=== PATIENT | female | born 1990 | race Caucasian/White ===

== ENCOUNTER 2018-03-09 18:45 | Emergency (ER) | payer MEDICARE ==
[~2018-03-09] VITALS: Ht 180.3 cm; Wt 125.6 kg
[2018-03-09] MEDS ORDERED: DEXTROSE 50% 25 GM / 50ML DISP.SYRIN. IV PRN (19:00)
[2018-03-09] MEDS ORDERED: IV NORMAL SALINE 1,000ML 1,000 ML IV ONE (19:30)
[2018-03-09] MEDS ORDERED: INSULIN REGULAR 100 UNIT/ML 3ML VIAL. IV ONE (19:30)
[2018-03-09 19:55] LABS: BASO % 1 % (0-3); EOS # 0.2 x10^3/uL (0.0-0.7); EOS % 3 % (0-3); HEMATOCRIT 42.4 % (36.0-47.0); HEMOGLOBIN 14.2 g/dL (12.0-15.5); LYMPH # 2.1 x10^3/uL (1.0-4.8); LYMPH % 40 % (24-48); MEAN CORPUSCULAR HEMOGLOBIN 26 pg (25-35); MEAN CORPUSCULAR HGB CONC 34 g/dL (31-37); MEAN CORPUSCULAR VOLUME 78 fL (79-100); MONO # 0.4 x10^3/uL (0.0-1.1); MONO % 8 % (0-9); NEUT # 2.6 x10^3uL (1.8-7.7); NEUT % 49 % (31-73); PLATELET COUNT 288 x10^3/uL (140-400); RED CELL DISTRIBUTION WIDTH 16.5 % (11.5-14.5); WHITE BLOOD COUNT 5.3 x10^3/uL (4.0-11.0)
[2018-03-09 20:02] LABS: ALBUMIN 3.6 g/dL (3.4-5.0); ALBUMIN/GLOBULIN RATIO 0.8 (1.0-1.7); CALCIUM 9.5 mg/dL (8.5-10.1); CREATININE 1.1 mg/dL (0.6-1.0); GFR 59.6; MAGNESIUM 2.1 mg/dL (1.8-2.4); POTASSIUM 4.1 mmol/L (3.5-5.1); TOTAL BILIRUBIN 0.4 mg/dL (0.2-1.0); TOTAL PROTEIN 7.9 g/dL (6.4-8.2)
[2018-03-09 20:10] LABS: BILIRUBIN,URINE NEG (NEG); CLARITY,URINE CLEAR; COLOR,URINE YELLOW; GLUCOSE,URINE 500 mg/dL (NEG); NITRITE,URINE NEG (NEG); UROBILINOGEN,URINE 0.2 mg/dL (0.2 mg/dL); WBC,URINE 0 /HPF (0-4)
[2018-03-09 20:11] LABS: BACTERIA,URINE 0 /HPF (0-FEW); SQUAMOUS EPITHELIAL CELL,UR FEW /LPF
--- NOTE | 2018-03-09 22:18 | PHYS DOC ---
Past History Past Medical History: Diabetes Past Surgical History: No Surgical History Smoking: Cigarettes Alcohol Use: Rarely Drug Use: None Adult General Chief Complaint Chief Complaint: BLOOD SUGAR PROBLEM HPI HPI 27-year-old female presents with report of elevated blood sugar this evening. Patient reports she has not been checking her blood sugars and adjusting her insulin injections due to not being able to afford her test strips. Denies fever or chills. Denies dysuria. Denies cough. Denies . Patient reports she doesn't follow a regimented diet plan. Review of Systems Review of Systems Constitutional: Denies fever or chills; reports generalized malaise Eyes: Denies change in visual acuity, redness, or eye pain [] HENT: Denies nasal congestion or sore throat [] Respiratory: Denies cough or shortness of breath [] Cardiovascular: Denies chest pain or syncope GI: Denies abdominal pain, nausea, vomiting, bloody stools or diarrhea [] : Denies dysuria or hematuria [] Musculoskeletal: Denies back pain or joint pain [] Integument: Denies rash or skin lesions [] Neurologic: Reports some weakness. Denies headache Complete systems were reviewed and found to be within normal limits, except as documented in this note. Current Medications Current Medications Current Medications Medications (Trade) Dose Ordered Sig/Tapan Start Time Stop Time Status Last Admin Dose Admin Dextrose 12.5 gm PRN Q15MIN PRN 03/09/18 19:00 Insulin Human Regular (HumuLIN R VIAL) 14 unit 1X ONCE 03/09/18 19:30 03/09/18 19:31 DC 03/09/18 19:42 14 UNIT Sodium Chloride 1,000 ml @ 1,000 mls/hr 1X ONCE 03/09/18 19:30 03/09/18 20:29 DC 03/09/18 19:42 1,000 MLS/HR Allergies Allergies Allergies Coded Allergies Type Severity Reaction Last Updated Verified No Known Drug Allergies 03/09/18 No Physical Exam Physical Exam Constitutional: Well developed, well nourished, no acute distress, non-toxic appearance. [] HENT: Normocephalic, atraumatic, bilateral external ears normal, oropharynx moist, no oral exudates, nose normal. [] Eyes: PERRL, EOMI, conjunctiva normal, no discharge. [] Neck: Normal range of motion, no tenderness, supple, no stridor. [] Cardiovascular:Heart rate regular rhythm, no murmur [] Lungs & Thorax: Bilateral breath sounds clear to auscultation [] Abdomen: Bowel sounds normal, soft, no tenderness, no masses, no pulsatile masses. [] Skin: Warm, dry, no erythema, no rash. [] Back: No tenderness, no CVA tenderness. [] Extremities: No tenderness, no cyanosis, no clubbing, ROM intact, no edema. [] Neurologic: Alert and oriented X 3, normal motor function, normal sensory function, no focal deficits noted. [] Psychologic: Affect normal, judgement normal, mood normal. [] Current Patient Data Lab Results Laboratory Tests Test 03/09/18 18:41 03/09/18 19:04 03/09/18 19:15 03/09/18 20:58 POC Urine HCG, Qualitative hcg negative (Negative) Glucose (Fingerstick) 506 mg/dL (70-99) *H 341 mg/dL (70-99) H White Blood Count 5.3 x10^3/uL (4.0-11.0) Red Blood Count 5.40 x10^6/uL (3.50-5.40) Hemoglobin 14.2 g/dL (12.0-15.5) Hematocrit 42.4 % (36.0-47.0) Mean Corpuscular Volume 78 fL (79-100) L Mean Corpuscular Hemoglobin 26 pg (25-35) Mean Corpuscular Hemoglobin Concent 34 g/dL (31-37) Red Cell Distribution Width 16.5 % (11.5-14.5) H Platelet Count 288 x10^3/uL (140-400) Neutrophils (%) (Auto) 49 % (31-73) Lymphocytes (%) (Auto) 40 % (24-48) Monocytes (%) (Auto) 8 % (0-9) Eosinophils (%) (Auto) 3 % (0-3) Basophils (%) (Auto) 1 % (0-3) Neutrophils # (Auto) 2.6 x10^3uL (1.8-7.7) Lymphocytes # (Auto) 2.1 x10^3/uL (1.0-4.8) Monocytes # (Auto) 0.4 x10^3/uL (0.0-1.1) Eosinophils # (Auto) 0.2 x10^3/uL (0.0-0.7) Basophils # (Auto) 0.0 x10^3/uL (0.0-0.2) Urine Collection Type Unknown Urine Color Yellow Urine Clarity Clear Urine pH 5.0 Urine Specific [place] 1.010 Urine Protein Neg (NEG-TRACE) Urine Glucose (UA) 500 mg/dL (NEG) Urine Ketones (Stick) Neg mg/dL (NEG) Urine Blood Mod (NEG) Urine Nitrite Neg (NEG) Urine Bilirubin Neg (NEG) Urine Urobilinogen Dipstick 0.2 mg/dL (0.2 mg/dL) Urine Leukocyte Esterase Neg (NEG) Urine RBC 6-10 /HPF (0-2) Urine WBC 0 /HPF (0-4) Urine Squamous Epithelial Cells Few /LPF Urine Bacteria 0 /HPF (0-FEW) Sodium Level 131 mmol/L (136-145) L Potassium Level 4.1 mmol/L (3.5-5.1) Chloride Level 95 mmol/L (98-107) L Carbon Dioxide Level 22 mmol/L (21-32) Anion Gap 14 (6-14) Blood Urea Nitrogen 13 mg/dL (7-20) Creatinine 1.1 mg/dL (0.6-1.0) H Estimated GFR (Cockcroft-Gault) 59.6 BUN/Creatinine Ratio 12 (6-20) Glucose Level 507 mg/dL (70-99) *H Calcium Level 9.5 mg/dL (8.5-10.1) Magnesium Level 2.1 mg/dL (1.8-2.4) Total Bilirubin 0.4 mg/dL (0.2-1.0) Aspartate Amino Transferase (AST) 14 U/L (15-37) L Alanine Aminotransferase (ALT) 29 U/L (14-59) Alkaline Phosphatase 149 U/L (46-116) H Total Protein 7.9 g/dL (6.4-8.2) Albumin 3.6 g/dL (3.4-5.0) Albumin/Globulin Ratio 0.8 (1.0-1.7) L Acetone Level Neg (NEG) Test 03/09/18 21:56 Glucose (Fingerstick) 325 mg/dL (70-99) H EKG EKG [] Radiology/Procedures Radiology/Procedures [] Course & Med Decision Making Course & Med Decision Making Pertinent Labs and Imaging studies reviewed. (See chart for details) Patient presents with report of hyperglycemia this evening. Patient has not been adjusting her insulin due to lack of testing strips. Labs obtained and posted to chart. Hyperglycemia addressed with subcutaneous insulin. IV fluid hydration also provided. Patient does not appear to be in DKA or HHS. Patient advised to obtain testing strips and to maintain a 1800 ADA diet. Patient stable for discharge with outpatient follow-up with PCP. Discussed findings and plan with patient, who acknowledges understanding and agreement. Dragon Disclaimer Dragon Disclaimer This electronic medical record was generated, in whole or in part, using a voice recognition dictation system. Departure Departure: Impression: Primary Impression: Hyperglycemia Disposition: 01 HOME, SELF-CARE Condition: STABLE Referrals: PCPMIGUE (PCP) Patient Instructions: 1800 Calorie Diet for Diabetes Meal Planning, Hyperglycemia, [id number] JIMY DAVISON DO Mar 09, 2018 22:18
[2018-03-09 22:20] VITALS: BP 148/63
== END 2018-03-09 22:25 | disposition home or self-care (01) ==
LOC: ER 18:45
DX: E11.65 Type 2 diabetes mellitus with hyperglycemia (principal); F17.210 Nicotine dependence, cigarettes, uncomplicated
CPT/HCPCS: 36415; 80053; 81001; 81025; 82010; 82947; 83735; 83930; 85025; 96361; 96374; 99284; J1815; J7030

== ENCOUNTER 2018-06-05 19:10 | Emergency (ER) | payer MEDICARE ==
[~2018-06-05] VITALS: Ht 180.3 cm; Wt 125.6 kg
--- NOTE | 2018-06-05 19:31 | PHYS DOC ---
Past History Past Medical History: Diabetes Past Surgical History: No Surgical History Smoking: Cigarettes Alcohol Use: Rarely Drug Use: None Adult General Chief Complaint Chief Complaint: HYPERGLYCEMIA HPI HPI Patient is a 27 yo f reporting hyperglycemia. type one glucose unreadable. lantus 80 units bid last took it at noon. sob green mucus cough, blurry vision lightheaded. body aches just not feeling well today. left headache behind eye noted as well, dull pressure a/w sinus drainage and congestion. pmh htn factor v leiden, scect x two. bipolar. ptsd. Review of Systems Review of Systems Constitutional: Denies fever or chills [] Eyes: Denies change in visual acuity, redness, or eye pain [] HENT: Denies nasal congestion or sore throat [] Respiratory: Denies cough or shortness of breath [] Cardiovascular: No additional information not addressed in HPI [] GI: Denies abdominal pain, nausea, vomiting, bloody stools or diarrhea [] : Denies dysuria or hematuria [] Musculoskeletal: Denies back pain or joint pain [] All other systems were reviewed and found to be within normal limits, except as documented in this note. Allergies Allergies Allergies Coded Allergies Type Severity Reaction Last Updated Verified No Known Drug Allergies 03/09/18 No Physical Exam Physical Exam Constitutional: Well developed, well nourished, no acute distress, non-toxic appearance. [] HENT: Normocephalic, atraumatic, bilateral external ears normal, oropharynx dry , no oral exudates, nose normal. [] there is sinus ttp noted left frontal sinus area. Eyes: PERRLA, EOMI, conjunctiva normal, no discharge. [] Neck: Normal range of motion, no tenderness, supple, no stridor. [] Pulmonary: Normal respiratory effort no increased work of breathing no obvious chest wall trauma. lungs clear to ausculation Abdomen: Bowel sounds normal, soft, no tenderness, no masses, no pulsatile masses. [] Skin: Warm, dry, no erythema, no rash. [] Extremities: No tenderness, no cyanosis, no clubbing, ROM intact, no edema. [] Neurologic: Alert and oriented X 3, normal motor function, normal sensory function, no focal deficits noted. [] Psychologic: Affect normal, judgement normal, mood normal. [] EKG EKG [] Radiology/Procedures Radiology/Procedures [] Course & Med Decision Making Course & Med Decision Making Pertinent Labs and Imaging studies reviewed. (See chart for details) []bg 192. iv fluids cxr no pna u/a clear labs done hydration completed pt well appearing suspect sinusitis probably viral but given hx of diabetes and the underlying tachycardia of 128. bp 133/95. will give abx for possible bacterial sinusitis.cn's intact, neuro intact. reeval 1020 pm, pt resting hr down to 105 after fluids. labs look good. pt will be treated for sinusitis with abx given underlying diabetes. no dka. Dragon Disclaimer Dragon Disclaimer This electronic medical record was generated, in whole or in part, using a voice recognition dictation system. Departure Departure: Impression: Primary Impression: Sinusitis Disposition: HOME, SELF-CARE Condition: STABLE Referrals: PCP,NO (PCP) Scripts Doxycycline Hyclate (DOXYCYCLINE HYCLATE) 100 Mg Capsule 1 CAP PO BID, #20 CAP Prov: CHASITY GUZMAN MD 06/05/18 CHASITY GUZMAN MD Jun 05, 2018 19:31
[2018-06-05] MEDS ORDERED: IV NORMAL SALINE 1,000ML 1,000 ML IV ONE (20:00)
[2018-06-05] MEDS ORDERED: IBUPROFEN 600 MG TABLET. PO ONE (20:00)
[2018-06-05] MEDS ORDERED: DOXY100C2 PO (20:12)
--- NOTE | 2018-06-05 20:27 | RAD ---
AP chest 06/05/2018. Reason for exam: Fever and shortness of breath. History of open heart surgery. No infiltrate or effusion is seen. Heart size and pulmonary vascularity appear normal. There are changes of median sternotomy. IMPRESSION: No apparent acute abnormality. Electronically signed by: Yannick Teixeira Jr., MD (06/05/2018 8:23 PM) [facility]
[2018-06-05 20:30] LABS: BASO # 0.1 x10^3/uL (0.0-0.2); BASO % 1 % (0-3); EOS # 0.1 x10^3/uL (0.0-0.7); EOS % 2 % (0-3); HEMATOCRIT 44.8 % (36.0-47.0); HEMOGLOBIN 14.9 g/dL (12.0-15.5); LYMPH # 2.2 x10^3/uL (1.0-4.8); LYMPH % 28 % (24-48); MEAN CORPUSCULAR HEMOGLOBIN 28 pg (25-35); MEAN CORPUSCULAR HGB CONC 33 g/dL (31-37); MEAN CORPUSCULAR VOLUME 84 fL (79-100); MONO # 0.6 x10^3/uL (0.0-1.1); MONO % 8 % (0-9); NEUT # 4.8 x10^3uL (1.8-7.7); NEUT % 61 % (31-73); PLATELET COUNT 347 x10^3/uL (140-400); RED BLOOD COUNT 5.33 x10^6/uL (3.50-5.40); RED CELL DISTRIBUTION WIDTH 15.2 % (11.5-14.5); WHITE BLOOD COUNT 7.9 x10^3/uL (4.0-11.0)
[2018-06-05 20:44] LABS: ALBUMIN 3.8 g/dL (3.4-5.0); ALBUMIN/GLOBULIN RATIO 0.9 (1.0-1.7); CALCIUM 9.4 mg/dL (8.5-10.1); CREATININE 0.8 mg/dL (0.6-1.0); TOTAL BILIRUBIN 0.3 mg/dL (0.2-1.0)
[2018-06-05 20:50] LABS: INFLUENZA A PATIENT NEGATIVE (NEGATIVE); INFLUENZA B PATIENT NEGATIVE (NEGATIVE)
[2018-06-05 21:16] LABS: BILIRUBIN,URINE NEG (NEG); CLARITY,URINE CLOUDY; COLOR,URINE YELLOW; GLUCOSE,URINE 100 mg/dL (NEG)
[2018-06-05 21:18] LABS: BACTERIA,URINE FEW /HPF (0-FEW); NITRITE,URINE NEG (NEG); RBC,URINE >40 /HPF (0-2); SQUAMOUS EPITHELIAL CELL,UR FEW /LPF; UROBILINOGEN,URINE 1 mg/dL (0.2 mg/dL)
[2018-06-05 22:29] VITALS: BP 123/63
== END 2018-06-05 22:30 | disposition home or self-care (01) ==
LOC: ER 19:10
DX: J32.8 Other chronic sinusitis (principal); B96.89 Other specified bacterial agents as the cause of diseases classified elsewhere; E11.65 Type 2 diabetes mellitus with hyperglycemia; F17.210 Nicotine dependence, cigarettes, uncomplicated
CPT/HCPCS: 36415; 71045; 80053; 81001; 82947; 84702; 85025; 87086; 87804; 96360; 99285-25; J7030

== ENCOUNTER 2018-06-23 03:11 | Emergency (ER) | payer MEDICARE ==
[~2018-06-23] VITALS: Ht 180.3 cm; Wt 113.4 kg
[~2018-06-23 03:11] MED LIST: DOXY100C2 PO
[2018-06-23 04:07] LABS: BASO % 1 % (0-3); EOS % 1 % (0-3); HEMATOCRIT 42.6 % (36.0-47.0); HEMOGLOBIN 14.2 g/dL (12.0-15.5); LYMPH # 1.7 x10^3/uL (1.0-4.8); LYMPH % 28 % (24-48); MEAN CORPUSCULAR HEMOGLOBIN 28 pg (25-35); MEAN CORPUSCULAR HGB CONC 33 g/dL (31-37); MEAN CORPUSCULAR VOLUME 84 fL (79-100); MONO # 0.4 x10^3/uL (0.0-1.1); MONO % 7 % (0-9); NEUT % 64 % (31-73); PLATELET COUNT 247 x10^3/uL (140-400); RED BLOOD COUNT 5.07 x10^6/uL (3.50-5.40); RED CELL DISTRIBUTION WIDTH 15.1 % (11.5-14.5); WHITE BLOOD COUNT 6.2 x10^3/uL (4.0-11.0)
[2018-06-23 04:12] LABS: BACTERIA,URINE 0 /HPF (0-FEW); BILIRUBIN,URINE NEG (NEG); CLARITY,URINE CLEAR; COLOR,URINE YELLOW; GLUCOSE,URINE 500 mg/dL (NEG); NITRITE,URINE NEG (NEG); SQUAMOUS EPITHELIAL CELL,UR OCC /LPF; UROBILINOGEN,URINE 0.2 mg/dL (0.2 mg/dL); WBC,URINE 0 /HPF (0-4)
--- NOTE | 2018-06-23 04:12 | PHYS DOC ---
LAMONT BLANTON MD 06/23/18 0412: Adult General Chief Complaint Chief Complaint suicide HPI HPI 27 female stated she wants to kill herself infront of her boyfriend multiple times , denies any medical symptoms no chest pain no abdominal pain no diarrhea and urgency frequency no hematuria Review of Systems Review of Systems Constitutional: Denies fever or chills [] Eyes: Denies change in visual acuity, redness, or eye pain [] HENT: Denies nasal congestion or sore throat [] Respiratory: Denies cough or shortness of breath [] Cardiovascular: No additional information not addressed in HPI [] GI: Denies abdominal pain, nausea, vomiting, bloody stools or diarrhea [] : Denies dysuria or hematuria [] Musculoskeletal: Denies back pain or joint pain [] Integument: Denies rash or skin lesions [] Neurologic: Denies headache, focal weakness or sensory changes [] Endocrine: Denies polyuria or polydipsia [] All other systems were reviewed and found to be within normal limits, except as documented in this note. Current Medications Current Medications Current Medications Medications (Trade) Dose Ordered Sig/Tapan Start Time Stop Time Status Last Admin Dose Admin Insulin Glargine (Lantus) 20 units QHS 06/23/18 04:30 Insulin Human Regular (HumuLIN R VIAL) 5 unit 1X ONCE 06/23/18 04:30 06/23/18 04:31 Sodium Chloride 1,000 ml @ 150 mls/hr 1X ONCE 06/23/18 04:30 06/23/18 11:09 Allergies Allergies Allergies Coded Allergies Type Severity Reaction Last Updated Verified No Known Drug Allergies 03/09/18 No Physical Exam Physical Exam Constitutional: Well developed, well nourished, no acute distress, non-toxic appearance. [] HENT: Normocephalic, atraumatic, bilateral external ears normal, oropharynx moist, no oral exudates, nose normal. [] Eyes: PERRLA, EOMI, conjunctiva normal, no discharge. [] Neck: Normal range of motion, no tenderness, supple, no stridor. [] Cardiovascular:Heart rate regular rhythm, no murmur [] Lungs & Thorax: Bilateral breath sounds clear to auscultation [] Abdomen: Bowel sounds normal, soft, no tenderness, no masses, no pulsatile masses. [] Skin: Warm, dry, no erythema, no rash. [] Back: No tenderness, no CVA tenderness. [] Extremities: No tenderness, no cyanosis, no clubbing, ROM intact, no edema. [] Neurologic: Alert and oriented X 3, normal motor function, normal sensory function, no focal deficits noted. [] Current Patient Data Vital Signs Vital Signs Date Time Temp Pulse Resp B/P (MAP) Pulse Ox O2 Delivery O2 Flow Rate FiO2 06/23/18 03:12 98.5 117 20 96 Room Air Lab Results Laboratory Tests Test 06/23/18 03:47 06/23/18 03:53 White Blood Count 6.2 x10^3/uL (4.0-11.0) Red Blood Count 5.07 x10^6/uL (3.50-5.40) Hemoglobin 14.2 g/dL (12.0-15.5) Hematocrit 42.6 % (36.0-47.0) Mean Corpuscular Volume 84 fL (79-100) Mean Corpuscular Hemoglobin 28 pg (25-35) Mean Corpuscular Hemoglobin Concent 33 g/dL (31-37) Red Cell Distribution Width 15.1 % (11.5-14.5) H Platelet Count 247 x10^3/uL (140-400) Neutrophils (%) (Auto) 64 % (31-73) Lymphocytes (%) (Auto) 28 % (24-48) Monocytes (%) (Auto) 7 % (0-9) Eosinophils (%) (Auto) 1 % (0-3) Basophils (%) (Auto) 1 % (0-3) Neutrophils # (Auto) 4.0 x10^3uL (1.8-7.7) Lymphocytes # (Auto) 1.7 x10^3/uL (1.0-4.8) Monocytes # (Auto) 0.4 x10^3/uL (0.0-1.1) Eosinophils # (Auto) 0.0 x10^3/uL (0.0-0.7) Basophils # (Auto) 0.0 x10^3/uL (0.0-0.2) Glucose (Fingerstick) 376 mg/dL (70-99) H EKG EKG [] Radiology/Procedures Radiology/Procedures [] Course & Med Decision Making Course & Med Decision Making Pertinent Labs and Imaging studies reviewed. (See chart for details) [] Final Impression Final Impression [] Problems: (1) Suicide ideation Dragon Disclaimer Dragon Disclaimer This electronic medical record was generated, in whole or in part, using a voice recognition dictation system. LV SLOAN DO 06/23/18 1237: Adult General Course & Med Decision Making Course & Med Decision Making The patient had a psych consult with the [facility]. It was their opinion that the patient could be safely discharged with close follow-up later this AM. Patient did sign a safety plan. She was in agreement with discharge. LAMONT BLANTON MD Jun 23, 2018 04:12 LV SLOAN DO Jun 23, 2018 12:37
[2018-06-23 04:13] LABS: U PREG PATIENT NEGATIVE (NEG)
[2018-06-23 04:18] LABS: ALBUMIN 3.7 g/dL (3.4-5.0); ALBUMIN/GLOBULIN RATIO 0.8 (1.0-1.7); CALCIUM 9.4 mg/dL (8.5-10.1); CREATININE 0.7 mg/dL (0.6-1.0); GFR 100.4; POTASSIUM 3.8 mmol/L (3.5-5.1); TOTAL BILIRUBIN 0.4 mg/dL (0.2-1.0); TOTAL PROTEIN 8.1 g/dL (6.4-8.2)
[2018-06-23] MEDS ORDERED: INSULIN REGULAR 100 UNIT/ML 3ML VIAL. IV ONE (04:30)
[2018-06-23] MEDS ORDERED: INSULIN GLARGINE 300 UNITS/3 ML INSULN.PEN. SQ SCH (04:30)
[2018-06-23] MEDS ORDERED: IV NORMAL SALINE 1,000ML 1,000 ML IV ONE ×2 (04:30)
[2018-06-23] MEDS ORDERED: diphenhydrAMINE 50 MG/ML VIAL ONE (04:41)
[2018-06-23] MEDS ORDERED: PROCHLORPERAZINE 10 MG/2 ML VIAL. ONE (04:41)
[2018-06-23] MEDS ORDERED: diphenhydrAMINE 50 MG/ML VIAL IVP ONE (05:00)
[2018-06-23] MEDS ORDERED: PROCHLORPERAZINE 10 MG/2 ML VIAL. IV ONE (05:00)
[2018-06-23] MEDS ORDERED: KETOROLAC 15 MG/ML VIAL. IM ONE (05:00)
[2018-06-23 05:05] LABS: BARBITURATES NEG (NEG); BENZODIAZEPINES NEG (NEG); CANNABINOIDS NEG (NEG); COCAINE NEG (NEG); METHADONE NEG (NEG); OPIATES NEG (NEG); PHENCYCLIDINE NEG (NEG)
[2018-06-23 05:08] LABS: AMPHETAMINE/METHAMPHETAMINE NEG (NEG)
[2018-06-23 08:24] VITALS: BP 140/93
== END 2018-06-23 08:05 | disposition home or self-care (01) ==
LOC: ER 03:11
DX: R45.851 Suicidal ideations (principal)
CPT/HCPCS: 36415; 80053; 80307; 81001; 81025; 82947; 83690; 85025; 96372; 96374; 96375; 99284; J0780; J1200; J1815; J1885; J7030

== ENCOUNTER 2018-11-01 20:52 | Emergency (ER) | payer MEDICARE, OTHER ==
[~2018-11-01] VITALS: Ht 180.3 cm; Wt 108.4 kg
[2018-11-01] MEDS ORDERED: IV NORMAL SALINE 1,000ML 1,000 ML IV ONE ×2 (21:30→23:00)
[2018-11-01 21:51] LABS: BASO % 0 % (0-3); EOS # 0.1 x10^3/uL (0.0-0.7); EOS % 3 % (0-3); HEMATOCRIT 41.3 % (36.0-47.0); LYMPH % 41 % (24-48); MEAN CORPUSCULAR HEMOGLOBIN 30 pg (25-35); MEAN CORPUSCULAR HGB CONC 34 g/dL (31-37); MEAN CORPUSCULAR VOLUME 89 fL (79-100); MONO # 0.4 x10^3/uL (0.0-1.1); MONO % 8 % (0-9); NEUT # 2.4 x10^3uL (1.8-7.7); NEUT % 48 % (31-73); PLATELET COUNT 209 x10^3/uL (140-400); RED BLOOD COUNT 4.65 x10^6/uL (3.50-5.40); RED CELL DISTRIBUTION WIDTH 13.5 % (11.5-14.5); WHITE BLOOD COUNT 4.9 x10^3/uL (4.0-11.0)
[2018-11-01 21:57] LABS: ALBUMIN 3.5 g/dL (3.4-5.0); CALCIUM 9.1 mg/dL (8.5-10.1); CREATININE 0.6 mg/dL (0.6-1.0); GFR 119.9; POTASSIUM 3.7 mmol/L (3.5-5.1); TOTAL BILIRUBIN 0.3 mg/dL (0.2-1.0)
[2018-11-01 21:58] LABS: BACTERIA,URINE 0 /HPF (0-FEW); BILIRUBIN,URINE NEG (NEG); CLARITY,URINE HAZY; COLOR,URINE YELLOW; GLUCOSE,URINE >=1000 mg/dL (NEG); NITRITE,URINE NEG (NEG); RBC,URINE 0 /HPF (0-2); SQUAMOUS EPITHELIAL CELL,UR OCC /LPF; UROBILINOGEN,URINE 0.2 mg/dL (0.2 mg/dL)
[2018-11-01] MEDS ORDERED: INSULIN REGULAR 100 UNIT/ML 3ML VIAL. IV ONE (22:00)
--- NOTE | 2018-11-02 01:13 | PHYS DOC ---
Past History Past Medical History: Anxiety, Bipolar, Diabetes Past Surgical History: , Other Smoking: Cigarettes Additional Smoking Information: quit 2 months ago Alcohol Use: Occasionally Drug Use: None Adult General Chief Complaint Chief Complaint: HYPERGLYCEMIA HPI HPI Patient is a 27-year-old female who presents with report of elevated blood glucose levels at home for the last month or so. She states that she has just not been feeling well for the last few days, attributing it to be elevated blood sugar. She does admit to some intermittent nausea but is had no vomiting. She denies any abdominal pain. Patient states that she just gets to feeling a little bit lightheaded and feeling a little bit off when her blood sugars are high. She states that tonight she took her blood sugar at home and it read high. Review of Systems Review of Systems Constitutional: Denies fever or chills [] Respiratory: Denies cough or shortness of breath [] Cardiovascular: No additional information not addressed in HPI [] GI: Denies abdominal pain. Admits to nausea without vomiting. [] Integument: Denies rash or skin lesions [] All other systems were reviewed and found to be within normal limits, except as documented in this note. Current Medications Current Medications Current Medications Medications (Trade) Dose Ordered Sig/Tapan Start Time Stop Time Status Last Admin Dose Admin Insulin Human Regular (HumuLIN R VIAL) 8 unit 1X ONCE 11/01/18 22:00 11/01/18 22:01 DC 11/01/18 22:48 8 UNIT Sodium Chloride 1,000 ml @ 1,000 mls/hr 1X ONCE 11/01/18 23:00 11/01/18 23:59 DC 11/01/18 22:57 1,000 MLS/HR Allergies Allergies Allergies Coded Allergies Type Severity Reaction Last Updated Verified No Known Drug Allergies 03/09/18 No Physical Exam Physical Exam Constitutional: Well developed, well nourished, no acute distress, non-toxic appearance. [] HENT: Normocephalic, atraumatic, bilateral external ears normal, oropharynx moist, no oral exudates, nose normal. [] Eyes: PERRLA, EOMI, conjunctiva normal, no discharge. [] Neck: Normal range of motion, no tenderness, supple, no stridor. [] Cardiovascular: Regular rate and rhythm[] Lungs & Thorax: Bilateral breath sounds clear to auscultation [] Abdomen: Bowel sounds normal, soft, no tenderness. [] Skin: Warm, dry, no erythema, no rash. [] Extremities: No tenderness, no cyanosis, no clubbing, ROM intact, no edema. [] Neurologic: Alert and oriented X 3, no focal deficits noted. [] Current Patient Data Vital Signs Vital Signs Date Time Temp Pulse Resp B/P (MAP) Pulse Ox O2 Delivery O2 Flow Rate FiO2 11/01/18 20:52 98.4 106 18 99 Room Air Lab Results Laboratory Tests Test 11/01/18 21:01 11/01/18 21:33 11/01/18 21:35 11/01/18 22:27 Glucose (Fingerstick) 375 mg/dL (70-99) H 281 mg/dL (70-99) H POC Urine HCG, Qualitative hcg negative (Negative) White Blood Count 4.9 x10^3/uL (4.0-11.0) Red Blood Count 4.65 x10^6/uL (3.50-5.40) Hemoglobin 14.0 g/dL (12.0-15.5) Hematocrit 41.3 % (36.0-47.0) Mean Corpuscular Volume 89 fL (79-100) Mean Corpuscular Hemoglobin 30 pg (25-35) Mean Corpuscular Hemoglobin Concent 34 g/dL (31-37) Red Cell Distribution Width 13.5 % (11.5-14.5) Platelet Count 209 x10^3/uL (140-400) Neutrophils (%) (Auto) 48 % (31-73) Lymphocytes (%) (Auto) 41 % (24-48) Monocytes (%) (Auto) 8 % (0-9) Eosinophils (%) (Auto) 3 % (0-3) Basophils (%) (Auto) 0 % (0-3) Neutrophils # (Auto) 2.4 x10^3uL (1.8-7.7) Lymphocytes # (Auto) 2.0 x10^3/uL (1.0-4.8) Monocytes # (Auto) 0.4 x10^3/uL (0.0-1.1) Eosinophils # (Auto) 0.1 x10^3/uL (0.0-0.7) Basophils # (Auto) 0.0 x10^3/uL (0.0-0.2) Urine Collection Type Unknown Urine Color Yellow Urine Clarity Hazy Urine pH 5.0 Urine Specific [place] 1.010 Urine Protein Neg (NEG-TRACE) Urine Glucose (UA) >=1000 mg/dL (NEG) Urine Ketones (Stick) 15 mg/dL (NEG) Urine Blood Neg (NEG) Urine Nitrite Neg (NEG) Urine Bilirubin Neg (NEG) Urine Urobilinogen Dipstick 0.2 mg/dL (0.2 mg/dL) Urine Leukocyte Esterase Neg (NEG) Urine RBC 0 /HPF (0-2) Urine WBC 1-4 /HPF (0-4) Urine Squamous Epithelial Cells Occ /LPF Urine Bacteria 0 /HPF (0-FEW) Sodium Level 135 mmol/L (136-145) L Potassium Level 3.7 mmol/L (3.5-5.1) Chloride Level 100 mmol/L (98-107) Carbon Dioxide Level 24 mmol/L (21-32) Anion Gap 11 (6-14) Blood Urea Nitrogen 13 mg/dL (7-20) Creatinine 0.6 mg/dL (0.6-1.0) Estimated GFR (Cockcroft-Gault) 119.9 BUN/Creatinine Ratio 22 (6-20) H Glucose Level 375 mg/dL (70-99) H Calcium Level 9.1 mg/dL (8.5-10.1) Magnesium Level 2.0 mg/dL (1.8-2.4) Total Bilirubin 0.3 mg/dL (0.2-1.0) Aspartate Amino Transferase (AST) 14 U/L (15-37) L Alanine Aminotransferase (ALT) 17 U/L (14-59) Alkaline Phosphatase 121 U/L (46-116) H Total Protein 7.0 g/dL (6.4-8.2) Albumin 3.5 g/dL (3.4-5.0) Albumin/Globulin Ratio 1.0 (1.0-1.7) Acetone Level Neg (NEG) Test 11/02/18 00:55 Glucose (Fingerstick) 124 mg/dL (70-99) H EKG EKG [] Radiology/Procedures Radiology/Procedures [] Course & Med Decision Making Course & Med Decision Making Pertinent Labs and Imaging studies reviewed. (See chart for details) [] Dragon Disclaimer Dragon Disclaimer This electronic medical record was generated, in whole or in part, using a voice recognition dictation system. Departure Departure: Impression: Primary Impression: Type 1 diabetes mellitus with hyperglycemia Disposition: HOME, SELF-CARE Condition: STABLE Referrals: PCPMIGUE (PCP) Patient Instructions: Type 1 Diabetes Mellitus, Adult JOHN FISCHER Jr. DO Nov 02, 2018 01:13
[2018-11-02 01:28] VITALS: BP 137/81
--- NOTE | 2018-11-02 12:09 | EKG ---
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
== END 2018-11-02 01:28 | disposition home or self-care (01) ==
LOC: ER 20:52
DX: E10.65 Type 1 diabetes mellitus with hyperglycemia (principal); R42 Dizziness and giddiness; F41.9 Anxiety disorder, unspecified; F31.9 Bipolar disorder, unspecified; Z87.891 Personal history of nicotine dependence
CPT/HCPCS: 36415; 80053; 81001; 81025; 82010; 82947; 83735; 85025; 93005; 96361; 96374; 99284; J1815; J7030

== ENCOUNTER 2018-12-11 18:31 | Emergency (ER) | payer OTHER ==
[~2018-12-11] VITALS: Ht 180.3 cm; Wt 111.3 kg
[2018-12-11] MEDS ORDERED: ONDANSETRON PF 4 MG/2 ML VIAL. IV ONE (19:00)
[2018-12-11] MEDS ORDERED: INSULIN REGULAR 100 UNIT/ML 3ML VIAL. IV ONE (19:00)
[2018-12-11] MEDS ORDERED: IV NORMAL SALINE 1,000ML 1,000 ML IV SCH (19:00)
[2018-12-11 19:06] LABS: BASO # 0.1 x10^3/uL (0.0-0.2); BASO % 2 % (0-3); EOS # 0.1 x10^3/uL (0.0-0.7); EOS % 3 % (0-3); HEMATOCRIT 41.1 % (36.0-47.0); HEMOGLOBIN 14.6 g/dL (12.0-15.5); LYMPH # 1.4 x10^3/uL (1.0-4.8); LYMPH % 32 % (24-48); MEAN CORPUSCULAR HEMOGLOBIN 32 pg (25-35); MEAN CORPUSCULAR HGB CONC 35 g/dL (31-37); MEAN CORPUSCULAR VOLUME 90 fL (79-100); MONO # 0.3 x10^3/uL (0.0-1.1); MONO % 6 % (0-9); NEUT # 2.6 x10^3uL (1.8-7.7); NEUT % 58 % (31-73); PLATELET COUNT 233 x10^3/uL (140-400); RED BLOOD COUNT 4.58 x10^6/uL (3.50-5.40); RED CELL DISTRIBUTION WIDTH 13.5 % (11.5-14.5); WHITE BLOOD COUNT 4.4 x10^3/uL (4.0-11.0)
[2018-12-11 19:17] LABS: GFR 119.9
[2018-12-11 19:30] LABS: POTASSIUM 3.9 mmol/L (3.5-5.1)
[2018-12-11 19:41] LABS: CALCIUM 8.9 mg/dL (8.5-10.1)
[2018-12-11 19:42] LABS: CREATININE 0.6 mg/dL (0.6-1.0)
[2018-12-11] MEDS ORDERED: IV NORMAL SALINE 1,000ML 1,000 ML IV ONE (20:30)
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
[2018-12-11] MEDS ORDERED: CYCL-331 PO (20:58)
[2018-12-11 21:10] VITALS: BP 169/93
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
--- NOTE | 2018-12-12 06:37 | EKG ---
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
== END 2018-12-11 21:10 | disposition home or self-care (01) ==
LOC: ER 18:31
DX: S16.1XXA Strain of muscle, fascia and tendon at neck level, initial encounter (principal); R07.89 Other chest pain; R51 Headache; E11.65 Type 2 diabetes mellitus with hyperglycemia; F41.9 Anxiety disorder, unspecified; F31.9 Bipolar disorder, unspecified; Z88.8 Allergy status to other drugs, medicaments and biological substances; V43.52XA Car driver injured in collision with other type car in traffic accident, initial encounter; Y93.I9 Activity, other involving external motion; Y92.488 Other paved roadways as the place of occurrence of the external cause; Y99.8 Other external cause status
CPT/HCPCS: 36415; 70450; 71045; 72125; 80048; 81025; 82947; 85025; 93005; 96361; 96374; 96375; 96376; 99285; J1815; J2405; J3010; J7030

== ENCOUNTER 2019-03-05 00:12 | Emergency (ER) | payer MEDICARE, OTHER ==
[~2019-03-05] VITALS: Ht 180.3 cm; Wt 101.7 kg
[~2019-03-05 00:12] MED LIST changes: +CYCL-331 PO
--- NOTE | 2019-03-05 00:18 | ED.ADGEN ---
Past History Past Medical History: Anxiety, Bipolar, Depression, Diabetes, DVT, Fibromyalgia, Hypertension, Migraines, Other Past Medical History Factor V- coagulopathy, ASD repair Past Surgical History: , Other Smoking: Cigarettes Alcohol Use: Occasionally Drug Use: None Adult General Chief Complaint Chief Complaint ".. I ve had a headache since about 5.... it is migraine like.. but the pain comes up neck area over the top my head.. my scalp even hurts... I did not come in earlier because I have a 1 and 5 yr old and had to wait till my got off work...." HPI HPI Patient is a 28 year old female who presents with above hx and complaints of migraine headache. Pt. denies any changes in her meds. Patient states her glucose checked earlier today was 180. Patient does have a history of hypertension and coagulopathy due to factor V Leiden. Patient denies any trauma. Patient denies any travel or specific ill contacts other than 1 child has pinkeye. Patient denies any drug use. Patient quit smoking 8 months ago. Patient states home meds and over the counter meds have not helped. Review of Systems Review of Systems Constitutional: Denies fever or chills [] Eyes: Denies change in visual acuity, redness, or eye pain []Complaints of photophobia. HENT: Denies nasal congestion or sore throat [] Respiratory: Denies cough or shortness of breath [] Cardiovascular: No additional information not addressed in HPI [] GI: Denies abdominal pain, , vomiting, bloody stools or diarrhea [] Complaints of nausea. : Denies dysuria or hematuria [] Musculoskeletal: Denies back pain or joint pain [] Integument: Denies rash or skin lesions [] Neurologic: Complaints of headache,. Denies focal weakness or sensory changes [] Endocrine: Denies polyuria or polydipsia [] All other systems were reviewed and found to be within normal limits, except as documented in this note. Family History Family History DM, HTN Current Medications Current Medications Current Medications Medications (Trade) Dose Ordered Sig/[place] Start Time Stop Time Status Last Admin Dose Admin Diphenhydramine HCl (Benadryl) 50 mg 1X ONCE 03/05/19 01:00 03/05/19 01:01 DC 03/05/19 00:52 50 MG Ketorolac Tromethamine (Toradol 30mg Vial) 30 mg 1X ONCE 03/05/19 02:00 03/05/19 02:01 DC 03/05/19 02:07 30 MG Lactated Ringer's 1,000 ml @ 1,000 mls/hr Q1H 03/05/19 00:30 03/05/19 01:29 DC 03/05/19 00:29 1,000 MLS/HR Oxycodone/ Acetaminophen (Percocet 5/325) 2 tab 1X ONCE 03/05/19 03:30 03/05/19 03:31 DC Prochlorperazine Edisylate (Compazine) 10 mg 1X ONCE 03/05/19 01:00 03/05/19 01:01 DC 03/05/19 00:52 10 MG Sumatriptan Succinate (Imitrex) 6 mg 1X ONCE 03/05/19 02:00 03/05/19 02:01 DC 03/05/19 02:06 6 MG Allergies Allergies Allergies Coded Allergies Type Severity Reaction Last Updated Verified latex Allergy Intermediate 03/05/19 Yes lisinopril Allergy Intermediate 03/05/19 Yes quetiapine Allergy Intermediate 03/05/19 Yes warfarin Allergy Intermediate 03/05/19 Yes Physical Exam Physical Exam Constitutional: moderate acute distress, non-toxic appearance. [] HENT: Normocephalic, atraumatic, bilateral external ears normal, oropharynx moist, no oral exudates, nose normal. [] Eyes: PERRLA, EOMI, conjunctiva normal, no discharge. [] Neck: Normal range of motion, no tenderness, supple, no stridor. [] Cardiovascular: Tachycardia Heart rate regular rhythm, no murmur [] Lungs & Thorax: Bilateral breath sounds equal at apex with scattered wheezes auscultation [] Surgical scar. Abdomen: Bowel sounds normal, soft, no tenderness, no masses, no pulsatile masses. [] Obese. Old surgery scar. Skin: Warm, dry, no erythema, no rash. [] Back: No tenderness, no CVA tenderness. [] Extremities: No tenderness, no cyanosis, no clubbing, ROM intact, no edema. [] Neurologic: Alert and oriented X 3, normal motor function, normal sensory function, no focal deficits noted. []DTR + 2 patella and brachial. Lips equal. No drift. Right-hand dominant. Distal vibratory intact. Pt. ambulatory without problems. Psychologic: Affect anxious. judgement normal, mood normal. [] Current Patient Data Vital Signs Vital Signs Date Time Temp Pulse Resp B/P (MAP) Pulse Ox O2 Delivery O2 Flow Rate FiO2 03/05/19 03:30 84 18 120/78 (92) 99 Room Air 03/05/19 00:20 98.5 Lab Results Laboratory Tests Test 03/05/19 00:20 03/05/19 00:25 03/05/19 00:36 Urine Collection Type Unknown Urine Color Luciana Urine Clarity Cloudy Urine pH 6.0 Urine Specific [place] >=1.030 Urine Protein 30 mg/dl (NEG-TRACE) Urine Glucose (UA) >=1000 mg/dL (NEG) Urine Ketones (Stick) 40 mg/dL (NEG) Urine Blood Neg (NEG) Urine Nitrite Neg (NEG) Urine Bilirubin Neg (NEG) Urine Urobilinogen Dipstick 1 mg/dL (0.2 mg/dL) Urine Leukocyte Esterase Neg (NEG) Urine RBC 0 /HPF (0-2) Urine WBC 0 /HPF (0-4) Urine Squamous Epithelial Cells Occ /LPF Urine Bacteria Few /HPF (0-FEW) Urine Hyaline Casts Occ /HPF Urine Mucus Slight /LPF Urine Opiates Screen Neg (NEG) Urine Methadone Screen Neg (NEG) Urine Barbiturates Neg (NEG) Urine Phencyclidine Screen Neg (NEG) Urine Amphetamine/Methamphetamine Neg (NEG) Urine Benzodiazepines Screen Neg (NEG) Urine Cocaine Screen Neg (NEG) Urine Cannabinoids Screen Neg (NEG) Urine Ethyl Alcohol Neg (NEG) White Blood Count 6.5 x10^3/uL (4.0-11.0) Red Blood Count 5.21 x10^6/uL (3.50-5.40) Hemoglobin 15.9 g/dL (12.0-15.5) H Hematocrit 46.9 % (36.0-47.0) Mean Corpuscular Volume 90 fL (79-100) Mean Corpuscular Hemoglobin 31 pg (25-35) Mean Corpuscular Hemoglobin Concent 34 g/dL (31-37) Red Cell Distribution Width 13.4 % (11.5-14.5) Platelet Count 310 x10^3/uL (140-400) Neutrophils (%) (Auto) 38 % (31-73) Lymphocytes (%) (Auto) 50 % (24-48) H Monocytes (%) (Auto) 10 % (0-9) H Eosinophils (%) (Auto) 2 % (0-3) Basophils (%) (Auto) 0 % (0-3) Neutrophils # (Auto) 2.5 x10^3uL (1.8-7.7) Lymphocytes # (Auto) 3.2 x10^3/uL (1.0-4.8) Monocytes # (Auto) 0.6 x10^3/uL (0.0-1.1) Eosinophils # (Auto) 0.1 x10^3/uL (0.0-0.7) Basophils # (Auto) 0.0 x10^3/uL (0.0-0.2) Erythrocyte Sedimentation Rate 50 (0-25) H Prothrombin Time < 9.3 SEC (9.4-11.4) L Prothrombin Time INR 0.8 (0.9-1.1) L PTT 24 SEC (23-33) D-Dimer (Crissy) < 0.19 mg/L (0.00-0.50) Sodium Level 132 mmol/L (136-145) L Potassium Level 4.2 mmol/L (3.5-5.1) Chloride Level 98 mmol/L (98-107) Carbon Dioxide Level 20 mmol/L (21-32) L Anion Gap 14 (6-14) Blood Urea Nitrogen 11 mg/dL (7-20) Creatinine 0.8 mg/dL (0.6-1.0) Estimated GFR (Cockcroft-Gault) 85.4 Glucose Level 211 mg/dL (70-99) H Calcium Level 9.4 mg/dL (8.5-10.1) Magnesium Level 2.0 mg/dL (1.8-2.4) Total Bilirubin 0.5 mg/dL (0.2-1.0) Direct Bilirubin 0.1 mg/dL (0.0-0.2) Aspartate Amino Transferase (AST) 21 U/L (15-37) Alanine Aminotransferase (ALT) 31 U/L (14-59) Alkaline Phosphatase 140 U/L (46-116) H Total Protein 7.7 g/dL (6.4-8.2) Albumin 3.6 g/dL (3.4-5.0) POC Urine HCG, Qualitative hcg negative (Negative) EKG EKG I interpretation EKG shows sinus tachycardia heart beats per minute. No findings of acute STEMI with contralateral changes[] Radiology/Procedures Radiology/Procedures [][address] [id number] IMAGING REPORT Signed PATIENT: RYLIE BELL ACCOUNT: [id number] : 1990 LOCATION: ER AGE: 28 SEX: F EXAM STATUS: REG ER ORD. PHYSICIAN: DEBBIE LLANES MD REASON: headache, PROCEDURE: CT HEAD WO CONTRAST PQRS Compliance Statement: One or more of the following individualized dose reduction techniques were utilized for this examination: 1. Automated exposure control 2. Adjustment of the mA and/or kV according to patient size 3. Use of iterative reconstruction technique CT HEAD WITHOUT CONTRAST History: Headache. Comparison: CT head and cervical spine without contrast, December 11, 2018. Procedure: Axial images are obtained of the head from the skull base through the vertex without IV contrast. Findings: The ventricles and sulci are normal for the patient's age. No mass-effect, midline shift, hemorrhage, extra-axial fluid collection, or obvious acute infarction is identified. Basilar cisterns are patent. Bone windows demonstrate no acute calvarial abnormality. The visualized paranasal sinuses are clear. Mastoid air cells are well aerated. IMPRESSION: No acute intracranial abnormality. Electronically signed by: Desean Segura MD (03/05/2019 1:09 AM) [facility] DICTATED AND SIGNED BY: DESEAN SEGURA MD DATE: 03/05/19 0109 CC: DEBBIE LLANES MD; MATY SALMON MD ~ Course & Med Decision Making Course & Med Decision Making Pertinent Labs and Imaging studies reviewed. (See chart for details) Pt. currently refusing spinal tap. Risks and benefits discussed. Pt. currently declines Eliquis. States will follow up with Dr. Salmon. Pt. to take tylenol and ibuprofen for discomfort. Zofran for nausea and vomiting. Pt. return if elects admission or spinal tap. Encourage pt. to keep followup. [] Final Impression Final Impression 1. Headache[] 2. DM =211 3. Hx Factor V coagulopathy 4. Dehydration 5. Elevated ESR= 50 6. Elevated Lymph 50 & Piatt 10 7. Hx ASD repair age 18[facility] 8. Hx. DVT Lt arm 10 yrs. ago 9. Allergic to Coumadin 1o.Hyponatremia Dragon Disclaimer Dragon Disclaimer This electronic medical record was generated, in whole or in part, using a voice recognition dictation system. Discharge Summary Visit Information Final Diagnosis Problems Medical Problems: (1) Headache Status: Acute Brief Hospital Course Allergies Allergies Coded Allergies Type Severity Reaction Last Updated Verified latex Allergy Intermediate 03/05/19 Yes lisinopril Allergy Intermediate 03/05/19 Yes quetiapine Allergy Intermediate 03/05/19 Yes warfarin Allergy Intermediate 03/05/19 Yes Vital Signs Vital Signs Date Time Temp Pulse Resp B/P (MAP) Pulse Ox O2 Delivery O2 Flow Rate FiO2 03/05/19 03:30 84 18 120/78 (92) 99 Room Air 03/05/19 00:20 98.5 Lab Results Laboratory Tests Test 03/05/19 00:20 03/05/19 00:25 03/05/19 00:36 Urine Collection Type Unknown Urine Color Luciana Urine Clarity Cloudy Urine pH 6.0 Urine Specific [place] >=1.030 Urine Protein 30 mg/dl (NEG-TRACE) Urine Glucose (UA) >=1000 mg/dL (NEG) Urine Ketones (Stick) 40 mg/dL (NEG) Urine Blood Neg (NEG) Urine Nitrite Neg (NEG) Urine Bilirubin Neg (NEG) Urine Urobilinogen Dipstick 1 mg/dL (0.2 mg/dL) Urine Leukocyte Esterase Neg (NEG) Urine RBC 0 /HPF (0-2) Urine WBC 0 /HPF (0-4) Urine Squamous Epithelial Cells Occ /LPF Urine Bacteria Few /HPF (0-FEW) Urine Hyaline Casts Occ /HPF Urine Mucus Slight /LPF Urine Opiates Screen Neg (NEG) Urine Methadone Screen Neg (NEG) Urine Barbiturates Neg (NEG) Urine Phencyclidine Screen Neg (NEG) Urine Amphetamine/Methamphetamine Neg (NEG) Urine Benzodiazepines Screen Neg (NEG) Urine Cocaine Screen Neg (NEG) Urine Cannabinoids Screen Neg (NEG) Urine Ethyl Alcohol Neg (NEG) White Blood Count 6.5 x10^3/uL (4.0-11.0) Red Blood Count 5.21 x10^6/uL (3.50-5.40) Hemoglobin 15.9 g/dL (12.0-15.5) Hematocrit 46.9 % (36.0-47.0) Mean Corpuscular Volume 90 fL (79-100) Mean Corpuscular Hemoglobin 31 pg (25-35) Mean Corpuscular Hemoglobin Concent 34 g/dL (31-37) Red Cell Distribution Width 13.4 % (11.5-14.5) Platelet Count 310 x10^3/uL (140-400) Neutrophils (%) (Auto) 38 % (31-73) Lymphocytes (%) (Auto) 50 % (24-48) Monocytes (%) (Auto) 10 % (0-9) Eosinophils (%) (Auto) 2 % (0-3) Basophils (%) (Auto) 0 % (0-3) Neutrophils # (Auto) 2.5 x10^3uL (1.8-7.7) Lymphocytes # (Auto) 3.2 x10^3/uL (1.0-4.8) Monocytes # (Auto) 0.6 x10^3/uL (0.0-1.1) Eosinophils # (Auto) 0.1 x10^3/uL (0.0-0.7) Basophils # (Auto) 0.0 x10^3/uL (0.0-0.2) Erythrocyte Sedimentation Rate 50 (0-25) Prothrombin Time < 9.3 SEC (9.4-11.4) Prothromb Time International Ratio 0.8 (0.9-1.1) Activated Partial Thromboplast Time 24 SEC (23-33) D-Dimer (Crissy) < 0.19 mg/L (0.00-0.50) Sodium Level 132 mmol/L (136-145) Potassium Level 4.2 mmol/L (3.5-5.1) Chloride Level 98 mmol/L (98-107) Carbon Dioxide Level 20 mmol/L (21-32) Anion Gap 14 (6-14) Blood Urea Nitrogen 11 mg/dL (7-20) Creatinine 0.8 mg/dL (0.6-1.0) Estimated GFR (Cockcroft-Gault) 85.4 Glucose Level 211 mg/dL (70-99) Calcium Level 9.4 mg/dL (8.5-10.1) Magnesium Level 2.0 mg/dL (1.8-2.4) Total Bilirubin 0.5 mg/dL (0.2-1.0) Direct Bilirubin 0.1 mg/dL (0.0-0.2) Aspartate Amino Transf (AST/SGOT) 21 U/L (15-37) Alanine Aminotransferase (ALT/SGPT) 31 U/L (14-59) Alkaline Phosphatase 140 U/L (46-116) Total Protein 7.7 g/dL (6.4-8.2) Albumin 3.6 g/dL (3.4-5.0) Bedside Urine HCG, Qualitative hcg negative (Negative) Brief Hospital Course Ms. Bell is a 28 old female who presented with complaints of migraine headache. Pt. decline admission or spinal tap. Concerns DM, Coagulopathy Factor V, Elevated Lymph/Piatt. Pt. encouraged to return if any concerns and must follow up . Discharge Information Condition at Discharge: Improved, Stable Disposition/Orders: D/C to Home Dischare Medications Current Medications Lactated Ringer's 1,000 ml @ 1,000 mls/hr Q1H IV Last administered on 03/05/19at 00:29; Admin Dose 1,000 MLS/HR; Start 03/05/19 at 00:30; Stop 03/05/19 at 01:29; Status DC Diphenhydramine HCl (Benadryl) 50 mg 1X ONCE IVP Last administered on 03/05/19at 00:52; Admin Dose 50 MG; Start 03/05/19 at 01:00; Stop 03/05/19 at 01:01; Status DC Prochlorperazine Edisylate (Compazine) 10 mg 1X ONCE IV Last administered on 03/05/19at 00:52; Admin Dose 10 MG; Start 03/05/19 at 01:00; Stop 03/05/19 at 01:01; Status DC Sumatriptan Succinate (Imitrex) 6 mg 1X ONCE SQ Last administered on 03/05/19at 02:06; Admin Dose 6 MG; Start 03/05/19 at 02:00; Stop 03/05/19 at 02:01; Status DC Ketorolac Tromethamine (Toradol 30mg Vial) 30 mg 1X ONCE IV Last administered on 03/05/19at 02:07; Admin Dose 30 MG; Start 03/05/19 at 02:00; Stop 03/05/19 at 02:01; Status DC Oxycodone/ Acetaminophen (Percocet 5/325) 2 tab 1X ONCE PO ; Start 03/05/19 at 03:30; Stop 03/05/19 at 03:31; Status DC Active Scripts Active Imitrex (Sumatriptan Succinate) 100 Mg Tablet 100 Mg PO 1X PRN PRN Zofran (Ondansetron Hcl) 8 Mg Tablet 8 Mg PO QIDPRN PRN Cyclobenzaprine Hcl 10 Mg Tablet 1 Tab PO QHS PRN Reported [diflucan] [prilosec] [vistaril] [trazodone] [prozac] [latuda] [levamir] [novolog] [metformin] Dragon Disclaimer This chart was dictated in whole or in part using Voice Recognition software in a busy, high-work load, and often noisy Emergency Department environment. It may contain unintended and wholly unrecognized errors or omissions. DEBBIE LLANES MD Mar 05, 2019 00:18
[2019-03-05] MEDS ORDERED: IV RINGERS SOLUTION,LACTATED 1,000 ML IV SCH (00:30)
[2019-03-05 00:45] LABS: BASO % 0 % (0-3); EOS # 0.1 x10^3/uL (0.0-0.7); EOS % 2 % (0-3); HEMATOCRIT 46.9 % (36.0-47.0); HEMOGLOBIN 15.9 g/dL (12.0-15.5); LYMPH # 3.2 x10^3/uL (1.0-4.8); LYMPH % 50 % (24-48); MEAN CORPUSCULAR HEMOGLOBIN 31 pg (25-35); MEAN CORPUSCULAR HGB CONC 34 g/dL (31-37); MEAN CORPUSCULAR VOLUME 90 fL (79-100); MONO # 0.6 x10^3/uL (0.0-1.1); MONO % 10 % (0-9); NEUT # 2.5 x10^3uL (1.8-7.7); NEUT % 38 % (31-73); PLATELET COUNT 310 x10^3/uL (140-400); RED BLOOD COUNT 5.21 x10^6/uL (3.50-5.40); RED CELL DISTRIBUTION WIDTH 13.4 % (11.5-14.5); WHITE BLOOD COUNT 6.5 x10^3/uL (4.0-11.0)
[2019-03-05 00:57] LABS: BACTERIA,URINE FEW /HPF (0-FEW); BILIRUBIN,URINE NEG (NEG); CLARITY,URINE CLOUDY; COLOR,URINE AMBER; GLUCOSE,URINE >=1000 mg/dL (NEG); NITRITE,URINE NEG (NEG); RBC,URINE 0 /HPF (0-2); SQUAMOUS EPITHELIAL CELL,UR OCC /LPF; UROBILINOGEN,URINE 1 mg/dL (0.2 mg/dL); WBC,URINE 0 /HPF (0-4)
[2019-03-05 00:58] LABS: HYALINE CASTS, URINE OCC /HPF
[2019-03-05] MEDS ORDERED: diphenhydrAMINE 50 MG/ML VIAL IVP ONE (01:00)
[2019-03-05] MEDS ORDERED: PROCHLORPERAZINE 10 MG/2 ML VIAL. IV ONE (01:00)
[2019-03-05] MEDS ORDERED: prilosec (01:01)
[2019-03-05] MEDS ORDERED: prozac (01:01)
[2019-03-05] MEDS ORDERED: novolog (01:01)
[2019-03-05] MEDS ORDERED: metformin (01:01)
[2019-03-05] MEDS ORDERED: vistaril (01:01)
[2019-03-05] MEDS ORDERED: latuda (01:01)
[2019-03-05] MEDS ORDERED: trazodone (01:01)
[2019-03-05] MEDS ORDERED: diflucan (01:01)
[2019-03-05] MEDS ORDERED: levamir (01:01)
[2019-03-05 01:06] LABS: AMPHETAMINE/METHAMPHETAMINE NEG (NEG); BARBITURATES NEG (NEG); BENZODIAZEPINES NEG (NEG)
[2019-03-05 01:07] LABS: CANNABINOIDS NEG (NEG); COCAINE NEG (NEG); METHADONE NEG (NEG); OPIATES NEG (NEG); PHENCYCLIDINE NEG (NEG)
[2019-03-05 01:10] LABS: ALBUMIN 3.6 g/dL (3.4-5.0); CALCIUM 9.4 mg/dL (8.5-10.1); TOTAL BILIRUBIN 0.5 mg/dL (0.2-1.0)
--- NOTE | 2019-03-05 01:12 | RAD ---
RS Compliance Statement: One or more of the following individualized dose reduction techniques were utilized for this examination: 1. Automated exposure control 2. Adjustment of the mA and/or kV according to patient size 3. Use of iterative reconstruction technique CT HEAD WITHOUT CONTRAST History: Headache. Comparison: CT head and cervical spine without contrast, December 11, 2018. Procedure: Axial images are obtained of the head from the skull base through the vertex without IV contrast. Findings: The ventricles and sulci are normal for the patient's age. No mass-effect, midline shift, hemorrhage, extra-axial fluid collection, or obvious acute infarction is identified. Basilar cisterns are patent. Bone windows demonstrate no acute calvarial abnormality. The visualized paranasal sinuses are clear. Mastoid air cells are well aerated. IMPRESSION: No acute intracranial abnormality. Electronically signed by: Jozef Segura MD (03/05/2019 1:09 AM) [facility]
[2019-03-05 01:21] LABS: CREATININE 0.8 mg/dL (0.6-1.0); DIRECT BILIRUBIN 0.1 mg/dL (0.0-0.2); GFR 85.4; POTASSIUM 4.2 mmol/L (3.5-5.1); TOTAL PROTEIN 7.7 g/dL (6.4-8.2)
[2019-03-05 01:50] LABS: SEDIMENTATION RATE 50 (0-25)
[2019-03-05] MEDS ORDERED: KETOROLAC 30 MG/ML VIAL. IV ONE (02:00)
[2019-03-05] MEDS ORDERED: SUMAtriptan SUCC 6 MG/0.5 ML VIAL SQ ONE (02:00)
[2019-03-05 03:30] VITALS: BP 120/78
[2019-03-05] MEDS ORDERED: ONDA8TAB9 PO (03:30)
[2019-03-05] MEDS ORDERED: SUMA100T3 PO (03:30)
[2019-03-05] MEDS ORDERED: oxyCODONE/APAP 5/325 1 TAB TABLET PO ONE (03:30)
[2019-03-05 10:26] LABS: TRIGLYCERIDES 1629 mg/dL (0-150)
--- NOTE | 2019-03-05 14:22 | EKG ---
[address] [address] Test Date: 2019-03-05 Test Time: 00:43:18 Pat Name: RYLIE BELL Department: Room: Gender: F Rn Labor And Delivery: BENSON : 1990 Requested By: DEBBIE LLANES Order Number: [id number] Reading MD: Measurements Intervals Snyder Rate: 100 P: -1 CA: 192 QRS: 25 QRSD: 80 T: 44 QT: 344 QTc: 447 Interpretive Statements SINUS RHYTHM NO SPECIFIC ECG ABNORMALITIES RI6.01 No previous ECG available for comparison
== END 2019-03-05 03:36 | disposition home or self-care (01) ==
LOC: ER 00:12
DX: T45.515A Adverse effect of anticoagulants, initial encounter (principal); G43.909 Migraine, unspecified, not intractable, without status migrainosus; E11.9 Type 2 diabetes mellitus without complications; E86.0 Dehydration; E87.1 Hypo-osmolality and hyponatremia; D68.51 Activated protein C resistance; R70.0 Elevated erythrocyte sedimentation rate; D72.820 Lymphocytosis (symptomatic); D72.821 Monocytosis (symptomatic); Z86.718 Personal history of other venous thrombosis and embolism; M79.7 Fibromyalgia; I10 Essential (primary) hypertension; F17.210 Nicotine dependence, cigarettes, uncomplicated; Z90.410 Acquired total absence of pancreas; Z88.8 Allergy status to other drugs, medicaments and biological substances; Y92.89 Other specified places as the place of occurrence of the external cause
CPT/HCPCS: 36415; 70450; 80048; 80061; 80076; 80307; 81001; 81025; 83735; 85025; 85379; 85610; 85651; 85730; 93005; 96361; 96372; 96374; 96375; 99285; J0780; J1200; J1885; J3030; J7120

== ENCOUNTER 2019-03-22 17:13 | Emergency (ER) | payer MEDICARE, OTHER ==
[~2019-03-22] VITALS: Ht 180.3 cm; Wt 101.7 kg
[~2019-03-22 17:13] MED LIST changes: +ONDA8TAB9 PO; +SUMA100T3 PO; +diflucan; +latuda; +levamir; +metformin; +novolog; +prilosec; +prozac; +trazodone; +vistaril
[2019-03-22] MEDS ORDERED: IV NORMAL SALINE 1,000ML 1,000 ML IV SCH (17:46)
[2019-03-22 18:11] LABS: CLARITY,URINE CLEAR; COLOR,URINE STRAW
[2019-03-22 18:12] LABS: BACTERIA,URINE FEW /HPF (0-FEW); BILIRUBIN,URINE NEG (NEG); GLUCOSE,URINE >=1000 mg/dL (NEG); NITRITE,URINE NEG (NEG); RBC,URINE OCC /HPF (0-2); SQUAMOUS EPITHELIAL CELL,UR OCC /LPF; UROBILINOGEN,URINE 0.2 mg/dL (0.2 mg/dL); WBC,URINE OCC /HPF (0-4)
[2019-03-22 18:13] LABS: BASO % 0 % (0-3); EOS # 0.1 x10^3/uL (0.0-0.7); EOS % 1 % (0-3); HEMATOCRIT 41.9 % (36.0-47.0); HEMOGLOBIN 13.7 g/dL (12.0-15.5); LYMPH # 1.7 x10^3/uL (1.0-4.8); LYMPH % 37 % (24-48); MEAN CORPUSCULAR HEMOGLOBIN 30 pg (25-35); MEAN CORPUSCULAR HGB CONC 33 g/dL (31-37); MEAN CORPUSCULAR VOLUME 92 fL (79-100); MONO # 0.3 x10^3/uL (0.0-1.1); MONO % 7 % (0-9); NEUT # 2.4 x10^3uL (1.8-7.7); NEUT % 54 % (31-73); PLATELET COUNT 229 x10^3/uL (140-400); RED BLOOD COUNT 4.57 x10^6/uL (3.50-5.40); RED CELL DISTRIBUTION WIDTH 14.1 % (11.5-14.5); WHITE BLOOD COUNT 4.5 x10^3/uL (4.0-11.0)
[2019-03-22 18:18] LABS: ALBUMIN 3.3 g/dL (3.4-5.0); ALBUMIN/GLOBULIN RATIO 0.9 (1.0-1.7); CALCIUM 8.9 mg/dL (8.5-10.1); CREATININE 1.1 mg/dL (0.6-1.0); GFR 59.1; TOTAL BILIRUBIN 0.1 mg/dL (0.2-1.0)
--- NOTE | 2019-03-22 18:25 | PHYS DOC ---
Past History Past Medical History: Anxiety, Bipolar, Depression, Diabetes, DVT, Fibromyalgia, Hypertension, Migraines, Other Past Surgical History: , Other Smoking: Cigarettes Alcohol Use: Sober Drug Use: None Adult General Chief Complaint Chief Complaint: ABDOMINAL PAIN HPI HPI Patient is a 28-year-old female presents with right lower quadrant pain. This started today and has been migrating inferiorly from the mid abdomen to the right lower quadrant. No dysuria. Uncertain as to vaginal bleeding or discharge because she is on her menstrual cycle. Nothing seems to make the pain better or worse. Some nausea, no vomiting or diarrhea. No worsening with bumps on the car ride to the hospital. Pain is moderate to severe. No improvement with acetaminophen[] Review of Systems Review of Systems Constitutional: Denies fever or chills [] Eyes: Denies change in visual acuity, redness, or eye pain [] HENT: Denies nasal congestion or sore throat [] Respiratory: Denies cough or shortness of breath [] Cardiovascular: No chest pain or palpitations[] GI: See history of present illness[] : Denies dysuria or hematuria [] Musculoskeletal: Denies back pain or joint pain [] Integument: Denies rash or skin lesions [] Neurologic: Denies headache, focal weakness or sensory changes [] Endocrine: Denies polyuria or polydipsia [] All other systems were reviewed and found to be within normal limits, except as documented in this note. Current Medications Current Medications Current Medications Medications (Trade) Dose Ordered Sig/T[place] Start Time Stop Time Status Last Admin Dose Admin Sodium Chloride 1,000 ml @ 1,000 mls/hr Q1H 03/22/19 17:46 03/22/19 18:45 Allergies Allergies Allergies Coded Allergies Type Severity Reaction Last Updated Verified latex Allergy Intermediate 03/05/19 Yes lisinopril Allergy Intermediate 03/05/19 Yes quetiapine Allergy Intermediate 03/05/19 Yes warfarin Allergy Intermediate 03/05/19 Yes Physical Exam Physical Exam Constitutional: Well developed, well nourished, no acute distress, non-toxic appearance. [] HENT: Normocephalic, atraumatic, bilateral external ears normal, oropharynx moist, no oral exudates, nose normal. [] Eyes: PERRLA, EOMI, conjunctiva normal, no discharge. [] Neck: Normal range of motion, no tenderness, supple, no stridor. [] Cardiovascular:Heart rate tachycardic with a regular rhythm, no murmur [] Lungs & Thorax: Bilateral breath sounds clear to auscultation [] Abdomen: Bowel sounds normal, soft, lower quadrant tenderness without rebound, no guarding, no rigidity. She is able to sit up and lay back without any difficulty., no masses, no pulsatile masses. [] Skin: Warm, dry, no erythema, no rash. [] Back: No tenderness, no CVA tenderness. [] Extremities: No tenderness, no cyanosis, no clubbing, ROM intact, no edema. [] Neurologic: Alert and oriented X 3, normal motor function, normal sensory function, no focal deficits noted. [] Psychologic: Affect normal, judgement normal, mood normal. [] Current Patient Data Vital Signs Vital Signs Date Time Temp Pulse Resp B/P (MAP) Pulse Ox O2 Delivery O2 Flow Rate FiO2 03/22/19 17:27 97.7 107 18 98 Room Air Lab Results Laboratory Tests Test 03/22/19 17:40 03/22/19 18:05 White Blood Count 4.5 x10^3/uL (4.0-11.0) Red Blood Count 4.57 x10^6/uL (3.50-5.40) Hemoglobin 13.7 g/dL (12.0-15.5) Hematocrit 41.9 % (36.0-47.0) Mean Corpuscular Volume 92 fL (79-100) Mean Corpuscular Hemoglobin 30 pg (25-35) Mean Corpuscular Hemoglobin Concent 33 g/dL (31-37) Red Cell Distribution Width 14.1 % (11.5-14.5) Platelet Count 229 x10^3/uL (140-400) Neutrophils (%) (Auto) 54 % (31-73) Lymphocytes (%) (Auto) 37 % (24-48) Monocytes (%) (Auto) 7 % (0-9) Eosinophils (%) (Auto) 1 % (0-3) Basophils (%) (Auto) 0 % (0-3) Neutrophils # (Auto) 2.4 x10^3uL (1.8-7.7) Lymphocytes # (Auto) 1.7 x10^3/uL (1.0-4.8) Monocytes # (Auto) 0.3 x10^3/uL (0.0-1.1) Eosinophils # (Auto) 0.1 x10^3/uL (0.0-0.7) Basophils # (Auto) 0.0 x10^3/uL (0.0-0.2) Prothrombin Time < 9.3 SEC (9.4-11.4) L Prothrombin Time INR 0.8 (0.9-1.1) L Activated Partial Thromboplast Time 23 SEC (23-33) Urine Collection Type Unknown Urine Color Straw Urine Clarity Clear Urine pH 5.0 Urine Specific [place] 1.010 Urine Protein Neg (NEG-TRACE) Urine Glucose (UA) >=1000 mg/dL (NEG) Urine Ketones (Stick) 15 mg/dL (NEG) Urine Blood Mod (NEG) Urine Nitrite Neg (NEG) Urine Bilirubin Neg (NEG) Urine Urobilinogen Dipstick 0.2 mg/dL (0.2 mg/dL) Urine Leukocyte Esterase Neg (NEG) Urine RBC Occ /HPF (0-2) Urine WBC Occ /HPF (0-4) Urine Squamous Epithelial Cells Occ /LPF Urine Bacteria Few /HPF (0-FEW) Sodium Level 132 mmol/L (136-145) L Potassium Level 4.0 mmol/L (3.5-5.1) Chloride Level 95 mmol/L (98-107) L Carbon Dioxide Level 16 mmol/L (21-32) L Anion Gap 21 (6-14) H Blood Urea Nitrogen 11 mg/dL (7-20) Creatinine 1.1 mg/dL (0.6-1.0) H Estimated GFR (Cockcroft-Gault) 59.1 BUN/Creatinine Ratio 10 (6-20) Glucose Level 430 mg/dL (70-99) H Calcium Level 8.9 mg/dL (8.5-10.1) Total Bilirubin 0.1 mg/dL (0.2-1.0) L Aspartate Amino Transferase (AST) 20 U/L (15-37) Alanine Aminotransferase (ALT) 22 U/L (14-59) Alkaline Phosphatase 132 U/L (46-116) H Total Protein 7.0 g/dL (6.4-8.2) Albumin 3.3 g/dL (3.4-5.0) L Albumin/Globulin Ratio 0.9 (1.0-1.7) L POC Urine HCG, Qualitative hcg negative (Negative) EKG EKG [] Radiology/Procedures Radiology/Procedures PROCEDURE: CT ABDOMEN PELVIS WO CONTRAST PQRS Compliance Statement: One or more of the following individualized dose reduction techniques were utilized for this examination: 1. Automated exposure control 2. Adjustment of the mA and/or kV according to patient size 3. Use of iterative reconstruction technique CT abdomen/pelvis without contrast 03/22/2019 6:24 PM INDICATION: Right lower quadrant abdominal pain COMPARISON: None available TECHNIQUE: Multiple axial CT images of the abdomen and pelvis were obtained without intravenous contrast. Coronal and sagittal reformats are provided. FINDINGS: Median sternotomy changes are present. Lung bases are clear. Heart size is within normal limits. Evaluation of the solid abdominal viscera is limited by lack of intravenous contrast. Liver, spleen, bilateral adrenal glands, pancreas and gallbladder are normal in appearance. The abdominal aorta is normal in course and caliber. There are no pathologically enlarged lymph nodes in the abdomen and pelvis. There is no abdominal free fluid. There is no free intraperitoneal air. Patulous bilateral inguinal canals are identified. Small and large bowel are normal in caliber. There is no evidence for bowel obstruction. There are no pericolonic inflammatory changes. A normal, nondilated appendix is visualized without adjacent inflammatory changes. There is a 2 mm calcification along the course of the distal right ureter. No hydroureteronephrosis is identified. No additional renal calculi are identified. Urinary bladder is within normal limits given degree of distention. Additional phleboliths are identified within the pelvis. Nabothian cyst measures 10 mm. Uterus is normal by CT. Left adnexal cyst measures 5.4 x 5.1 cm. No suspicious osseous normality is identified. IMPRESSION: 1. Left adnexal cyst measures 5.4 x 5.1 cm and may represent dominant follicle versus hemorrhagic cyst and/or endometrioma. Recommend 2-3 month follow-up pelvic ultrasound to ensure resolution. 2. 2 mm calcification is identified along the course of the distal right ureter. Differential consideration would include a phlebolith. There is no associated hydroureteronephrosis. No additional urinary tract calculi are identified.[] Course & Med Decision Making Course & Med Decision Making Pertinent Labs and Imaging studies reviewed. (See chart for details) ED course: Patient arrived, was placed in bed, and tolerated exam well. IV fluids were administered. He was noted that she was in DKA and so after the first liter of fluids a repeat blood sugar was obtained that was significantly better. And as the blood gas came back showing a normal pH, a repeat chemistry panel was obtained and additional fluids were administered. No insulin was a dministered. Repeat chemistry panel shows that the DKA had significantly improved. Patient's heart rate improved with the second liter of fluids. Discussed findings and plan with the patient who voiced understanding. All questions were answered. Medical decision making: Patient may have a small ureteral stone without evidence of an obstruction. No evidence of infected stone. No evidence of oral intake intolerance. Patient also had DKA which seems to have improved with just IV fluids. There is no evidence of obstruction, perforation, appendicitis, nor other significant intra-abdominal pathology.[] Dragon Disclaimer Dragon Disclaimer This electronic medical record was generated, in whole or in part, using a voice recognition dictation system. Departure Departure: Impression: Primary Impression: Ureteral colic Additional Impressions: Diabetic ketoacidosis Abdominal pain Disposition: HOME, SELF-CARE Condition: STABLE Referrals: MATY SALMON MD (PCP) Patient Instructions: Abdominal Pain, Diabetic Ketoacidosis, Ureteral Colic Additional Instructions: Drink plenty of fluids. Follow-up with your regular doctor within 2 days. Take your medication as prescribed. Return to the ER if unable to tolerate liquids, worsening discomfort, unable to keep your fingerstick blood sugar under 250, or any other concerns. Scripts Ondansetron Hcl (ZOFRAN) 4 Mg Tablet 1 TAB PO Q6HRS for nausea or vomiting, #20 TAB Prov: LORENA HASSAN DO 03/22/19 Meloxicam (MELOXICAM) 7.5 Mg Tablet 7.5 MG PO DAILY for PAIN, #20 TAB Prov: LORENA HASSAN DO 03/22/19 Hyoscyamine Sulfate (LEVSIN) 0.125 Mg Tablet 0.125 MG PO QID for abdominal pain/cramping, #30 TAB Prov: LORENA HASSAN DO 03/22/19 Problem Qualifiers Additional Impressions: Diabetic ketoacidosis Diabetes mellitus type: type 1 Diabetes mellitus complication detail: without coma Qualified Codes: E10.10 - Type 1 diabetes mellitus with ketoacidosis without coma Abdominal pain Abdominal location: right lower quadrant Qualified Codes: R10.31 - Right lower quadrant pain LORENA HASSAN DO Mar 22, 2019 18:25
[2019-03-22] MEDS ORDERED: IV NORMAL SALINE 1,000ML 1,000 ML IV ONE (18:30)
[2019-03-22] MEDS ORDERED: KETOROLAC 15 MG/ML VIAL. IV ONE (18:45)
--- NOTE | 2019-03-22 19:03 | RAD ---
PQRS Compliance Statement: One or more of the following individualized dose reduction techniques were utilized for this examination: 1. Automated exposure control 2. Adjustment of the mA and/or kV according to patient size 3. Use of iterative reconstruction technique CT abdomen/pelvis without contrast 03/22/2019 6:24 PM INDICATION: Right lower quadrant abdominal pain COMPARISON: None available TECHNIQUE: Multiple axial CT images of the abdomen and pelvis were obtained without intravenous contrast. Coronal and sagittal reformats are provided. FINDINGS: Median sternotomy changes are present. Lung bases are clear. Heart size is within normal limits. Evaluation of the solid abdominal viscera is limited by lack of intravenous contrast. Liver, spleen, bilateral adrenal glands, pancreas and gallbladder are normal in appearance. The abdominal aorta is normal in course and caliber. There are no pathologically enlarged lymph nodes in the abdomen and pelvis. There is no abdominal free fluid. There is no free intraperitoneal air. Patulous bilateral inguinal canals are identified. Small and large bowel are normal in caliber. There is no evidence for bowel obstruction. There are no pericolonic inflammatory changes. A normal, nondilated appendix is visualized without adjacent inflammatory changes. There is a 2 mm calcification along the course of the distal right ureter. No hydroureteronephrosis is identified. No additional renal calculi are identified. Urinary bladder is within normal limits given degree of distention. Additional phleboliths are identified within the pelvis. Nabothian cyst measures 10 mm. Uterus is normal by CT. Left adnexal cyst measures 5.4 x 5.1 cm. No suspicious osseous normality is identified. IMPRESSION: 1. Left adnexal cyst measures 5.4 x 5.1 cm and may represent dominant follicle versus hemorrhagic cyst and/or endometrioma. Recommend 2-3 month follow-up pelvic ultrasound to ensure resolution. 2. 2 mm calcification is identified along the course of the distal right ureter. Differential consideration would include a phlebolith. There is no associated hydroureteronephrosis. No additional urinary tract calculi are identified. Electronically signed by: Citlalli Lee MD (03/22/2019 7:00 PM) [facility]
[2019-03-22] MEDS ORDERED: ONDANSETRON PF 4 MG/2 ML VIAL. IV ONE (19:15)
[2019-03-22 20:05] LABS: CREATININE 0.6 mg/dL (0.6-1.0); POTASSIUM 3.5 mmol/L (3.5-5.1)
[2019-03-22 20:11] VITALS: BP 125/79
[2019-03-22] MEDS ORDERED: ONDA4TAB7 PO (20:16)
[2019-03-22] MEDS ORDERED: MELO7.5T29 PO (20:16)
[2019-03-22] MEDS ORDERED: HYOS0.1264 PO (20:16)
[2019-03-22 20:18] LABS: BGAS PH 7.4 (7.35-7.45)
== END 2019-03-22 20:50 | disposition home or self-care (01) ==
LOC: ER 17:13
DX: N23 Unspecified renal colic (principal); E10.10 Type 1 diabetes mellitus with ketoacidosis without coma; Z86.718 Personal history of other venous thrombosis and embolism; M79.7 Fibromyalgia; I10 Essential (primary) hypertension; G43.909 Migraine, unspecified, not intractable, without status migrainosus; F17.210 Nicotine dependence, cigarettes, uncomplicated; Z91.040 Latex allergy status; Z88.8 Allergy status to other drugs, medicaments and biological substances
CPT/HCPCS: 36415; 36600; 74176; 80048; 80053; 81001; 81025; 82803; 82947; 85025; 85610; 85730; 96374; 96375; 99285; J1885; J2405; J7030

== ENCOUNTER 2019-03-25 16:22 | Inpatient (IN) | payer OTHER ==
[~2019-03-25] VITALS: Ht 180.3 cm; Wt 101.2 kg
[~2019-03-25 16:22] MED LIST changes: +HYOS0.1264 PO; +MELO7.5T29 PO; +ONDA4TAB7 PO; +ONDANSETRON PF 4 MG/2 ML VIAL. IV ONE
[2019-03-25] MEDS ORDERED: IV NORMAL SALINE 1,000ML 1,000 ML IV SCH ×2 (16:55→18:15)
--- NOTE | 2019-03-25 17:01 | PHYS DOC ---
Past History Past Medical History: Anxiety, Bipolar, Depression, Diabetes, DVT, Fibromyalgia, Hypertension, Migraines, Other Past Surgical History: No Surgical History, Smoking: Cigarettes Alcohol Use: Rarely Drug Use: None Adult General Chief Complaint Chief Complaint: HYPERGLYCEMIA HPI HPI Patient is a 28-year-old female who presents with report of elevated blood sugar at home as well as feeling very nauseated and stating that she feels like she was hit by a freight train. She is a type I diabetic and she states that her last episode of DKA was nearly a year ago. She states that she feels like she may be in DKA again. Patient states that she was recently seen and was diagnosed with kidney stones. She states that earlier today her blood sugar it been in the 300s and she had taken some insulin and blood sugar is now down to 130. She denies any chest pain but states that she does feel short of breath.[] Review of Systems Review of Systems Constitutional: Denies fever or chills [] Respiratory: Denies cough or shortness of breath [] Cardiovascular: No additional information not addressed in HPI [] GI: Complains of nausea without vomiting or diarrhea [] Integument: Denies rash or skin lesions [] Neurologic: Denies headache, focal weakness or sensory changes [] All other systems were reviewed and found to be within normal limits, except as documented in this note. Allergies Allergies Allergies Coded Allergies Type Severity Reaction Last Updated Verified latex Allergy Intermediate 03/05/19 Yes lisinopril Allergy Intermediate 03/05/19 Yes quetiapine Allergy Intermediate 03/05/19 Yes warfarin Allergy Intermediate 03/05/19 Yes Physical Exam Physical Exam Constitutional: Well developed, well nourished, no acute distress, non-toxic appearance. [] HENT: Normocephalic, atraumatic, bilateral external ears normal, oropharynx dry, no oral exudates, nose normal. [] Eyes: PERRLA, EOMI, conjunctiva normal, no discharge. [] Neck: Normal range of motion, no tenderness, supple, no stridor. [] Cardiovascular:Heart rate regular rhythm, no murmur [] Lungs & Thorax: Bilateral breath sounds clear to auscultation [] Abdomen: Bowel sounds normal, soft. [] Skin: Warm, dry, no erythema, no rash. [] Extremities: No tenderness, no cyanosis, no clubbing, ROM intact, no edema. [] Neurologic: Alert and oriented X 3, no focal deficits noted. [] Current Patient Data Vital Signs Vital Signs Date Time Temp Pulse Resp B/P (MAP) Pulse Ox O2 Delivery O2 Flow Rate FiO2 03/25/19 16:30 97.8 138 18 115/56 (75) 97 03/25/19 16:30 Room Air Lab Results Laboratory Tests Test 03/25/19 16:41 Glucose (Fingerstick) 121 mg/dL (70-99) H EKG EKG [] Radiology/Procedures Radiology/Procedures [] Course & Med Decision Making Course & Med Decision Making Pertinent Labs and Imaging studies reviewed. (See chart for details) [] Dragon Disclaimer Dragon Disclaimer This electronic medical record was generated, in whole or in part, using a voice recognition dictation system. Departure Departure: Impression: Primary Impression: Intractable nausea and vomiting Additional Impressions: Hyperglycemia Hypocapnia Disposition: ADMITTED INPATIENT Admitting Physician: Bruna Cooley Condition: IMPROVED Referrals: MATY SALMON MD (PCP) Problem Qualifiers Primary Impression: Intractable nausea and vomiting Vomiting type: unspecified Qualified Codes: R11.2 - Nausea with vomiting, unspecified JOHN FISCHER Jr. DO Mar 25, 2019 17:01
[2019-03-25 17:23] LABS: BGAS PH 7.35 (7.35-7.45)
[2019-03-25 17:49] LABS: BASO % 0 % (0-3); EOS % 0 % (0-3); HEMATOCRIT 46.7 % (36.0-47.0); HEMOGLOBIN 15.4 g/dL (12.0-15.5); LYMPH # 2.1 x10^3/uL (1.0-4.8); LYMPH % 25 % (24-48); MEAN CORPUSCULAR HEMOGLOBIN 30 pg (25-35); MEAN CORPUSCULAR HGB CONC 33 g/dL (31-37); MEAN CORPUSCULAR VOLUME 92 fL (79-100); MONO # 0.6 x10^3/uL (0.0-1.1); MONO % 7 % (0-9); NEUT # 5.8 x10^3uL (1.8-7.7); NEUT % 67 % (31-73); PLATELET COUNT 341 x10^3/uL (140-400); RED CELL DISTRIBUTION WIDTH 14.3 % (11.5-14.5); WHITE BLOOD COUNT 8.6 x10^3/uL (4.0-11.0)
[2019-03-25 17:55] LABS: ALBUMIN/GLOBULIN RATIO 1.1 (1.0-1.7); CALCIUM 9.3 mg/dL (8.5-10.1); CREATININE 1.2 mg/dL (0.6-1.0); GFR 53.5; POTASSIUM 4.7 mmol/L (3.5-5.1); TOTAL BILIRUBIN 0.5 mg/dL (0.2-1.0); TOTAL PROTEIN 7.7 g/dL (6.4-8.2)
[2019-03-25] MEDS ORDERED: DEXTROSE 50% 25 GM / 50ML DISP.SYRIN. IV PRN (18:15)
[2019-03-25 18:26] LABS: BILIRUBIN,URINE NEG (NEG); CLARITY,URINE HAZY; COLOR,URINE YELLOW; GLUCOSE,URINE 500 mg/dL (NEG); NITRITE,URINE NEG (NEG); UROBILINOGEN,URINE 0.2 mg/dL (0.2 mg/dL)
[2019-03-25 18:27] LABS: BACTERIA,URINE FEW /HPF (0-FEW); RBC,URINE OCC /HPF (0-2); SQUAMOUS EPITHELIAL CELL,UR FEW /LPF; WBC,URINE OCC /HPF (0-4); YEAST,URINE PRESENT /HPF
[2019-03-25] MEDS ORDERED: diphenhydrAMINE 50 MG/ML VIAL IVP ONE (18:45)
[2019-03-25] MEDS ORDERED: METOCLOPRAMIDE HCL 10 MG/2 ML VIAL. IV ONE (18:45)
[2019-03-25 19:50] VITALS: BP 138/65
[2019-03-25] MEDS: IV DEXTROSE 5 %-0.45 % NACL 1,000 ML IV SCH (20:00)
[2019-03-25] MEDS ORDERED: IV NORMAL SALINE 1,000ML 1,000 ML IV ONE (20:00)
[2019-03-25] MEDS ORDERED: HYOS0.1264 PO (20:29)
[2019-03-25] MEDS ORDERED: hydrOXYzine PAMOATE 25 MG CAPSULE PO PRN (20:30)
[2019-03-25] MEDS ORDERED: SUMAtriptan SUCC 6 MG/0.5 ML VIAL SQ PRN (20:30)
[2019-03-25] MEDS ORDERED: SUMAtriptan SUCC 6 MG/0.5 ML VIAL SQ ONE (20:30)
[2019-03-25] MEDS ORDERED: HYDR25CA PO (20:36)
[2019-03-25] MEDS ORDERED: INSU100V13 SQ (20:36)
[2019-03-25] MEDS ORDERED: LURA40TA PO (20:36)
[2019-03-25] MEDS ORDERED: OMEP10SU2 PO (20:36)
[2019-03-25] MEDS ORDERED: TRAZ-86 PO (20:36)
[2019-03-25] MEDS ORDERED: NOVO (20:36)
[2019-03-25] MEDS ORDERED: METF10007 PO (20:36)
[2019-03-25] MEDS ORDERED: novolog (20:36)
[2019-03-25] MEDS ORDERED: HYOSCYAMINE 0.125 MG TAB.RAPDIS PO PRN (21:00)
[2019-03-25] MEDS ORDERED: traZODone 100 MG TABLET. PO SCH (21:00)
[2019-03-25] MEDS: INSULIN GLARGINE 300 UNITS/3 ML INSULN.PEN. SQ SCH (21:00)
[2019-03-25] MEDS: MORPHINE SULFATE 2 MG/ML DISP.SYRIN. IV PRN (21:12)
[2019-03-25] MEDS: IV NORMAL SALINE 1,000ML 1,000 ML IV SCH (22:14)
[2019-03-25] MEDS ORDERED: traZODone 100 MG TABLET. PO PRN (22:45)
[2019-03-26 00:01] VITALS: BP 112/65
[2019-03-26] MEDS: MORPHINE SULFATE 2 MG/ML DISP.SYRIN. IV PRN ×5 (04:43→16:45)
[2019-03-26] MEDS: IV NORMAL SALINE 1,000ML 1,000 ML IV SCH ×3 (04:43→22:27)
[2019-03-26] MEDS: IV DEXTROSE 5 %-0.45 % NACL 1,000 ML IV SCH ×2 (06:00→16:00)
[2019-03-26 06:16] VITALS: BP 123/65
[2019-03-26 06:50] LABS: CALCIUM 8.6 mg/dL (8.5-10.1); CREATININE 0.8 mg/dL (0.6-1.0); GFR 85.4
[2019-03-26 06:56] LABS: POTASSIUM 3.6 mmol/L (3.5-5.1)
[2019-03-26 06:59] LABS: BASO % 0 % (0-3); EOS # 0.1 x10^3/uL (0.0-0.7); EOS % 3 % (0-3); HEMATOCRIT 39.1 % (36.0-47.0); HEMOGLOBIN 12.8 g/dL (12.0-15.5); LYMPH % 49 % (24-48); MEAN CORPUSCULAR HEMOGLOBIN 30 pg (25-35); MEAN CORPUSCULAR HGB CONC 33 g/dL (31-37); MEAN CORPUSCULAR VOLUME 91 fL (79-100); MONO # 0.4 x10^3/uL (0.0-1.1); MONO % 9 % (0-9); NEUT # 1.6 x10^3uL (1.8-7.7); NEUT % 39 % (31-73); PLATELET COUNT 229 x10^3/uL (140-400); RED BLOOD COUNT 4.28 x10^6/uL (3.50-5.40); RED CELL DISTRIBUTION WIDTH 14.1 % (11.5-14.5); WHITE BLOOD COUNT 4.1 x10^3/uL (4.0-11.0)
[2019-03-26] MEDS: PANTOPRAZOLE 40 MG TABLET. PO SCH (07:47)
[2019-03-26] MEDS: ONDANSETRON PF 4 MG/2 ML VIAL. IV PRN ×2 (07:47→16:10)
[2019-03-26] MEDS: metFORMIN 500 MG TABLET PO SCH ×2 (07:59→17:07)
[2019-03-26] MEDS: INSULIN LISPRO 300 UNITS/3 ML INSULN.PEN. SQ SCH ×3 (07:59→17:00)
[2019-03-26] MEDS: MELOXICAM 7.5 MG TABLET PO SCH (08:54)
[2019-03-26] MEDS: CYCLOBENZAPRINE 10 MG TABLET. PO PRN (10:45)
[2019-03-26 10:50] VITALS: BP 108/69
--- NOTE | 2019-03-26 15:16 | HP ---
ADMIT DATE: 03/25/2019 HISTORY OF PRESENT ILLNESS: The patient is a 28-year-old female patient who came to the Emergency Room complaining of high blood sugar. She came from home stating that blood sugar was high. She is feeling very nauseated, stating that she feels like she was hit by a street train. She has type 1 diabetes and she states that her last episode of DKA was nearly a year ago, stated she feels like she may be in DKA. She states that she was recently seen and was diagnosed with kidney stone and she states that earlier today her, blood sugar was in the 300 and despite taking some of insulin, blood sugar now is 130. She denies any chest pain. She does feel short of breath. She was extensively investigated and was admitted with intractable nausea, vomiting, hyperglycemia and hypocapnia. She was started on IV fluids and insulin. PAST MEDICAL HISTORY: Significant for type 1 diabetes mellitus, hypertension, hyperlipidemia, has factor V Leiden, has deep vein thrombosis in her upper extremities. She is bipolar. Has also borderline personality disorder. PAST SURGICAL HISTORY: Significant for . She has atrial septal defect repair and right ring finger repair. ALLERGIES: She is allergic to LATEX, LISINOPRIL, QUETIAPINE, and FUMARATE. MEDICATIONS: She is currently on following medications: She is on Levsin 0.125 mg 3 to 4 times a day, cyclobenzaprine 10 mg at bedtime, meloxicam 7.5 mg daily, trazodone 100 mg at bedtime, Latuda 120 mg p.o. daily, hydroxyzine 25 mg twice a day, omeprazole, Prilosec 10 mg daily, metformin 1000 mg twice a day. She is on Levemir insulin 60 units at bedtime. She is also on NovoLog insulin before meals. FAMILY HISTORY: She has 2 brothers, 1 older and 1 younger. She has very strong family of bipolar disorder. Her father is still alive at the age of 49, is known to be alcoholic. Mother is alive at age of 49. She has systemic lupus erythematosus. SOCIAL HISTORY: She is , has 2 sons. She is an ex-smoker, quit 3 years ago. She drinks alcohol occasionally. Does not use any drugs. She is currently on disability. PHYSICAL EXAMINATION: GENERAL: On arrival to the Emergency Room, she looked well and was clearly in no apparent respiratory distress. She was somewhat pale. No jaundice or cyanosis. No lymphadenopathy, no thyromegaly. No jugular venous distention. No lower limb edema. VITAL SIGNS: Her heart rate was high at 138, blood pressure was 115/56, temperature was 97.8, respiratory rate was 20 and oxygen saturation was 87% on room air. HEAD, EYES, EAR, NOSE AND THROAT: Normocephalic, atraumatic. NECK: Supple. HEART: Showed normal first and second heart sounds. No gallop, rub or murmur. CHEST: Clear to auscultation. No crepitation rhonchi. ABDOMEN: Distended, soft, nontender. No guarding or rigidity. No organomegaly. All hernial orifices intact. Bowel sounds normal. NEUROLOGIC: She is awake, alert, responding appropriately. All cranial nerves intact. EXTREMITIES: She moves extremities without difficulty. The patient was continued on her medication, was started on sliding scale insulin before meals as well as IV fluid and so far, she has not passed the stone yet. Her CT scan of the abdomen and pelvis was done on 03/22/2019, did show left adnexal cyst measures 5.4 x 5.1 cm, may represent dominant follicle versus hemorrhagic cyst and/or endometrioma. I recommend 2 to 3 months followup pelvic ultrasound to ensure resolution. She has also 2 mm calcification identified along the course of the distal right ureter. Differential consideration would include phlebolith. There is no associated hydroureteronephrosis. No additional urinary tract calculi identified. We will continue with IV fluids, IV pain medication. Monitor blood sugar and labs tomorrow. We will repeat the CT scan. If the patient continues unable to pass the stone, she can be transferred to [facility] to consult the Urology team. SURJIT MOMIN MD DR: ISAIAH/tino JOB#: [id number] / [id number]
[2019-03-26 15:55] VITALS: BP 136/69
[2019-03-26] MEDS ORDERED: INSULIN LISPRO 300 UNITS/3 ML INSULN.PEN. SQ ONE (17:00)
--- NOTE | 2019-03-26 17:29 | RAD ---
PQRS Compliance Statement: One or more of the following individualized dose reduction techniques were utilized for this examination: 1. Automated exposure control 2. Adjustment of the mA and/or kV according to patient size 3. Use of iterative reconstruction technique CT ABDOMEN PELVIS WO CONTRAST Clinical Indication: Follow-up on ureteral stone. Comparison: CT abdomen and pelvis without contrast, March 22. Technique: Helical CT imaging of the abdomen and pelvis is performed without IV or oral contrast. Findings: There are median sternotomy wires. Cardiac size normal. Lung bases are clear. Liver, gallbladder, spleen, pancreas, adrenal glands, and abdominal aorta are normal. There is no renal calculus. There is no hydronephrosis or perinephric stranding. The 2 mm calcification in the pelvis is unchanged and is likely a phlebolith. A soft tissue rim sign is not seen. Stomach unremarkable. No dilated small bowel. The appendix is normal. Scattered stool in the colon. There is no colon wall thickening. No abdominal adenopathy or free fluid. Urinary bladder is normal. Uterus and right ovary unremarkable. Left adnexal cyst is unchanged measuring up to 5.2 cm. No pelvic free fluid. No acute bone abnormality. IMPRESSION: 1. 2 mm calcification in the pelvis is unchanged and does not demonstrate soft tissue rim sign. No secondary signs of obstruction such as hydroureteronephrosis. Calcification favored to be a phlebolith. 2. Left adnexal cyst is unchanged. There is no pelvic free fluid. Follow-up recommendation as per prior CT. Electronically signed by: Jozef Segura MD (03/26/2019 5:25 PM) [facility]
[2019-03-26] MEDS ORDERED: LURASIDONE 40 MG TABLET. PO SCH (18:00)
[2019-03-26 19:20] VITALS: BP 113/66
[2019-03-26] MEDS: INSULIN GLARGINE 300 UNITS/3 ML INSULN.PEN. SQ SCH (20:54)
[2019-03-26 23:08] VITALS: BP 116/63
[2019-03-27] MEDS: CYCLOBENZAPRINE 10 MG TABLET. PO PRN (01:04)
--- NOTE | 2019-03-27 01:53 | PN ---
DATE: 03/26/2019 SUBJECTIVE: ____. She was continued on IV fluid, continued to check her blood sugar and seemed to be much better controlled. She continued to have severe pain that she rates about 6/10 in severity and so far, she has not passed any stones. PHYSICAL EXAMINATION: VITAL SIGNS: When I saw this afternoon, she was stable with stable vital signs. Heart rate was 91, blood pressure was 108/69, temperature was 97.8, respiratory rate was 16, and oxygen saturation was 99%. The rest of the clinical exam is stable. PLAN: To continue with current plan of management. I will arrange for her to have a CT scan of the abdomen and pelvis without contrast tomorrow ____ with hydroureteronephrosis. We will transfer her to [facility]. SURJIT MOMIN MD DR: ISAIAH/tino JOB#: [id number] / [id number]
[2019-03-27] MEDS: IV DEXTROSE 5 %-0.45 % NACL 1,000 ML IV SCH ×2 (02:00→08:19)
[2019-03-27 05:12] VITALS: BP 140/75
[2019-03-27 06:29] LABS: CALCIUM 8.4 mg/dL (8.5-10.1); CREATININE 0.5 mg/dL (0.6-1.0); GFR 146.9; POTASSIUM 3.2 mmol/L (3.5-5.1)
[2019-03-27] MEDS ORDERED: MORPHINE SULFATE 2 MG/ML DISP.SYRIN. IV PRN (06:45)
[2019-03-27 07:35] VITALS: BP 130/74
[2019-03-27] MEDS: MORPHINE SULFATE 2 MG/ML DISP.SYRIN. IV PRN ×3 (07:36→13:19)
[2019-03-27] MEDS: PANTOPRAZOLE 40 MG TABLET. PO SCH (07:41)
[2019-03-27] MEDS: INSULIN LISPRO 300 UNITS/3 ML INSULN.PEN. SQ SCH ×2 (08:00→11:57)
[2019-03-27] MEDS: IV NORMAL SALINE 1,000ML 1,000 ML IV SCH (08:33)
[2019-03-27] MEDS: metFORMIN 500 MG TABLET PO SCH (08:35)
[2019-03-27] MEDS: MELOXICAM 7.5 MG TABLET PO SCH (08:35)
[2019-03-27 10:01] VITALS: BP 136/77
[2019-03-27] MEDS ORDERED: POTASSIUM CHLORIDE 20 MEQ TABLET.ER. PO ONE (12:00)
--- NOTE | 2019-03-27 23:14 | DS ---
DATE OF DISCHARGE: 03/27/2019 HISTORY OF PRESENT ILLNESS: The patient is a 28-year-old female patient who came again to the Emergency Room complaining of recurrent bouts of nausea and generalized weakness. She is known to have type 1 diabetes. Her last episode of DKA was nearly a year ago. She feels that she may be in DKA. She states that she was recently seen and was diagnosed with kidney stone and she stated that earlier today her blood sugar was 300, despite taking some of her insulin blood sugar was 130. She denied any chest pain. She does feel short of breath. She was extensively investigated and was admitted with intractable nausea, vomiting, hyperglycemia and hypocapnia. She was started on IV fluid and insulin, did very well. Her blood sugar has been well controlled. We did repeat her CT scan of the abdomen and pelvis, which basically showed that she has 2 mm calcification in the pelvis and is unchanged and does not demonstrate soft tissue rim sign . No secondary signs of obstruction such as hydroureteronephrosis, calcification favored to be a phlebolith. She has left adnexal cyst, unchanged. There is no pelvic free fluid and followup recommended as per prior CT scan. As the patient remained hemodynamically stable, has had no further episodes of nausea, vomiting, her blood sugar seems to be reasonably controlled, a decision was made to discharge her home to continue on her current medication. PHYSICAL EXAMINATION: GENERAL: When I saw her today, she looked well and was clearly in no apparent respiratory distress. No pallor, jaundice or cyanosis. No lymphadenopathy. No thyromegaly. No jugular venous distention. No lower limb edema. VITAL SIGNS: Her heart rate was 78, blood pressure was 136/77. Her temperature was 98.2, respiratory rate was 16. Her oxygen saturation was 98%. HEAD, EYES, EARS, NOSE AND THROAT: Showed head is normocephalic, atraumatic. NECK: Supple.. HEART: Showed normal first and second heart sounds. No gallop, rub or murmur. CHEST: Clear to auscultation. No crepitation or rhonchi. ABDOMEN: Distended, soft, nontender. No guarding or rigidity. No organomegaly. All hernial orifices intact. Bowel sounds normal. NEUROLOGIC: She was awake, alert, responding appropriately. All cranial nerves intact. EXTREMITIES: She moves extremities without difficulty. She ambulates without assistance or assistive devices. LABORATORY DATA: Most recent lab work showed a serum sodium 144, potassium 3.2, chloride 108, bicarbonate 26, anion gap of 10, BUN 8, creatinine 0.5, estimated GFR was 146 mL per minute. Her glucose was 100 mg. Her white cell count was 4100, hemoglobin 12.8, hematocrit 39, MCV 91 and platelet count 229,000. Urinalysis was unremarkable. Toxic screen was negative. Her nasal screen for MRSA PCR was negative. DISCHARGE MEDICATIONS: She will be discharged home to continue on her cyclobenzaprine 10 mg at bedtime, hydroxyzine 25 mg twice a day, hyoscyamine (Levsin) 0.125 mg 3-4 times daily. She is on detemir insulin ____ units at bedtime, lurasidone (Latuda) 120 mg at bedtime, meloxicam 7.5 mg daily, metformin 1000 mg twice a day, omeprazole 20 mg daily, trazodone 100 mg p.o. at bedtime. FINAL DISCHARGE DIAGNOSES: Intractable nausea and vomiting, resolved; mild diabetic ketoacidosis, resolved. Her anion gap is down to 10. The patient has left renal colic, however, the calcifications in the pelvis is not inside the ureters, actually in the pelvis. Other medical problems include type 1 diabetes mellitus, hypertension, hyperlipidemia, factor V Leiden and has had deep vein thrombosis in her upper extremities. She has bipolar disorder as well as borderline personality disorder. SURJIT MOMIN MD DR: ISAIAH/tino JOB#: [id number] / [id number]
== END 2019-03-27 13:55 | disposition home or self-care (01) | DRG 637 ==
LOC: ER 16:22 → ICU 19:21
PROVIDERS: ADMIT Internal Medicine; ATTEND Internal Medicine
DX: E10.10 Type 1 diabetes mellitus with ketoacidosis without coma (principal); N17.0 Acute kidney failure with tubular necrosis; F31.9 Bipolar disorder, unspecified; M79.7 Fibromyalgia; I10 Essential (primary) hypertension; F60.3 Borderline personality disorder; N20.0 Calculus of kidney; Z79.4 Long term (current) use of insulin; Z88.8 Allergy status to other drugs, medicaments and biological substances; Z86.718 Personal history of other venous thrombosis and embolism; Z91.040 Latex allergy status; Z98.891 History of uterine scar from previous surgery; Z87.891 Personal history of nicotine dependence; E78.5 Hyperlipidemia, unspecified; Z87.74 Personal history of (corrected) congenital malformations of heart and circulatory system
CPT/HCPCS: 36415; 74176; 80048; 80053; 81001; 81025; 82010; 82803; 82947; 83690; 85025; 85610; 85730; 87641; 96374; 96375; J1200; J1815; J2270; J2405; J2765; J3010; J3030; 99285-25; J7030

== ENCOUNTER 2019-04-12 12:55 | Inpatient (IN) | payer OTHER ==
[~2019-04-12] VITALS: Ht 180.3 cm; Wt 99.0 kg
[~2019-04-12 12:55] MED LIST changes: +HYDR25CA PO; +INSU100V13 SQ; +LURA40TA PO; +METF10007 PO; +NOVO; +OMEP10SU2 PO; -ONDANSETRON PF 4 MG/2 ML VIAL. IV ONE; +TRAZ-86 PO
[2019-04-12] MEDS ORDERED: ONDANSETRON PF 4 MG/2 ML VIAL. IV ONE ×2 (14:00→17:45)
[2019-04-12] MEDS ORDERED: IV NORMAL SALINE 1,000ML 1,000 ML IV ONE ×2 (14:00→16:00)
[2019-04-12] MEDS ORDERED: IOHEXOL 300 MG/ML 75 ML VIAL. IV ONE (14:00)
[2019-04-12] MEDS ORDERED: MORPHINE SULFATE 2 MG/ML DISP.SYRIN. IV ONE (14:00)
[2019-04-12] MEDS ORDERED: CONTRAST GIVEN MC PRN (14:00)
[2019-04-12 14:22] LABS: AMPHETAMINE/METHAMPHETAMINE NEG (NEG); BARBITURATES NEG (NEG); BENZODIAZEPINES NEG (NEG); CANNABINOIDS NEG (NEG); COCAINE NEG (NEG); METHADONE NEG (NEG); OPIATES NEG (NEG); PHENCYCLIDINE NEG (NEG)
[2019-04-12 14:31] LABS: BILIRUBIN,URINE NEG (NEG); CLARITY,URINE HAZY; COLOR,URINE YELLOW; GLUCOSE,URINE 500 mg/dL (NEG)
[2019-04-12 14:32] LABS: BACTERIA,URINE FEW /HPF (0-FEW); GRANULAR CASTS,URINE OCC /HPF; NITRITE,URINE NEG (NEG); SQUAMOUS EPITHELIAL CELL,UR OCC /LPF; U PREG PATIENT NEGATIVE (NEG); UROBILINOGEN,URINE 0.2 mg/dL (0.2 mg/dL); WBC,URINE RARE /HPF (0-4)
[2019-04-12 14:44] LABS: BASO % 0 % (0-3); EOS % 0 % (0-3); HEMATOCRIT 49.5 % (36.0-47.0); HEMOGLOBIN 15.6 g/dL (12.0-15.5); LYMPH # 0.8 x10^3/uL (1.0-4.8); LYMPH % 8 % (24-48); MEAN CORPUSCULAR HEMOGLOBIN 31 pg (25-35); MEAN CORPUSCULAR HGB CONC 32 g/dL (31-37); MEAN CORPUSCULAR VOLUME 99 fL (79-100); MONO # 0.4 x10^3/uL (0.0-1.1); MONO % 4 % (0-9); NEUT # 8.7 x10^3uL (1.8-7.7); NEUT % 88 % (31-73); PLATELET COUNT 325 x10^3/uL (140-400); RED BLOOD COUNT 5.03 x10^6/uL (3.50-5.40); RED CELL DISTRIBUTION WIDTH 15.3 % (11.5-14.5); WHITE BLOOD COUNT 9.9 x10^3/uL (4.0-11.0)
--- NOTE | 2019-04-12 14:51 | PHYS DOC ---
Past History Past Medical History: Anxiety, Bipolar, Depression, Diabetes, DVT, Fibromyalgia, Hypertension, Migraines, Other Past Surgical History: Smoking: Cigarettes Alcohol Use: Occasionally Drug Use: None Adult General Chief Complaint Chief Complaint: ABDOMINAL PAIN HPI HPI 28-year-old female presents with vomiting and abdominal pain. Patient states she woke up at 6 AM has had multiple episodes of vomiting. She also has diffuse abdominal cramping. The intensity is mild to moderate. She was feeling fine yesterday. She denies fever or chills. The patient has intermittent abdominal pain without an official diagnosis. Today she just can't stop throwing up. Her blood sugars have been elevated, but only in the 200s. She is diabetic. She denies diarrhea, chest pain, shortness of breath. Review of Systems Review of Systems Constitutional: Denies fever or chills [] Eyes: Denies change in visual acuity, redness, or eye pain [] HENT: Denies nasal congestion or sore throat [] Respiratory: Denies cough or shortness of breath [] Cardiovascular: No additional information not addressed in HPI [] GI: abdominal pain, nausea, vomiting Denies bloody stools or diarrhea [] : Denies dysuria or hematuria [] Musculoskeletal: Denies back pain or joint pain [] Integument: Denies rash or skin lesions [] Neurologic: Denies headache, focal weakness or sensory changes [] Endocrine: Denies polyuria or polydipsia [] All other systems were reviewed and found to be within normal limits, except as documented in this note. Current Medications Current Medications Current Medications Medications (Trade) Dose Ordered Sig/[facility] Start Time Stop Time Status Last Admin Dose Admin Info (Do NOT chart on this entry -- for MONITORING) 1 each PRN DAILY PRN 04/12/19 14:00 04/14/19 13:59 Iohexol (Omnipaque 300 Mg/ml) 75 ml 1X ONCE 04/12/19 14:00 04/12/19 14:01 DC 04/12/19 14:19 75 ML Morphine Sulfate (Morphine 2mg Syringe) 2 mg 1X ONCE 04/12/19 14:00 04/12/19 14:01 DC 04/12/19 14:08 2 MG Ondansetron HCl (Zofran) 4 mg 1X ONCE 04/12/19 14:00 04/12/19 14:01 DC 04/12/19 14:08 4 MG Sodium Chloride 1,000 ml @ 1,000 mls/hr 1X ONCE 04/12/19 14:00 04/12/19 14:59 04/12/19 14:08 1,000 MLS/HR Allergies Allergies Allergies Coded Allergies Type Severity Reaction Last Updated Verified latex Allergy Intermediate 04/12/19 Yes lisinopril Allergy Intermediate 04/12/19 Yes quetiapine Allergy Intermediate 04/12/19 Yes warfarin Allergy Intermediate 04/12/19 Yes Physical Exam Physical Exam Constitutional: Well developed, well nourished, mild acute distress, non-toxic appearance. [] HENT: Normocephalic, atraumatic, bilateral external ears normal, oropharynx moist, no oral exudates, nose normal. [] Eyes: PERRLA, EOMI, conjunctiva normal, no discharge. [] Neck: Normal range of motion, no tenderness, supple, no stridor. [] Cardiovascular:Heart rate regular rhythm, no murmur [] Lungs & Thorax: Bilateral breath sounds clear to auscultation [] Abdomen: Bowel sounds normal, soft, diffuse tenderness, no masses, no pulsatile masses. [] Skin: Warm, dry, no erythema, no rash. [] Back: No tenderness, no CVA tenderness. [] Extremities: No tenderness, no cyanosis, no clubbing, ROM intact, no edema. [] Neurologic: Alert and oriented X 3, normal motor function, normal sensory function, no focal deficits noted. [] Psychologic: Affect normal, judgement normal, mood normal. [] Current Patient Data Vital Signs Vital Signs Date Time Temp Pulse Resp B/P (MAP) Pulse Ox O2 Delivery O2 Flow Rate FiO2 04/12/19 14:34 27 98 Room Air 04/12/19 14:33 121 147/89 (108) 04/12/19 12:55 97.6 Lab Results Laboratory Tests Test 04/12/19 13:12 04/12/19 14:10 Urine Collection Type Unknown Urine Color Yellow Urine Clarity Hazy Urine pH 5.0 Urine Specific [place] 1.025 Urine Protein 100 mg/dl (NEG-TRACE) Urine Glucose (UA) 500 mg/dL (NEG) Urine Ketones (Stick) >=160 mg/dL (NEG) Urine Blood Small (NEG) Urine Nitrite Neg (NEG) Urine Bilirubin Neg (NEG) Urine Urobilinogen Dipstick 0.2 mg/dL (0.2 mg/dL) Urine Leukocyte Esterase Neg (NEG) Urine RBC 1-2 /HPF (0-2) Urine WBC Rare /HPF (0-4) Urine Squamous Epithelial Cells Occ /LPF Urine Bacteria Few /HPF (0-FEW) Urine Granular Casts Occ /HPF Urine Test Negative (NEG) Urine Opiates Screen Neg (NEG) Urine Methadone Screen Neg (NEG) Urine Barbiturates Neg (NEG) Urine Phencyclidine Screen Neg (NEG) Urine Amphetamine/Methamphetamine Neg (NEG) Urine Benzodiazepines Screen Neg (NEG) Urine Cocaine Screen Neg (NEG) Urine Cannabinoids Screen Neg (NEG) Urine Ethyl Alcohol Neg (NEG) White Blood Count 9.9 x10^3/uL (4.0-11.0) Red Blood Count 5.03 x10^6/uL (3.50-5.40) Hemoglobin 15.6 g/dL (12.0-15.5) H Hematocrit 49.5 % (36.0-47.0) H Mean Corpuscular Volume 99 fL (79-100) Mean Corpuscular Hemoglobin 31 pg (25-35) Mean Corpuscular Hemoglobin Concent 32 g/dL (31-37) Red Cell Distribution Width 15.3 % (11.5-14.5) H Platelet Count 325 x10^3/uL (140-400) Neutrophils (%) (Auto) 88 % (31-73) H Lymphocytes (%) (Auto) 8 % (24-48) L Monocytes (%) (Auto) 4 % (0-9) Eosinophils (%) (Auto) 0 % (0-3) Basophils (%) (Auto) 0 % (0-3) Neutrophils # (Auto) 8.7 x10^3uL (1.8-7.7) H Lymphocytes # (Auto) 0.8 x10^3/uL (1.0-4.8) L Monocytes # (Auto) 0.4 x10^3/uL (0.0-1.1) Eosinophils # (Auto) 0.0 x10^3/uL (0.0-0.7) Basophils # (Auto) 0.0 x10^3/uL (0.0-0.2) EKG EKG [] Radiology/Procedures Radiology/Procedures [] Impressions: PQRS Compliance Statement: One or more of the following individualized dose reduction techniques were utilized for this examination: 1. Automated exposure control 2. Adjustment of the mA and/or kV according to patient size 3. Use of iterative reconstruction technique CT abdomen/pelvis with contrast 04/12/2019 1:48 PM INDICATION: Right lower quadrant abdominal pain with vomiting. COMPARISON: CT abdomen/pelvis 07/05/2019 TECHNIQUE: Multiple axial CT images of the abdomen and pelvis were obtained after the intravenous administration of 75 mL nonionic contrast. Coronal and sagittal reformats are provided. FINDINGS: Evaluation is limited by motion artifact. Lung bases are clear. Heart size is within normal limits. Liver, spleen, bilateral adrenal glands, pancreas and gallbladder are normal in appearance. The abdominal aorta is normal in course and caliber. There are no pathologically enlarged lymph nodes in the abdomen and pelvis. There is no abdominal free fluid. There is no free intraperitoneal air. Small and large bowel are normal in caliber. There is no evidence for bowel obstruction. There are no pericolonic inflammatory changes. A normal, nondilated appendix is visualized without adjacent inflammatory changes. The kidneys enhance symmetrically. There is no suspicious renal mass. There is no hydronephrosis. There are no suspected calculi within the kidneys, ureters or urinary bladder. Urinary bladder is within normal limits given degree of distention. Stable 2 mm calcification in the right hemipelvis, most favoring a phlebolith. Uterus is normal in appearance. Follicular/ cystic changes are identified in the adnexa bilaterally. No free fluid is identified within the pelvis. No suspicious osseous abnormality is identified. Median sternotomy changes are present. IMPRESSION: No acute abnormality is identified in abdomen and pelvis, as described in detail above. Electronically signed by: Liang Fernandez MD (04/12/2019 2:47 PM) [id number] DICTATED AND SIGNED BY: LIANG FERNANDEZ MD DATE: 04/12/19 8025 CC: LV SLOAN DO; MATY SALMON MD ~ Course & Med Decision Making Course & Med Decision Making Pertinent Labs and Imaging studies reviewed. (See chart for details) The patient's labs are significant for a blood sugar of 570. 2 L of normal saline. I have given the patient Zofran and morphine for her pain. CT of the abdomen and pelvis is negative for acute findings. We will place her on insulin drip. Discussed the patient with Dr. Cooley and he has accepted the patient for admission. [] Dragon Disclaimer Dragon Disclaimer This electronic medical record was generated, in whole or in part, using a voice recognition dictation system. Departure Departure: Impression: Primary Impression: Hyperglycemia due to type 2 diabetes mellitus Additional Impressions: Vomiting Abdominal pain Disposition: ADMITTED INPATIENT Admitting Physician: Bruna Cooley Condition: STABLE Referrals: MATY SALMON MD (PCP) Problem Qualifiers LV SLOAN DO Apr 12, 2019 14:51
[2019-04-12 14:55] LABS: ALBUMIN 4.1 g/dL (3.4-5.0); ALBUMIN/GLOBULIN RATIO 0.9 (1.0-1.7); CALCIUM 8.8 mg/dL (8.5-10.1); CREATININE 1.3 mg/dL (0.6-1.0); GFR 48.8; POTASSIUM 5.8 mmol/L (3.5-5.1); TOTAL BILIRUBIN 0.5 mg/dL (0.2-1.0); TOTAL PROTEIN 8.8 g/dL (6.4-8.2)
[2019-04-12] MEDS ORDERED: MORPHINE SULFATE 4 MG/ML DISP.SYRIN. IV ONE ×2 (15:00→17:45)
[2019-04-12] MEDS ORDERED: INSULIN REGULAR 100 UNIT/ML 3ML VIAL. IV ONE (16:30)
[2019-04-12] MEDS ORDERED: DEXTROSE 50% 25 GM / 50ML DISP.SYRIN. IV PRN (16:45)
[2019-04-12] MEDS ORDERED: INSULIN REGULAR VIAL 150 UNIT in 0.9 % SODIUM CHLORIDE 150ML 150 ML IV PRN ×3 (17:00→21:45)
[2019-04-12 19:38] VITALS: BP 145/85
[2019-04-12] MEDS: MORPHINE SULFATE 4 MG/ML DISP.SYRIN. IV PRN (19:46)
[2019-04-12 19:53] LABS: CALCIUM 8.5 mg/dL (8.5-10.1); CREATININE 0.9 mg/dL (0.6-1.0); GFR 74.6; POTASSIUM 3.9 mmol/L (3.5-5.1)
[2019-04-12] MEDS: POTASSIUM CL 20MEQ D5-0.45NACL 1,000 ML IV SCH (20:31)
[2019-04-12 21:16] VITALS: BP 128/82
[2019-04-12] MEDS ORDERED: POTASSIUM CHLORIDE 10MEQ 100 ML IV PRN ×2 (21:45)
[2019-04-12] MEDS: POTASSIUM CHLORIDE 10MEQ 100 ML IV PRN (22:16)
[2019-04-12] MEDS ORDERED: FLUO20CA8 PO (22:21)
[2019-04-12] MEDS ORDERED: OMEP20CA10 PO (22:21)
[2019-04-12 23:07] VITALS: BP 137/70
[2019-04-13] VITALS (10 sets, daily range): BP systolic 111–151; BP diastolic 63–88
[2019-04-13] MEDS: ONDANSETRON PF 4 MG/2 ML VIAL. IV PRN ×2 (00:30→13:37)
[2019-04-13] MEDS: MORPHINE SULFATE 4 MG/ML DISP.SYRIN. IV PRN ×3 (00:30→12:14)
[2019-04-13 00:33] LABS: CALCIUM 8.6 mg/dL (8.5-10.1); CREATININE 0.9 mg/dL (0.6-1.0); GFR 74.6; POTASSIUM 3.8 mmol/L (3.5-5.1)
[2019-04-13] MEDS: POTASSIUM CHLORIDE 10MEQ 100 ML IV PRN ×3 (00:46→05:37)
[2019-04-13] MEDS: POTASSIUM CL 20MEQ D5-0.45NACL 1,000 ML IV SCH ×2 (00:47→06:36)
[2019-04-13 04:24] LABS: CALCIUM 8.5 mg/dL (8.5-10.1); CREATININE 0.9 mg/dL (0.6-1.0); GFR 74.6; POTASSIUM 3.6 mmol/L (3.5-5.1)
[2019-04-13] MEDS ORDERED: DEXTROSE 50% 25 GM / 50ML DISP.SYRIN. IV PRN (07:45)
[2019-04-13] MEDS ORDERED: KETOROLAC 30 MG/ML VIAL. IV PRN (08:00)
[2019-04-13] MEDS: INSULIN LISPRO 300 UNITS/3 ML VIAL. SQ SCH ×2 (08:00→12:00)
[2019-04-13 08:08] LABS: CALCIUM 8.8 mg/dL (8.5-10.1); CREATININE 0.9 mg/dL (0.6-1.0); GFR 74.6; POTASSIUM 3.8 mmol/L (3.5-5.1)
[2019-04-13] MEDS: POTASSIUM CL 20MEQ IN 0.9%NACL 1,000 ML IV SCH ×2 (08:55→15:25)
--- NOTE | 2019-04-13 17:02 | HP ---
ADMIT DATE: 04/12/2019 ATTENDING PHYSICIAN: Dr. Cooley. CHIEF COMPLAINT: Abdominal pain. HISTORY OF PRESENT ILLNESS: The patient is a 28-year-old female with type 1 diabetes. She was at the doctor's office in [facility]. Most of the day, she did not take her insulin. She had localized right lower quadrant abdominal pain, which is more functional. She had not taken her insulin. She was in early DKA with a blood sugar that was elevated and anion gap of 29 and a serum bicarbonate of 7. Dr. Cooley was called. She was admitted for further treatment and insulin therapy and hydration with serial chemistries. PAST MEDICAL HISTORY: Is interesting. She has supposedly factor V Leiden deficiency, but she had adverse reaction to Coumadin, which causes a rash. ALLERGIES: She has also allergies to SEROQUEL, LISINOPRIL, and LATEX. CURRENT MEDICINES: Include her long-acting and Regular insulin, she takes 80 units of Levemir daily. SOCIAL HISTORY: She is a nonsmoker, nondrinker. FAMILY HISTORY: Noncontributory. REVIEW OF SYSTEMS: Significant for increasing stress. She has 2 sons, 1 son is [id number] born with a defect that has led to developmental delay. This is causing quite a bit of stress in her life. She had several episodes of vomiting in the morning, diffuse abdominal cramping. Sugars have been elevated. She has not taken her insulin. All other systems reviewed and determined to be negative. PHYSICAL EXAMINATION: GENERAL: When I saw her, this is a pleasant, well-developed female. INITIAL VITAL SIGNS: In the ED showed a blood pressure 147/89, pulse is 121 and regular. She was afebrile. HEENT: Head is without trauma. Pupils are reactive. Sclerae nonicteric. Oropharynx is clear. NECK: Supple, no bruits identified. LUNGS: Otherwise clear. CARDIOVASCULAR: Showed regular heart tones. No obvious gallops. Peripheral pulses are palpable and full. ABDOMEN: Soft, nontender, no organomegaly. Bowel sounds are hypoactive. EXTREMITIES: Show no cyanosis or edema. NEUROLOGIC: Focally intact. Speech is fluent. PERTINENT LABORATORY DATA AND X-RAY STUDIES: Chemistry panel as noted. Her CT of the abdomen done in the ED showed no acute abdominal process in the abdomen or pelvis, no obstruction. No inflammation identified. ASSESSMENT: 1. A 28-year-old female with abdominal pain, functional in nature. 2. Type 1 diabetes, poor control. 3. Noncompliance. 4. Early diabetic ketoacidosis. 5. History of factor V Leiden deficiency, currently off Coumadin. She is not on any blood thinners at this time. PLAN: 1. Admit to the inpatient unit. 2. Clear liquid diet. 3. Accu-Cheks. 4. Insulin drip. 5. Serial chemistries. 6. Pain control. GOVIND SAUER MD DR: ADRIENNE/tino JOB#: [id number] / [id number] SURJIT George MD
--- NOTE | 2019-04-14 00:06 | DS ---
DATE OF DISCHARGE: 04/13/2019 ATTENDING PHYSICIAN: Bruna Cooley M.D. FINAL DISCHARGE DIAGNOSES: 1. Type 1 diabetes with diabetic ketoacidosis. 2. Noncompliance of meds. 3. Abdominal pain, functional. 4. Generalized anxiety disorder. 5. Bipolar depression. 6. History of fibromyalgia. 7. Essential hypertension. 8. History of migraines. 9. History of deep vein thrombosis due to factor V Leiden deficiency. HISTORY AND PHYSICAL: This 28-year-old female with multiple medical issues and type 1 diabetes was admitted through the ED yesterday with abdominal pain and early DKA. Her symptoms are functional. She is under quite a bit of stress from family situation. She has a [id number] infant with developmental delay. She had been at the [facility] taking care of her son. PHYSICAL EXAMINATION: Please see the dictated note. PERTINENT LABORATORY AND X-RAY STUDIES: Admission anion gap was elevated at 29, potassium was replaced. Repeat chemistries next day showed improvement of her CO2 at 18. Her anion gap had decreased to 13. Potassium was replaced up to 3.8 mEq, sodium 134. Nonfasting blood sugar at 123 and 119 respectively. Lipase level was 66. COURSE IN THE HOSPITAL: The patient was admitted, started on liquid diet, insulin drip, fluids, pain and nausea control along with potassium supplementation. Symptoms improved. She responded well to IV morphine. She requested a small prescription for oral pain medication. She is still under a lot of stress. I wanted to keep her another day. She insisted on going home because of her sick child. Therefore, reluctantly on the evening of the second hospital day, the patient was discharged home with strong encouragement to take her insulin, specifically her Levemir daily and her short acting before each meal. In addition, I wrote her a script for Percocet 10 mg 1 every 6 hours #24 as needed for pain. She will follow up with her PCP and water hauler. The patient was then discharged from our hospital in stable condition with explicit instructions and followup care. GOVIND SAUER MD DR: ADRIENNE/tino JOB#: [id number] / [id number] BRUNA George MD
[2019-04-14 08:50] LABS: HEMOGLOBIN A1C 11.2 % (4.8-5.6)
== END 2019-04-13 16:34 | disposition home or self-care (01) | DRG 638 ==
LOC: ER 12:55 → ICU 19:03
PROVIDERS: ADMIT Internal Medicine; ATTEND Internal Medicine
DX: E10.10 Type 1 diabetes mellitus with ketoacidosis without coma (principal); F31.30 Bipolar disorder, current episode depressed, mild or moderate severity, unspecified; F41.1 Generalized anxiety disorder; I10 Essential (primary) hypertension; F41.9 Anxiety disorder, unspecified; G43.909 Migraine, unspecified, not intractable, without status migrainosus; M79.7 Fibromyalgia; Z86.718 Personal history of other venous thrombosis and embolism; Z87.891 Personal history of nicotine dependence; Z91.14 Patient's other noncompliance with medication regimen; Z88.8 Allergy status to other drugs, medicaments and biological substances; Z91.040 Latex allergy status
CPT/HCPCS: 36415; 74177; 80048; 80053; 80307; 81001; 81025; 82947; 83036; 83690; 84443; 85025; 87641; 96361; 96365; 96374; 96375; 96376; J1815; J1885; J2270; J2405; J3480; Q9967; 99285-25; J7030

== ENCOUNTER 2019-04-28 22:39 | Emergency (ER) | payer OTHER ==
[~2019-04-28] VITALS: Ht 180.3 cm; Wt 104.3 kg
[~2019-04-28 22:39] MED LIST changes: +FLUO20CA8 PO; +OMEP20CA10 PO
--- NOTE | 2019-04-28 22:47 | ED.ADGEN ---
Past History Past Medical History: Abscess, Anxiety, Bipolar, Depression, Diabetes, DVT, Fibromyalgia, Hypertension, Migraines, Other Past Surgical History: Smoking: Cigarettes Alcohol Use: Occasionally Drug Use: None Adult General Chief Complaint Chief Complaint ".. I think a spider bit me on the butt... all sudden today.. I got this area of cellulitis.. and I think an abscess on my Rt. butt cheek.. but it has gotten so sore.. I can 't wait to see Dr. Pradhan...." HPI HPI Patient is a 28 year old female who presents with above hx and complaints insect bite versus cellulitis and abscess right gluteal cheek. Patient does not recall any insect bite. Patient denies any history of immunosuppression but does have history of diabetes. Patient's tetanus shot was +1/2 years ago. Patient has a pointing abscess that is partially spontaneously drained on right gluteal area. Area is approximately 4 x 4 cm erythema with a pointing center abscess. No striations. No history of colitis. Does have a history of coagulopathy. Recent travel or specific ill contacts Review of Systems Review of Systems Constitutional: Denies fever or chills [] Eyes: Denies change in visual acuity, redness, or eye pain [] HENT: Denies nasal congestion or sore throat [] Respiratory: Denies cough or shortness of breath [] Cardiovascular: No additional information not addressed in HPI [] GI: Denies abdominal pain, nausea, vomiting, bloody stools or diarrhea [] : Denies dysuria or hematuria [] Musculoskeletal: Denies back pain or joint pain [] Integument: Denies rash or skin lesions []complains of spider bite versus abs cess right gluteal cheek Neurologic: Denies headache, focal weakness or sensory changes [] Endocrine: Denies polyuria or polydipsia [] All other systems were reviewed and found to be within normal limits, except as documented in this note. Family History Family History Noncontributory Current Medications Current Medications Current Medications Medications (Trade) Dose Ordered Sig/[place] Start Time Stop Time Status Last Admin Dose Admin Ceftriaxone Sodium (Rocephin Im) 1 gm 1X ONCE 04/29/19 00:00 04/29/19 00:01 DC 04/28/19 23:44 1 GM Ceftriaxone Sodium (Rocephin) 1 gm STK-MED ONCE 04/28/19 23:38 04/28/19 23:38 DC Hydrocodone Bitartrate/ Ibuprofen (Vicoprofen 7.5-200) 2 tab 1X ONCE 04/29/19 00:00 04/29/19 00:01 DC 04/28/19 23:44 2 TAB Trimethoprim/ Sulfamethoxazole (Bactrim Ds) 1 tab 1X ONCE 04/29/19 00:00 04/29/19 00:01 DC 04/28/19 23:44 1 TAB Allergies Allergies Allergies Coded Allergies Type Severity Reaction Last Updated Verified latex Allergy Intermediate 04/12/19 Yes lisinopril Allergy Intermediate 04/12/19 Yes quetiapine Allergy Intermediate 04/12/19 Yes warfarin Allergy Intermediate 04/12/19 Yes Physical Exam Physical Exam Constitutional: Moderate acute distress, non-toxic appearance. [] HENT: Normocephalic, atraumatic, bilateral external ears normal, oropharynx moist, no oral exudates, nose normal. [] Eyes: PERRLA, EOMI, conjunctiva normal, no discharge. [] Neck: Normal range of motion, no tenderness, supple, no stridor. [] Cardiovascular:Heart rate regular rhythm, no murmur [] Lungs & Thorax: Bilateral breath sounds clear to auscultation [Hickey diaz on chest Abdomen: Bowel sounds normal, soft, no tenderness, no masses, no pulsatile masses. [] Old surgery scar Skin: Warm, dry, no erythema, no rash. [] Except findings of a pointing abscess right gluteal cheek Back: No tenderness, no CVA tenderness. [] Extremities: No tenderness, no cyanosis, no clubbing, ROM intact, no edema. [] Neurologic: Alert and oriented X 3, normal motor function, normal sensory function, no focal deficits noted. [] Psychologic: Affect anxious, judgement normal, mood normal. [] Current Patient Data Vital Signs Vital Signs Date Time Temp Pulse Resp B/P (MAP) Pulse Ox O2 Delivery O2 Flow Rate FiO2 04/28/19 22:55 98.3 126 20 96 Room Air Lab Results Laboratory Tests Test 04/28/19 23:48 Glucose (Fingerstick) 114 mg/dL (70-99) H EKG EKG [] Radiology/Procedures Radiology/Procedures [] Course & Med Decision Making Course & Med Decision Making Pertinent Labs and Imaging studies reviewed. (See chart for details) Procedure note- incision and drainage- area of abscess cleaned with Betadine repeatedly. One stick with 11 blade with drainage of small amount of pus. Dressing applied. Patient to take Bactrim DS twice day. Patient do sitz bath at least 4 times a day. Patient follow-up with Dr. Pradhan. Patient take Tylenol or ibuprofen for pain. Patient return if any concerns. [] Final Impression Final Impression 1. Cellulitis/abscess right gluteal cheek[] Dragon Disclaimer Dragon Disclaimer This electronic medical record was generated, in whole or in part, using a voice recognition dictation system. Dragon Disclaimer This chart was dictated in whole or in part using Voice Recognition software in a busy, high-work load, and often noisy Emergency Department environment. It may contain unintended and wholly unrecognized errors or omissions. DEBBIE LLANES MD Apr 28, 2019 22:47
[2019-04-28 22:55] VITALS: BP 138/84
[2019-04-28] MEDS ORDERED: SULF1TAB24 PO (23:33)
[2019-04-28] MEDS ORDERED: cefTRIAXone SODIUM 1 GM VIAL ONE (23:38)
[2019-04-29] MEDS ORDERED: SMZ/TMP 800/160MG TABLET. PO ONE
[2019-04-29] MEDS ORDERED: HYDROcodon/IBUPROFEN 7.5/200MG 1 TAB TABLET PO ONE
[2019-04-29] MEDS ORDERED: cefTRIAXone IM 1 GM VIAL IM ONE
== END 2019-04-29 00:02 | disposition home or self-care (01) ==
LOC: ER 22:39
DX: L02.31 Cutaneous abscess of buttock (principal); E11.9 Type 2 diabetes mellitus without complications; Z86.718 Personal history of other venous thrombosis and embolism; M79.7 Fibromyalgia; I10 Essential (primary) hypertension; G43.909 Migraine, unspecified, not intractable, without status migrainosus; F17.210 Nicotine dependence, cigarettes, uncomplicated; Z88.8 Allergy status to other drugs, medicaments and biological substances; Z91.040 Latex allergy status
CPT/HCPCS: 99283; J0696; 82947

== ENCOUNTER 2019-05-01 08:14 | Inpatient (IN) | payer OTHER ==
[~2019-05-01] VITALS: Ht 180.3 cm; Wt 105.5 kg
[~2019-05-01 08:14] MED LIST changes: +SULF1TAB24 PO
--- NOTE | 2019-05-01 08:38 | PHYS DOC ---
Past History Past Medical History: Abscess, Anxiety, Bipolar, Depression, Diabetes, DVT, Fibromyalgia, Hypertension, Migraines, Other Past Surgical History: Smoking: Cigarettes Alcohol Use: Occasionally Drug Use: Marijuana Adult General Chief Complaint Chief Complaint: SKIN PROBLEM HPI HPI 28-year-old female returns to the emergency room with continued cellulitis and abscess. She was seen by my colleague 3 days ago for buttock cellulitis and abscess. An incision and draining was completed at that time. The patient was placed on Bactrim. She tells me she has been taking the medication as prescribed. The area has grown in size, increased in pain, and and is not getting better. She cannot follow up with her PCP for another 3 days. Patient has not had a fever at home. A culture was not performed at her previous visit. Review of Systems Review of Systems Constitutional: Denies fever or chills [] Eyes: Denies change in visual acuity, redness, or eye pain [] HENT: Denies nasal congestion or sore throat [] Respiratory: Denies cough or shortness of breath [] Cardiovascular: No additional information not addressed in HPI [] GI: Denies abdominal pain, nausea, vomiting, bloody stools or diarrhea [] : Denies dysuria or hematuria [] Musculoskeletal: Denies back pain or joint pain [] Integument: cellulitis, abscess [] Neurologic: Denies headache, focal weakness or sensory changes [] Endocrine: Denies polyuria or polydipsia [] All other systems were reviewed and found to be within normal limits, except as documented in this note. Allergies Allergies Allergies Coded Allergies Type Severity Reaction Last Updated Verified latex Allergy Intermediate 04/12/19 Yes lisinopril Allergy Intermediate 04/12/19 Yes quetiapine Allergy Intermediate 04/12/19 Yes warfarin Allergy Intermediate 04/12/19 Yes Physical Exam Physical Exam Constitutional: Well developed, well nourished, no acute distress, non-toxic appearance. [] HENT: Normocephalic, atraumatic, bilateral external ears normal, oropharynx moist, no oral exudates, nose normal. [] Eyes: PERRLA, EOMI, conjunctiva normal, no discharge. [] Neck: Normal range of motion, no tenderness, supple, no stridor. [] Cardiovascular:Heart rate regular rhythm, no murmur [] Lungs & Thorax: Bilateral breath sounds clear to auscultation [] Abdomen: Bowel sounds normal, soft, no tenderness, no masses, no pulsatile masses. [] Skin: Left buttocks 3 cm x 3 cm abscess with 5 cm surrounding cellulitis, erythematous and hot to the touch. Also appears to be skin irritation due to adhesive around the wound.[] Back: No tenderness, no CVA tenderness. [] Extremities: No tenderness, no cyanosis, no clubbing, ROM intact, no edema. [] Neurologic: Alert and oriented X 3, normal motor function, normal sensory funct ion, no focal deficits noted. [] Psychologic: Affect normal, judgement normal, mood normal. [] EKG EKG [] Radiology/Procedures Radiology/Procedures [] Course & Med Decision Making Course & Med Decision Making Pertinent Labs and Imaging studies reviewed. (See chart for details) The patient appears to be failing outpatient treatment. I repeated incision and drainage of the wound. A culture was sent. I placed patient on Rocephin and vancomycin. I spoke with Dr. Cooley and he has accepted the patient for admission. The patient is in agreement with this plan. He was given 2 mg morphine and 4 mg of Zofran for her pain. [] Dragon Disclaimer Dragon Disclaimer This electronic medical record was generated, in whole or in part, using a voice recognition dictation system. Incision and Drainage Indication: 3 cm diameter abscess of the right buttocks. Procedure: Verbal consent was obtained from the patient for incision and drainage of her buttocks abscess. The site was prepped with alcohol 3 times. 1% lidocaine without epinephrine was used. 2 mL were used for anesthesia. A 1 cm incision was made with a #11 blade. Purulent drainage was expressed. A wound culture was obtained. Loculations were broken up with a sterile Q-tip. More drainage was expressed. The patient was placed on IV antibiotics. The wound was left open and covered. The patient tolerated the procedure well. Complications: None Departure Departure: Impression: Primary Impression: Cellulitis and abscess of buttock Disposition: ADMITTED INPATIENT Admitting Physician: Bruna Cooley Condition: STABLE Referrals: MATY SALMON MD (PCP) LV SLOAN DO May 01, 2019 08:38
[2019-05-01] MEDS ORDERED: IV NORMAL SALINE 1,000ML 1,000 ML IV ONE ×2 (08:45→17:15)
[2019-05-01] MEDS ORDERED: MORPHINE SULFATE 2 MG/ML DISP.SYRIN. ONE (09:13)
[2019-05-01] MEDS ORDERED: ONDANSETRON PF 4 MG/2 ML VIAL. ONE (09:13)
[2019-05-01] MEDS ORDERED: VANCOMYCIN 2 GM in IV NORMAL SALINE 500ML 500 ML IV ONE (09:15)
[2019-05-01] MEDS ORDERED: VANCOMYCIN 1.5 GM in IV NORMAL SALINE 500ML 500 ML IV ONE (09:15)
[2019-05-01 09:28] LABS: BASO % 0 % (0-3); EOS # 0.1 x10^3/uL (0.0-0.7); EOS % 1 % (0-3); HEMATOCRIT 38.7 % (36.0-47.0); LYMPH # 1.3 x10^3/uL (1.0-4.8); LYMPH % 16 % (24-48); MEAN CORPUSCULAR HEMOGLOBIN 31 pg (25-35); MEAN CORPUSCULAR HGB CONC 33 g/dL (31-37); MEAN CORPUSCULAR VOLUME 92 fL (79-100); MONO # 0.5 x10^3/uL (0.0-1.1); MONO % 7 % (0-9); NEUT # 5.9 x10^3uL (1.8-7.7); NEUT % 76 % (31-73); PLATELET COUNT 299 x10^3/uL (140-400); RED BLOOD COUNT 4.23 x10^6/uL (3.50-5.40); RED CELL DISTRIBUTION WIDTH 14.3 % (11.5-14.5); WHITE BLOOD COUNT 7.8 x10^3/uL (4.0-11.0)
[2019-05-01] MEDS ORDERED: ONDANSETRON PF 4 MG/2 ML VIAL. IV ONE (09:30)
[2019-05-01] MEDS ORDERED: MORPHINE SULFATE 2 MG/ML DISP.SYRIN. IV ONE (09:30)
[2019-05-01 09:50] LABS: ALBUMIN/GLOBULIN RATIO 0.7 (1.0-1.7); CALCIUM 8.9 mg/dL (8.5-10.1); POTASSIUM 3.9 mmol/L (3.5-5.1); TOTAL BILIRUBIN 0.3 mg/dL (0.2-1.0); TOTAL PROTEIN 7.3 g/dL (6.4-8.2)
[2019-05-01] MEDS ORDERED: ONDANSETRON PF 4 MG/2 ML VIAL. IV PRN (10:00)
[2019-05-01] MEDS ORDERED: IV NORMAL SALINE 50ML 50 ML ONE (10:12)
[2019-05-01] MEDS ORDERED: cefTRIAXone SODIUM 1 GM VIAL ONE (10:12)
[2019-05-01] MEDS: MORPHINE SULFATE 2 MG/ML DISP.SYRIN. IV PRN ×2 (11:44→14:34)
--- NOTE | 2019-05-01 13:00 | NUR ---
The patient, RYLIE BELL, 28 y/o, F admitted by SURJIT MOMIN MD, was given written information regarding hospital policies, unit procedures and contact persons. Valuables were checked and left in room at this time. Patient alert and oriented x4, able to make needs known. States that she went to the ER this week due to abscess noted to left buttcheek that started 5 days ago. Patient stated she received bactrim but could tell the area was getting worse and could feel a lump. Wound care consulted and picture obtained for chart. Patients wound is open to air at this time, per ER area was I&D with minimal drainage. Per patient area is no longer draining, area is red and tender to touch. States that she can feel a lump to the area. DR Momin notified of admission and repeated lactic acid. Will continue to monitor.
[2019-05-01 13:20] VITALS: BP 119/80
[2019-05-01] MEDS ORDERED: INSU100I17 SQ (14:24)
[2019-05-01] MEDS ORDERED: DEXTROSE 50% 25 GM / 50ML DISP.SYRIN. IV PRN (14:30)
[2019-05-01 14:57] VITALS: BP 120/80
[2019-05-01] MEDS ORDERED: METF10007 PO (17:05)
[2019-05-01] MEDS ORDERED: METO25TA4 PO (17:05)
[2019-05-01] MEDS ORDERED: hydrOXYzine PAMOATE 25 MG CAPSULE PO PRN (17:15)
[2019-05-01] MEDS ORDERED: HYOSCYAMINE 0.125 MG TAB.RAPDIS PO PRN (17:15)
[2019-05-01] MEDS ORDERED: traZODone 100 MG TABLET. PO PRN (17:15)
--- NOTE | 2019-05-01 17:29 | HP ---
ADMIT DATE: 05/01/2019 HISTORY OF PRESENT ILLNESS: The patient is a 28-year-old female patient who came to the Emergency Room again with continued cellulitis and abscess. She apparently was seen at the Emergency Room 3 days ago for left buttock cellulitis and abscess and incision and drainage was completed at that time. She was placed on Bactrim; although she has been taking her medication as prescribed, the area has grown in size, increasing pain and is not getting any better. She cannot follow up with her primary care physician for another 3 days. She has not had any fever at home. Her culture unfortunately was not performed at previous visit. The abscess was incised and cultures were sent and she was started on IV vancomycin and ceftriaxone and was admitted for inpatient antibiotic therapy. PAST MEDICAL HISTORY: Significant for she apparently has type 2 diabetes mellitus, Factor V Leiden. She has DVT x 2, bipolar disorder, and nephrolithiasis. PAST SURGICAL HISTORY: Significant for 2 C-sections, open heart surgery for atrial septal defect repair about when she was 18 years old. She has a left ring finger open reduction and internal fixation. ALLERGIES: SHE IS ALLERGIC TO LISINOPRIL. SHE DEVELOPED ANGIONEUROTIC EDEMA, COUMADIN CAUSES HIVES AND SEROQUEL CAUSED HALLUCINATION. FAMILY HISTORY: She has 2 brothers and 2 sisters, 1 brother and 1 sister older. One brother and one sister younger. Her father is still alive at age of 50 and he is alcoholic and mother is still alive and has Crohn's disease and is 46 years old. SOCIAL HISTORY: She is . She has 2 sons. She does not smoke, drinks alcohol occasionally. She uses marijuana about 2 weeks ago. 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 MEDICATIONS: She is currently on following medications: She was on sulfamethoxazole/trimethoprim twice a day, hyoscyamine sulfate 0.125 mg 3-4 times a day, metoprolol tartrate 25 mg once a day, fluoxetine 80 mg once a day, trazodone 100 mg at bedtime, lurasidone for Latuda 120 mg at bedtime, hydroxyzine pamoate 25 mg 3 times a day as needed, metformin 1000 mg twice a day, NovoLog insulin 5 units before meals and Levemir insulin 80 units at bedtime. REVIEW OF SYSTEMS: As per history of present illness. PHYSICAL EXAMINATION: GENERAL: On arrival to the Emergency Room, she looked well and was clearly in no apparent respiratory distress. No pallor, jaundice, cyanosis or thyromegaly. No jugular venous distention. No limb edema. VITAL SIGNS: Her heart rate was 98, blood pressure was 120/80, temperature was 98.2, respiratory rate 20, and oxygen saturation was 97%. HEAD, EYES, EARS, NOSE AND THROAT: Showed normocephalic, atraumatic. NECK: Supple. HEART: Showed normal first and second heart sounds. No gallop or murmur. CHEST: Clear to auscultation. No crepitation or rhonchi. ABDOMEN: Distended, soft, nontender. NEUROLOGIC: She is awake, alert, responding appropriately. All her cranial nerves intact. EXTREMITIES: She moves extremities without difficulty. She apparently has an abscess in her left buttock with surrounding cellulitis. The abscess was incised and drained and Swabs were sent for culture and sensitivity. LABORATORY DATA: In the Emergency Room showed a white cell count of 7800, hemoglobin 13, hematocrit 38, MCV 92, and platelet count 299,000, with normal manual differential. Her chemistry showed a serum sodium 134, potassium 3.9, chloride 101, bicarbonate 18, anion gap of 15, BUN 8, creatinine 1, estimated GFR was 66 mL per minute. Her glucose was 399. Her lactic acid was 3.8 and has risen to 4.2. Her calcium was 8.9. Total bilirubin, AST, ALT were normal. Alkaline phosphatase slightly elevated. Total protein was 7.3, albumin 3. ASSESSMENT AND PLAN: In summary, this is a 28-year-old female patient with type 2 diabetes, who came yet again with abscess that was with surrounding cellulitis and abscess was incised and she was admitted to continue on IV antibiotic in the form of vancomycin as well as ceftriaxone. We will continue all her medication except sulfamethoxazole/trimethoprim and she will receive a bolus of normal saline. Continue with IV fluid at 150 mL per hour. SURJIT MOMIN MD DR: ISAIAH/tino JOB#: [id number] / [id number]
[2019-05-01] MEDS: HYDROmorphone PF 1 MG/ML DISP.SYRIN IV PRN (17:52)
[2019-05-01] MEDS: metFORMIN 500 MG TABLET PO SCH (17:53)
[2019-05-01] MEDS: INSULIN LISPRO 300 UNITS/3 ML VIAL. SQ SCH (17:55)
[2019-05-01] MEDS: IV NORMAL SALINE 1,000ML 1,000 ML IV SCH ×2 (17:56→23:55)
[2019-05-01] MEDS: LURASIDONE 40 MG TABLET. PO SCH (17:57)
[2019-05-01] MEDS ORDERED: FLU VAX QS 2019-20 (36MOS+)/PF 0.5 ML SYRINGE. VAX IM ONE (18:45)
[2019-05-01 19:00] VITALS: BP 106/71
[2019-05-01] MEDS: FLUoxetine HCL 20 MG CAPSULE PO SCH (20:51)
[2019-05-01] MEDS: INSULIN GLARGINE SYRINGE. SQ SCH (20:53)
[2019-05-01] MEDS: VANCOMYCIN 1.5 GM in IV NORMAL SALINE 500ML 500 ML IV SCH (20:54)
[2019-05-01] MEDS ORDERED: SMX/TMP 800/160MG 2TABLET STARTPACK. PO SCH (21:00)
[2019-05-01 23:00] VITALS: BP 127/80
[2019-05-02] MEDS: HYDROmorphone PF 1 MG/ML DISP.SYRIN IV PRN ×5 (02:17→19:46)
[2019-05-02 05:00] VITALS: BP 144/88
[2019-05-02] MEDS: IV NORMAL SALINE 1,000ML 1,000 ML IV SCH ×3 (06:25→20:46)
[2019-05-02 06:39] LABS: ALBUMIN 2.5 g/dL (3.4-5.0); ALBUMIN/GLOBULIN RATIO 0.7 (1.0-1.7); BASO % 0 % (0-3); CALCIUM 8.1 mg/dL (8.5-10.1); CREATININE 0.4 mg/dL (0.6-1.0); EOS # 0.1 x10^3/uL (0.0-0.7); EOS % 3 % (0-3); GFR 190.1; HEMATOCRIT 35.8 % (36.0-47.0); HEMOGLOBIN 11.9 g/dL (12.0-15.5); LYMPH # 1.5 x10^3/uL (1.0-4.8); LYMPH % 38 % (24-48); MEAN CORPUSCULAR HEMOGLOBIN 30 pg (25-35); MEAN CORPUSCULAR HGB CONC 33 g/dL (31-37); MEAN CORPUSCULAR VOLUME 92 fL (79-100); MONO # 0.4 x10^3/uL (0.0-1.1); MONO % 9 % (0-9); NEUT % 50 % (31-73); PLATELET COUNT 239 x10^3/uL (140-400); POTASSIUM 3.1 mmol/L (3.5-5.1); RED BLOOD COUNT 3.91 x10^6/uL (3.50-5.40); RED CELL DISTRIBUTION WIDTH 14.5 % (11.5-14.5); TOTAL BILIRUBIN 0.2 mg/dL (0.2-1.0); TOTAL PROTEIN 6.1 g/dL (6.4-8.2)
[2019-05-02] MEDS: INSULIN LISPRO 300 UNITS/3 ML VIAL. SQ SCH ×6 (08:00→17:34)
[2019-05-02] MEDS: metFORMIN 500 MG TABLET PO SCH ×2 (08:00→17:25)
[2019-05-02] MEDS: METOPROLOL TART IMMED RELEASE 25 MG TABLET PO SCH (08:39)
[2019-05-02] MEDS: VANCOMYCIN PER PHARMACY MC PRN ×2 (08:54→22:42)
[2019-05-02 11:23] VITALS: BP 125/79
[2019-05-02] MEDS: VANCOMYCIN 1.5 GM in IV NORMAL SALINE 500ML 500 ML IV SCH ×2 (11:32→22:13)
--- NOTE | 2019-05-02 11:38 | NUR ---
Wound Care Wound care consult for left buttock abscess. Pt has red, indurated abscess to right buttock that is open but not draining. Pt states it has gotten larger since admission. Cleansed area and applied foam dressing. Dr. Yasir estradaayed an ultrasound to area to determine if surgical intervention is necessary. No other wounds noted at this time. WC will continue to follow for changes.
[2019-05-02] MEDS ORDERED: POTASSIUM CHLORIDE 20 MEQ TABLET.ER. PO ONE (12:45)
[2019-05-02 16:16] VITALS: BP 156/91
--- NOTE | 2019-05-02 16:52 | RAD ---
Nonvascular left extremity ultrasound History: Left buttock abscess Comparison: None. Findings: Multiple sonographic images of the left buttock region are submitted. At site of concern of the left buttock region, there is a heterogeneous collection about 1.6 x 1.9 0.7 cm with diffuse internal echoes. There is some adjacent vascularity on color Doppler imaging. There is some adjacent edema of the soft tissues. There is apparently tract extending near the skin surface. Impression: 1. There is a heterogeneous collection at site of concern in the left buttock region which may be due to phlegmon or very complex fluid, does not have sonographic features suggestive of simple fluid. Electronically signed by: Gerald Mercedes MD (05/02/2019 4:49 PM) [facility]
[2019-05-02] MEDS: POTASSIUM CHLORIDE 20 MEQ TABLET.ER. PO SCH ×2 (17:26→20:46)
[2019-05-02] MEDS: LURASIDONE 40 MG TABLET. PO SCH (17:36)
--- NOTE | 2019-05-02 18:35 | NUR ---
Patient ambulated in the hallway several times today. Showered around noun. Endured abscess at left buttocks is moist but not draining. Red rash observed at upper level of abscess. Area cleaned and foam dressing applied. Ultrasound completed today. Will continue with antibiotic therapy and monitor for changes.
[2019-05-02] MEDS: ONDANSETRON PF 4 MG/2 ML VIAL. IV PRN (19:01)
[2019-05-02 19:20] VITALS: BP 135/80
[2019-05-02] MEDS: FLUoxetine HCL 20 MG CAPSULE PO SCH (20:45)
[2019-05-02] MEDS: INSULIN GLARGINE SYRINGE. SQ SCH (20:55)
--- NOTE | 2019-05-02 20:56 | NUR ---
Pt's FSBS = 119 this evening. Pt requests partial dose of Lantus be given considering lower blood sugar. Lantus 40 units SQ given. See eMAR. PB and crackers provided for snack.
[2019-05-02 21:46] LABS: VANC TR 4.2 mcg/mL (10.0-20.0)
--- NOTE | 2019-05-02 22:45 | NUR ---
Pharmacy Vancomycin Dosing Note S:Consulted to monitor and dose vancomycin started 05/01/19. O:RYLIE BELL is a 28 year old F with Abscess, . Height: 5 feet, 11 inches Weight: 99.796565 kg [place] Body Weight: 70.80 Adjusted Body Weight: 82.40 Dosing Weight: Actual Other Antibiotics: LABS: Last BUN: 6 Last Creatinine: 0.4 Creatinine Clearance: 272.36 Last WBC: 4 Drug Levels: Last Trough level: 4.2 on 05/02/19 at 2130 Last dose given 05/02/19 at 2200 Vancomycin Dosing: Loading Dose: 2000 mg x1 Dosing Weight: Actual Target Trough: 10-20 A: Based on: Trough and renl function P: 1. Begin Vancomycin 1500 mg IV q8h 2. Follow up Trough level on 05/03/19 at 2130 3. Pharmacy will continue to monitor, follow and adjust therapy as needed. EBER STAUFFER, 05/02/19 [id number]
--- NOTE | 2019-05-02 22:59 | PN ---
DATE: 05/02/2019 SUBJECTIVE: The patient is sitting comfortably in her chair, eating her lunch, in no apparent distress. She was seen by the wound care team. They felt that the right buttock is markedly red and indurated, abscess that is open, but not draining and according to her has got larger since admission. Area was cleaned and ultrasound of that area is ordered to see if surgical intervention is necessary. PHYSICAL EXAMINATION: GENERAL: When I examined her this morning, she looked well and was clearly in no apparent respiratory distress. No pallor, jaundice, cyanosis or thyromegaly. No jugular venous distention. No lower limb edema. VITAL SIGNS: Her heart rate was 75, blood pressure was 125/79, temperature was 97.8, respiratory rate was 20, and oxygen saturation was 98%. HEAD, EYES, EARS, NOSE AND THROAT: Showed normocephalic, atraumatic. NECK: Supple. HEART: Showed normal first and second heart sounds. No gallop or murmur. CHEST: Clear to auscultation. No crepitation or rhonchi. ABDOMEN: Distended, soft, nontender. NEUROLOGIC: She is awake, alert, responding appropriately. All cranial nerves intact. She moves extremities without difficulty, has now an abscess with surrounding cellulitis and marked induration of the left gluteal area. Her intake was 5000, no output was recorded. LABORATORY DATA: Her lab work this morning showed a white cell count of 4000, hemoglobin 12, hematocrit 36, MCV 92, and platelet count 239,000. Serum sodium was 145, potassium 3.1, chloride 110, bicarbonate 26, anion gap of 9, BUN 6, creatinine 0.4, estimated GFR was 190 mL per minute. Her glucose 52, calcium was 8.1. Total bilirubin, AST, ALT, alkaline phosphatase were normal. Total protein was 6.1, albumin 2.5. ASSESSMENT: 1. Abscess in the left gluteal area that was incised twice. Unfortunately, the patient continued to have marked indurated area with surrounding cellulitis for which she is now on IV vancomycin and ceftriaxone. 2. Other medical problems include type 2 diabetes mellitus. 3. Factor V Leiden. 4. History of deep venous thrombosis x 2, although the patient is apparently allergic to COUMADIN. 5. Bipolar disorder. 6. Nephrolithiasis. PLAN: To continue with IV antibiotic and IV ceftriaxone, continue with pain management. Continue with wound care. Continue to monitor the blood sugar and adjust insulin as needed. We will await the result of the ultrasound. If it showed that there is an abscess, we will transfer her to [facility] for further surgical incision and drainage. SURJIT MOMIN MD DR: ISAIAH/tino JOB#: [id number] / [id number]
[2019-05-03] MEDS: HYDROmorphone PF 1 MG/ML DISP.SYRIN IV PRN ×4 (01:01→12:54)
[2019-05-03] MEDS: IV NORMAL SALINE 1,000ML 1,000 ML IV SCH ×2 (02:35→08:01)
[2019-05-03 04:34] VITALS: BP 123/66
[2019-05-03 05:25] VITALS: BP 123/66
[2019-05-03] MEDS: VANCOMYCIN 1.5 GM in IV NORMAL SALINE 500ML 500 ML IV SCH ×2 (05:35→13:28)
[2019-05-03 06:06] LABS: CALCIUM 8.4 mg/dL (8.5-10.1); CREATININE 0.5 mg/dL (0.6-1.0); GFR 146.9; POTASSIUM 4.1 mmol/L (3.5-5.1)
[2019-05-03] MEDS: INSULIN LISPRO 300 UNITS/3 ML VIAL. SQ SCH ×4 (07:57→12:00)
[2019-05-03] MEDS: metFORMIN 500 MG TABLET PO SCH (07:59)
[2019-05-03] MEDS: METOPROLOL TART IMMED RELEASE 25 MG TABLET PO SCH (08:00)
[2019-05-03] MEDS: POTASSIUM CHLORIDE 20 MEQ TABLET.ER. PO SCH ×2 (08:00→13:25)
[2019-05-03 11:13] VITALS: BP 135/87
[2019-05-03] MEDS: ONDANSETRON PF 4 MG/2 ML VIAL. IV PRN (12:54)
--- NOTE | 2019-05-03 13:18 | NUR ---
NURSING NOTE PT WAS RESTING IN BED UPON ASSESSMENT AND MEDICATION ADMINISTRATION. PT STATES SHE IS IN PAIN AND REQUEST PAIN MEDICATION THROUGHOUT THE DAY. PT HAS WOUND ON LEFT BUTTOCK, CHANGED BY WOUND CARE. WAITING FOR DR MOMIN TO ASSESS PT DURING ROUNDS AND POSSIBLY TRANSFER TO [facility] FOR INFECTIOUS DISEASE I&D OF ABSCESS. WILL CONTINUE TO MONITOR. CHERELLE WALL.
[2019-05-03 15:05] VITALS: BP 133/78
--- NOTE | 2019-05-03 15:47 | NUR ---
NURSING NOTE DISCHARGE PT TRANSFERRED TO [facility] FOR INFECTIOUS DISEASE/ SURGICAL CONSULT FOR I&D OF ABSCESS OF LEFT BUTTOCK VIA EMS ACCOMPANIED BY EMS PERSONNEL. REPORT CALLED TO [facility]. COPY OF CHART SENT WITH EMS. NO COMPLICATIONS. CHERELLE WALL.
[2019-05-03] MEDS ORDERED: LACTOBACILLUS RHAMNOSUS GG 1 CAPSULE. PO SCH (21:00)
--- NOTE | 2019-05-03 21:24 | DS ---
DATE OF DISCHARGE: 05/03/2019 HOSPITAL COURSE: The patient is a 28-year-old female patient who was seen at the Emergency Room twice and both times for left buttock cellulitis and abscess that was incised and drained twice. However, she continued to have complaining of pain and we did actually ultrasound of that area and showed that there is a heterogenous collection at sites of concern in the left buttocks region, which may be due to phlegmon, a very complex fluid, does not have sonographic features suggestive of simple fluid and therefore, a decision was made to transfer her to [facility] to consult the surgical team to be surgically incised and drained. PHYSICAL EXAMINATION: GENERAL: On examining her today, she looked well and was clearly in no apparent respiratory distress, slightly pale, but no jaundice, cyanosis or thyromegaly. No jugular venous distention. No limb edema. VITAL SIGNS: Her heart rate was 72, blood pressure was 135/87, temperature was 97.8, respiratory rate 20, and oxygen saturation was 99%. HEAD, EYES, EARS, NOSE AND THROAT: Showed normocephalic, atraumatic. NECK: Supple. HEART: Showed normal first and second heart sounds. No gallop or murmur. CHEST: Clear to auscultation. No crepitation or rhonchi. ABDOMEN: Distended, soft, nontender. No guarding or rigidity. No organomegaly. All hernial orifice intact. Bowel sounds normal. NEUROLOGIC: She is awake, alert, responding appropriately. All cranial nerves intact. She moves extremities without difficulty. She has an abscess in the left gluteal area with surrounding cellulitis that is tender. Her intake was 6500, no output was recorded. Her labwork as of yesterday showed a white cell count 4000, hemoglobin 12, hematocrit 36, MCV 92 and platelet count 139,000. Her serum sodium was 141, potassium 4.1, chloride 105, bicarbonate 29, anion gap of 7, BUN 6, creatinine 0.5, estimated GFR was 146 mL per minute. Her glucose 105, calcium was 8.4. She was transferred to [facility] to continue vancomycin 1.5 mg IV q. 8 hourly, Lactobacillus Rhamnosus 1 capsule twice a day, ondansetron 4 mg IV q. 6 hourly, potassium chloride 20 mEq 3 times a day, metoprolol tartrate 25 mg once a day. She is on Humalog insulin 5 units before meals, Lantus insulin 80 units at bedtime, Loxitane 80 mg at bedtime, Latuda 120 mg in the afternoon, metformin 1000 mg twice a day, hyoscyamine 0.125 mg every 4 hours, trazodone 100 mg at bedtime, hydroxyzine 25 mg 3 times a day and hydromorphone 1 mg IV every 3 hours. FINAL DISCHARGE DIAGNOSES: 1. Abscess in the left gluteal area with accumulation of pus, for which she was transferred to [facility] for surgical incision and drainage. 2. Other medical problems include type 2 diabetes mellitus. 3. Factor V Leiden. 4. History of deep vein thrombosis x 2. The patient is apparently allergic to COUMADIN. 5. Bipolar disorder. 6. Nephrolithiasis. Plan is we will continue with IV antibiotic in the form of ceftriaxone and vancomycin and we will consult the surgical team for incision and drainage. SURJIT MOMIN MD DR: ISAIAH/tino JOB#: [id number] / [id number]
[2019-05-04] MEDS ORDERED: FLU VAX QS 2019-20 (36MOS+)/PF 0.5 ML SYRINGE. VAX IM ONE (08:00)
== END 2019-05-03 15:35 | disposition short-term general hospital (02) | DRG 602 ==
LOC: ER 08:14 → 1 SOUTH 13:11
PROVIDERS: ADMIT Internal Medicine; ATTEND Internal Medicine
PROC: 0Y900ZZ Drainage of Right Buttock, Open Approach (ICD-10-PCS; principal; 2019-05-01)
DX: L02.31 Cutaneous abscess of buttock (principal); E43 Unspecified severe protein-calorie malnutrition; D68.51 Activated protein C resistance; L03.317 Cellulitis of buttock; I10 Essential (primary) hypertension; E11.9 Type 2 diabetes mellitus without complications; F31.9 Bipolar disorder, unspecified; F12.90 Cannabis use, unspecified, uncomplicated; F41.9 Anxiety disorder, unspecified; G43.909 Migraine, unspecified, not intractable, without status migrainosus; N20.0 Calculus of kidney; M79.7 Fibromyalgia; Z86.718 Personal history of other venous thrombosis and embolism; Z87.442 Personal history of urinary calculi; Z87.891 Personal history of nicotine dependence; Z88.8 Allergy status to other drugs, medicaments and biological substances; Z91.040 Latex allergy status; Z68.32 Body mass index [BMI] 32.0-32.9, adult
CPT/HCPCS: 10060; 36415; 76881; 80048; 80053; 80202; 82947; 83605; 85025; 87040; 87070; 87186; 96365; 96368; 96375; J0696; J1170; J1815; J2270; J2405; J3370; J7040; 99285-25; J7030

== ENCOUNTER 2019-06-11 03:10 | Observation (INO) | payer OTHER ==
[~2019-06-11] VITALS: Ht 180.3 cm; Wt 106.3 kg
[2019-06-11] VITALS (8 sets, daily range): BP systolic 114–164; BP diastolic 68–101
[~2019-06-11 03:10] MED LIST changes: +INSU100I17 SQ; +METO25TA4 PO
--- NOTE | 2019-06-11 03:49 | ED.ADGEN ---
Past History Past Medical History: Abscess, Anxiety, Bipolar, Depression, Diabetes, DVT, Fibromyalgia, Hypertension, Migraines, Other Additional Past Medical Histor: FACTOR 5 Past Surgical History: , Other Additional Past Surgical Histo: atrial septal defect Smoking: Cigarettes Alcohol Use: Occasionally Drug Use: Marijuana Adult General Chief Complaint Chief Complaint ".. My boyfriend and I were fucking around.. wrestling.. and I got a knee to my chest.. now it hurts to breath. and I am short of breath.. also my sugars have been high... " HPI HPI Patient is a 28 year old female who presents with chest pain and hyperglycemia. Pt. pain is central sternal area and lower edge of ASD repair scar. Pain is reproducible with palpation deep breaths and movement. Patient denies this was any abuse situation . Injury occurred during "horse play.". Injury occur just prior to arrival. Patient does advise she has had elevated blood sugars for the past week or 2 . She denies any change in diet or medications. Pt. follows with Dr. Pradhan and Dr. Bhatti. Review of Systems Review of Systems Constitutional: Denies fever or chills [] Eyes: Denies change in visual acuity, redness, or eye pain [] HENT: Denies nasal congestion or sore throat [] Respiratory: Complaints of chest wall pain and shortness of breath [] Cardiovascular: No additional information not addressed in HPI [] GI: Denies abdominal pain, nausea, vomiting, bloody stools or diarrhea [] : Denies dysuria or hematuria [] Musculoskeletal: Denies back pain or joint pain [] Integument: Denies rash or skin lesions [] Neurologic: Denies headache, focal weakness or sensory changes [] Endocrine: Complaints of elevated glucose levels and polyuria] All other systems were reviewed and found to be within normal limits, except as documented in this note. Family History Family History Diabetes hypertension Current Medications Current Medications Current Medications Medications (Trade) Dose Ordered Sig/Tapan Start Time Stop Time Status Last Admin Dose Admin Insulin Human Regular 150 unit/ Sodium Chloride 151.5 ml @ 0 mls/hr 1X ONCE 06/11/19 04:30 06/11/19 04:31 DC 06/11/19 04:23 10.7 MLS/HR Sodium Chloride 150 ml @ As Directed STK-MED ONCE 06/11/19 04:07 06/11/19 04:08 DC Allergies Allergies Allergies Coded Allergies Type Severity Reaction Last Updated Verified latex Allergy Intermediate 04/12/19 Yes lisinopril Allergy Intermediate 04/12/19 Yes quetiapine Allergy Intermediate 04/12/19 Yes warfarin Allergy Intermediate 04/12/19 Yes Physical Exam Physical Exam Constitutional: In acute distress, non-toxic appearance. [] HENT: Normocephalic, atraumatic, bilateral external ears normal, oropharynx dry, no oral exudates, nose normal. [] Eyes: PERRLA, EOMI, conjunctiva normal, no discharge. [] Neck: Normal range of motion, no tenderness, supple, no stridor. [] Cardiovascular: Tachycardia Heart rate regular rhythm, no murmur [] Lungs & Thorax: Bilateral breath sounds with apex on auscultation []sternal pain with palpation. Midline sternal scar. (ASD repair) Abdomen: Bowel sounds normal, soft, no tenderness, no masses, no pulsatile masses. [] Old surgery scars. Skin: Warm, dry, no erythema, no rash. Tattoos Back: No tenderness, no CVA tenderness. [] Extremities: No tenderness, no cyanosis, no clubbing, ROM intact, no edema. [] No cording noted. Neurologic: Alert and oriented X 3, normal motor function, normal sensory function, no focal deficits noted. [] Psychologic: Affect anxious and tearful, judgement normal, mood depressed Current Patient Data Vital Signs Vital Signs Date Time Temp Pulse Resp B/P (MAP) Pulse Ox O2 Delivery O2 Flow Rate FiO2 06/11/19 03:42 102 20 137/80 (99) 95 Room Air 06/11/19 03:40 98.5 Lab Results Laboratory Tests Test 06/11/19 03:20 06/11/19 03:22 06/11/19 03:29 06/11/19 04:20 Urine Collection Type Unknown Urine Color Yellow Urine Clarity Clear Urine pH 7.5 Urine Specific [place] 1.015 Urine Protein Neg (NEG-TRACE) Urine Glucose (UA) 500 mg/dL (NEG) Urine Ketones (Stick) 15 mg/dL (NEG) Urine Blood Neg (NEG) Urine Nitrite Neg (NEG) Urine Bilirubin Neg (NEG) Urine Urobilinogen Dipstick 0.2 mg/dL (0.2 mg/dL) Urine Leukocyte Esterase Neg (NEG) Urine RBC 0 /HPF (0-2) Urine WBC 0 /HPF (0-4) Urine Bacteria 0 /HPF (0-FEW) Urine Opiates Screen Neg (NEG) Urine Methadone Screen Neg (NEG) Urine Barbiturates Neg (NEG) Urine Phencyclidine Screen Neg (NEG) Urine Amphetamine/Methamphetamine Neg (NEG) Urine Benzodiazepines Screen Neg (NEG) Urine Cocaine Screen Neg (NEG) Urine Cannabinoids Screen Neg (NEG) Urine Ethyl Alcohol Neg (NEG) Glucose (Fingerstick) 595 mg/dL (70-99) *H POC Urine HCG, Qualitative hcg negative (Negative) White Blood Count 4.2 x10^3/uL (4.0-11.0) Red Blood Count 4.33 x10^6/uL (3.50-5.40) Hemoglobin 13.5 g/dL (12.0-15.5) Hematocrit 40.0 % (36.0-47.0) Mean Corpuscular Volume 92 fL (79-100) Mean Corpuscular Hemoglobin 31 pg (25-35) Mean Corpuscular Hemoglobin Concent 34 g/dL (31-37) Red Cell Distribution Width 13.6 % (11.5-14.5) Platelet Count 223 x10^3/uL (140-400) Neutrophils (%) (Auto) 56 % (31-73) Lymphocytes (%) (Auto) 34 % (24-48) Monocytes (%) (Auto) 8 % (0-9) Eosinophils (%) (Auto) 3 % (0-3) Basophils (%) (Auto) 1 % (0-3) Neutrophils # (Auto) 2.3 x10^3uL (1.8-7.7) Lymphocytes # (Auto) 1.4 x10^3/uL (1.0-4.8) Monocytes # (Auto) 0.3 x10^3/uL (0.0-1.1) Eosinophils # (Auto) 0.1 x10^3/uL (0.0-0.7) Basophils # (Auto) 0.0 x10^3/uL (0.0-0.2) Prothrombin Time < 9.3 SEC (9.4-11.4) L Prothrombin Time INR 0.8 (0.9-1.1) L Activated Partial Thromboplast Time 23 SEC (23-33) D-Dimer (Crissy) 0.20 mg/L (0.00-0.50) Maternal Serum HCG Beta Subunit < 1 mIU/mL (0-6) Sodium Level 132 mmol/L (136-145) L Potassium Level 4.2 mmol/L (3.5-5.1) Chloride Level 94 mmol/L (98-107) L Carbon Dioxide Level 24 mmol/L (21-32) Anion Gap 14 (6-14) Blood Urea Nitrogen 14 mg/dL (7-20) Creatinine 0.8 mg/dL (0.6-1.0) Estimated GFR (Cockcroft-Gault) 85.4 Glucose Level 559 mg/dL (70-99) *H Calcium Level 8.9 mg/dL (8.5-10.1) Magnesium Level 2.0 mg/dL (1.8-2.4) Total Bilirubin 0.6 mg/dL (0.2-1.0) Direct Bilirubin 0.1 mg/dL (0.0-0.2) Aspartate Amino Transferase (AST) 15 U/L (15-37) Alanine Aminotransferase (ALT) 24 U/L (14-59) Alkaline Phosphatase 169 U/L (46-116) H Creatine Kinase 47 U/L (26-192) Troponin I Quantitative < 0.017 ng/mL (0-0.055) YZ-Apn-A-Type Natriuretic Peptide 39 pg/mL (0-124) Total Protein 7.0 g/dL (6.4-8.2) Albumin 3.7 g/dL (3.4-5.0) Lipase 134 U/L (73-393) EKG EKG EKG shows a sinus tachycardia 115 bpm. There is some contour abnormalities in the anterior septal region but no findings acute STEMI of contralateral c hanges[] Radiology/Procedures Radiology/Procedures My interpretation of chest x-ray shows no acute pneumothorax prior sternal wires from ASD repair. Lower sternal wire appears broken. Course & Med Decision Making Course & Med Decision Making Pertinent Labs and Imaging studies reviewed. (See chart for details) Stress presentation, testing and treatment plan with . Will be admitted until glucose levels stabilize. Consider repeat X-ray or CT if persistent CP. Does have hx Factor V def. [] Final Impression Final Impression 1. Chest Pain-chest wall injury ( Suspect Sternal fracture, and broken Sternal Wire) 2. Hyperglycemia[] = 595 3. Hx. Factor V def. 4. Dehydration 5. Hx. of ASD Repair- Dragon Disclaimer Dragon Disclaimer This electronic medical record was generated, in whole or in part, using a voice recognition dictation system. Dragon Disclaimer This chart was dictated in whole or in part using Voice Recognition software in a busy, high-work load, and often noisy Emergency Department environment. It may contain unintended and wholly unrecognized errors or omissions. Dragon Disclaimer This chart was dictated in whole or in part using Voice Recognition software in a busy, high-work load, and often noisy Emergency Department environment. It may contain unintended and wholly unrecognized errors or omissions. DEBBIE LLANES MD Jun 11, 2019 03:48
[2019-06-11] MEDS ORDERED: 0.9 % SODIUM CHLORIDE 150ML 150 ML ONE (04:07)
[2019-06-11 04:13] LABS: BARBITURATES NEG (NEG); BENZODIAZEPINES NEG (NEG); CANNABINOIDS NEG (NEG); COCAINE NEG (NEG); METHADONE NEG (NEG); OPIATES NEG (NEG); PHENCYCLIDINE NEG (NEG)
[2019-06-11 04:14] LABS: AMPHETAMINE/METHAMPHETAMINE NEG (NEG)
[2019-06-11 04:26] LABS: BILIRUBIN,URINE NEG (NEG); CLARITY,URINE CLEAR; COLOR,URINE YELLOW; GLUCOSE,URINE 500 mg/dL (NEG)
[2019-06-11 04:27] LABS: BACTERIA,URINE 0 /HPF (0-FEW); NITRITE,URINE NEG (NEG); RBC,URINE 0 /HPF (0-2); UROBILINOGEN,URINE 0.2 mg/dL (0.2 mg/dL); WBC,URINE 0 /HPF (0-4)
[2019-06-11] MEDS ORDERED: IV NORMAL SALINE 1,000ML 1,000 ML IV SCH (04:30)
[2019-06-11] MEDS ORDERED: INSULIN REGULAR VIAL 150 UNIT in 0.9 % SODIUM CHLORIDE 150ML 150 ML IV ONE ×2 (04:30→05:30)
[2019-06-11 04:47] LABS: BASO % 1 % (0-3); EOS # 0.1 x10^3/uL (0.0-0.7); EOS % 3 % (0-3); HEMOGLOBIN 13.5 g/dL (12.0-15.5); LYMPH # 1.4 x10^3/uL (1.0-4.8); LYMPH % 34 % (24-48); MEAN CORPUSCULAR HEMOGLOBIN 31 pg (25-35); MEAN CORPUSCULAR HGB CONC 34 g/dL (31-37); MEAN CORPUSCULAR VOLUME 92 fL (79-100); MONO # 0.3 x10^3/uL (0.0-1.1); MONO % 8 % (0-9); NEUT # 2.3 x10^3uL (1.8-7.7); NEUT % 56 % (31-73); PLATELET COUNT 223 x10^3/uL (140-400); RED BLOOD COUNT 4.33 x10^6/uL (3.50-5.40); RED CELL DISTRIBUTION WIDTH 13.6 % (11.5-14.5); WHITE BLOOD COUNT 4.2 x10^3/uL (4.0-11.0)
[2019-06-11 05:04] LABS: ALBUMIN 3.7 g/dL (3.4-5.0); CALCIUM 8.9 mg/dL (8.5-10.1); CREATININE 0.8 mg/dL (0.6-1.0); DIRECT BILIRUBIN 0.1 mg/dL (0.0-0.2); GFR 85.4; POTASSIUM 4.2 mmol/L (3.5-5.1); TOTAL BILIRUBIN 0.6 mg/dL (0.2-1.0)
--- NOTE | 2019-06-11 05:10 | RAD ---
CHEST PA LATERAL Technique: PA and lateral views of the chest were obtained. Clinical History: Comparison: None. Findings: The heart and pulmonary vasculature appear within normal limits. The lungs are clear. The pleural margins are clear. There are median sternotomy wires. Impression: No acute chest process is seen. Electronically signed by: Fabio Schwartz III, MD (06/11/2019 5:07 AM) [facility]
[2019-06-11] MEDS ORDERED: MORPHINE SULFATE 10 MG/ML SYRINGE. SQ ONE (05:15)
[2019-06-11] MEDS ORDERED: ACETAMINOPHEN 325 MG TABLET PO PRN (05:30)
[2019-06-11] MEDS ORDERED: ONDANSETRON PF 4 MG/2 ML VIAL. IV PRN (05:30)
[2019-06-11] MEDS ORDERED: KETOROLAC 30 MG/ML VIAL. IVP ONE (07:00)
[2019-06-11] MEDS: IV RINGERS SOLUTION,LACTATED 1,000 ML IV SCH ×2 (10:00→10:58)
[2019-06-11 10:58] LABS: HDLC 38 mg/dL (40-60)
[2019-06-11 11:01] LABS: THYROID STIM HORMONE (TSH) 1.931 uIU/mL (0.358-3.740)
[2019-06-11] MEDS ORDERED: ATOR10TA PO (11:53)
[2019-06-11] MEDS ORDERED: OXYC1TAB22 PO (11:53)
[2019-06-11] MEDS ORDERED: CYCL-331 PO (11:53)
[2019-06-11] MEDS: INSULIN LISPRO 300 UNITS/3 ML VIAL. SQ SCH ×2 (13:01→17:12)
[2019-06-11] MEDS: IPRATRPIUM/ALBUTEROL 0.5/2.5MG 3 ML NEBU. NEB SCH ×3 (15:29→20:47)
[2019-06-11] MEDS ORDERED: hydrOXYzine PAMOATE 25 MG CAPSULE PO PRN (15:45)
[2019-06-11] MEDS ORDERED: traZODone 100 MG TABLET. PO PRN (15:45)
[2019-06-11] MEDS ORDERED: CYCLOBENZAPRINE 10 MG TABLET. PO PRN (15:45)
[2019-06-11] MEDS: metFORMIN 500 MG TABLET PO SCH (16:44)
[2019-06-11] MEDS ORDERED: LURASIDONE 40 MG TABLET. PO SCH (17:00)
--- NOTE | 2019-06-11 17:01 | RAD ---
EXAM: Sternum, 2 views. HISTORY: Chest pain. COMPARISON: Chest radiograph obtained on the same date and CT dated 04/12/2019. FINDINGS: 2 views of the sternum are obtained. The inferior most sternal is not well seen. There is slight cortical irregularity involving the inferior sternum. IMPRESSION: Fractured inferior median sternotomy wire. There is slight cortical irregularity involving the inferior sternum, however, this is seen on a CT dated 04/12/2019 and associated with the xiphoid. Electronically signed by: Manda Hernandez MD (06/11/2019 4:58 PM) [facility]
--- NOTE | 2019-06-11 17:29 | HP ---
ADMIT DATE: 06/11/2019 HISTORY OF PRESENT ILLNESS: The patient is a 28-year-old female patient who came complaining of chest pain and shortness of breath. Her blood sugar also was found to be high. Her pain is mostly central sternal area at the lower edge of the atrial septal defect repair scar. Pain is reproducible with palpation, deep breath and movement. The patient denies this was not any abusive situation. Injury occurred during horse play and injury occurred just prior to arrival. The patient was advised she has had elevated blood sugars for the past 2 weeks. She denied any change in her diet or medication. She normally follows with Dr. Pradhan. She was extensively investigated in the Emergency Room and apparently her blood sugar was extremely high at 559 mg/dL. Her chest x-ray showed the heart and pulmonary vasculature appears within normal limits. The lungs are clear. The pleural margins are clear. There are median sternotomy wires. The patient was admitted for pain management and to achieve a better control of her blood sugar. PAST MEDICAL HISTORY: Significant for type 1 diabetes mellitus since age of 11. She has factor V Leiden, has history of DVT x 2, bipolar disorder and nephrolithiasis. Recently was admitted for an abscess. Her left buttock cellulitis that eventually required surgical incision and drainage at [facility]. PAST SURGICAL HISTORY: Significant for two C-sections, open heart surgery for atrial septal defect repair when she was about 18 years old. She has a left ring finger open reduction and internal fixation and most recently incision and drainage of her left buttock abscess that was treated with a wound VAC and IV antibiotic. ALLERGIES: SHE IS ALLERGIC TO LISINOPRIL. ALSO AT THAT TIME SHE DEVELOPED ANGIONEUROTIC EDEMA. SHE IS ALSO ALLERGIC TO COUMADIN CAUSING HIVES AND SEROQUEL CAUSING HALLUCINATION. FAMILY HISTORY: She has 2 brothers and 2 sisters, 1 brother and 1 sister older. One brother and one sister younger. Her father is still alive at age of 50 and he is alcoholic. Mother is still alive and has Crohn's disease and she is 46 years old. SOCIAL HISTORY: She is , has 2 sons. She does not smoke, drinks alcohol occasionally. She uses marijuana about twice a week. 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 MEDICATIONS: She is on following medications: She is on hyoscyamine sulfate 0.125 mg 3-4 times a day, metoprolol tartrate 25 mg once a day, fluoxetine 80 mg once a day, trazodone 100 mg at bedtime, Latuda 120 mg at bedtime, hydroxyzine pamoate 25 mg 3 times a day, metformin 1000 mg twice a day and NovoLog 35 units before meals and Levemir insulin 80 units at bedtime. REVIEW OF SYSTEMS: As per history of present illness. PHYSICAL EXAMINATION: GENERAL: On arrival to the Emergency Room, the patient looked well and was clearly in no apparent respiratory distress, pale, no jaundice, cyanosis or thyromegaly. No jugular venous distension. No limb edema. VITAL SIGNS: Her heart rate was 102, blood pressure was 134/83, temperature was 98.5, respiratory rate 20, and oxygen saturation was 95%. HEAD, EYES, EARS, NOSE AND THROAT: Showed normocephalic, atraumatic. NECK: Supple. HEART: Showed normal first and second heart sounds with no gallop, rub or murmur. CHEST: Clear to auscultation. No crepitation or rhonchi. ABDOMEN: Distended, soft, nontender. No guarding or rigidity. No organomegaly. All hernial orifice intact. Bowel sounds normal. NEUROLOGIC: She was awake, alert, responding appropriately. All cranial nerves intact. She moves extremities without difficulty. She ambulates without assistance or assistive devices. LABORATORY DATA: Showed a white cell count 4200, hemoglobin 13.5, hematocrit 40, MCV 92, and platelet count of 223,000. Her chemistry showed her serum sodium to be 132, potassium 4.2, chloride 94, bicarbonate 24, anion gap of 14, BUN 14, creatinine 0.8, estimated GFR was 85 mL per minute. Her glucose was 595 mg/dL. Calcium was 8.9, magnesium was 2. Total bilirubin, AST, ALT were normal. Alkaline phosphatase slightly elevated. Total protein was 7, albumin was 3.7. Her serum triglycerides were more than 500. Total cholesterol was 147, VLDL was 100, non-HDL cholesterol was 109, HDL cholesterol was 38 and the ratio was 6. Her lipase was 134 and TSH was 1.9 and 31. Her prothrombin time, INR and aPTT as well as D-dimer were all within normal range. Urinalysis showed the urine was yellow, clear with a pH of 7.5, specific gravity of 1.015. The urine was negative for protein. There was large amount of glucose, small amount of ketones, negative for blood, nitrite, leukocyte esterase. There are no rbc's, no wbc's, and no bacteria and her urine test was negative. Her urine toxic screen was negative. Her chest x-ray showed that the patient's heart and pulmonary vasculature appeared within normal limits. The lungs are clear. The pleural margins are clear. There are median sternotomy wires. ASSESSMENT AND PLAN: In summary, this is a 28-year-old female patient who presented with chest pain and shortness of breath. Apparently, she got a knee to her chest that started hurting to breathe and with movement also. Her blood sugar was also markedly elevated. She was started on her insulin as well as fentanyl citrate IV every 3 hours and we will reconcile all her medication and follow her closely. The chest pain is suspected due to sternal fracture with broken sternal wire. She has also hyperglycemia, although she was not in DKA. She is known to have factor V Leiden, dehydration and history of atrial septal defect repair. SURJIT MOMIN MD DR: ISAIAH/tino JOB#: [id number] / [id number]
[2019-06-11] MEDS: oxyCODONE/APAP 10/325 1 TAB TABLET PO PRN (18:05)
[2019-06-11] MEDS ORDERED: FLUoxetine HCL 20 MG CAPSULE PO SCH (21:00)
[2019-06-11] MEDS: INSULIN GLARGINE SYRINGE. SQ SCH ×2 (21:00→23:14)
[2019-06-11] MEDS: oxyCODONE IR 5 MG TABLET PO PRN (22:57)
--- NOTE | 2019-06-12 03:32 | EKG ---
[address] [address] Test Date: 2019-06-11 Test Time: 03:31:13 Pat Name: RYLIE BELL Department: Room: Gender: F Limnology Teacher: : 1990 Requested By: DEBBIE LLANES Order Number: [id number] Reading MD: Measurements Intervals [place] Rate: 115 P: 31 MA: 182 QRS: 18 QRSD: 82 T: 40 QT: 326 QTc: 453 Interpretive Statements SINUS TACHYCARDIA QRS(T) CONTOUR ABNORMALITY CONSISTENT WITH ANTEROSEPTAL MYOCARDIAL DAMAGE CONSIDER INFERIOR MYOCARDIAL DAMAGE ABNORMAL ECG RI6.01 No previous ECG available for comparison
[2019-06-12] MEDS: oxyCODONE IR 5 MG TABLET PO PRN ×2 (04:18→08:24)
[2019-06-12] MEDS: IPRATRPIUM/ALBUTEROL 0.5/2.5MG 3 ML NEBU. NEB SCH (05:25)
[2019-06-12 05:45] VITALS: BP 113/71
[2019-06-12 06:47] LABS: BASO % 1 % (0-3); EOS # 0.1 x10^3/uL (0.0-0.7); EOS % 4 % (0-3); HEMATOCRIT 34.7 % (36.0-47.0); HEMOGLOBIN 11.5 g/dL (12.0-15.5); LYMPH # 1.6 x10^3/uL (1.0-4.8); LYMPH % 45 % (24-48); MEAN CORPUSCULAR HEMOGLOBIN 31 pg (25-35); MEAN CORPUSCULAR HGB CONC 33 g/dL (31-37); MEAN CORPUSCULAR VOLUME 93 fL (79-100); MONO # 0.3 x10^3/uL (0.0-1.1); MONO % 7 % (0-9); NEUT # 1.6 x10^3uL (1.8-7.7); NEUT % 44 % (31-73); PLATELET COUNT 187 x10^3/uL (140-400); RED BLOOD COUNT 3.75 x10^6/uL (3.50-5.40); RED CELL DISTRIBUTION WIDTH 13.4 % (11.5-14.5); WHITE BLOOD COUNT 3.6 x10^3/uL (4.0-11.0)
[2019-06-12 07:11] LABS: ALBUMIN 2.8 g/dL (3.4-5.0); ALBUMIN/GLOBULIN RATIO 0.9 (1.0-1.7); CALCIUM 8.4 mg/dL (8.5-10.1); CREATININE 0.6 mg/dL (0.6-1.0); POTASSIUM 3.7 mmol/L (3.5-5.1); TOTAL BILIRUBIN 0.2 mg/dL (0.2-1.0); TOTAL PROTEIN 5.9 g/dL (6.4-8.2)
[2019-06-12] MEDS: metFORMIN 500 MG TABLET PO SCH (08:23)
[2019-06-12] MEDS: INSULIN LISPRO 300 UNITS/3 ML VIAL. SQ SCH ×2 (08:32→12:38)
[2019-06-12] MEDS ORDERED: ATORVASTATIN CALCIUM 10 MG TABLET. PO SCH (09:00)
[2019-06-12] MEDS ORDERED: METOPROLOL TART IMMED RELEASE 25 MG TABLET PO SCH (09:00)
[2019-06-12] MEDS: oxyCODONE/APAP 10/325 1 TAB TABLET PO PRN (10:33)
[2019-06-12 11:08] VITALS: BP 133/75
[2019-06-12 11:24] LABS: TRIGLYCERIDES 866 mg/dL (0-150); VLDLC 173 mg/dL (0-40)
--- NOTE | 2019-06-12 14:35 | DS ---
DATE OF DISCHARGE: HOSPITAL COURSE: The patient is a 28-year-old female patient, who was admitted to the Emergency Room with a complaint of chest pain. Apparently, she got a knee to her chest and it is hurt and the pain is worse on taking a deep breath and also moving around. She was evaluated in the Emergency Room and apparently her chest x-ray showed that she has possible broken sternum and also fractured inferior median sternotomy. There is slight cortical irregularity involving the inferior sternum; however, this was seen on a CT scan dated on 04/12/2019 with associated xiphoid. In any case, the patient was admitted. Her blood sugar was also poorly controlled. She was started on IV fluid, although she was in DKA and was started on her insulin and her blood sugar was well controlled. Her pain is slightly better now and a decision was made to discharge her home to continue with her current insulin regimen and also to continue with oral pain medication. PHYSICAL EXAMINATION: GENERAL: When I saw her this afternoon, she was sitting on the edge of the bed comfortably in no apparent respiratory distress, pale, but not jaundiced, cyanosis or thyromegaly. No jugular venous distension. No limb edema. VITAL SIGNS: Her heart rate was 84, blood pressure was 133/75, temperature was 98.3, respiratory rate 20, and oxygen saturation was 97%. The rest of clinical exam is stable and has not really changed. LABORATORY DATA: Her lab work this morning showed a white cell count of 3600, hemoglobin 11.5, hematocrit 34, MCV 93, platelet count of 187,000. Her chemistry showed a serum sodium 142, potassium 3.7, chloride 107, bicarbonate 24, anion gap of 11, BUN 12, creatinine 0.6, estimated GFR was 119 mL per minute. Her glucose was 273, calcium was 8.4. Total bilirubin, AST, ALT, alkaline phosphatase were normal. Total protein was 5.9, albumin was 2.8. DISCHARGE MEDICATIONS: She was discharged home to continue on her atorvastatin calcium for Lipitor 10 mg at bedtime, cyclobenzaprine 10 mg 3 times a day, fluoxetine 60 mg at bedtime, hydroxyzine pamoate 25 mg 3 times a day. She is on NovoLog insulin 35 units before meals and Levemir insulin 50 units at bedtime. She is on Latuda 120 mg daily, metformin 1000 mg twice a day, metoprolol tartrate 25 mg once a day, oxycodone/APAP 10/325 one tablet every 6 hours and trazodone 100 mg at bedtime as needed for insomnia. FINAL DISCHARGE DIAGNOSES: Trauma to the lower end of the sternum with possible fracture of the sternum as well as fractured inferior median sternotomy wire, poorly controlled type 2 diabetes. Other medical problems include factor V Leiden, history of DVT x 2, bipolar disorder, nephrolithiasis and left buttock cellulitis and abscess that required surgical drainage. SURJIT MOMIN MD DR: ISIAAH/tino JOB#: [id number] / [id number]
== END 2019-06-12 14:28 | disposition home or self-care (01) ==
LOC: ER 03:10 → ICU 05:00 → INTOOBSV 05:00 → 1 SOUTH 16:12 → ICU 16:28 → 1 SOUTH 17:25
PROVIDERS: ADMIT Internal Medicine; ATTEND Internal Medicine
DX: R07.89 Other chest pain (principal); R06.02 Shortness of breath; E86.0 Dehydration; E11.65 Type 2 diabetes mellitus with hyperglycemia; E11.10 Type 2 diabetes mellitus with ketoacidosis without coma; D68.51 Activated protein C resistance; N20.0 Calculus of kidney; L03.317 Cellulitis of buttock; L02.31 Cutaneous abscess of buttock; F31.9 Bipolar disorder, unspecified; M79.7 Fibromyalgia; I10 Essential (primary) hypertension; F12.90 Cannabis use, unspecified, uncomplicated; G43.909 Migraine, unspecified, not intractable, without status migrainosus; Z86.718 Personal history of other venous thrombosis and embolism; Z87.891 Personal history of nicotine dependence; Z87.74 Personal history of (corrected) congenital malformations of heart and circulatory system; Z79.4 Long term (current) use of insulin; Z79.899 Other long term (current) drug therapy; Z88.8 Allergy status to other drugs, medicaments and biological substances; X58.XXXA Exposure to other specified factors, initial encounter; Y93.83 Activity, rough housing and horseplay; Y92.89 Other specified places as the place of occurrence of the external cause
CPT/HCPCS: 36415; 71046; 71120; 80048; 80053; 80061; 80076; 80307; 81001; 81025; 82550; 82947; 83690; 83735; 83880; 84443; 84484; 84702; 85025; 85379; 85610; 85730; 93005; 94640; 94760; 96361; 96365; 96372; 96375; 96376; 99284; G0238; G0378; G0379; J1815; J1885; J2270; J2405; J3010; J7120; J7620; J7030

== ENCOUNTER 2019-06-28 16:25 | Inpatient (IN) | payer OTHER ==
[~2019-06-28] VITALS: Ht 180.3 cm; Wt 104.9 kg
[~2019-06-28 16:25] MED LIST changes: +ATOR10TA PO; +OXYC1TAB22 PO
[2019-06-28] MEDS ORDERED: IV NORMAL SALINE 1,000ML 1,000 ML IV ONE ×2 (16:45→18:45)
--- NOTE | 2019-06-28 16:58 | PHYS DOC ---
Past History Past Medical History: Abscess, Anxiety, Bipolar, Depression, Diabetes, DVT, Fibromyalgia, Hypertension, Migraines, Other Additional Past Medical Histor: FACTOR 5 (LV SLOAN DO) Past Surgical History: , Other Additional Past Surgical Histo: atrial septal defect (LV SLOAN DO) Smoking: Cigarettes Alcohol Use: Occasionally Drug Use: Marijuana (LV SLOAN DO) Adult General Chief Complaint Chief Complaint: HYPERGLYCEMIA HPI HPI 28-year-old female presents with hyperglycemia. The patient is well-known to the emergency room. The patient said her last 2 readings showed high and did not giv e her number. The patient has been vomiting. She feels generalized abdomen and back cramps. She states that she was exposed to someone with influenza B within the last week. She has not measured a fever. She denies diarrhea. (LV SLOAN DO) Review of Systems Review of Systems Constitutional: Denies fever or chills [] Eyes: Denies change in visual acuity, redness, or eye pain [] HENT: Denies nasal congestion or sore throat [] Respiratory: Denies cough[] Cardiovascular: No additional information not addressed in HPI [] GI: Generalized abdominal pain, nausea, vomiting. Denies bloody stools or diarrhea [] : Denies dysuria or hematuria [] Musculoskeletal: Denies back pain or joint pain [] Integument: Denies rash or skin lesions [] Neurologic: Denies headache, focal weakness or sensory changes [] Endocrine: Denies polyuria or polydipsia [] All other systems were reviewed and found to be within normal limits, except as documented in this note. (LV SLOAN DO) Current Medications Current Medications Current Medications Medications (Trade) Dose Ordered Sig/Tapan Start Time Stop Time Status Last Admin Dose Admin Sodium Chloride 1,000 ml @ 1,000 mls/hr 1X ONCE 06/28/19 16:45 06/28/19 17:44 (LV SLOAN DO) Allergies Allergies Allergies Coded Allergies Type Severity Reaction Last Updated Verified latex Allergy Intermediate 06/28/19 Yes lisinopril Allergy Intermediate 06/28/19 Yes quetiapine Allergy Intermediate 06/28/19 Yes warfarin Allergy Intermediate 06/28/19 Yes (LV SLOAN DO) Physical Exam Physical Exam Constitutional: Well developed, obese, well nourished, no acute distress, non- toxic appearance. [] HENT: Normocephalic, atraumatic, bilateral external ears normal, oropharynx moist, no oral exudates, nose normal. [] Eyes: PERRLA, EOMI, conjunctiva normal, no discharge. [] Neck: Normal range of motion, no tenderness, supple, no stridor. [] Cardiovascular:Heart rate regular rhythm, no murmur [] Lungs & Thorax: Bilateral breath sounds clear to auscultation [] Abdomen: Bowel sounds normal, soft, mild generalized tenderness, no masses, no pulsatile masses. [] Skin: Warm, dry, no erythema, no rash. [] Back: No tenderness, no CVA tenderness. [] Extremities: No tenderness, no cyanosis, no clubbing, ROM intact, no edema. [] Neurologic: Alert and oriented X 3, normal motor function, normal sensory function, no focal deficits noted. [] Psychologic: Affect normal, judgement normal, mood normal. [] (LV SLOAN DO) Current Patient Data Vital Signs Vital Signs Date Time Temp Pulse Resp B/P (MAP) Pulse Ox O2 Delivery O2 Flow Rate FiO2 06/28/19 16:33 98.1 125 37 98 Room Air (LV SLOAN DO) EKG EKG [] (LV SLOAN DO) EKG My interpretation EKG shows a sinus tachycardia at 132 bpm. No finding to acute STEMI of contralateral changes (DEBBIE ORONA MD) Radiology/Procedures Radiology/Procedures [] (LV SLOAN DO) Course & Med Decision Making Course & Med Decision Making Pertinent Labs and Imaging studies reviewed. (See chart for details) The patient's blood sugar is a 33 with an anion gap of 24. I have started an insulin drip. I'm signing the patient out to Dr. Orona at 1800. He will continue management and determine her disposition. [] (LV SLOAN DO) Course & Med Decision Making Pt. symptoms have reportedly only been the last two days. Multiple family members with influenza. Pt. Admitted to Dr. Cooley- Insulin qtt. Fluids.. Impression: 1. DKA 2. DM Glucose 833 3. Hyperosmolar 4. Hyponatremia 127 5. Dehydration 6. Influ. B+ (DEBBIE ORONA MD) Dragon Disclaimer Dragon Disclaimer This electronic medical record was generated, in whole or in part, using a voice recognition dictation system. (LV SLOAN DO) Departure Departure: Disposition: 01 HOME/RESIDENCE PRIOR TO ADM Condition: STABLE Referrals: MATY SALMON MD (PCP) Kaveh Disclaimer This chart was dictated in whole or in part using Voice Recognition software in a busy, high-work load, and often noisy Emergency Department environment. It may contain unintended and wholly unrecognized errors or omissions. (DEBBIE ORONA MD) LV SLOAN DO Jun 28, 2019 16:58 DEBBIE ORONA MD Jun 28, 2019 18:27
[2019-06-28 17:14] LABS: BASO % 0 % (0-3); EOS % 1 % (0-3); HEMATOCRIT 44.8 % (36.0-47.0); HEMOGLOBIN 14.1 g/dL (12.0-15.5); LYMPH # 0.6 x10^3/uL (1.0-4.8); LYMPH % 12 % (24-48); MEAN CORPUSCULAR HEMOGLOBIN 30 pg (25-35); MEAN CORPUSCULAR HGB CONC 32 g/dL (31-37); MEAN CORPUSCULAR VOLUME 95 fL (79-100); MONO # 0.6 x10^3/uL (0.0-1.1); MONO % 13 % (0-9); NEUT # 3.6 x10^3uL (1.8-7.7); NEUT % 75 % (31-73); PLATELET COUNT 237 x10^3/uL (140-400); RED BLOOD COUNT 4.73 x10^6/uL (3.50-5.40); RED CELL DISTRIBUTION WIDTH 13.7 % (11.5-14.5); WHITE BLOOD COUNT 4.9 x10^3/uL (4.0-11.0)
[2019-06-28] MEDS ORDERED: ONDANSETRON PF 4 MG/2 ML VIAL. IVP ONE (17:30)
[2019-06-28 17:36] LABS: ALBUMIN 3.7 g/dL (3.4-5.0); ALBUMIN/GLOBULIN RATIO 0.9 (1.0-1.7); CALCIUM 8.8 mg/dL (8.5-10.1); POTASSIUM 4.9 mmol/L (3.5-5.1); TOTAL PROTEIN 7.8 g/dL (6.4-8.2)
[2019-06-28 17:44] LABS: BACTERIA,URINE 0 /HPF (0-FEW); BILIRUBIN,URINE NEG (NEG); CLARITY,URINE CLEAR; COLOR,URINE YELLOW; GLUCOSE,URINE 500 mg/dL (NEG); NITRITE,URINE NEG (NEG); RBC,URINE 0 /HPF (0-2); UROBILINOGEN,URINE 0.2 mg/dL (0.2 mg/dL); WBC,URINE 0 /HPF (0-4)
[2019-06-28] MEDS ORDERED: MORPHINE SULFATE 4 MG/ML DISP.SYRIN. ONE (17:48)
[2019-06-28] MEDS ORDERED: INSULIN REGULAR VIAL 150 UNIT in 0.9 % SODIUM CHLORIDE 150ML 150 ML IV PRN ×2 (18:00→21:00)
[2019-06-28] MEDS ORDERED: MORPHINE SULFATE 4 MG/ML DISP.SYRIN. IV ONE (18:00)
[2019-06-28] MEDS ORDERED: DEXTROSE 50% 25 GM / 50ML DISP.SYRIN. IV PRN (18:00)
[2019-06-28 18:18] LABS: INFLUENZA A PATIENT NEGATIVE (NEGATIVE); INFLUENZA B PATIENT POSITIVE (NEGATIVE)
--- NOTE | 2019-06-28 18:42 | EKG ---
[address] [address] Test Date: 2019-06-28 Test Time: 18:39:40 Pat Name: RYLIE BELL Department: Room: Gender: F Chemists: BENSON : 1990 Requested By: DEBBIE LLANES Order Number: [id number] Reading MD: Measurements Intervals [place] Rate: 132 P: -116 ME: 120 QRS: 28 QRSD: 84 T: 43 QT: 326 QTc: 487 Interpretive Statements SUPRAVENTRICULAR TACHYCARDIA OTHERWISE NORMAL ECG RI6.01 Compared to ECG 06/11/2019 03:31:13 Sinus tachycardia no longer present Myocardial infarct finding no longer present
[2019-06-28] MEDS ORDERED: IV RINGERS SOLUTION,LACTATED 1,000 ML IV SCH (18:45)
[2019-06-28] MEDS ORDERED: ACETAMINOPHEN 325 MG TABLET PO PRN (18:45)
[2019-06-28] MEDS ORDERED: IV RINGERS SOLUTION,LACTATED 1,000 ML IV ONE (18:45)
[2019-06-28] MEDS ORDERED: INSULIN REGULAR VIAL 150 UNIT in 0.9 % SODIUM CHLORIDE 150ML 150 ML IV ONE (18:45)
[2019-06-28 19:02] LABS: BARBITURATES NEG (NEG); BENZODIAZEPINES NEG (NEG); CANNABINOIDS NEG (NEG); COCAINE NEG (NEG); METHADONE NEG (NEG); OPIATES NEG (NEG); PHENCYCLIDINE NEG (NEG)
[2019-06-28 19:03] LABS: AMPHETAMINE/METHAMPHETAMINE NEG (NEG)
[2019-06-28] MEDS ORDERED: ENOXAPARIN ** NOTE DOSE ** SYRINGE SQ ONE (19:28)
[2019-06-28 19:31] LABS: BGAS PH 7.1 (7.35-7.45)
[2019-06-28] MEDS: ONDANSETRON PF 4 MG/2 ML VIAL. IV PRN ×2 (19:42→21:21)
[2019-06-28] MEDS ORDERED: SODIUM BICARB ADULT 8.4% 50 MEQ/50 ML DISP.SYRIN. IV ONE (19:45)
[2019-06-28] MEDS: MORPHINE SULFATE 2 MG/ML DISP.SYRIN. IV PRN ×2 (19:48→21:22)
[2019-06-28 20:05] VITALS: BP 146/92
--- NOTE | 2019-06-28 20:05 | NUR ---
Pt was admitted to ICU bed 4 from ER via [facility], accompanied by EMS and nursing staff. Pt transferred from bed to [facility] independently, steady gait noted. Admission assessment completed. Pt here for DKA, N/V and +Flu B. POCT done with result of 402, GlucoStabilizer restarted. VSS. Health history and home medications reviewed with pt. MRSA swab obtained, +Hx known. Lovenox for VTE. DKA order set started. Pt with left buttock wound, pictures taken per [facility] protocol. Pt was given written information regarding hospital policies, unit procedures and contact persons. Valuables were checked and left at bedside. Call light within reach. Will cont to monitor.
[2019-06-28] MEDS ORDERED: IV DEXTROSE 5 %-0.45 % NACL 1,000 ML IV SCH (20:53)
[2019-06-28 21:00] VITALS: BP 122/66
[2019-06-28] MEDS ORDERED: POTASSIUM CHLORIDE 10MEQ 100 ML IV PRN ×5 (21:00)
[2019-06-28] MEDS ORDERED: MAGNESIUM SULFATE 2GM 50 ML IV PRN (21:00)
[2019-06-28] MEDS ORDERED: OSELTAMIVIR 75 MG CAPSULE PO ONE (21:00)
[2019-06-28] MEDS: IPRATRPIUM/ALBUTEROL 0.5/2.5MG 3 ML NEBU. NEB SCH (21:09)
[2019-06-28] MEDS: IV NORMAL SALINE 1,000ML 1,000 ML IV SCH ×2 (21:21→23:30)
[2019-06-28 22:00] VITALS: BP 121/66
[2019-06-28 22:25] LABS: CALCIUM 8.4 mg/dL (8.5-10.1); CREATININE 0.8 mg/dL (0.6-1.0); GFR 85.4
[2019-06-28 23:00] VITALS: BP 145/83
[2019-06-29] VITALS (21 sets, daily range): BP systolic 94–155; BP diastolic 61–99
[2019-06-29] MEDS: POTASSIUM CL 20MEQ D5-0.45NACL 1,000 ML IV SCH ×4 (00:29→12:41)
[2019-06-29] MEDS: MORPHINE SULFATE 2 MG/ML DISP.SYRIN. IV PRN ×3 (01:20→09:30)
[2019-06-29] MEDS: ONDANSETRON PF 4 MG/2 ML VIAL. IV PRN ×3 (01:20→12:40)
[2019-06-29 02:34] LABS: CREATININE 0.6 mg/dL (0.6-1.0)
[2019-06-29] MEDS ORDERED: HYDR50CA2 PO (02:56)
[2019-06-29] MEDS ORDERED: ATOR20TA58 PO (02:56)
[2019-06-29] MEDS ORDERED: OMEP20CA10 PO (02:56)
[2019-06-29] MEDS ORDERED: ASPI325T11 PO (02:56)
[2019-06-29] MEDS ORDERED: LURA120T PO (02:56)
[2019-06-29] MEDS: IPRATRPIUM/ALBUTEROL 0.5/2.5MG 3 ML NEBU. NEB SCH ×3 (06:09→16:44)
[2019-06-29 06:48] LABS: BASO % 1 % (0-3); EOS % 1 % (0-3); HEMATOCRIT 37.3 % (36.0-47.0); HEMOGLOBIN 12.4 g/dL (12.0-15.5); LYMPH # 0.9 x10^3/uL (1.0-4.8); LYMPH % 28 % (24-48); MEAN CORPUSCULAR HEMOGLOBIN 30 pg (25-35); MEAN CORPUSCULAR HGB CONC 33 g/dL (31-37); MEAN CORPUSCULAR VOLUME 90 fL (79-100); MONO # 0.6 x10^3/uL (0.0-1.1); MONO % 18 % (0-9); NEUT # 1.6 x10^3uL (1.8-7.7); NEUT % 53 % (31-73); PLATELET COUNT 214 x10^3/uL (140-400); RED BLOOD COUNT 4.14 x10^6/uL (3.50-5.40); RED CELL DISTRIBUTION WIDTH 13.3 % (11.5-14.5); WHITE BLOOD COUNT 3.1 x10^3/uL (4.0-11.0)
[2019-06-29 06:58] LABS: CREATININE 0.7 mg/dL (0.6-1.0); GFR 99.6; POTASSIUM 3.7 mmol/L (3.5-5.1)
[2019-06-29] MEDS ORDERED: ENOXAPARIN ** NOTE DOSE ** SYRINGE SQ SCH (09:00)
[2019-06-29] MEDS: ENOXAPARIN ** NOTE DOSE ** SYRINGE SQ SCH ×2 (09:31→21:07)
--- NOTE | 2019-06-29 10:10 | NUR ---
IP: Pt is Influenza B + requiring droplet precautions for 7 days and 24 hours without a fever, whichever is longest.
[2019-06-29 10:24] LABS: CREATININE 0.6 mg/dL (0.6-1.0); POTASSIUM 3.7 mmol/L (3.5-5.1)
[2019-06-29] MEDS: METOPROLOL TART IMMED RELEASE 25 MG TABLET PO SCH (12:04)
[2019-06-29] MEDS: oxyCODONE/APAP 10/325 1 TAB TABLET PO PRN ×3 (12:04→23:12)
[2019-06-29] MEDS ORDERED: traZODone 100 MG TABLET. PO PRN (14:00)
[2019-06-29] MEDS ORDERED: hydrOXYzine PAMOATE 25 MG CAPSULE PO PRN (14:15)
[2019-06-29 14:31] LABS: CALCIUM 7.9 mg/dL (8.5-10.1); CREATININE 0.5 mg/dL (0.6-1.0); GFR 146.9; POTASSIUM 3.5 mmol/L (3.5-5.1)
[2019-06-29] MEDS: CYCLOBENZAPRINE 10 MG TABLET. PO PRN ×2 (15:16→23:12)
[2019-06-29] MEDS: OSELTAMIVIR 75 MG CAPSULE PO SCH ×2 (15:16→21:07)
[2019-06-29] MEDS: POTASSIUM CL 40MEQ IN 0.9%NACL 1,000 ML IV SCH (15:16)
--- NOTE | 2019-06-29 15:32 | HP ---
ADMIT DATE: 06/28/2019 HISTORY OF PRESENT ILLNESS: The patient is a 28-year-old female patient who presented to the Emergency Room with a complaint of hyperglycemia. She stated that her last two readings were high and did not give any number. She has been vomiting, severe generalized abdominal and back cramps. She stated that she was exposed to influenza B within the last week. She has had no fever. Denied any diarrhea. She was extensively evaluated in the Emergency Room, was found to have severe hyperglycemia and in fact she was in diabetic ketoacidosis with a blood sugar of 833 mg/dL. Her blood gases showed a pH of 7.10, pCO2 of 15, pO2 of 118 and bicarbonate was only 5. Her anion gap was 17 and was admitted to the ICU after receiving fluid and was started on insulin drip as well as Tamiflu. PAST MEDICAL HISTORY: Significant for type 1 diabetes mellitus since the age of 11. She has factor V Leiden, history of DVT x 2, bipolar disorder and nephrolithiasis. She has also had a left gluteal cellulitis and abscess that required surgical incision and drainage at [facility]. PAST SURGICAL HISTORY: Significant for 2 C-sections, open heart surgery for atrial septal defect repair. She was 18 years old. She has a left ring finger open reduction and internal fixation, most recently incision and drainage of a left buttock abscess that was treated with wound VAC and IV antibiotic. ALLERGIES: She is allergic to LISINOPRIL. Also at that time, she developed angioneurotic edema. She is also allergic to COUMADIN causing hives and SEROQUEL causing hallucination. FAMILY HISTORY: She has 2 brothers and 2 sisters, 1 brother and 1 sister older, 1 brother and 1 sister younger. Her father is still alive at the age of 50 and he is alcoholic. Mother is still alive and has Crohn's disease and she is 46 years old. SOCIAL HISTORY: She is , has 2 sons. She does not smoke, drink alcohol or use any recreational drugs. She uses marijuana about twice a week. 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 MEDICATIONS: She is on following medications: She is currently on cyclobenzaprine 10 mg 3 times a day, atorvastatin calcium 20 mg at bedtime, metoprolol tartrate 25 mg once a day, aspirin 325 mg twice a day, oxycodone/APAP 10/325 one tablet every 6 hours, fluoxetine 60 mg at bedtime, trazodone 100 mg p.o. at bedtime, Latuda 120 mg once a day, hydroxyzine pamoate 50 mg 3 times a day, omeprazole 20 mg once a day, metformin 1000 mg twice a day with meals. She is on NovoLog insulin 35 units before meals and Levemir insulin 50 units at bedtime. REVIEW OF SYSTEMS: As per history of present illness. PHYSICAL EXAMINATION: GENERAL: On arrival, the patient was clearly tachypneic and tachycardic. VITAL SIGNS: Her heart rate was 125, blood pressure was 182/100, temperature was 98.1, respiratory rate was 37 and oxygen saturation was 98% on room air. HEAD, EYES, EARS, NOSE AND THROAT: Showed normocephalic, atraumatic. NECK: Supple. HEART: Showed normal first and second heart sounds with no gallop or murmur. CHEST: Clear to auscultation. No crepitation or rhonchi. ABDOMEN: Distended, soft, nontender. NEUROLOGICALLY: She is awake, alert, responding appropriately. All cranial nerves intact. EXTREMITIES: She moves extremities without difficulty. She ambulates without assistance or assistive devices. LABORATORY DATA: Her lab work showed a white cell count of 4900, hemoglobin 14, hematocrit 44, MCV 95, and platelet count 237,000. Her arterial blood gases showed a pH of 7.10, pCO2 of 15, pO2 of 118, bicarbonate 5 and oxygen saturation was 97% on FiO2 of 21%. Her chemistry showed a serum sodium of 127, potassium 4.9, chloride 91, bicarbonate 12, anion gap of 24, BUN 12, creatinine 1, estimated GFR was 66 mL per minute. Her glucose was 833, calcium was 8.8. Total bilirubin, AST, ALT normal. Alkaline phosphatase slightly elevated. Total protein was 7.8, albumin was 3.7. Urinalysis was essentially unremarkable. test was negative. Toxic screen was negative. ASSESSMENT AND PLAN: The patient was basically admitted with diabetic ketoacidosis and influenza B. She was continued on IV fluid and insulin drip as well as DKA protocol. We will resume all her medications and we will monitor her response as per protocol. SURJIT MOMIN MD DR: ISAIAH/tino JOB#: [id number] / [id number]
[2019-06-29] MEDS ORDERED: INSULIN ASPART 35 UNIT SQ SCH (17:00)
[2019-06-29] MEDS: metFORMIN 500 MG TABLET PO SCH (17:00)
[2019-06-29] MEDS: INSULIN LISPRO 300 UNITS/3 ML VIAL. SQ SCH (17:14)
[2019-06-29] MEDS ORDERED: INSULIN LISPRO 300 UNITS/3 ML VIAL. SQ ONE (18:30)
[2019-06-29] MEDS ORDERED: DEXTROSE 50% 25 GM / 50ML DISP.SYRIN. IV PRN (19:00)
[2019-06-29] MEDS ORDERED: INSULIN LISPRO 300 UNITS/3 ML VIAL. SQ PRN (19:00)
--- NOTE | 2019-06-29 19:05 | RAD ---
Exam: CT abdomen and pelvis without contrast INDICATION: Right lower quadrant abdominal pain TECHNIQUE: Sequential axial images through the abdomen and pelvis obtained without IV contrast. Sagittal and coronal reformatted images were reconstructed from the axial data and reviewed. Comparisons: 04/12/2019 FINDINGS: Heart size is normal. No pericardial effusion. Visualized lung bases are clear. No pleural effusion. Evaluation of the solid organs is limited secondary to noncontrast technique. Liver, spleen, pancreas, gallbladder and adrenals are unremarkable. Kidneys demonstrate no perinephric inflammation or hydronephrosis. No renal or ureteral calculi. Redemonstration of a 2 mm calcification adjacent to the right ureterovesicular junction, which is favored represent phlebolith and stable when compared to prior exams. Bladder is distended and appears thin-walled. Uterus is not enlarged. No abnormal adnexal mass. Large and small bowel are unremarkable. Appendix is normal. No free intraabdominal air or fluid. No obstruction. Abdominal aorta has a normal course and caliber. No enlarged abdominal lymph nodes are identified. No suspicious osseous lesions or acute fractures. IMPRESSION: No acute process identified within the abdomen or pelvis. Exposure: One or more of the following in the visualized dose reduction techniques were utilized for this examination: 1. Automated exposure control 2. Adjustment of the MA and/or KV according to patient size 3. Use of iterative of reconstructive technique Electronically signed by: Caitlin Mondragon MD (06/29/2019 7:02 PM) [facility]
[2019-06-29] MEDS: ACETAMINOPHEN 325 MG TABLET PO PRN (19:36)
[2019-06-29] MEDS: ONDANSETRON PF 4 MG/2 ML VIAL. IVP PRN (20:40)
[2019-06-29] MEDS ORDERED: FLUoxetine HCL 20 MG CAPSULE PO SCH (21:00)
[2019-06-29] MEDS ORDERED: INSULIN GLARGINE SYRINGE. SQ SCH (21:00)
[2019-06-29] MEDS ORDERED: INSULIN DETEMIR 50 UNIT SQ SCH (21:00)
[2019-06-29] MEDS ORDERED: ATORVASTATIN CALCIUM 20 MG TABLET PO SCH (21:00)
[2019-06-29] MEDS: ASPIRIN ENTERIC COATED 325 MG TABLET.DR. PO SCH (21:07)
--- NOTE | 2019-06-29 21:11 | PN ---
DATE: 06/29/2019 SUBJECTIVE: The patient is sitting at the edge of the bed comfortably in no apparent distress. She continued to complain of cough, aches and pains and also some nausea. She had a clear liquid diet this morning and after she ate her lunch, she started having some more nausea, but no vomiting. OBJECTIVE: GENERAL: When I saw her this afternoon, she looked well and was clearly in no apparent respiratory distress. No jaundice, cyanosis or thyromegaly. No jugular venous distention. No limb edema. VITAL SIGNS: Her heart rate was 110, blood pressure 146/96, temperature was 97.1, respiratory rate was 18 and oxygen saturation was 99%. HEAD, EYES, EARS, NOSE AND THROAT: Showed normocephalic, atraumatic. NECK: Supple. HEART: Showed normal first and second heart sounds. No gallop or murmur. CHEST: Clear to auscultation. No crepitation or rhonchi. ABDOMEN: Distended, soft, nontender. NEUROLOGIC: She was awake, alert, responding appropriately. All cranial nerves intact. EXTREMITIES: She moves extremities without difficulty. Her intake over the last 24 hours was 5573, output was 1450. LABORATORY DATA: As of this morning, her serum sodium was 137, potassium 3.7, chloride 105, bicarbonate 17, anion gap of 17, BUN 4, creatinine 0.6, estimated GFR was 119 mL per minute. Her glucose 149, calcium was 8. Her white cell count was 3100, hemoglobin 12, hematocrit 37, MCV 90 and platelet count of 141,000. Her influenza B is positive. Her nasal screen for MRSA PCR was negative. ASSESSMENT: 1. Influenza B. 2. Diabetic ketoacidosis. 3. Dilutional hyponatremia, dehydration, and type 1 diabetes. She is also known to have factor V Leiden and history of DVT and PE before and she has bipolar disorder. SURJIT MOMIN MD DR: ISAIAH/tino JOB#: [id number] / [id number]
[2019-06-30 00:01] VITALS: BP 134/76
[2019-06-30 02:00] VITALS: BP 126/78
[2019-06-30] MEDS: POTASSIUM CL 40MEQ IN 0.9%NACL 1,000 ML IV SCH ×2 (03:16→10:28)
[2019-06-30] MEDS ORDERED: IPRATRPIUM/ALBUTEROL 0.5/2.5MG 3 ML NEBU. ONE (04:46)
[2019-06-30] MEDS: IPRATRPIUM/ALBUTEROL 0.5/2.5MG 3 ML NEBU. NEB SCH ×2 (05:22→09:32)
[2019-06-30 05:30] VITALS: BP 139/86
[2019-06-30 06:40] LABS: HEMATOCRIT 34.1 % (36.0-47.0); HEMOGLOBIN 11.2 g/dL (12.0-15.5); RED BLOOD COUNT 3.75 x10^6/uL (3.50-5.40); RED CELL DISTRIBUTION WIDTH 13.5 % (11.5-14.5); WHITE BLOOD COUNT 2.3 x10^3/uL (4.0-11.0)
[2019-06-30 06:56] LABS: ALBUMIN 2.7 g/dL (3.4-5.0); ALBUMIN/GLOBULIN RATIO 0.9 (1.0-1.7); CALCIUM 7.8 mg/dL (8.5-10.1); CREATININE 0.5 mg/dL (0.6-1.0); GFR 146.9; TOTAL BILIRUBIN 0.2 mg/dL (0.2-1.0); TOTAL PROTEIN 5.8 g/dL (6.4-8.2)
[2019-06-30 07:25] VITALS: BP 139/86
[2019-06-30] MEDS ORDERED: LURASIDONE 40 MG TABLET. PO SCH ×2 (08:00→17:00)
[2019-06-30] MEDS: ENOXAPARIN ** NOTE DOSE ** SYRINGE SQ SCH (08:16)
[2019-06-30] MEDS: ASPIRIN ENTERIC COATED 325 MG TABLET.DR. PO SCH (08:16)
[2019-06-30] MEDS: oxyCODONE/APAP 10/325 1 TAB TABLET PO PRN (08:16)
[2019-06-30] MEDS: metFORMIN 500 MG TABLET PO SCH (08:16)
[2019-06-30] MEDS: OSELTAMIVIR 75 MG CAPSULE PO SCH (08:17)
[2019-06-30] MEDS: METOPROLOL TART IMMED RELEASE 25 MG TABLET PO SCH (08:17)
[2019-06-30] MEDS: CYCLOBENZAPRINE 10 MG TABLET. PO PRN (08:17)
[2019-06-30] MEDS: INSULIN LISPRO 300 UNITS/3 ML VIAL. SQ SCH (08:22)
[2019-06-30] MEDS ORDERED: PANTOPRAZOLE 40 MG TABLET. PO SCH (09:00)
[2019-06-30 11:28] VITALS: BP 124/74
[2019-06-30] MEDS: ACETAMINOPHEN 325 MG TABLET PO PRN (11:40)
[2019-06-30] MEDS: ONDANSETRON PF 4 MG/2 ML VIAL. IVP PRN (11:40)
--- NOTE | 2019-06-30 13:47 | DS ---
DATE OF DISCHARGE: HOSPITAL COURSE: The patient is a 28-year-old female patient with type 1 diabetes mellitus, who came to the Emergency Room with complaint of recurrent bouts of nausea, vomiting, generalized aches and pains. She was exposed to influenza and in fact she was indeed positive for influenza B. Her blood sugar was also extremely high more than 100 mg/dL and was in diabetic ketoacidosis. She was started on Tamiflu with IV fluid and insulin drip and did very well. She continued to have some mild abdominal discomfort with some nausea, but no vomiting; has been tolerating her diet and she was put back on her insulin regimen. If she remained hemodynamically stable and afebrile with normal blood sugar with normal anion gap, a decision was made to discharge her home to continue the Tamiflu for 4 more days. PHYSICAL EXAMINATION: GENERAL: When I examined her this afternoon, she was sitting at the edge of bed comfortably, in no apparent distress, pale. No jaundice, cyanosis, or thyromegaly. No jugular venous distension. No lower limb edema. VITAL SIGNS: Her heart rate was 83, blood pressure was 124/74, temperature was 98.1, respiratory rate was 16, and oxygen saturation was 98%. HEAD, EYES, EARS, NOSE AND THROAT: Showed normocephalic, atraumatic. NECK: Supple. HEART: Showed normal first and second heart sounds. No gallop or murmur. CHEST: Clear to auscultation. No crepitation or rhonchi. ABDOMEN: Distended, soft, nontender. No guarding or rigidity. No organomegaly. All hernial orifice intact. Bowel sounds normal. NEUROLOGIC: She is awake, alert, responding appropriately. All cranial nerves intact. She moves extremities without difficulty. She ambulates without assistance or assistive devices. Her intake was 5573, output was 1450. LABORATORY DATA: As of this morning showed a white cell count 2300, hemoglobin 11, hematocrit 34, MCV 91, and platelet count of 161,000. Her chemistry showed a serum sodium 138, potassium 4, chloride 108, bicarbonate 20, anion gap of 10, BUN 4, creatinine 0.65. Estimated GFR was 146 mL per minute. Her glucose was 224, calcium was 7.8. Total bilirubin, AST, ALT, alkaline phosphatase were normal. Total protein was 5.8, albumin 2.7. DISCHARGE MEDICATIONS: The patient will be discharged home to continue on her aspirin 325 mg once a day, atorvastatin calcium 20 mg at bedtime, Flexeril 10 mg 3 times a day, fluoxetine 60 mg at bedtime, hydroxyzine 50 mg 3 times a day as needed, NovoLog 35 units subcutaneously before meals and Levemir insulin 50 units at bedtime, Latuda 120 mg daily, metformin 1000 mg twice a day with meals, metoprolol tartrate 25 mg daily, omeprazole 20 mg once a day, oxycodone/APAP 10/325 one tablet every 6 hours, trazodone 100 mg at bedtime. FINAL DISCHARGE DIAGNOSES: 1. Influenza B. 2. Diabetic ketoacidosis. 3. Type 1 diabetes mellitus. 4. Hyperlipidemia. 5. Bipolar disorder. 6. Factor V Leiden with previous history of deep venous thrombosis and pulmonary embolism. SURJIT MOMIN MD DR: ISAIAH/tino JOB#: [id number] / [id number]
--- NOTE | 2019-06-30 14:00 | NUR ---
Discharge: Pt discharged home with SO. Pt ambulatory, VSS, NAD. Discharge instructions and education discussed with patient. Questions answered. Prescriptions sent with patient. No falls or injuries reported. PIV x2 removed without complications. All belongings accounted for.
== END 2019-06-30 14:02 | disposition home or self-care (01) | DRG 193 ==
LOC: ER 16:25 → ICU 18:30
PROVIDERS: ADMIT Internal Medicine; ATTEND Internal Medicine
DX: J10.1 Influenza due to other identified influenza virus with other respiratory manifestations (principal); E10.10 Type 1 diabetes mellitus with ketoacidosis without coma; D68.51 Activated protein C resistance; E87.1 Hypo-osmolality and hyponatremia; F41.9 Anxiety disorder, unspecified; F31.9 Bipolar disorder, unspecified; M79.7 Fibromyalgia; G43.909 Migraine, unspecified, not intractable, without status migrainosus; F17.210 Nicotine dependence, cigarettes, uncomplicated; F12.90 Cannabis use, unspecified, uncomplicated; Z20.828 Contact with and (suspected) exposure to other viral communicable diseases; E86.0 Dehydration; E78.5 Hyperlipidemia, unspecified; I10 Essential (primary) hypertension; Z86.718 Personal history of other venous thrombosis and embolism; Z98.891 History of uterine scar from previous surgery; Z87.74 Personal history of (corrected) congenital malformations of heart and circulatory system; Z87.442 Personal history of urinary calculi; Z86.711 Personal history of pulmonary embolism; Z79.4 Long term (current) use of insulin; Z88.8 Allergy status to other drugs, medicaments and biological substances; Z91.040 Latex allergy status
CPT/HCPCS: 36415; 74176; 80048; 80053; 80307; 81001; 81025; 82803; 82947; 83735; 84702; 85025; 85027; 87641; 87804; 93005; 94640; 96361; 96372; 96374; 96375; G0238; J1650; J1815; J2270; J2405; J7120; J7620; 99285-25; J7030

== ENCOUNTER 2019-07-25 10:45 | Emergency (ER) | payer OTHER ==
[~2019-07-25] VITALS: Ht 180.3 cm; Wt 106.6 kg
[~2019-07-25 10:45] MED LIST changes: +ASPI325T11 PO; +ATOR20TA58 PO; +FLUO20CA19 PO; -FLUO20CA8 PO; +HYDR50CA2 PO; +LURA120T PO; -OMEP20CA10 PO; +OMEP20CA16 PO; +TRAZ-125 PO; -TRAZ-86 PO
[2019-07-25 10:55] VITALS: BP 118/90
--- NOTE | 2019-07-25 11:33 | RAD ---
KNEE RIGHT 3V History: Knee pain. Technique: 3 views right knee. Comparison: None. Findings: Normal alignment. No fracture. No significant knee joint effusion. [place]-Schlatter's changes of the proximal tibia. Impression: 1. No acute osseous abnormality. 2. [place]-Schlatter's changes of the proximal anterior tibia. Electronically signed by: Tay Cardenas DO (07/25/2019 11:30 AM) [facility]
--- NOTE | 2019-07-25 11:46 | PHYS DOC ---
Past History Past Medical History: Abscess, Anxiety, Bipolar, Depression, Diabetes, DVT, Fibromyalgia, Hypertension, Migraines, Other Additional Past Medical Histor: FACTOR 5 Past Surgical History: , Other Additional Past Surgical Histo: atrial septal defect Smoking: Cigarettes Alcohol Use: Occasionally Drug Use: Marijuana Adult General Chief Complaint Chief Complaint: EYE PROBLEMS HPI HPI Patient is a 28-year-old female who presents with complaint of left eye pain and redness along with right knee pain. Patient states this morning she woke up with her left eye matted shut due to purulent drainage. She states that it feels gritty when she blinks. She also complains of right knee pain but she states started this morning when she went to get out of bed. She states that it feels like she hyperextended her knee but denies any recent injuries. She rates pain at an 8 out of 10. She states that she took some of her pain medication for the knee but it hasn't helped.[] Review of Systems Review of Systems Constitutional: Denies fever or chills [] Respiratory: Denies cough or shortness of breath [] Cardiovascular: No additional information not addressed in HPI [] Musculoskeletal: Complains of right knee pain [] Integument: Denies rash or skin lesions [] Neurologic: Denies headache, focal weakness or sensory changes [] Allergies Allergies Allergies Coded Allergies Type Severity Reaction Last Updated Verified latex Allergy Intermediate 06/28/19 Yes lisinopril Allergy Intermediate 06/28/19 Yes quetiapine Allergy Intermediate 06/28/19 Yes warfarin Allergy Intermediate 06/28/19 Yes Physical Exam Physical Exam Constitutional: Well developed, well nourished, no acute distress, non-toxic appearance. [] HENT: Normocephalic, atraumatic. [] Eyes: PERRLA, EOMI, there is conjunctival injection with small amount of purulent drainage noted at the medial canthus. [] Cardiovascular: Regular rate and rhythm[] Lungs & Thorax: Bilateral breath sounds clear to auscultation [] Skin: Warm, dry, no erythema, no rash. [] Extremities: Right knee demonstrates small amount of soft tissue swelling and tenderness to palpation overlying the tibial tuberosity. Ligamentous exam is stable. [] Current Patient Data Vital Signs Vital Signs Date Time Temp Pulse Resp B/P (MAP) Pulse Ox O2 Delivery O2 Flow Rate FiO2 07/25/19 10:55 98.2 115 18 98 EKG EKG [] Radiology/Procedures Radiology/Procedures [] Impressions: PROCEDURE: KNEE RIGHT 3V KNEE RIGHT 3V History: Knee pain. Technique: 3 views right knee. Comparison: None. Findings: Normal alignment. No fracture. No significant knee joint effusion. [place]-Schlatter's changes of the proximal tibia. Impression: 1. No acute osseous abnormality. 2. [place]-Schlatter's changes of the proximal anterior tibia. Electronically signed by: Tay Cardenas DO (07/25/2019 11:30 AM) [facility] Course & Med Decision Making Course & Med Decision Making Pertinent Labs and Imaging studies reviewed. (See chart for details) [] Dragon Disclaimer Dragon Disclaimer This electronic medical record was generated, in whole or in part, using a voice recognition dictation system. Departure Departure: Impression: Primary Impression: Conjunctivitis Additional Impression: Pavan-Schlatter's disease of right lower extremity Disposition: 01 HOME, SELF-CARE Condition: STABLE Referrals: MATY SALMON MD (PCP) Patient Instructions: Bacterial Conjunctivitis, Knee Pain, Pavan-Schlatter Disease Scripts Diclofenac Sodium (DICLOFENAC SODIUM) 50 Mg Tablet. 1 TAB PO BID PRN for PAIN, #20 TAB Prov: JOHN FISCHER Jr., DO 07/25/19 Erythromycin Base (Erythromycin) 1 Gm Oint...g. 0.5 INCH OP TID for infection, #3.5 GM Prov: JOHN FISCHER Jr., DO 07/25/19 Problem Qualifiers Primary Impression: Conjunctivitis Conjunctivitis type: unspecified Laterality: left Qualified Codes: H10.9 - Unspecified conjunctivitis JOHN FISCHER Jr. DO Jul 25, 2019 11:46
[2019-07-25] MEDS ORDERED: ERYT1OIN6 OP (11:55)
[2019-07-25] MEDS ORDERED: DICL50TA4 PO (11:55)
== END 2019-07-25 11:20 | disposition home or self-care (01) ==
LOC: ER 10:45
DX: H10.9 Unspecified conjunctivitis (principal); M92.51 Juvenile osteochondrosis of proximal tibia; F31.9 Bipolar disorder, unspecified; F41.9 Anxiety disorder, unspecified; E11.9 Type 2 diabetes mellitus without complications; Z86.718 Personal history of other venous thrombosis and embolism; M79.7 Fibromyalgia; G43.909 Migraine, unspecified, not intractable, without status migrainosus; F17.210 Nicotine dependence, cigarettes, uncomplicated; Z91.040 Latex allergy status; Z88.8 Allergy status to other drugs, medicaments and biological substances
CPT/HCPCS: 73562; 99284

== ENCOUNTER 2019-08-04 19:47 | Inpatient (IN) | payer OTHER ==
[~2019-08-04] VITALS: Ht 180.3 cm; Wt 104.8 kg
[~2019-08-04 19:47] MED LIST changes: +DICL50TA4 PO; +ERYT1OIN6 OP; +OMEP-229 PO; -OMEP20CA16 PO; -TRAZ-125 PO; +TRAZ-86 PO
[2019-08-04 20:14] LABS: BASO # 0.1 x10^3/uL (0.0-0.2); BASO % 1 % (0-3); EOS # 0.1 x10^3/uL (0.0-0.7); EOS % 1 % (0-3); HEMATOCRIT 43.6 % (36.0-47.0); HEMOGLOBIN 13.8 g/dL (12.0-15.5); LYMPH # 2.6 x10^3/uL (1.0-4.8); LYMPH % 33 % (24-48); MEAN CORPUSCULAR HEMOGLOBIN 29 pg (25-35); MEAN CORPUSCULAR HGB CONC 32 g/dL (31-37); MEAN CORPUSCULAR VOLUME 93 fL (79-100); MONO # 0.5 x10^3/uL (0.0-1.1); MONO % 6 % (0-9); NEUT # 4.8 x10^3uL (1.8-7.7); NEUT % 60 % (31-73); PLATELET COUNT 414 x10^3/uL (140-400); RED BLOOD COUNT 4.71 x10^6/uL (3.50-5.40); RED CELL DISTRIBUTION WIDTH 14.1 % (11.5-14.5); WHITE BLOOD COUNT 8.1 x10^3/uL (4.0-11.0)
[2019-08-04] MEDS ORDERED: IV NORMAL SALINE 1,000ML 1,000 ML IV ONE ×2 (20:15→21:00)
[2019-08-04] MEDS ORDERED: ONDANSETRON PF 4 MG/2 ML VIAL. IVP ONE (20:15)
--- NOTE | 2019-08-04 20:28 | PHYS DOC ---
Past History Past Medical History: Abscess, Anxiety, Bipolar, Depression, Diabetes, DVT, Fibromyalgia, Hypertension, Migraines, Other Additional Past Medical Histor: FACTOR 5 Past Surgical History: , Other Additional Past Surgical Histo: atrial septal defect Smoking: Cigarettes Alcohol Use: Occasionally Drug Use: Marijuana Adult General Chief Complaint Chief Complaint: NAUSEA/VOMITING/DIARRHEA HPI HPI 28-year-old female presents with nausea, vomiting, and chills. The patient is a well-known diabetic to this emergency room. She tells me that she took 90 units of short-acting insulin around 11 AM, it is now 8 PM. She states that her blood sugar will not come down. Other than feeling "warm" she denies any other symptoms or change in medical condition. She has had several episodes of vomiting this evening and feels tired. She has not measured a fever. Review of Systems Review of Systems Constitutional: Denies fever or chills [] Eyes: Denies change in visual acuity, redness, or eye pain [] HENT: Denies nasal congestion or sore throat [] Respiratory: Denies cough or shortness of breath [] Cardiovascular: No additional information not addressed in HPI [] GI: Diffuse abdominal pain, nausea, vomiting. Denies bloody stools or diarrhea [] : Denies dysuria or hematuria [] Musculoskeletal: Denies back pain or joint pain [] Integument: Denies rash or skin lesions [] Neurologic: Denies headache, focal weakness or sensory changes [] Endocrine: Denies polyuria or polydipsia [] All other systems were reviewed and found to be within normal limits, except as documented in this note. Current Medications Current Medications Current Medications Medications (Trade) Dose Ordered Sig/[place] Start Time Stop Time Status Last Admin Dose Admin Dextrose (Dextrose 50%-Water Syringe) 12.5 gm PRN Q15MIN PRN 08/04/19 20:30 UNV Insulin Human Regular 150 unit/ Sodium Chloride 151.5 ml @ 0 mls/hr CONT PRN 08/04/19 20:30 UNV Ondansetron HCl (Zofran) 8 mg 1X ONCE 08/04/19 20:15 08/04/19 20:16 DC 08/04/19 20:15 8 MG Allergies Allergies Allergies Coded Allergies Type Severity Reaction Last Updated Verified latex Allergy Intermediate 06/28/19 Yes lisinopril Allergy Intermediate 06/28/19 Yes quetiapine Allergy Intermediate 06/28/19 Yes warfarin Allergy Intermediate 06/28/19 Yes Physical Exam Physical Exam Constitutional: Well developed, well nourished, no acute distress, non-toxic appearance. [] HENT: Normocephalic, atraumatic, bilateral external ears normal, oropharynx moist, no oral exudates, nose normal. [] Eyes: PERRLA, EOMI, conjunctiva normal, no discharge. [] Neck: Normal range of motion, no tenderness, supple, no stridor. [] Cardiovascular:Heart rate regular rhythm, no murmur [] Lungs & Thorax: Bilateral breath sounds clear to auscultation [] Abdomen: Bowel sounds normal, soft, no tenderness, no masses, no pulsatile masses. [] Skin: Warm, dry, no erythema, no rash. [] Back: No tenderness, no CVA tenderness. [] Extremities: No tenderness, no cyanosis, no clubbing, ROM intact, no edema. [] Neurologic: Alert and oriented X 3, normal motor function, normal sensory function, no focal deficits noted. [] Psychologic: Affect normal, judgement normal, mood normal. [] Current Patient Data Vital Signs Vital Signs Date Time Temp Pulse Resp B/P (MAP) Pulse Ox O2 Delivery O2 Flow Rate FiO2 08/04/19 19:59 97.9 124 30 98 Room Air Lab Results Laboratory Tests Test 08/04/19 19:56 08/04/19 20:00 White Blood Count 8.1 x10^3/uL (4.0-11.0) Red Blood Count 4.71 x10^6/uL (3.50-5.40) Hemoglobin 13.8 g/dL (12.0-15.5) Hematocrit 43.6 % (36.0-47.0) Mean Corpuscular Volume 93 fL (79-100) Mean Corpuscular Hemoglobin 29 pg (25-35) Mean Corpuscular Hemoglobin Concent 32 g/dL (31-37) Red Cell Distribution Width 14.1 % (11.5-14.5) Platelet Count 414 x10^3/uL (140-400) H Neutrophils (%) (Auto) 60 % (31-73) Lymphocytes (%) (Auto) 33 % (24-48) Monocytes (%) (Auto) 6 % (0-9) Eosinophils (%) (Auto) 1 % (0-3) Basophils (%) (Auto) 1 % (0-3) Neutrophils # (Auto) 4.8 x10^3uL (1.8-7.7) Lymphocytes # (Auto) 2.6 x10^3/uL (1.0-4.8) Monocytes # (Auto) 0.5 x10^3/uL (0.0-1.1) Eosinophils # (Auto) 0.1 x10^3/uL (0.0-0.7) Basophils # (Auto) 0.1 x10^3/uL (0.0-0.2) Glucose (Fingerstick) 557 mg/dL (70-99) *H EKG EKG [] Radiology/Procedures Radiology/Procedures [] Course & Med Decision Making Course & Med Decision Making Pertinent Labs and Imaging studies reviewed. (See chart for details) I have started the patient a liter of normal saline and will start an insulin drip. Her point of care glucose was over 550. Her labs are significant for DKA with a high anion gap. The patient will be admitted to the hospital. We will also start a second liter of normal saline. I spoke with Dr. Cooley about the patient he has accepted her for admission. [] Dragon Disclaimer Dragon Disclaimer This electronic medical record was generated, in whole or in part, using a voice recognition dictation system. Departure Departure: Disposition: 01 HOME/RESIDENCE PRIOR TO ADM Condition: STABLE Referrals: MATY SALMON MD (PCP) LV SLOAN DO Aug 04, 2019 20:28
[2019-08-04 20:30] LABS: ALBUMIN 3.6 g/dL (3.4-5.0); ALBUMIN/GLOBULIN RATIO 0.7 (1.0-1.7); CALCIUM 8.6 mg/dL (8.5-10.1); POTASSIUM 4.6 mmol/L (3.5-5.1); TOTAL BILIRUBIN 0.7 mg/dL (0.2-1.0); TOTAL PROTEIN 8.6 g/dL (6.4-8.2)
[2019-08-04] MEDS ORDERED: INSULIN REGULAR VIAL 150 UNIT in 0.9 % SODIUM CHLORIDE 150ML 150 ML IV PRN (20:30)
[2019-08-04] MEDS ORDERED: DEXTROSE 50% 25 GM / 50ML DISP.SYRIN. IV PRN (20:30)
[2019-08-04 20:49] LABS: BILIRUBIN,URINE NEG (NEG); CLARITY,URINE CLEAR; COLOR,URINE YELLOW; GLUCOSE,URINE 500 mg/dL (NEG)
[2019-08-04 20:50] LABS: BACTERIA,URINE 0 /HPF (0-FEW); GRANULAR CASTS,URINE OCC /HPF; NITRITE,URINE NEG (NEG); RBC,URINE OCC /HPF (0-2); SQUAMOUS EPITHELIAL CELL,UR FEW /LPF; UROBILINOGEN,URINE 0.2 mg/dL (0.2 mg/dL); WBC,URINE OCC /HPF (0-4)
[2019-08-04 20:51] LABS: YEAST,URINE PRESENT /HPF
[2019-08-04] MEDS ORDERED: FLUCONAZOLE 100 MG TABLET. PO ONE (21:00)
[2019-08-04] MEDS ORDERED: INSULIN REGULAR 100 UNIT/ML 3ML VIAL. IV ONE (21:00)
[2019-08-04 21:40] VITALS: BP 134/80
[2019-08-04] MEDS ORDERED: IV NORMAL SALINE 1,000ML 1,000 ML IV SCH (21:52)
[2019-08-04 22:00] VITALS: BP 136/78
[2019-08-04] MEDS ORDERED: MAGNESIUM SULFATE 2GM 50 ML IV PRN (22:00)
[2019-08-04] MEDS ORDERED: POTASSIUM CHLORIDE 10MEQ 100 ML IV PRN ×4 (22:00)
[2019-08-04] MEDS: ONDANSETRON PF 4 MG/2 ML VIAL. IV PRN (22:05)
[2019-08-04] MEDS: MORPHINE SULFATE 2 MG/ML DISP.SYRIN. IV PRN (22:06)
[2019-08-04] MEDS: IV DEXTROSE 5 %-0.45 % NACL 1,000 ML IV SCH (22:53)
[2019-08-04 23:00] VITALS: BP 117/70
[2019-08-05] VITALS (22 sets, daily range): BP systolic 90–136; BP diastolic 53–89
[2019-08-05 00:44] LABS: CALCIUM 7.9 mg/dL (8.5-10.1); CREATININE 0.9 mg/dL (0.6-1.0); GFR 74.6; POTASSIUM 4.9 mmol/L (3.5-5.1)
[2019-08-05] MEDS: MORPHINE SULFATE 2 MG/ML DISP.SYRIN. IV PRN ×3 (02:32→19:19)
[2019-08-05] MEDS: ONDANSETRON PF 4 MG/2 ML VIAL. IV PRN ×3 (02:32→19:18)
[2019-08-05] MEDS: IV DEXTROSE 5 %-0.45 % NACL 1,000 ML IV SCH (03:36)
[2019-08-05 04:24] LABS: CALCIUM 7.7 mg/dL (8.5-10.1); CREATININE 0.8 mg/dL (0.6-1.0); GFR 85.4; POTASSIUM 4.3 mmol/L (3.5-5.1)
[2019-08-05] MEDS: POTASSIUM CL 20MEQ D5-0.45NACL 1,000 ML IV SCH ×4 (04:53→20:50)
[2019-08-05 08:12] LABS: CALCIUM 7.9 mg/dL (8.5-10.1); CREATININE 0.9 mg/dL (0.6-1.0); GFR 74.6; POTASSIUM 3.7 mmol/L (3.5-5.1)
--- NOTE | 2019-08-05 11:49 | HP ---
ADMIT DATE: 08/04/2019 HISTORY OF PRESENT ILLNESS: The patient is a 28-year-old female patient who was admitted before here numerous occasions and who came to the Emergency Room complaining of recurrent bouts of nausea, vomiting and chills. According to her, she took 90 units of short-acting insulin around 11:00 a.m. and she came to the Emergency Room around 8:00 p.m. She states that her blood sugar would not come down. Other than feeling warm, she denied any other symptoms or change in medical condition. She did have several episodes of vomiting on the evening before admission and feels tired. She has not had any fever. She was investigated in the Emergency Room and her lab work showed that her blood sugar was extremely high at 548. Her anion gap was 28 and bicarbonate was 9. She has dilutional hyponatremia and she was treated with IV fluid and was admitted to ICU to continue on insulin drip as per protocol. PAST MEDICAL HISTORY: Significant for type 1 diabetes mellitus since age of 11. She has factor V Leiden, history of DVT x 2, bipolar disorder and nephrolithiasis. She did have also left gluteal cellulitis and abscess that required surgical incision and drainage at [facility]. PAST SURGICAL HISTORY: Significant for two C-sections, open heart surgery for atrial septal defect repair when she was 18 years old. She has a left ring finger fracture, was treated with open reduction and internal fixation and most recently incision and drainage of a left buttock abscess that was treated with wound VAC, on IV antibiotic. ALLERGIES: SHE IS ALLERGIC TO LISINOPRIL SHE DEVELOPED ANGIONEUROTIC EDEMA. SHE ALSO CLAIMED THAT SHE IS ALLERGIC TO COUMADIN CAUSING HIVES AND SEROQUEL CAUSING HALLUCINATION. FAMILY HISTORY: She has 2 brothers and 2 sisters, 1 brother and 1 sister older and one brother and one sister younger. Her father is still alive at age of 50 and is alcoholic. Mother is still alive and has Crohn's disease. She is 46 years old. SOCIAL HISTORY: She is , has 2 sons. She does not smoke, drink alcohol or use recreational drugs. She uses marijuana about twice a week. 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 MEDICATIONS: She is currently on following medications: She is on Flexeril 10 mg 3 times a day as needed, atorvastatin calcium 20 mg at bedtime, metoprolol tartrate 25 mg once a day, aspirin 325 mg once a day, diclofenac sodium 50 mg tablet twice a day as needed, oxycodone/APAP 10/325 one tablet every 6 hours, fluoxetine 60 mg at bedtime, trazodone 100 mg at bedtime, Latuda 120 mg daily, hydroxyzine pamoate 50 mg 3 times a day as needed, erythromycin base 1 gram ointment half an inch to both eyes 3 times a day. She is on omeprazole 20 mg once a day, metformin 1000 mg twice a day. She is on NovoLog FlexPen 35 units 3 times a day with meals and Levemir insulin. She stated that she takes 35 units twice a day. PHYSICAL EXAMINATION: GENERAL: On arrival to the Emergency Room, the patient was well-developed, well-nourished, in no acute distress, nontoxic in appearance. There was no pallor, jaundice, cyanosis or thyromegaly. No jugular venous distention. No limb edema. VITAL SIGNS: Her heart rate was 124, blood pressure was 137/96, temperature was 97.9, respiratory rate was 28 and oxygen saturation was 98% on room air. HEAD, EYES, EARS, NOSE AND THROAT: Showed normocephalic, atraumatic. NECK: Supple. HEART: Showed normal first and second heart sounds. No gallop or murmur. CHEST: Clear to auscultation. No crepitation or rhonchi. ABDOMEN: Distended, soft, nontender. NEUROLOGIC: She was awake, alert, oriented x 3 with normal motor and sensory function. Her affect, judgment and mood were normal. LABORATORY DATA: On arrival showed a white cell count of 8100, hemoglobin 13.8, hematocrit 44, MCV 93, and platelet count of 414,000. Her lab work showed serum sodium of 132, potassium 4.6, chloride 95, bicarbonate 9, anion gap of 28, BUN 11, creatinine 1, estimated GFR was 66 mL per minute. Her glucose was 548, calcium was 8.6. Total bilirubin, AST, ALT were normal. Alkaline phosphatase slightly elevated. Total protein was 8.6, albumin was 3.6. Her urinalysis showed the urine was yellow, clear with a pH of 5, specific gravity 1.025. There is small amount of protein, large amount of glucose, large amount of ketones, large amount of blood. The urine was negative for nitrite, leukocyte esterase. There are no rbc's, no wbc's, and no bacteria. Her urine test was negative. ASSESSMENT AND PLAN: The patient was admitted with diabetic ketoacidosis. She was treated with IV fluid and insulin drip as per diabetic ketoacidosis protocol. We will obviously follow the protocol and change the IV fluid and switch her back to once her anion gap closes, normalized. SURJIT MOMIN MD DR: ISAIAH/tino JOB#: [id number] / [id number]
[2019-08-05] MEDS: INSULIN LISPRO 300 UNITS/3 ML VIAL. SQ SCH ×3 (12:00→18:43)
[2019-08-05 12:04] LABS: CREATININE 0.9 mg/dL (0.6-1.0); GFR 74.6; POTASSIUM 3.6 mmol/L (3.5-5.1)
[2019-08-05] MEDS: POTASSIUM CL 20MEQ IN 0.9%NACL 1,000 ML IV SCH ×3 (13:03→20:50)
[2019-08-05] MEDS ORDERED: IV NORMAL SALINE 1,000ML 1,000 ML IV ONE (13:30)
[2019-08-05] MEDS: oxyCODONE/APAP 10/325 1 TAB TABLET PO PRN ×2 (15:26→22:28)
[2019-08-05 16:43] LABS: CALCIUM 8.1 mg/dL (8.5-10.1); CREATININE 0.8 mg/dL (0.6-1.0); GFR 85.4
[2019-08-05] MEDS: INSULIN GLARGINE SYRINGE. SQ SCH (17:31)
[2019-08-05] MEDS: IV NORMAL SALINE 1,000ML 1,000 ML IV SCH (19:30)
[2019-08-05 20:50] LABS: CREATININE 0.9 mg/dL (0.6-1.0); GFR 74.6; POTASSIUM 3.3 mmol/L (3.5-5.1)
[2019-08-05] MEDS: POTASSIUM CHLORIDE 10MEQ 100 ML IV PRN ×3 (21:24→23:24)
[2019-08-06] VITALS (11 sets, daily range): BP systolic 105–133; BP diastolic 54–86
[2019-08-06] MEDS: POTASSIUM CL 20MEQ D5-0.45NACL 1,000 ML IV SCH (02:37)
[2019-08-06] MEDS: POTASSIUM CL 20MEQ IN 0.9%NACL 1,000 ML IV SCH ×2 (02:38→03:46)
[2019-08-06] MEDS: IV NORMAL SALINE 1,000ML 1,000 ML IV SCH (03:04)
[2019-08-06 03:08] LABS: HEMATOCRIT 33.4 % (36.0-47.0); HEMOGLOBIN 10.8 g/dL (12.0-15.5); RED BLOOD COUNT 3.75 x10^6/uL (3.50-5.40); RED CELL DISTRIBUTION WIDTH 13.9 % (11.5-14.5); WHITE BLOOD COUNT 4.5 x10^3/uL (4.0-11.0)
[2019-08-06 03:28] LABS: ALBUMIN 2.5 g/dL (3.4-5.0); ALBUMIN/GLOBULIN RATIO 0.7 (1.0-1.7); CALCIUM 7.7 mg/dL (8.5-10.1); CREATININE 0.7 mg/dL (0.6-1.0); GFR 99.6; POTASSIUM 3.5 mmol/L (3.5-5.1); TOTAL BILIRUBIN 0.1 mg/dL (0.2-1.0); TOTAL PROTEIN 5.9 g/dL (6.4-8.2)
[2019-08-06] MEDS: oxyCODONE/APAP 10/325 1 TAB TABLET PO PRN (08:46)
[2019-08-06] MEDS: INSULIN LISPRO 300 UNITS/3 ML VIAL. SQ SCH (08:46)
[2019-08-06] MEDS: INSULIN GLARGINE SYRINGE. SQ SCH (10:01)
--- NOTE | 2019-08-06 11:11 | DS ---
DATE OF DISCHARGE: HOSPITAL COURSE: The patient is a 28-year-old female patient who yet again came with diabetic ketoacidosis, blood sugar of 548, anion gap of 28. We did treat her with IV fluid and insulin drip as per diabetic ketoacidosis protocol and she did actually very well. Her blood sugar has stabilized, we switched her to her scheduled Humalog and Lantus insulin, which is equivalent, as she is on Levemir at home and she has had no further episodes of nausea and vomiting. Denied any abdominal pain. She tolerated her diet this morning and therefore a decision was made to discharge her home to continue with her current medication. PHYSICAL EXAMINATION: GENERAL: When I saw her this morning, she was resting, slightly propped up in bed, in no apparent respiratory distress. Slightly pale, but no jaundice, cyanosis. No lymphadenopathy or thyromegaly. No jugular venous distention. No lower limb edema. VITAL SIGNS: Her heart rate is 90, blood pressure was 116/60, temperature was 97.7, respiratory rate was 18 and oxygen saturation was 98% on room air. HEAD, EYES, EARS, NOSE AND THROAT: Showed normocephalic, atraumatic. NECK: Supple. CARDIAC: Normal first and second heart sounds with no gallop or murmur. CHEST: Clear to auscultation. No crepitation or rhonchi. ABDOMEN: Distended, soft, nontender. NEUROLOGIC: She was awake, alert, responding appropriately. All cranial nerves are intact. She moves extremities without difficulty. She ambulates without assistance or assistive device. Her intake over 5800, output was 1300. LABORATORY DATA: Her white cell count was 4500, hemoglobin 11, hematocrit 33, MCV 89 and platelet count 242,000. Her serum sodium was 140, potassium 3.5, chloride 108, bicarbonate 21, anion gap of 11, BUN 7, creatinine 0.7, estimated GFR was 99 mL per minute. Her glucose 132 and calcium was 7.7. Total bilirubin, AST, ALT, alkaline phosphatase were normal. Total protein was 5.8, albumin was 2.5. DISCHARGE MEDICATIONS: She was discharged home to continue on aspirin 325 mg twice a day, atorvastatin calcium 20 mg at bedtime, Flexeril 10 mg 3 times a day, diclofenac sodium 50 mg twice a day as needed, erythromycin base half an inch to both eyes 3 times a day, fluoxetine 60 mg at bedtime, hydroxyzine pamoate 50 mg 3 times a day. She is on NovoLog insulin 35 units 3 times a day with meals, Latuda 120 mg daily, metformin 1000 mg twice a day, metoprolol tartrate 25 mg daily, omeprazole 20 mg once a day, oxycodone/APAP 10/325 one tablet every 6 hours and trazodone 100 mg at bedtime as needed for insomnia. She should also be on Levemir 35 units twice a day. FINAL DISCHARGE DIAGNOSES: 1. Diabetic ketoacidosis associated with type 1 diabetes. 2. Type 1 diabetes mellitus. 3. Factor V Leiden with history of deep venous thrombosis times 2. 4. Bipolar disorder. 5. Nephrolithiasis. She should follow with her primary care physician. SURJIT MOMIN MD DR: ISAIAH/tino JOB#: [id number] / [id number]
== END 2019-08-06 12:30 | disposition home or self-care (01) | DRG 638 ==
LOC: ER 19:47 → ICU 20:50
PROVIDERS: ADMIT Internal Medicine; ATTEND Internal Medicine
DX: E10.10 Type 1 diabetes mellitus with ketoacidosis without coma (principal); D68.51 Activated protein C resistance; F31.9 Bipolar disorder, unspecified; M79.7 Fibromyalgia; F41.9 Anxiety disorder, unspecified; N20.0 Calculus of kidney; I10 Essential (primary) hypertension; F12.90 Cannabis use, unspecified, uncomplicated; G43.909 Migraine, unspecified, not intractable, without status migrainosus; Z91.040 Latex allergy status; Z86.718 Personal history of other venous thrombosis and embolism; Z87.442 Personal history of urinary calculi; Z98.891 History of uterine scar from previous surgery; Z87.891 Personal history of nicotine dependence; Z79.4 Long term (current) use of insulin; Z87.74 Personal history of (corrected) congenital malformations of heart and circulatory system; Z88.8 Allergy status to other drugs, medicaments and biological substances
CPT/HCPCS: 36415; 80048; 80053; 81001; 81025; 82947; 83735; 85025; 85027; 96361; 96374; 96375; J1815; J2270; J2405; J3480; 99285-25; J7030

== ENCOUNTER 2019-09-14 07:45 | Inpatient (IN) | payer MEDICARE, OTHER ==
[~2019-09-14] VITALS: Ht 177.8 cm; Wt 113.6 kg
[2019-09-14] VITALS (11 sets, daily range): BP systolic 102–138; BP diastolic 58–80
[~2019-09-14 07:45] MED LIST changes: -FLUO20CA19 PO; +FLUO20CA20 PO; -OMEP-229 PO; +OMEP20CA16 PO; +TRAZ-125 PO; -TRAZ-86 PO
[2019-09-14] MEDS ORDERED: IV NORMAL SALINE 1,000ML 1,000 ML IV SCH (07:46)
--- NOTE | 2019-09-14 07:54 | PHYS DOC ---
Past History Past Medical History: Abscess, Anxiety, Bipolar, Depression, Diabetes, DVT, Fibromyalgia, Hypertension, Migraines, Other Additional Past Medical Histor: FACTOR 5 Past Surgical History: , Other Additional Past Surgical Histo: atrial septal defect Smoking: Cigarettes Alcohol Use: Occasionally Drug Use: Marijuana Adult General HPI HPI Patient is a 28-year-old female who presents to the emergency department for evaluation. She has a history of insulin-dependent diabetes, and states that she has been having problems with high blood sugars over the past several days. She reports being compliant with her medication, including insulin. She was seen at [place] yesterday, states that her blood sugar was 100, but at the time she did have a anion gap there was somewhat elevated. She was given 2 L of IV fluids and sent home. However, she states that this morning she began experiencing vomiting, and her blood sugar was "high" per EMS. She has had some vomiting. She reports diffuse myalgias but no other pain. She has not had any symptoms of n bernice congestion, abdominal pain, diarrhea, cough, or urinary symptoms, fevers or chills. There are no alleviating or exacerbating factors to her symptoms. I did review her labs and note from [facility] ER visit yesterday. Review of Systems Review of Systems Constitutional: Denies fever or chills [] Eyes: Denies change in visual acuity, redness, or eye pain [] HENT: Denies nasal congestion or sore throat [] Respiratory: Denies cough or shortness of breath [] Cardiovascular: The patient denies any shortness of breath, chest pain, palpitations, or orthopnea[] GI: Denies abdominal pain, bloody stools or diarrhea [] : Denies dysuria or hematuria [] Musculoskeletal: Denies back pain or joint pain [] Integument: Denies rash or skin lesions [] Neurologic: Denies headache, focal weakness or sensory changes [] Endocrine: Reports polyuria and polydipsia [] All other systems were reviewed and found to be within normal limits, except as documented in this note. Allergies Allergies Allergies Coded Allergies Type Severity Reaction Last Updated Verified latex Allergy Intermediate 06/28/19 Yes lisinopril Allergy Intermediate 06/28/19 Yes quetiapine Allergy Intermediate 06/28/19 Yes warfarin Allergy Intermediate 06/28/19 Yes Physical Exam Physical Exam PHYSICAL EXAM: CONSTITUTIONAL: Well developed, well nourished HEAD: normocephalic, atraumatic EENT: PERRL, EOMI. Conjunctivae normal color, sclerae non-icteric; dry mucous membranes. NECK: Supple, non-tender; no meningismus. LUNGS: Lungs CTA, patient is Kussmaul breathing. Normal air movement. HEART: Regular rate and rhythm, no murmur CHEST: No deformity; non-tender ABDOMEN: The abdomen is soft, and non-tender, no masses or bruits. EXTREM: Normal ROM; no deformity, no calf tenderness. Normal pulses palpable in all extremities. There is no pedal edema. SKIN: No rash; no diaphoresis NEURO: Alert; normal speech and cognition; CN's grossly intact; strength grossly intact without focal deficit. BACK: No CVA TTP. Current Patient Data Lab Results Laboratory Tests Test 09/14/19 07:50 09/14/19 08:03 09/14/19 08:10 Glucose (Fingerstick) 534 mg/dL White Blood Count 6.0 x10^3/uL Red Blood Count 4.77 x10^6/uL Hemoglobin 13.7 g/dL Hematocrit 44.0 % Mean Corpuscular Volume 92 fL Mean Corpuscular Hemoglobin 29 pg Mean Corpuscular Hemoglobin Concent 31 g/dL Red Cell Distribution Width 14.4 % Platelet Count 266 x10^3/uL Neutrophils (%) (Auto) 74 % Lymphocytes (%) (Auto) 21 % Monocytes (%) (Auto) 4 % Eosinophils (%) (Auto) 1 % Basophils (%) (Auto) 0 % Neutrophils # (Auto) 4.4 x10^3uL Lymphocytes # (Auto) 1.3 x10^3/uL Monocytes # (Auto) 0.2 x10^3/uL Eosinophils # (Auto) 0.0 x10^3/uL Basophils # (Auto) 0.0 x10^3/uL Sodium Level 134 mmol/L Potassium Level 4.7 mmol/L Chloride Level 100 mmol/L Carbon Dioxide Level 9 mmol/L Anion Gap 25 Blood Urea Nitrogen 13 mg/dL Creatinine 0.9 mg/dL Estimated GFR (Cockcroft-Gault) 74.6 BUN/Creatinine Ratio 14 Glucose Level 542 mg/dL Lactic Acid Level 1.3 mmol/L Calcium Level 8.4 mg/dL Total Bilirubin 0.6 mg/dL Aspartate Amino Transf (AST/SGOT) 14 U/L Alanine Aminotransferase (ALT/SGPT) 25 U/L Alkaline Phosphatase 114 U/L Total Protein 8.0 g/dL Albumin 3.7 g/dL Albumin/Globulin Ratio 0.9 Lipase 88 U/L Serum Test, Qualitative Negative Acetone Level Mod pos Urine Collection Type Unknown Urine Color Yellow Urine Clarity Hazy Urine pH 5.0 Urine Specific [place] 1.020 Urine Protein 30 mg/dl Urine Glucose (UA) 500 mg/dL Urine Ketones (Stick) >=160 mg/dL Urine Blood Mod Urine Nitrite Neg Urine Bilirubin Neg Urine Urobilinogen Dipstick 0.2 mg/dL Urine Leukocyte Esterase Neg Urine RBC 20-40 /HPF Urine WBC 1-4 /HPF Urine Squamous Epithelial Cells Few /LPF Urine Transitional Epithelial Cells Occ /LPF Urine Bacteria Few /HPF Urine Mucus Slight /LPF Current Medications Medications (Trade) Dose Ordered Sig/[place] Route PRN Reason Start Time Stop Time Status Last Admin Dose Admin Sodium Chloride 1,000 ml @ 1,000 mls/hr Q1H IV 09/14/19 07:46 09/14/19 08:45 DC 09/14/19 07:46 Sodium Chloride 1,000 ml @ 1,000 mls/hr 1X ONCE IV 09/14/19 08:00 09/14/19 08:59 Insulin Human Regular (HumuLIN R VIAL) 8 unit 1X ONCE IV 09/14/19 08:00 09/14/19 08:01 DC 09/14/19 08:00 Insulin Human Regular 100 unit/ Sodium Chloride 101 ml @ 8 mls/hr 1X ONCE IV 09/14/19 08:00 09/14/19 20:37 09/14/19 08:16 EKG EKG [] Radiology/Procedures Radiology/Procedures PROCEDURE: PORTABLE CHEST 1V EXAM: Chest, single view. HISTORY: Diabetic ketoacidosis. COMPARISON: 06/11/2019 FINDINGS: A frontal view of the chest is obtained. There is suspected bilateral infrahilar atelectasis. There is no consolidation, pleural effusion or pneumothorax. The heart is normal in size. There are median sternotomy wires. IMPRESSION: Suspected bilateral infrahilar atelectasis.[] Course & Med Decision Making Course & Med Decision Making Pertinent Labs and Imaging studies reviewed. (See chart for details) []The patient's condition remains stable. I spoke with the hospitalist, who accepted the patient to the hospital for further evaluation and treatment. CRITICAL CARE TIME: 40 Minutes, excluding any procedures and care of other patients. Dragon Disclaimer Dragon Disclaimer This electronic medical record was generated, in whole or in part, using a voice recognition dictation system. Departure Departure: Impression: Primary Impression: Diabetic ketoacidosis associated with type 1 diabetes mellitus Disposition: ADMITTED INPATIENT Admitting Physician: Bruna Cooley Condition: GUARDED Referrals: MATY SALMON MD (PCP) ZULY TUCKER MD Sep 14, 2019 07:54
[2019-09-14] MEDS ORDERED: IV NORMAL SALINE 1,000ML 1,000 ML IV ONE (08:00)
[2019-09-14] MEDS ORDERED: INSULIN REGULAR 100 UNIT/ML 3ML VIAL. IV ONE (08:00)
[2019-09-14] MEDS ORDERED: INSULIN REGULAR VIAL 100 UNIT in IV NORMAL SALINE 100ML 100 ML IV ONE (08:00)
--- NOTE | 2019-09-14 08:04 | RAD ---
EXAM: Chest, single view. HISTORY: Diabetic ketoacidosis. COMPARISON: 06/11/2019 FINDINGS: A frontal view of the chest is obtained. There is suspected bilateral infrahilar atelectasis. There is no consolidation, pleural effusion or pneumothorax. The heart is normal in size. There are median sternotomy wires. IMPRESSION: Suspected bilateral infrahilar atelectasis. Electronically signed by: Manda Hernandez MD (09/14/2019 8:01 AM) [facility] [place]
[2019-09-14 08:18] LABS: BASO % 0 % (0-3); EOS % 1 % (0-3); HEMOGLOBIN 13.7 g/dL (12.0-15.5); LYMPH # 1.3 x10^3/uL (1.0-4.8); LYMPH % 21 % (24-48); MEAN CORPUSCULAR HEMOGLOBIN 29 pg (25-35); MEAN CORPUSCULAR HGB CONC 31 g/dL (31-37); MEAN CORPUSCULAR VOLUME 92 fL (79-100); MONO # 0.2 x10^3/uL (0.0-1.1); MONO % 4 % (0-9); NEUT # 4.4 x10^3uL (1.8-7.7); NEUT % 74 % (31-73); PLATELET COUNT 266 x10^3/uL (140-400); RED BLOOD COUNT 4.77 x10^6/uL (3.50-5.40); RED CELL DISTRIBUTION WIDTH 14.4 % (11.5-14.5)
[2019-09-14 08:28] LABS: PREG TEST PT QUAL NEGATIVE (NEG)
[2019-09-14 08:39] LABS: ALBUMIN 3.7 g/dL (3.4-5.0); ALBUMIN/GLOBULIN RATIO 0.9 (1.0-1.7); CALCIUM 8.4 mg/dL (8.5-10.1); CREATININE 0.9 mg/dL (0.6-1.0); GFR 74.6; POTASSIUM 4.7 mmol/L (3.5-5.1); TOTAL BILIRUBIN 0.6 mg/dL (0.2-1.0)
[2019-09-14 08:53] LABS: BILIRUBIN,URINE NEG (NEG); CLARITY,URINE HAZY; COLOR,URINE YELLOW; GLUCOSE,URINE 500 mg/dL (NEG)
[2019-09-14 08:54] LABS: BACTERIA,URINE FEW /HPF (0-FEW); NITRITE,URINE NEG (NEG); RBC,URINE 20-40 /HPF (0-2); SQUAMOUS EPITHELIAL CELL,UR FEW /LPF; UROBILINOGEN,URINE 0.2 mg/dL (0.2 mg/dL)
[2019-09-14 08:58] LABS: GRANULAR CASTS,URINE OCC /HPF
[2019-09-14] MEDS ORDERED: MORPHINE SULFATE 4 MG/ML DISP.SYRIN. IV ONE (09:15)
[2019-09-14] MEDS ORDERED: PROCHLORPERAZINE 10 MG/2 ML VIAL. IV PRN (10:30)
[2019-09-14 10:38] LABS: INFLUENZA A PATIENT NEGATIVE (NEGATIVE); INFLUENZA B PATIENT NEGATIVE (NEGATIVE)
[2019-09-14] MEDS ORDERED: oxyCODONE ER 20 MG TAB.ER.12H PO PRN (10:45)
[2019-09-14] MEDS ORDERED: INSU100V13 SQ (10:45)
[2019-09-14] MEDS: IV NORMAL SALINE 1,000ML 1,000 ML IV SCH ×3 (10:53→14:32)
[2019-09-14] MEDS: ONDANSETRON PF 4 MG/2 ML VIAL. IV PRN (10:53)
[2019-09-14] MEDS: INSULIN REGULAR VIAL 100 UNIT in IV NORMAL SALINE 100ML 100 ML IV PRN (10:56)
[2019-09-14] MEDS ORDERED: oxyCODONE IR 5 MG TABLET PO PRN (11:00)
--- NOTE | 2019-09-14 11:43 | NUR ---
Pt admitted to ICU bed 1. Pt is able to verbalize understanding of poc and orientation to unit. Pt reports going to [facility] yesterday and BS was 100 they gave her 2 liters and sent her home. Pt reported taking all her medication and insulin and still could not keep her blood sugar down. Pt was vomiting this am and called Ems to come to ED. PT BS down to 180's when arrived per EMS from ED. PT placed on DKA order set with Insulin gtt per glucostabalizer. Vikki VILLARREAL
[2019-09-14] MEDS: POTASSIUM CL 40MEQ D5-0.45NACL 1,000 ML IV SCH ×3 (11:54→21:01)
[2019-09-14 13:14] LABS: CALCIUM 7.4 mg/dL (8.5-10.1); CREATININE 0.7 mg/dL (0.6-1.0); GFR 99.6; POTASSIUM 3.8 mmol/L (3.5-5.1)
[2019-09-14] MEDS: METOCLOPRAMIDE HCL 10 MG/2 ML VIAL. IV PRN ×2 (14:31→21:23)
--- NOTE | 2019-09-14 15:00 | NUR ---
PT dc home on hospice today karena. Pt daughter DENNIS Coley on board. Some confusion when hospice came today pt thought they were trying to 'sell him something'. Will visit at home and daughter did sign paper work. Pt left with caregiver uyly. Instructions on medications were given to yuly. Pt to take 2.5 of coumadin daily and add lasix 20 mg daily. Blossom VILLARREAL Addendum: 09/14/19 at 1614 by MARIA DEL ROSARIO FRANCO RN Above note was entered on wrong pt please disreguard blossom VILLARREAL
[2019-09-14] MEDS: POTASSIUM CHLORIDE 10MEQ 100 ML IV SCH ×4 (15:42→17:52)
--- NOTE | 2019-09-14 16:14 | NUR ---
Pt feeling somewhat better, gap still not closed, will continue with fluid protocol and electrolyte protocol, will recheck labs in a few hours. Blossom VILLARREAL
[2019-09-14] MEDS ORDERED: METFORMIN HCL PO SCH (17:00)
[2019-09-14] MEDS ORDERED: oxyCODONE/APAP 10/325 1 TAB TABLET PO PRN (17:00)
[2019-09-14] MEDS ORDERED: CYCLOBENZAPRINE 10 MG TABLET. PO PRN (17:00)
[2019-09-14 17:04] LABS: CALCIUM 7.2 mg/dL (8.5-10.1); CREATININE 0.6 mg/dL (0.6-1.0); POTASSIUM 4.1 mmol/L (3.5-5.1)
[2019-09-14] MEDS: metFORMIN 500 MG TABLET PO SCH (17:30)
[2019-09-14] MEDS ORDERED: hydrOXYzine PAMOATE 25 MG CAPSULE PO PRN (17:30)
--- NOTE | 2019-09-14 18:11 | HP ---
ADMIT DATE: 09/14/2019 HISTORY OF PRESENT ILLNESS: The patient is a 28-year-old female patient who presented to the Emergency Room this morning for evaluation. She has a history of insulin-dependent diabetes, states she has been having problems with high blood sugars over the past several days. She stated that she has been compliant with her medication including insulin. She was seen at [facility], states her blood sugar was 100. At that time, she did have an anion gap that was somewhat elevated. She was given 2 liters IV fluid and was sent home; however, she states that this morning, she began experiencing vomiting. Her blood sugar was high per EMS. She has had some vomiting. She reports diffuse myalgias, but no other pain. She has not had any symptoms of nasal congestion, abdominal pain, diarrhea, cough, urinary symptoms, fever or chills. There are no alleviating or exacerbating factors of her symptoms. Her [facility] showed that she did have anion gap of 20. She was extensively investigated in the Emergency Room and her blood sugar was 542. Her anion gap was 25 and bicarb was only 9 and therefore, she was admitted to the ICU, started on DKA protocol with IV fluid and insulin drip and potassium supplementation. PAST MEDICAL HISTORY: Significant for type 1 diabetes mellitus since age of 11. She has factor V Leiden, history of DVT x 2, bipolar disorder and nephrolithiasis. She also has left gluteal cellulitis and abscess that required surgical incision and drainage at [facility]. PAST SURGICAL HISTORY: Significant for two C-sections, open heart surgery for atrial septal defect repair when she was 18 years old. She had a left ring finger fracture, was treated with open reduction and internal fixation, most recently incision and drainage of a left buttock abscess that was treated with wound VAC and IV antibiotic. ALLERGIES: SHE IS ALLERGIC TO LISINOPRIL SHE HAS DEVELOPED ANGIONEUROTIC EDEMA. SHE HAS ALSO CLAIMED THAT SHE IS ALLERGIC TO COUMADIN CAUSING HIVES AND SEROQUEL CAUSING HALLUCINATION. FAMILY HISTORY: She has 2 brothers and 2 sisters, 1 brother and 1 sister older, 1 brother and 1 sister younger. Her father is still alive at age of 50 and is alcoholic. Mother is still alive and has Crohn's disease, she is 46-year-old. SOCIAL HISTORY: She is , has 2 sons. She does not smoke, drink alcohol. Recreational drugs, she uses marijuana about twice a week. 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 MEDICATIONS: She is currently on following medications: She is on Flexeril 10 mg 3 times a day, atorvastatin calcium 20 mg at bedtime, metoprolol tartrate 25 mg daily, aspirin 325 mg twice a day, diclofenac sodium 50 mg twice a day, oxycodone/APAP 10/325 one tablet every 6 hours, fluoxetine 60 mg at bedtime, trazodone 100 mg at bedtime, Latuda 120 mg daily, hydroxyzine pamoate 50 mg 3 times a day, omeprazole 20 mg once a day, metformin 1000 mg twice a day. She is on NovoLog insulin 35 units with meals; Levemir twice a day, dose of which is not clear. PHYSICAL EXAMINATION: GENERAL: On arrival to the Emergency Room, the patient was clearly tachypneic, tachycardic, but there was no pallor, jaundice, cyanosis or thyromegaly. No jugular venous distension. No lower limb edema. VITAL SIGNS: Her heart rate was 113, blood pressure 141/63, temperature was 97.8, respiratory rate 28 and oxygen saturation was 99% on room air. HEAD, EYES, EARS, NOSE AND THROAT: Showed normocephalic, atraumatic. NECK: Supple. HEART: Showed normal first and second heart sounds. No gallop or murmur. CHEST: Clear to auscultation. No crepitation or rhonchi. ABDOMEN: Distended, soft, nontender. No guarding or rigidity. No organomegaly. All hernial orifice intact. Bowel sounds normal. NEUROLOGIC: She was awake, alert, responding appropriately. All cranial nerves intact. She moves extremities without difficulty. LABORATORY DATA: Her lab work showed a white cell count 6000, hemoglobin 13.7, hematocrit 44, MCV 92 and platelet count 266,000. Her pH was 7.06, pCO2 of 24, pO2 of 33, bicarbonate 7 and FiO2 was 43%. Her chemistry showed her serum sodium was 134, potassium 4.7, chloride 100, bicarbonate 9, anion gap of 25, BUN 13, creatinine 0.9, estimated GFR was 74 mL per minute. Her glucose was 542, calcium was 8.3. Lactic acid was 1.3. Total bilirubin, AST, ALT, alkaline phosphatase were normal. Total protein 8, albumin 3.7. Lipase is 88 and serum test was negative. Urinalysis showed large amount of glucose, large amount of ketones, 20-40 rbc's, 1-4 wbc's, very few bacteria. Urine toxic screen showed moderate amount of acetone and her influenza A and B were negative. ASSESSMENT AND PLAN: In summary, this is a 28-year-old female patient with type 1 diabetes, was admitted with diabetic ketoacidosis. She was admitted to Intensive Care Unit. We will continue with diabetic ketoacidosis protocol, aggressive fluid replacement and insulin drip as well as replenishing her potassium. SURJIT MOMIN MD DR: ISAIAH/tino JOB#: [id number] / [id number]
[2019-09-14] MEDS: traZODone 100 MG TABLET. PO PRN (21:00)
[2019-09-14] MEDS: ATORVASTATIN CALCIUM 20 MG TABLET PO SCH (21:00)
[2019-09-14] MEDS: ASPIRIN ENTERIC COATED 325 MG TABLET.DR. PO SCH (21:00)
[2019-09-14] MEDS: FLUoxetine HCL 20 MG CAPSULE PO SCH (21:02)
[2019-09-14 22:25] LABS: ALBUMIN 2.8 g/dL (3.4-5.0); ALBUMIN/GLOBULIN RATIO 0.8 (1.0-1.7); CALCIUM 7.4 mg/dL (8.5-10.1); CREATININE 0.7 mg/dL (0.6-1.0); GFR 99.6; POTASSIUM 3.7 mmol/L (3.5-5.1); TOTAL BILIRUBIN 0.3 mg/dL (0.2-1.0); TOTAL PROTEIN 6.1 g/dL (6.4-8.2)
[2019-09-15] VITALS (17 sets, daily range): BP systolic 107–147; BP diastolic 61–98
--- NOTE | 2019-09-15 03:55 | NUR ---
Pt able to have HS snack of chicken broth and crackers with HS medications. Labs improved with HS lab draw, CO2 no longer critical at 13, gap improved to 16 and potassium still normal, will have redraw in AM. Pt stayed on Insulin gtt throughout night, titration per GlucoStabilizer. Pt slept well, even for hourly Accu-checks being done.
[2019-09-15] MEDS: POTASSIUM CL 40MEQ D5-0.45NACL 1,000 ML IV SCH ×2 (04:17→10:09)
[2019-09-15] MEDS: INSULIN REGULAR VIAL 100 UNIT in IV NORMAL SALINE 100ML 100 ML IV PRN (04:18)
[2019-09-15 06:24] LABS: HEMATOCRIT 35.3 % (36.0-47.0); HEMOGLOBIN 11.3 g/dL (12.0-15.5); RED CELL DISTRIBUTION WIDTH 14.1 % (11.5-14.5); WHITE BLOOD COUNT 3.3 x10^3/uL (4.0-11.0)
[2019-09-15 06:40] LABS: ALBUMIN 2.8 g/dL (3.4-5.0); ALBUMIN/GLOBULIN RATIO 0.8 (1.0-1.7); CALCIUM 7.8 mg/dL (8.5-10.1); CREATININE 0.6 mg/dL (0.6-1.0); POTASSIUM 3.8 mmol/L (3.5-5.1); TOTAL BILIRUBIN 0.3 mg/dL (0.2-1.0); TOTAL PROTEIN 6.2 g/dL (6.4-8.2)
--- NOTE | 2019-09-15 07:28 | NUR ---
Blood sugar at 0700-154, changed insulin drip to 1.9 units/hr according to glucose stabilizer. Will continue to monitor and assess as necessary.
[2019-09-15] MEDS: ASPIRIN ENTERIC COATED 325 MG TABLET.DR. PO SCH ×2 (08:32→21:15)
[2019-09-15] MEDS: metFORMIN 500 MG TABLET PO SCH ×2 (08:32→17:04)
[2019-09-15] MEDS: PANTOPRAZOLE 40 MG TABLET. PO SCH (08:32)
[2019-09-15] MEDS: LURASIDONE 40 MG TABLET. PO SCH (08:33)
[2019-09-15] MEDS: METOPROLOL TART IMMED RELEASE 25 MG TABLET PO SCH (08:33)
[2019-09-15] MEDS: oxyCODONE/APAP 5/325 1 TAB TABLET PO PRN (09:19)
--- NOTE | 2019-09-15 14:28 | NUR ---
1414-Insulin drip and D5 1/2/ NS w/ 40MEQ K+ discontinued per Dr. Cooley. Pt is to have 50 units of Lantus BID, 25 units Humolog with meals along with sliding scale insulin. Will continue to monitor and assess as necessary.
[2019-09-15] MEDS ORDERED: DEXTROSE 50% 25 GM / 50ML DISP.SYRIN. IV PRN (14:45)
[2019-09-15 14:56] LABS: CALCIUM 8.2 mg/dL (8.5-10.1); CREATININE 0.8 mg/dL (0.6-1.0); GFR 85.4; POTASSIUM 3.7 mmol/L (3.5-5.1)
[2019-09-15] MEDS ORDERED: INSULIN LISPRO 300 UNITS/3 ML VIAL. SQ SCH (16:30)
[2019-09-15] MEDS: INSULIN LISPRO 300 UNITS/3 ML VIAL. SQ SCH ×2 (17:00→17:07)
[2019-09-15] MEDS: ONDANSETRON PF 4 MG/2 ML VIAL. IV PRN (17:03)
--- NOTE | 2019-09-15 17:26 | NUR ---
Pt Blood Sugar at [address] Cooley. stated to only give scheduled 25 units TID, nothing on sliding scale. Administered 25 units insulin as ordered. Pt also complained of pain and nausea. Gave PRN Fentanyl and Zofran as prescribed. Pt complained back pain, gave heating pad. Pt had bath today as well as ambulated off unit, pt is pleasant, on-going pain with fibromalgia. Linens and gown changed today, applied non-skid socks. Will continue to monitor and assess as necessary.
[2019-09-15] MEDS: METOCLOPRAMIDE HCL 10 MG/2 ML VIAL. IV PRN (20:28)
[2019-09-15] MEDS ORDERED: INSULIN GLARGINE SYRINGE. SQ SCH (21:00)
[2019-09-15] MEDS: FLUoxetine HCL 20 MG CAPSULE PO SCH (21:15)
[2019-09-15] MEDS: ATORVASTATIN CALCIUM 20 MG TABLET PO SCH (21:15)
[2019-09-15] MEDS: INSULIN GLARGINE SYRINGE. SQ SCH (23:40)
[2019-09-15] MEDS: traZODone 100 MG TABLET. PO PRN (23:42)
[2019-09-16] VITALS (14 sets, daily range): BP systolic 99–137; BP diastolic 49–84
--- NOTE | 2019-09-16 06:02 | PN ---
DATE: SUBJECTIVE: The patient is sitting up in her bed, in no apparent distress. She has had no further episodes of nausea or vomiting. No abdominal pain. She is tolerating her diet. Her anion gap has closed and in fact her anion gap is down to 13 from high of 25 and she is generally feeling better. PHYSICAL EXAMINATION: GENERAL: When I examined her, she looked well and was clearly in no apparent respiratory distress. No pallor, jaundice, cyanosis or thyromegaly. No jugular venous distention. No limb edema. VITAL SIGNS: Her heart rate was 90, blood pressure was 112/73, temperature was 98, respiratory rate 20 and oxygen saturation was ____. HEAD, EYES, EARS, NOSE AND THROAT: Showed normocephalic, atraumatic. NECK: Supple. HEART: Showed normal first and second heart sounds. No gallop or murmur. CHEST: Clear to auscultation. No crepitation or rhonchi. ABDOMEN: Distended, soft, nontender. No guarding or rigidity. No organomegaly. All hernial orifices intact. Bowel sounds normal. NEUROLOGIC: She was awake, alert, responding appropriately. All cranial nerves intact. She moves extremities without difficulty. Her intake over the last 24 hour was 1350. Output was 3200. LABORATORY DATA: As of this morning, her serum sodium was 139, potassium 3.8, chloride 109, bicarbonate 17, anion gap of 13, BUN 2, creatinine 0.6, estimated GFR was 119. Her glucose 159, calcium was 7.4. Total bilirubin, AST, ALT, alkaline phosphatase were normal. Total protein was 6.2, albumin was 2.8. Her white cell count was 3300, hemoglobin 11, hematocrit 35, MCV 88 and platelet count 220,000. ASSESSMENT AND PLAN: Diabetic ketoacidosis, improving. The patient has received almost 15 liters of fluid. Her anion gap has closed. She is now tolerating her diet with no further episodes of nausea, vomiting and abdominal pain. We will start her on her Humalog insulin 25 units before meals and Lantus 50 units twice a day together with sliding scale and hopefully if she remains stable by tomorrow morning, she can be discharged home to continue on her usual home regimen. SURJIT MOMIN MD DR: ISAIAH/tino JOB#: [id number] / [id number]
[2019-09-16 06:53] LABS: ALBUMIN 2.8 g/dL (3.4-5.0); ALBUMIN/GLOBULIN RATIO 0.9 (1.0-1.7); CALCIUM 8.2 mg/dL (8.5-10.1); CREATININE 0.5 mg/dL (0.6-1.0); GFR 146.9; POTASSIUM 3.5 mmol/L (3.5-5.1); TOTAL BILIRUBIN 0.3 mg/dL (0.2-1.0)
[2019-09-16] MEDS: INSULIN LISPRO 300 UNITS/3 ML VIAL. SQ SCH ×3 (07:43→12:10)
[2019-09-16] MEDS: metFORMIN 500 MG TABLET PO SCH (07:48)
[2019-09-16] MEDS: PANTOPRAZOLE 40 MG TABLET. PO SCH (07:48)
[2019-09-16] MEDS: LURASIDONE 40 MG TABLET. PO SCH (07:48)
[2019-09-16] MEDS: ASPIRIN ENTERIC COATED 325 MG TABLET.DR. PO SCH (07:49)
[2019-09-16] MEDS: METOPROLOL TART IMMED RELEASE 25 MG TABLET PO SCH (07:51)
[2019-09-16] MEDS: oxyCODONE/APAP 5/325 1 TAB TABLET PO PRN (07:57)
[2019-09-16] MEDS: INSULIN GLARGINE SYRINGE. SQ SCH (09:40)
--- NOTE | 2019-09-16 14:15 | NUR ---
Pt IV's were removed and gauze in place. Pt signed discharge paperwork and instructions given to pt verbally as well as copies sent home. Pt prescriptions sent home; copied and placed in chart. Pt's BS checked with result of 88. Pt reports feeling no pain and no nausea at this time. Pt instructed to call for a ride to go home. Pt walked out of building accompanied by Teena RN at 1420 and got into boyfriends truck.
--- NOTE | 2019-09-16 20:52 | DS ---
DATE OF DISCHARGE: 09/16/2019 HOSPITAL COURSE: The patient is a 28-year-old female patient who yet again came with another episode of diabetic ketoacidosis, presented with recurrent bouts of nausea and vomiting. She apparently was seen for the same problem at [facility] where she was given IV fluid and was discharged home. On the day of admission, she started having recurrent episodes of nausea and vomiting. She reports diffuse myalgias with no other pain. Has had no nasal congestion, abdominal pain, diarrhea, cough, urinary symptoms, fever or chills. The patient was basically investigated in the Emergency Room, was found to have diabetic ketoacidosis with high anion gap of 25, bicarbonate was only 9. Her blood sugar was 542. She was admitted to ICU. Continue with DKA protocol with IV fluid and insulin drip and potassium supplementation. When I saw her today afternoon, she was sitting up in bed, eating her lunch comfortably, in no apparent distress. On questioning her, she is feeling much better. She does have occasional nausea, but no vomiting, no abdominal pain. Her blood sugar has been much better controlled. Her anion gap was only 11 from high of 25 and as the patient remained hemodynamically stable, a decision was made to discharge her home to continue with her home regimen of her NovoLog and Levemir insulin. PHYSICAL EXAMINATION: GENERAL: When I saw her this afternoon, she looked well and was clearly in no apparent respiratory distress, slightly pale, no jaundice, cyanosis or thyromegaly. No jugular venous distention. No lower limb edema. VITAL SIGNS: Her heart rate was 85, blood pressure was 122/72, temperature 97.9, respiratory rate was 22 and oxygen saturation was 96% on room air. HEAD, EYES, EARS, NOSE AND THROAT: Showed normocephalic, atraumatic. NECK: Supple. HEART: Showed normal first and second heart sounds. No gallop, rub or murmur. CHEST: Clear to auscultation. No crepitation or rhonchi. ABDOMEN: Distended, soft, nontender. NEUROLOGIC: She was awake, alert, responding appropriately. All cranial nerves intact. She moves extremities without difficulty. Her intake over the last 24 hours was 2000, output was 3800. LABORATORY DATA: This morning showed a white cell count of 3300, hemoglobin 11.3, hematocrit 35, MCV 88 and platelet count 220,000. Her chemistry showed a serum sodium 140, potassium 3.5, chloride 105, bicarbonate 24, anion gap of 11, BUN 6, creatinine 0.5, estimated GFR was 146 mL per minute. Her glucose was 126, calcium was 8.2. Total bilirubin, AST, ALT, alkaline phosphatase were normal. Total protein was 6, albumin was 2.8. DISCHARGE MEDICATIONS: She was discharged home to continue on her aspirin 325 mg twice a day, atorvastatin calcium 20 mg at bedtime, cyclobenzaprine 10 mg 3 times a day as needed, diclofenac sodium 50 mg twice a day, duloxetine 60 mg at bedtime, hydroxyzine 50 mg 3 times a day as needed. She is on NovoLog insulin and insulin sliding scale, Levemir insulin 50 units twice a day, Latuda 120 mg daily, metformin 1000 mg twice a day with meals, metoprolol tartrate 25 mg twice a day, omeprazole 20 mg once a day, oxycodone/APAP 10/325 one tablet every 6 hours as needed. FINAL DISCHARGE DIAGNOSES: 1. Diabetic ketoacidosis, resolved. Her anion gap is down to 11. 2. Type 2 diabetes mellitus. 3. Factor V Leiden, history of deep venous thrombosis x 2. 4. Bipolar disorder. 5. Nephrolithiasis. SURJIT MOMIN MD DR: ISAIAH/tino JOB#: [id number] / [id number]
== END 2019-09-16 14:20 | disposition home or self-care (01) | DRG 637 ==
LOC: ER 07:45 → ICU 09:21
PROVIDERS: ADMIT Internal Medicine; ATTEND Internal Medicine
DX: E10.10 Type 1 diabetes mellitus with ketoacidosis without coma (principal); E43 Unspecified severe protein-calorie malnutrition; D68.51 Activated protein C resistance; F12.90 Cannabis use, unspecified, uncomplicated; F31.9 Bipolar disorder, unspecified; I10 Essential (primary) hypertension; M79.7 Fibromyalgia; F41.9 Anxiety disorder, unspecified; G43.909 Migraine, unspecified, not intractable, without status migrainosus; N20.0 Calculus of kidney; Z79.4 Long term (current) use of insulin; Z86.718 Personal history of other venous thrombosis and embolism; Z87.442 Personal history of urinary calculi; Z87.74 Personal history of (corrected) congenital malformations of heart and circulatory system; Z87.891 Personal history of nicotine dependence; Z98.891 History of uterine scar from previous surgery; Z68.35 Body mass index [BMI] 35.0-35.9, adult
CPT/HCPCS: 36415; 71045; 80048; 80053; 81001; 82010; 82803; 82947; 83605; 83690; 84703; 85025; 85027; 87804; 96365; 96375; J0780; J1815; J2270; J2405; J2765; J3010; J3480; J7042; 99291-25; J7030

== ENCOUNTER 2019-12-01 10:03 | Emergency (ER) | payer MEDICARE, OTHER ==
[~2019-12-01] VITALS: Ht 177.8 cm; Wt 124.0 kg
[2019-12-01] MEDS ORDERED: ONDANSETRON PF 4 MG/2 ML VIAL. IV ONE (10:45)
[2019-12-01] MEDS ORDERED: IV NORMAL SALINE 1,000ML 1,000 ML IV ONE (10:45)
[2019-12-01 10:46] LABS: BASO % 0 % (0-3); EOS # 0.2 x10^3/uL (0.0-0.7); EOS % 2 % (0-3); HEMOGLOBIN 13.9 g/dL (12.0-15.5); LYMPH # 1.6 x10^3/uL (1.0-4.8); LYMPH % 23 % (24-48); MEAN CORPUSCULAR HEMOGLOBIN 29 pg (25-35); MEAN CORPUSCULAR HGB CONC 33 g/dL (31-37); MEAN CORPUSCULAR VOLUME 87 fL (79-100); MONO # 0.5 x10^3/uL (0.0-1.1); MONO % 7 % (0-9); NEUT # 4.9 x10^3uL (1.8-7.7); NEUT % 68 % (31-73); PLATELET COUNT 240 x10^3/uL (140-400); RED BLOOD COUNT 4.82 x10^6/uL (3.50-5.40); RED CELL DISTRIBUTION WIDTH 13.5 % (11.5-14.5); WHITE BLOOD COUNT 7.1 x10^3/uL (4.0-11.0)
[2019-12-01 10:47] LABS: CALCIUM 9.1 mg/dL (8.5-10.1); CREATININE 0.6 mg/dL (0.6-1.0); POTASSIUM 3.6 mmol/L (3.5-5.1)
[2019-12-01 10:52] LABS: ALBUMIN 3.4 g/dL (3.4-5.0); ALBUMIN/GLOBULIN RATIO 0.8 (1.0-1.7); TOTAL BILIRUBIN 0.4 mg/dL (0.2-1.0); TOTAL PROTEIN 7.5 g/dL (6.4-8.2)
[2019-12-01] MEDS ORDERED: KETOROLAC 30 MG/ML VIAL. IV ONE (11:00)
--- NOTE | 2019-12-01 11:18 | RAD ---
CT ABDOMEN PELVIS WO CONTRAST INDICATION: Left flank pain EXAM: Noncontrast CT of the abdomen and pelvis. Coronal and sagittal reformatted images were performed. PQRS compliance statement: One or more of the following individualized dose reduction techniques were utilized for this examination: 1. Automated exposure control 2. Adjustment of the mA and/or kV according to patient size 3. Use of iterative reconstruction technique COMPARISON: 06/29/2019 FINDINGS: Lower chest: The visualized lower lungs are aerated. No pleural or pericardial effusion. ABDOMEN: Liver: Liver measures 23.8 cm craniocaudad. No focal hepatic lesion Gallbladder and biliary: Normal gallbladder without radiopaque stone. Normal caliber bile ducts. Spleen: Spleen measures 16.5 cm. Pancreas: The noncontrast pancreas is homogeneous in attenuation without peripancreatic inflammatory changes. Adrenal glands: Normal adrenal glands. Kidneys and ureters: No opaque urinary calculi. No hydronephrosis. GI tract: The stomach is decompressed and poorly evaluated. Normal caliber small bowel and colon. Normal appendix. Vascular structures: Normal caliber abdominal aorta. Lymph nodes: No lymphadenopathy in the abdomen or pelvis. PELVIS: Genitourinary system: Urinary bladder is decompressed and demonstrates diffuse wall thickening. Uterus is present. Trace pelvic free fluid, likely physiologic. SKELETAL STRUCTURES AND SOFT TISSUES: No fracture or destructive lesion in the visualized skeleton. IMPRESSION: 1. No hydronephrosis or opaque urinary calculi. 2. Circumferential bladder wall thickening, which could be due to underdistention or potentially cystitis. Consider urinalysis. Electronically signed by: Gerald Arzola MD (12/01/2019 11:15 AM) [id number]
[2019-12-01 11:38] LABS: BILIRUBIN,URINE NEG (NEG); CLARITY,URINE CLOUDY; COLOR,URINE YELLOW; GLUCOSE,URINE 100 mg/dL (NEG)
--- NOTE | 2019-12-01 11:38 | PHYS DOC ---
Past History Past Medical History: Bipolar, Diabetes, High Cholesterol, Hypertension, Other Additional Past Medical Histor: FACTOR 5, PTSD, MULTIPLE PERSONALITY DISORDER. Past Surgical History: Additional Past Surgical Histo: atrial septal defect repair Smoking: Cigarettes Alcohol Use: Rarely Drug Use: Marijuana General Adult EDM: Chief Complaint: ABDOMINAL PAIN HPI: HPI: Patient is a 28-year-old female who presents with a several hour history of left-sided abdominal discomfort. She states it started last night but got worse today. She denies any fever chills or sweats. She has had some nausea and vomiting she denies any melena or hematemesis. [] Review of Systems: Review of Systems: Constitutional: Denies fever or chills Eyes: Denies change in visual acuity HENT: Denies nasal congestion or sore throat Respiratory: Denies cough or shortness of breath Cardiovascular: Denies chest pain or edema GI: Per HPI : Denies dysuria Musculoskeletal: Denies back pain or joint pain Integument: Denies rash Neurologic: Denies headache, focal weakness or sensory changes Endocrine: Denies polyuria or polydipsia Lymphatic: Denies swollen glands Psychiatric: Denies depression or anxiety Heart Score: Risk Factors: Risk Factors: DM, Current or recent (<one month) smoker, HTN, HLP, family his tory of CAD, obesity. Risk Scores: Score 0 - 3: 2.5% MACE over next 6 weeks - Discharge Home Score 4 - 6: 20.3% MACE over next 6 weeks - Admit for Clinical Observation Score 7 - 10: 72.7% MACE over next 6 weeks - Early Invasive Strategies Current Medications: Current Meds: Current Medications Medications (Trade) Dose Ordered Sig/[place] Start Time Stop Time Status Last Admin Dose Admin Fentanyl Citrate (Fentanyl 2ml Vial) 50 mcg 1X ONCE 12/01/19 10:45 12/01/19 10:46 DC 12/01/19 10:47 50 MCG Ketorolac Tromethamine (Toradol 30mg Vial) 30 mg 1X ONCE 12/01/19 11:00 12/01/19 11:01 DC 12/01/19 10:48 30 MG Ondansetron HCl (Zofran) 4 mg 1X ONCE 12/01/19 10:45 12/01/19 10:46 DC 12/01/19 10:45 4 MG Sodium Chloride 1,000 ml @ 1,000 mls/hr 1X ONCE 12/01/19 10:45 12/01/19 11:44 12/01/19 10:47 1,000 MLS/HR Allergies: Allergies: Allergies Coded Allergies Type Severity Reaction Last Updated Verified latex Allergy Intermediate 06/28/19 Yes lisinopril Allergy Intermediate 06/28/19 Yes quetiapine Allergy Intermediate 06/28/19 Yes warfarin Allergy Intermediate 06/28/19 Yes Physical Exam: PE: Constitutional: Well developed, well nourished, appears uncomfortable and acutely ill. [] HENT: Normocephalic, atraumatic, bilateral external ears normal, oropharynx judd st, no oral exudates, nose normal. [] Eyes: PERRLA, EOMI, conjunctiva normal, no discharge. [] Neck: Normal range of motion, no tenderness, supple, no stridor. [] Cardiovascular:Heart rate regular rhythm, no murmur [] Lungs & Thorax: Bilateral breath sounds clear to auscultation [] Abdomen: Diffusely tender to palp no rebound or guarding. [] Skin: Warm, dry, no erythema, no rash. [] Back: No tenderness, no CVA tenderness. [] Extremities: No tenderness, no cyanosis, no clubbing, ROM intact, no edema. [] Neurologic: Alert and oriented X 3, normal motor function, normal sensory function, no focal deficits noted. [] Psychologic: Anxious [] Current Patient Data: Labs: Laboratory Tests Test 12/01/19 10:19 White Blood Count 7.1 x10^3/uL (4.0-11.0) Red Blood Count 4.82 x10^6/uL (3.50-5.40) Hemoglobin 13.9 g/dL (12.0-15.5) Hematocrit 42.0 % (36.0-47.0) Mean Corpuscular Volume 87 fL (79-100) Mean Corpuscular Hemoglobin 29 pg (25-35) Mean Corpuscular Hemoglobin Concent 33 g/dL (31-37) Red Cell Distribution Width 13.5 % (11.5-14.5) Platelet Count 240 x10^3/uL (140-400) Neutrophils (%) (Auto) 68 % (31-73) Lymphocytes (%) (Auto) 23 % (24-48) L Monocytes (%) (Auto) 7 % (0-9) Eosinophils (%) (Auto) 2 % (0-3) Basophils (%) (Auto) 0 % (0-3) Neutrophils # (Auto) 4.9 x10^3uL (1.8-7.7) Lymphocytes # (Auto) 1.6 x10^3/uL (1.0-4.8) Monocytes # (Auto) 0.5 x10^3/uL (0.0-1.1) Eosinophils # (Auto) 0.2 x10^3/uL (0.0-0.7) Basophils # (Auto) 0.0 x10^3/uL (0.0-0.2) Sodium Level 136 mmol/L (136-145) Potassium Level 3.6 mmol/L (3.5-5.1) Chloride Level 101 mmol/L (98-107) Carbon Dioxide Level 24 mmol/L (21-32) Anion Gap 11 (6-14) Blood Urea Nitrogen 11 mg/dL (7-20) Creatinine 0.6 mg/dL (0.6-1.0) Estimated GFR (Cockcroft-Gault) 119.0 BUN/Creatinine Ratio 18 (6-20) Glucose Level 199 mg/dL (70-99) H Calcium Level 9.1 mg/dL (8.5-10.1) Total Bilirubin 0.4 mg/dL (0.2-1.0) Aspartate Amino Transferase (AST) 10 U/L (15-37) L Alanine Aminotransferase (ALT) 21 U/L (14-59) Alkaline Phosphatase 95 U/L (46-116) Total Protein 7.5 g/dL (6.4-8.2) Albumin 3.4 g/dL (3.4-5.0) Albumin/Globulin Ratio 0.8 (1.0-1.7) L Lipase 61 U/L (73-393) L Vital Signs: Vital Signs Date Time Temp Pulse Resp B/P (MAP) Pulse Ox O2 Delivery O2 Flow Rate FiO2 12/01/19 10:47 Room Air 12/01/19 10:24 98.2 113 18 145/77 (99) 99 EKG: EKG: [] Radiology/Procedures: Radiology/Procedures: [] Impressions: PROCEDURE: CT ABDOMEN PELVIS WO CONTRAST CT ABDOMEN PELVIS WO CONTRAST INDICATION: Left flank pain EXAM: Noncontrast CT of the abdomen and pelvis. Coronal and sagittal reformatted images were performed. PQRS compliance statement: One or more of the following individualized dose reduction techniques were utilized for this examination: 1. Automated exposure control 2. Adjustment of the mA and/or kV according to patient size 3. Use of iterative reconstruction technique COMPARISON: 06/29/2019 FINDINGS: Lower chest: The visualized lower lungs are aerated. No pleural or pericardial effusion. ABDOMEN: Liver: Liver measures 23.8 cm craniocaudad. No focal hepatic lesion Gallbladder and biliary: Normal gallbladder without radiopaque stone. Normal caliber bile ducts. Spleen: Spleen measures 16.5 cm. Pancreas: The noncontrast pancreas is homogeneous in attenuation without peripancreatic inflammatory changes. Adrenal glands: Normal adrenal glands. Kidneys and ureters: No opaque urinary calculi. No hydronephrosis. GI tract: The stomach is decompressed and poorly evaluated. Normal caliber small bowel and colon. Normal appendix. Vascular structures: Normal caliber abdominal aorta. Lymph nodes: No lymphadenopathy in the abdomen or pelvis. PELVIS: Genitourinary system: Urinary bladder is decompressed and demonstrates diffuse wall thickening. Uterus is present. Trace pelvic free fluid, likely physiologic. SKELETAL STRUCTURES AND SOFT TISSUES: No fracture or destructive lesion in the visualized skeleton. IMPRESSION: 1. No hydronephrosis or opaque urinary calculi. 2. Circumferential bladder wall thickening, which could be due to underdistention or potentially cystitis. Consider urinalysis. Course & Med Decision Making: Course & Med Decision Making Pertinent Labs and Imaging studies reviewed. (See chart for details) [] Robon Disclaimer: Dragyossi Disclaimer: This electronic medical record was generated, in whole or in part, using a voice recognition dictation system. Departure Departure: Impression: Primary Impression: Pyelonephritis Disposition: 01 HOME, SELF-CARE Condition: STABLE Referrals: MATY SALMON MD (PCP) Patient Instructions: Pyelonephritis, Adult Scripts Hydrocodone Bit/Acetaminophen (NORCO 5-325 TABLET) 1 Each Tablet 1 TAB PO Q4-6HRS for PAIN, #12 TAB Prov: PACO GONZALEZ DO 12/01/19 Ondansetron Hcl (ZOFRAN) 4 Mg Tablet 1 TAB PO Q8HRS for NAUSEA, #20 TAB Prov: PACO GONZALEZ DO 12/01/19 Levofloxacin (LEVAQUIN) 500 Mg Tablet 500 MG PO QD for UTI, #7 TAB Prov: PACO GONZALEZ DO 12/01/19 PACO GONZALEZ DO Dec 01, 2019 11:38
[2019-12-01 11:39] LABS: BACTERIA,URINE FEW /HPF (0-FEW); NITRITE,URINE POS (NEG); UROBILINOGEN,URINE 0.2 mg/dL (0.2 mg/dL); WBC,URINE TNTC /HPF (0-4)
[2019-12-01 11:40] LABS: SQUAMOUS EPITHELIAL CELL,UR FEW /LPF
[2019-12-01 11:42] LABS: U PREG PATIENT NEGATIVE (NEG)
[2019-12-01 11:59] VITALS: BP 107/62
[2019-12-01] MEDS ORDERED: HYDR-3165 PO (11:59)
[2019-12-01] MEDS ORDERED: LEVO500T59 PO (11:59)
[2019-12-01] MEDS ORDERED: ONDA4TAB7 PO (11:59)
[2019-12-01] MEDS ORDERED: levoFLOXacin 500 MG TABLET PO ONE (12:15)
== END 2019-12-01 12:12 | disposition home or self-care (01) ==
LOC: ER 10:03
DX: N12 Tubulo-interstitial nephritis, not specified as acute or chronic (principal); R10.9 Unspecified abdominal pain; R11.2 Nausea with vomiting, unspecified; F31.9 Bipolar disorder, unspecified; E11.9 Type 2 diabetes mellitus without complications; E78.00 Pure hypercholesterolemia, unspecified; I10 Essential (primary) hypertension; F12.90 Cannabis use, unspecified, uncomplicated; F17.210 Nicotine dependence, cigarettes, uncomplicated; Z98.890 Other specified postprocedural states; Z88.6 Allergy status to analgesic agent; Z91.040 Latex allergy status; Z88.8 Allergy status to other drugs, medicaments and biological substances
CPT/HCPCS: 36415; 74176; 80053; 81001; 81025; 83690; 85025; 87086; 96374; 96375; 99284; J1885; J2405; J3010; J7030

== ENCOUNTER 2019-12-11 14:17 | Inpatient (IN) | payer MEDICARE, OTHER ==
[~2019-12-11] VITALS: Ht 177.8 cm; Wt 118.8 kg
[~2019-12-11 14:17] MED LIST changes: +HYDR-3165 PO; +LEVO500T59 PO
[2019-12-11] MEDS ORDERED: IV NORMAL SALINE 1,000ML 1,000 ML IV ONE (15:00)
[2019-12-11 15:05] LABS: BASO % 0 % (0-3); EOS # 0.2 x10^3/uL (0.0-0.7); EOS % 2 % (0-3); HEMATOCRIT 44.2 % (36.0-47.0); HEMOGLOBIN 14.7 g/dL (12.0-15.5); LYMPH # 1.7 x10^3/uL (1.0-4.8); LYMPH % 19 % (24-48); MEAN CORPUSCULAR HEMOGLOBIN 29 pg (25-35); MEAN CORPUSCULAR HGB CONC 33 g/dL (31-37); MEAN CORPUSCULAR VOLUME 86 fL (79-100); MONO # 0.4 x10^3/uL (0.0-1.1); MONO % 5 % (0-9); NEUT # 6.6 x10^3uL (1.8-7.7); NEUT % 73 % (31-73); PLATELET COUNT 259 x10^3/uL (140-400); RED BLOOD COUNT 5.14 x10^6/uL (3.50-5.40); RED CELL DISTRIBUTION WIDTH 13.9 % (11.5-14.5)
--- NOTE | 2019-12-11 15:07 | RAD ---
Examination: CHEST AP ONLY History: Cough Comparison: 09/14/2019 AP view of the chest. Findings: AP portable upright frontal view of the chest was obtained. Sternal wires are present. The cardiomediastinal silhouette is normal. Lungs are clear. There is no pneumothorax. No pleural effusion is appreciated. No acute bone abnormality. IMPRESSION: No acute cardiopulmonary process. Electronically signed by: Rikki Crook MD (12/11/2019 3:05 PM) [facility] [place]
[2019-12-11] MEDS ORDERED: ONDANSETRON PF 4 MG/2 ML VIAL. ONE (15:14)
[2019-12-11 15:23] LABS: ALBUMIN/GLOBULIN RATIO 0.9 (1.0-1.7); CALCIUM 9.4 mg/dL (8.5-10.1); CREATININE 0.8 mg/dL (0.6-1.0); GFR 85.4; MAGNESIUM 1.7 mg/dL (1.8-2.4); POTASSIUM 3.4 mmol/L (3.5-5.1); TOTAL PROTEIN 8.3 g/dL (6.4-8.2)
[2019-12-11] MEDS ORDERED: ONDANSETRON PF 4 MG/2 ML VIAL. IVP ONE (15:45)
[2019-12-11] MEDS ORDERED: IV DEXTROSE 5 %-0.45 % NACL 1,000 ML IV SCH (16:03)
[2019-12-11] MEDS ORDERED: IV NORMAL SALINE 1,000ML 1,000 ML IV SCH (16:03)
[2019-12-11 16:06] LABS: CLARITY,URINE CLEAR; COLOR,URINE YELLOW
[2019-12-11 16:07] LABS: GLUCOSE,URINE NEG (NEG); NITRITE,URINE NEG (NEG); UROBILINOGEN,URINE 0.2 mg/dL (0.2 mg/dL)
[2019-12-11 16:11] LABS: BACTERIA,URINE FEW /HPF (0-FEW); RBC,URINE 0 /HPF (0-2); SQUAMOUS EPITHELIAL CELL,UR MOD /LPF; WBC,URINE 0 /HPF (0-4)
--- NOTE | 2019-12-11 16:11 | PHYS DOC ---
Past History Past Medical History: Bipolar, Diabetes, High Cholesterol, Hypertension, Other Additional Past Medical Histor: FACTOR 5, PTSD, MULTIPLE PERSONALITY DISORDER. Past Surgical History: Additional Past Surgical Histo: atrial septal defect repair Smoking: Non-smoker Alcohol Use: Rarely Drug Use: Marijuana General Adult EDM: Chief Complaint: COUGH HPI: HPI: 28-year-old female presents via EMS with report of urinary urgency with flank pain and cough. Reports patient's blood sugar has been elevated. Patient is a diabetic and has had problems with DKA in the past. Patient was recently seen in the ER and diagnosed with a UTI. Patient reports concern for continued UTI. Denies fever or chills. Denies known sick contacts. Denies exposure to COVID19. Reports some associated nausea. Denies . Review of Systems: Review of Systems: Constitutional: Denies fever or chills Eyes: Denies redness or eye pain HENT: Denies nasal congestion or sore throat Respiratory: Reports cough and shortness of breath Cardiovascular: Denies chest pain or palpitations GI: Denies vomiting; reports nausea : Reports urinary urgency Musculoskeletal: Reports back pain/flank pain; denies joint pain Integument: Denies rash or skin lesions Neurologic: Denies headache, focal weakness or sensory changes Complete systems were reviewed and found to be within normal limits, except as documented in this note. Current Medications: Current Meds: Current Medications Medications (Trade) Dose Ordered Sig/[facility] Start Time Stop Time Status Last Admin Dose Admin Dextrose/Sodium Chloride 1,000 ml @ 0 mls/hr Q0M 12/11/19 16:03 UNV Fentanyl Citrate (Fentanyl 2ml Vial) 50 mcg 1X ONCE 12/11/19 16:15 12/11/19 16:16 UNV Insulin Human Regular (HumuLIN R VIAL) 12 unit 1X ONCE 12/11/19 16:15 12/11/19 16:16 UNV Insulin Human Regular 100 unit/ Sodium Chloride 101 ml @ 0 mls/hr CONT PRN PRN 12/11/19 16:15 UNV Magnesium Sulfate 50 ml @ 25 mls/hr PRN Q2HR PRN 12/11/19 16:15 UNV Ondansetron HCl (Zofran) 4 mg 1X ONCE 12/11/19 15:45 12/11/19 15:46 DC 12/11/19 15:20 4 MG Potassium Chloride 100 ml @ 100 mls/hr PRN Q1HR PRN 12/11/19 16:15 UNV Sodium Chloride 1,000 ml @ 0 mls/hr Q0M 12/11/19 16:03 UNV Allergies: Allergies: Allergies Coded Allergies Type Severity Reaction Last Updated Verified latex Allergy Intermediate 06/28/19 Yes lisinopril Allergy Intermediate 06/28/19 Yes quetiapine Allergy Intermediate 06/28/19 Yes warfarin Allergy Intermediate 06/28/19 Yes Physical Exam: PE: Constitutional: Well developed, well nourished, no acute distress, non-toxic appearance HENT: Normocephalic, atraumatic, oropharynx dry Eyes: Conjunctiva normal, no discharge Neck: Normal range of motion, no tenderness, supple, no meningeal signs Cardiovascular: Heart rate tachycardic, regular rhythm Lungs & Thorax: Bilateral breath sounds clear to auscultation, no wheezing Abdomen: Soft, no tenderness, no guarding/rebound tenderness Skin: Warm, dry, no erythema, no rash Back: No tenderness, bilateral paraspinal tenderness to lumbar region, no CVA tenderness Extremities: No tenderness, ROM intact, no edema Neurologic: Alert and oriented X 3, normal motor function, normal sensory function, no focal deficits noted Psychologic: Affect normal, judgment normal Current Patient Data: Labs: Laboratory Tests Test 12/11/19 14:44 12/11/19 14:50 Glucose (Fingerstick) 352 mg/dL (70-99) H White Blood Count 9.0 x10^3/uL (4.0-11.0) Red Blood Count 5.14 x10^6/uL (3.50-5.40) Hemoglobin 14.7 g/dL (12.0-15.5) Hematocrit 44.2 % (36.0-47.0) Mean Corpuscular Volume 86 fL (79-100) Mean Corpuscular Hemoglobin 29 pg (25-35) Mean Corpuscular Hemoglobin Concent 33 g/dL (31-37) Red Cell Distribution Width 13.9 % (11.5-14.5) Platelet Count 259 x10^3/uL (140-400) Neutrophils (%) (Auto) 73 % (31-73) Lymphocytes (%) (Auto) 19 % (24-48) L Monocytes (%) (Auto) 5 % (0-9) Eosinophils (%) (Auto) 2 % (0-3) Basophils (%) (Auto) 0 % (0-3) Neutrophils # (Auto) 6.6 x10^3uL (1.8-7.7) Lymphocytes # (Auto) 1.7 x10^3/uL (1.0-4.8) Monocytes # (Auto) 0.4 x10^3/uL (0.0-1.1) Eosinophils # (Auto) 0.2 x10^3/uL (0.0-0.7) Basophils # (Auto) 0.0 x10^3/uL (0.0-0.2) Sodium Level 131 mmol/L (136-145) L Potassium Level 3.4 mmol/L (3.5-5.1) L Chloride Level 96 mmol/L (98-107) L Carbon Dioxide Level 12 mmol/L (21-32) L Anion Gap 23 (6-14) H Blood Urea Nitrogen 15 mg/dL (7-20) Creatinine 0.8 mg/dL (0.6-1.0) Estimated GFR (Cockcroft-Gault) 85.4 BUN/Creatinine Ratio 19 (6-20) Glucose Level 304 mg/dL (70-99) H Lactic Acid Level 1.8 mmol/L (0.4-2.0) Calcium Level 9.4 mg/dL (8.5-10.1) Magnesium Level 1.7 mg/dL (1.8-2.4) L Total Bilirubin 1.0 mg/dL (0.2-1.0) Aspartate Amino Transferase (AST) 12 U/L (15-37) L Alanine Aminotransferase (ALT) 27 U/L (14-59) Alkaline Phosphatase 107 U/L (46-116) Total Protein 8.3 g/dL (6.4-8.2) H Albumin 4.0 g/dL (3.4-5.0) Albumin/Globulin Ratio 0.9 (1.0-1.7) L Acetone Level Sm pos (NEG) Vital Signs: Vital Signs Date Time Temp Pulse Resp B/P (MAP) Pulse Ox O2 Delivery O2 Flow Rate FiO2 12/11/19 14:30 98.0 120 26 157/74 (101) 99 Room Air EKG: EKG: [] Radiology/Procedures: Radiology/Procedures: PROCEDURE: CHEST AP ONLY Examination: CHEST AP ONLY History: Cough Comparison: 09/14/2019 AP view of the chest. Findings: AP portable upright frontal view of the chest was obtained. Sternal wires are present. The cardiomediastinal silhouette is normal. Lungs are clear. There is no pneumothorax. No pleural effusion is appreciated. No acute bone abnormality. IMPRESSION: No acute cardiopulmonary process. Electronically signed by: Rikki Crook MD (12/11/2019 3:05 PM) [facility] [place] Course & Med Decision Making: Course & Med Decision Making Pertinent Labs and Imaging studies reviewed. (See chart for details) Patient with past medical history of diabetes mellitus presents via EMS with report of urinary urgency with flank pain, cough, generalized malaise, and elevated blood sugar. Patient appears dry. IV fluid hydration provided. Labs obtained and posted to chart. CO2 decreased. Anion gap elevated. Glucose >352. Acetone positive. Patient meeting criteria for DKA. Chest x-ray without acute process. Insulin bolus ordered along with drip. Patient does report some back pain. Pain addressed with fentanyl. Nursing staff rechecked blood sugar prior to subcutaneous insulin bolus with significant improvement. We will hold insulin bolus and start patient on insulin drip. Protocol ordered for replacement of potassium and magnesium. UA without signs of infection. Patient requiring admission for further evaluation and treatment. Discussed with Dr. Cooley (hospitalist) who is in agreement with admission. Discussed findings and plan with patient, who acknowledges understanding and agreement. Kaveh Disclaimer: Kaveh Disclaimer: This electronic medical record was generated, in whole or in part, using a voice recognition dictation system. Departure Departure: Impression: Primary Impression: Diabetic ketoacidosis Qualified Codes: E13.10 - Other specified diabetes mellitus with ketoacidosis without coma Additional Impressions: Hypokalemia Hypomagnesemia Disposition: ADMITTED INPATIENT Admitting Physician: Bruna Cooley Condition: GUARDED Referrals: MATY SALMON MD (PCP) Critical Care Time Critical care time was 30 minutes which includes time at bedside, spent in discussion of patient's care with specialists and/or family members, with interpretation of laboratory and/or radiological studies and is exclusive of procedures. JIMY DAVISON DO Dec 11, 2019 16:11
[2019-12-11 16:12] LABS: AMORPHOUS SEDIMENT,UR PRESENT /HPF; HYALINE CASTS, URINE FEW /HPF
[2019-12-11] MEDS ORDERED: INSULIN REGULAR 100 UNIT/ML 3ML VIAL. SQ ONE (16:15)
[2019-12-11] MEDS ORDERED: INSULIN REGULAR VIAL 100 UNIT in IV NORMAL SALINE 100ML 100 ML IV PRN (16:15)
[2019-12-11] MEDS ORDERED: POTASSIUM CHLORIDE 10MEQ 100 ML IV PRN (16:15)
[2019-12-11] MEDS ORDERED: MAGNESIUM SULFATE 2GM 50 ML IV PRN (16:15)
[2019-12-11] MEDS ORDERED: ONDANSETRON PF 4 MG/2 ML VIAL. IVP PRN (16:30)
[2019-12-11 16:33] LABS: BGAS PH 7.31 (7.35-7.45)
[2019-12-11] MEDS ORDERED: GABA100C81 PO (19:25)
[2019-12-11 19:39] VITALS: BP 128/75
[2019-12-11] MEDS ORDERED: CYCLOBENZAPRINE 10 MG TABLET. PO PRN (20:00)
[2019-12-11] MEDS ORDERED: oxyCODONE/APAP 10/325 1 TAB TABLET PO PRN (20:00)
[2019-12-11] MEDS ORDERED: hydrOXYzine HCL 25 MG TABLET PO PRN (20:15)
[2019-12-11] MEDS ORDERED: DICLOFENAC SODIUM 25 MG TABLET.DR PO PRN (20:15)
[2019-12-11] MEDS: ASPIRIN ENTERIC COATED 325 MG TABLET.DR. PO SCH (20:33)
[2019-12-11] MEDS: GABAPENTIN 100 MG CAPSULE. PO SCH (20:33)
[2019-12-11] MEDS ORDERED: FLUoxetine HCL 20 MG CAPSULE PO SCH (21:00)
[2019-12-11] MEDS ORDERED: ATORVASTATIN CALCIUM 20 MG TABLET PO SCH (21:00)
[2019-12-11 21:25] VITALS: BP 131/67
[2019-12-11 22:00] VITALS: BP 114/54
[2019-12-11] MEDS ORDERED: ONDANSETRON ODT 4 MG TAB.RAPDIS PO SCH (22:00)
[2019-12-11] MEDS: HYDROcodone/APAP 5/325MG 1 TAB TABLET PO PRN (22:28)
[2019-12-11 23:12] VITALS: BP 118/89
[2019-12-12] VITALS (13 sets, daily range): BP systolic 94–136; BP diastolic 62–87
[2019-12-12] MEDS: POTASSIUM CL 20MEQ D5-0.45NACL 1,000 ML IV SCH ×3 (02:29→13:56)
[2019-12-12] MEDS ORDERED: ONDANSETRON ODT 4 MG TAB.RAPDIS PO PRN (05:00)
[2019-12-12 06:27] LABS: BASO % 0 % (0-3); EOS # 0.3 x10^3/uL (0.0-0.7); EOS % 6 % (0-3); HEMATOCRIT 38.8 % (36.0-47.0); HEMOGLOBIN 13.1 g/dL (12.0-15.5); LYMPH % 39 % (24-48); MEAN CORPUSCULAR HEMOGLOBIN 29 pg (25-35); MEAN CORPUSCULAR HGB CONC 34 g/dL (31-37); MEAN CORPUSCULAR VOLUME 86 fL (79-100); MONO # 0.3 x10^3/uL (0.0-1.1); MONO % 6 % (0-9); NEUT # 2.5 x10^3uL (1.8-7.7); NEUT % 49 % (31-73); PLATELET COUNT 216 x10^3/uL (140-400); RED BLOOD COUNT 4.53 x10^6/uL (3.50-5.40); RED CELL DISTRIBUTION WIDTH 13.9 % (11.5-14.5); WHITE BLOOD COUNT 5.1 x10^3/uL (4.0-11.0)
[2019-12-12 06:44] LABS: ALBUMIN 3.2 g/dL (3.4-5.0); ALBUMIN/GLOBULIN RATIO 0.9 (1.0-1.7); CALCIUM 8.4 mg/dL (8.5-10.1); CREATININE 0.5 mg/dL (0.6-1.0); GFR 146.9; POTASSIUM 3.4 mmol/L (3.5-5.1); TOTAL BILIRUBIN 0.5 mg/dL (0.2-1.0); TOTAL PROTEIN 6.9 g/dL (6.4-8.2)
[2019-12-12] MEDS ORDERED: PANTOPRAZOLE 40 MG TABLET. PO SCH (07:30)
[2019-12-12] MEDS ORDERED: LURASIDONE 40 MG TABLET. PO SCH (08:00)
[2019-12-12] MEDS: ASPIRIN ENTERIC COATED 325 MG TABLET.DR. PO SCH (08:06)
[2019-12-12] MEDS: GABAPENTIN 100 MG CAPSULE. PO SCH (08:06)
[2019-12-12] MEDS ORDERED: METOPROLOL TART IMMED RELEASE 25 MG TABLET PO SCH (09:00)
[2019-12-12] MEDS ORDERED: DEXTROSE 50% 25 GM / 50ML DISP.SYRIN. IV PRN (14:00)
[2019-12-12] MEDS ORDERED: IV NORMAL SALINE 1,000ML 1,000 ML IV SCH (14:15)
[2019-12-12 14:40] LABS: BILIRUBIN,URINE NEG (NEG)
--- NOTE | 2019-12-12 15:14 | PN ---
DATE: SUBJECTIVE: The patient is resting flat, sleeping comfortably, in no apparent distress. On questioning her, she denied any complaint. Nursing staff did not voice any concern. PHYSICAL EXAMINATION: GENERAL: When I examined her, she looked well and was clearly in no apparent distress. There is no pallor, jaundice, cyanosis or thyromegaly. No jugular venous distention. No lower limb edema. VITAL SIGNS: Her heart rate was 83. Her blood pressure was 121/73, temperature was 98.4, respiratory rate was 18 and oxygen saturation was 96%. HEAD, EYES, EARS, NOSE AND THROAT: Showed normocephalic, atraumatic. NECK: Supple. HEART: Showed normal first and second heart sounds. No gallop, rub or murmur. CHEST: Clear to auscultation. No crepitation or rhonchi. ABDOMEN: Distended, soft, nontender. NEUROLOGIC: She was awake, alert, responding appropriately. All cranial nerves are intact. She moves extremities without difficulty. Her intake over the last 24 hours was 1500, no output was recorded. LABORATORY DATA: Her lab work this morning showed a white cell count 5000, hemoglobin 13, hematocrit 39, MCV 86 and platelet count of 216,000. Her chemistry this afternoon showed that her serum sodium is up to 135, potassium 3.4, chloride 102, bicarbonate 18, anion gap of 15, BUN of 8, creatinine 0.5, estimated GFR was 146 mL per minute. Her glucose 185, calcium was 8.4. Total bilirubin, AST, ALT, alkaline phosphatase were normal. Total protein 6.9, albumin 3.1. ASSESSMENT: 1. Diabetic ketoacidosis. 2. Hyponatremia, likely dilutional. 3. Hypokalemia. 4. Hypomagnesemia. SURJIT MOMIN MD DR: ISAIAH/tino JOB#: [id number] / [id number]
--- NOTE | 2019-12-12 15:17 | HP ---
ADMIT DATE: 12/11/2019 HISTORY OF PRESENT ILLNESS: The patient is a 28-year-old female patient who presented to the Emergency Room with a report of urinary urgency with flank pain and cough. Reports the patient's blood sugar has been elevated. She is diabetic and has had problems with DKA in the past. She was recently seen in the ER with diagnosis of UTI. The patient reports concern for continued UTI. Denies any fever or chills. Denied any known sick contact. Denied any exposure to COVID-19. Reports some nausea. Denied any . She was extensively investigated in the Emergency Room. Her urinalysis was essentially unremarkable. The urine was negative for wbc's, leukocyte and nitrite. Her white cell count was normal. Her chemistry showed that she has hypokalemia and blood sugar was 352. Her anion gap was 23 and was admitted for mild DKA. Her blood gases showed a pH of 7.31, pCO2 of 23, pO2 of 106, bicarbonate 12 and oxygen saturation was 98% on room air. She was started on IV fluid, insulin drip as per DKA protocol, was admitted for further evaluation and treatment. PAST MEDICAL HISTORY: Significant for type 1 diabetes mellitus since she was age of 11. She is known to have factor V Leiden, has history of DVT x 2. She has bipolar disorder and nephrolithiasis. She did have a left gluteal cellulitis and abscess that required surgical incision and drainage at [facility]. PAST SURGICAL HISTORY: Significant for 2 C-sections, open heart surgery for atrial septal defect repair when she was 18 years old. She has a left ring finger fracture, was treated with open reduction and internal fixation, most recently incision and drainage of a left buttock abscess treated with wound VAC and IV antibiotic. ALLERGIES: SHE IS ALLERGIC TO LISINOPRIL SHE HAS DEVELOPED ANGIONEUROTIC EDEMA. She has also claimed that SHE IS ALLERGIC TO COUMADIN CAUSING HIVES AND SEROQUEL CAUSING HALLUCINATION. FAMILY HISTORY: She has 2 brothers and 2 sisters, 1 brother and 1 sister older, 1 brother and 1 sister younger. Her father is still alive at the age of 50 and is alcoholic. Mother is still alive and has Crohn's disease and she is 46 years old. SOCIAL HISTORY: She is , has 2 sons. She does not smoke or drink alcohol. She uses actually marijuana about twice a week. 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 MEDICATIONS: She is currently on following medications: She is on cyclobenzaprine 10 mg 3 times a day, atorvastatin calcium 20 mg at bedtime, metoprolol tartrate 25 mg once a day. She is on aspirin 325 mg twice a day, diclofenac sodium 50 mg tablet twice a day, hydrocodone/APAP 5/325 one tablet every 4-6 hours. She is on oxycodone/APAP 10/325 one tablet every 6 hours as needed, gabapentin 100 mg twice a day, fluoxetine 60 mg at bedtime, Latuda 120 mg daily, hydroxyzine pamoate 50 mg three times a day, ondansetron 4 mg every 8 hours and omeprazole 20 mg daily, metformin 1000 mg twice a day. She is on NovoLog insulin 20 units before meals and also sliding scale and Levemir insulin 50 units twice a day. REVIEW OF SYSTEMS: As per history of present illness. Apparently, her chest x-ray showed no acute cardiopulmonary process of rehabilitation. PHYSICAL EXAMINATION: GENERAL: On arrival to the Emergency Room, she looked well and was clearly in no apparent respiratory distress. No pallor, jaundice, cyanosis or thyromegaly. No jugular venous distention. No limb edema. VITAL SIGNS: Her heart rate on arrival was 120, blood pressure 157/74, temperature was 98, respiratory rate 26 and oxygen saturation was 99%. HEAD, EYES, EARS, NOSE AND THROAT: Showed normocephalic, atraumatic. NECK: Supple. HEART: Showed normal first and second heart sounds. No gallop, rub or murmur. CHEST: Clear to auscultation. No crepitation or rhonchi. ABDOMEN: Distended, soft, nontender. There is definitely no guarding or rigidity. No organomegaly. All hernial orifice intact. Bowel sounds normal. NEUROLOGIC: She is alert, oriented x3 with no obvious focal deficit. Affect and judgment are normal. LABORATORY DATA: Her lab work on admission showed that her white cell count was 9000, hemoglobin 14.7, hematocrit 44, MCV 86 and platelet count 259,000. Her chemistry on admission showed that her serum sodium was 131, potassium 3.4, chloride 96, bicarbonate 12, anion gap of 23, BUN 15, creatinine 0.8, estimated GFR was 85 mL per minute. Her glucose was 352, lactic acid was 1.8, calcium was 9.7, magnesium was 1.7. Total bilirubin, AST, ALT, alkaline phosphatase were normal. Total protein was 8.3, albumin was 4. Her arterial blood gases showed a pH of 7.31, pCO2 of 23, pO2 of 106, bicarbonate 12 and oxygen saturation was 98% on FiO2 of 21%. Her urinalysis showed the urine was yellow and clear with a pH of 5, specific gravity of more than 1.030, small amount of protein. The urine was negative for glucose. There was large amount of ketones. The urine was negative for blood, nitrite and there is no today. The urine was negative for leukocyte esterase. There were no rbc's, no wbc's, and few bacteria. Her urine toxicology showed small amount of acetone. Her imaging studies showed a chest x-ray showed that she has sternal wires present. The cardiomediastinal silhouette is normal. Lungs are clear. There is no pneumothorax, no pleural effusion is appreciated, no acute bony abnormality. ASSESSMENT AND PLAN: In summary, this is a 28-year-old with type 1 diabetes mellitus who comes again with diabetic ketoacidosis, generally mild. She was started on IV normal saline and insulin drip as per protocol. We will monitor her labs, and once this anion gap closes and she is able to eat and drink and go back on her usual schedule of insulin, she can be discharged home. SURJIT MOMIN MD DR: ISAIAH/tino JOB#: [id number] / [id number]
[2019-12-12] MEDS ORDERED: INSULIN LISPRO 300 UNITS/3 ML VIAL. SQ SCH ×2 (16:30→17:00)
[2019-12-12] MEDS: HYDROcodone/APAP 5/325MG 1 TAB TABLET PO PRN (16:33)
[2019-12-12] MEDS ORDERED: metFORMIN 500 MG TABLET PO SCH (17:00)
[2019-12-12] MEDS ORDERED: INSULIN GLARGINE SYRINGE. SQ SCH (21:00)
== END 2019-12-12 17:45 | disposition home or self-care (01) | DRG 638 ==
LOC: ER 14:17 → 1 SOUTH 16:15
PROVIDERS: ADMIT Internal Medicine; ATTEND Internal Medicine
DX: E10.10 Type 1 diabetes mellitus with ketoacidosis without coma (principal); D68.51 Activated protein C resistance; E87.1 Hypo-osmolality and hyponatremia; E78.00 Pure hypercholesterolemia, unspecified; E83.42 Hypomagnesemia; F12.90 Cannabis use, unspecified, uncomplicated; E87.6 Hypokalemia; F31.9 Bipolar disorder, unspecified; F43.10 Post-traumatic stress disorder, unspecified; I10 Essential (primary) hypertension; Z79.4 Long term (current) use of insulin; Z86.718 Personal history of other venous thrombosis and embolism; Z87.442 Personal history of urinary calculi; Z87.74 Personal history of (corrected) congenital malformations of heart and circulatory system; Z98.891 History of uterine scar from previous surgery; Z87.440 Personal history of urinary (tract) infections; Z79.01 Long term (current) use of anticoagulants; Z79.899 Other long term (current) drug therapy; Z88.8 Allergy status to other drugs, medicaments and biological substances; Z91.040 Latex allergy status
CPT/HCPCS: 36415; 36600; 71045; 80053; 81001; 82010; 82803; 82947; 83605; 83735; 83930; 85025; 96361; 96365; 96375; 96376; J1815; J2405; J3010; J3475; 99291-25; J7030

== ENCOUNTER 2019-12-22 12:50 | Inpatient (IN) | payer MEDICARE, OTHER ==
[~2019-12-22] VITALS: Ht 180.3 cm; Wt 118.3 kg
[2019-12-22] VITALS (7 sets, daily range): BP systolic 146–164; BP diastolic 75–87
[~2019-12-22 12:50] MED LIST changes: +GABA100C81 PO
[2019-12-22] MEDS ORDERED: ONDANSETRON PF 4 MG/2 ML VIAL. ONE (12:55)
[2019-12-22] MEDS ORDERED: IV NORMAL SALINE 1,000ML 1,000 ML IV SCH ×3 (12:56→14:19)
--- NOTE | 2019-12-22 13:14 | PHYS DOC ---
Past History Past Medical History: Bipolar, Diabetes, High Cholesterol, Hypertension, Other Additional Past Medical Histor: FACTOR 5, PTSD, MULTIPLE PERSONALITY DISORDER. Past Surgical History: Additional Past Surgical Histo: atrial septal defect repair Smoking: Non-smoker Alcohol Use: Rarely Drug Use: Marijuana General Adult EDM: Chief Complaint: HYPERGLYCEMIA HPI: HPI: 28-year-old female past medical history significant for poorly controlled diabetes with history of DKA, upper extremity DVT on Coumadin (off coumadin for > 6 months) and obesity, presents to the ED with complaints of multiple episodes of nonbloody nonbilious vomiting and epigastric abdominal pain with vomiting for the past day. Patient states "my insulin got away for me." Is supposed be ta melissa 50 units long acting every night, 25 units with meals. Does not routinely check her glucose, unsure her recent trends. Review of systems: Denies associated fever, chills, diarrhea, dyspnea, hemoptysis, dysuria, hematuria, back pain, leg swelling, rash, chest pressure, sore throat or cough. Current Medications: Current Meds: Current Medications Medications (Trade) Dose Ordered Sig/Tapan Start Time Stop Time Status Last Admin Dose Admin Ondansetron HCl (Zofran) 4 mg STK-MED ONCE 12/22/19 12:55 12/22/19 12:55 DC Sodium Chloride 1,000 ml @ 1,000 mls/hr Q1H 12/22/19 13:00 12/22/19 13:59 Allergies: Allergies: Allergies Coded Allergies Type Severity Reaction Last Updated Verified latex Allergy Intermediate 06/28/19 Yes lisinopril Allergy Intermediate 06/28/19 Yes quetiapine Allergy Intermediate 06/28/19 Yes warfarin Allergy Intermediate 06/28/19 Yes Physical Exam: PE: Constitutional: Well developed, afebrile, HENT: Normocephalic, atraumatic, bilateral external ears normal, oropharynx dry, no oral exudates, nose normal. [] Eyes:EOMI, conjunctiva normal, no discharge. [] Neck: Normal range of motion, no tenderness, supple, no stridor. [] Cardiovascular:Heart rate regular rhythm, no murmur [] Lungs & Thorax: Bilateral breath sounds clear to auscultation , clear speech with mild/mod tachypnea no respiratory distress Abdomen: Bowel sounds normal, soft, no tenderness, no masses, no pulsatile masses. [] Skin: Warm, dry, no erythema, no rash. [] Back: No tenderness, no CVA tenderness. [] Extremities: No tenderness, no cyanosis, no clubbing, ROM intact, no edema. [] Neurologic: Alert and oriented X 3, normal motor function, normal sensory function, no focal deficits noted. [] Psychologic: Affect normal, judgement normal, mood normal. [] Current Patient Data: Vital Signs: Vital Signs Date Time Temp Pulse Resp B/P (MAP) Pulse Ox O2 Delivery O2 Flow Rate FiO2 12/22/19 12:56 98.4 132 18 133/67 (89) 98 Room Air EKG: EKG: [] Radiology/Procedures: Radiology/Procedures: []IMAGING REPORT Signed PATIENT: RYLIE BELL ACCOUNT: [id number] : 1990 LOCATION: ER AGE: 28 SEX: F EXAM STATUS: PRE ER ORD. PHYSICIAN: MARTIN DUPONT DO REASON: hyperglycmeia PROCEDURE: PORTABLE CHEST 1V EXAM: Chest radiograph DATE: 12/22/2019 12:56 PM INDICATION: Hyperglycemia COMPARISON: Chest radiograph 12/11/2019 FINDINGS: AP upright view of the chest was obtained. There are median sternotomy wires. The cardiomediastinal silhouette is normal. Lungs are adequately expanded. No focal opacity, pleural effusion, or pneumothorax. No acute osseous abnormality. IMPRESSION: No acute cardiopulmonary abnormality. Electronically signed by: Lisa Tucker MD (12/22/2019 1:28 PM) [id number] DICTATED AND SIGNED BY: LISA TUCKER MD DATE: 12/22/19 1328 CC: MARTIN DUPONT DO; MATY SALMON MD ~ Impressions: Concern for anion gap metabolic acidosis secondary to diabetic ketoacidosis (admits to insulin noncompliance). Has nonspecific leukocytosis of 15.4 and a creatinine of 1.2. Potassium was 5.4. Patient was started on 3 L bolus and insulin drip. Patient will be admitted to the ICU under Dr. Cooley. Patient stable at time of admission and agrees with the above plan. Course & Med Decision Making: Course & Med Decision Making Total critical care time 30 minutes. Total critical care time document does not include time spent on separately billed procedures with the services and residents, students, nurses or physician assistants. I personally saw and examined the patient. I reviewed all diagnostic interpretations and treatment plans as written. I was present for the kendrick portions of any procedures performed in the inclusive time noted in any critical care statement. Critical care time includes patient management by me, time spent at the patient's bedside, time to review lab and imaging results, discussing patient care, documentation and medical record, and time spent with the family or caregiver. COVID-19 CRITERIA: The patient was evaluated during the global COVID-19 pandemic, and that diagnosis was suspected/considered upon their initial presentation. Their evaluation, treatment and testing was consistent with current guidelines for patients who present with complaints or symptoms that may be related to [id number] per discretion of admitting physician. Dragon Disclaimer: Dragon Disclaimer: This electronic medical record was generated, in whole or in part, using a voice recognition dictation system. Departure Departure: Impression: Primary Impression: DKA (diabetic ketoacidoses) Disposition: ADMITTED INPATIENT Admitting Physician: Bruna Cooley Condition: CRITICAL Referrals: MATY SALMON MD (PCP) MARTIN DUPONT DO December 22, 2019 13:14
[2019-12-22 13:29] LABS: BASO # 0.1 x10^3/uL (0.0-0.2); BASO % 1 % (0-3); EOS % 0 % (0-3); HEMATOCRIT 49.5 % (36.0-47.0); HEMOGLOBIN 15.5 g/dL (12.0-15.5); LYMPH # 1.3 x10^3/uL (1.0-4.8); LYMPH % 8 % (24-48); MEAN CORPUSCULAR HEMOGLOBIN 29 pg (25-35); MEAN CORPUSCULAR HGB CONC 31 g/dL (31-37); MEAN CORPUSCULAR VOLUME 93 fL (79-100); MONO # 0.4 x10^3/uL (0.0-1.1); MONO % 3 % (0-9); NEUT # 13.6 x10^3uL (1.8-7.7); NEUT % 89 % (31-73); PLATELET COUNT 324 x10^3/uL (140-400); RED BLOOD COUNT 5.34 x10^6/uL (3.50-5.40); RED CELL DISTRIBUTION WIDTH 14.7 % (11.5-14.5); WHITE BLOOD COUNT 15.4 x10^3/uL (4.0-11.0)
[2019-12-22 13:31] LABS: PREG TEST PT QUAL NEGATIVE (NEG)
--- NOTE | 2019-12-22 13:32 | RAD ---
EXAM: Chest radiograph DATE: 12/22/2019 12:56 PM INDICATION: Hyperglycemia COMPARISON: Chest radiograph 12/11/2019 FINDINGS: AP upright view of the chest was obtained. There are median sternotomy wires. The cardiomediastinal silhouette is normal. Lungs are adequately expanded. No focal opacity, pleural effusion, or pneumothorax. No acute osseous abnormality. IMPRESSION: No acute cardiopulmonary abnormality. Electronically signed by: Lisa Tucker MD (12/22/2019 1:28 PM) [id number]
[2019-12-22 13:35] LABS: ALBUMIN 4.5 g/dL (3.4-5.0); CALCIUM 9.5 mg/dL (8.5-10.1); CREATININE 1.2 mg/dL (0.6-1.0); GFR 53.5; POTASSIUM 5.4 mmol/L (3.5-5.1); TOTAL BILIRUBIN 0.5 mg/dL (0.2-1.0); TOTAL PROTEIN 8.9 g/dL (6.4-8.2)
[2019-12-22] MEDS ORDERED: INSULIN REGULAR VIAL 100 UNIT in IV NORMAL SALINE 100ML 100 ML IV PRN (14:00)
[2019-12-22 14:03] LABS: % BANDS 1 % (0-9); % EOS 1 % (0-5); % LYMPHS 17 % (24-48); % MONOS 1 % (0-10); % SEGS 80 % (35-66)
[2019-12-22 14:04] LABS: ANISOCYTOSIS SLIGHT; PLT ESTIMATE ADEQUATE (ADEQUATE); POLYCHROMASIA SLIGHT; TARGET CELLS OCC
[2019-12-22 14:16] LABS: BACTERIA,URINE 0 /HPF (0-FEW); BILIRUBIN,URINE NEG (NEG); CLARITY,URINE CLEAR; COLOR,URINE YELLOW; GLUCOSE,URINE 500 mg/dL (NEG); NITRITE,URINE NEG (NEG); SQUAMOUS EPITHELIAL CELL,UR FEW /LPF; UROBILINOGEN,URINE 0.2 mg/dL (0.2 mg/dL)
[2019-12-22 14:17] LABS: AMORPHOUS SEDIMENT,UR PRESENT /HPF; YEAST,URINE PRESENT /HPF
[2019-12-22] MEDS ORDERED: DEXTROSE 50% 25 GM / 50ML DISP.SYRIN. IV PRN (14:30)
[2019-12-22] MEDS ORDERED: ONDANSETRON PF 4 MG/2 ML VIAL. IVP PRN (14:45)
[2019-12-22] MEDS ORDERED: INSULIN REGULAR 100 UNIT/ML 3ML VIAL. IV ONE (16:15)
[2019-12-22] MEDS: INSULIN REGULAR VIAL 100 UNIT in IV NORMAL SALINE 100ML 100 ML IV PRN (17:05)
[2019-12-22] MEDS: IV NORMAL SALINE 1,000ML 1,000 ML IV SCH ×4 (17:25→19:24)
[2019-12-22] MEDS ORDERED: ACETAMINOPHEN 325 MG TABLET PO PRN (17:30)
[2019-12-22] MEDS: KETOROLAC 30 MG/ML VIAL. IV PRN ×2 (18:12→23:52)
[2019-12-22] MEDS ORDERED: PANTOPRAZOLE IV 40 MG VIAL. IVP ONE (18:15)
--- NOTE | 2019-12-22 18:45 | NUR ---
PT is partially able to verbalize understanding of orientation to unit. PT is legthargic and kussmaul respirations. ED was unable to start insulin gtt because could not use glucostabalizer per ED medic. PT reporting she is having pain. DR Cooley on unit. PT has received [address] Cooley wants more saline till blood sugar under 300. Blossom VILLARREAL
[2019-12-22 18:59] LABS: BGAS PH 7.02 (7.35-7.45)
--- NOTE | 2019-12-22 19:04 | HP ---
ADMIT DATE: 12/22/2019 HISTORY OF PRESENT ILLNESS: The patient is a 28-year-old female patient who came to the Emergency Room with complaint of multiple episodes of nonbloody, nonbilious vomiting and epigastric abdominal pain with vomiting for the last 24 hours. She stated that her insulin got away from her and she is supposed to take 50 units longer acting every night and 25 units with meals. She does not routinely check her glucose, unsure her recent trends. She was evaluated in the Emergency Room, was found to be extremely acidotic with a bicarbonate of only 7, anion gap of 30. Her blood sugar was 662 and her creatinine is 1.2. Her white cell count was 15,400. Her urinalysis was essentially unremarkable. Toxic screen was positive for acetone. Her chest x-ray showed no acute cardiopulmonary abnormality and the patient was admitted with severe diabetic ketoacidosis. She has received 3 liters of normal saline and 10 units of regular insulin intravenously and was admitted to continue with aggressive IV fluid and insulin drip as per DKA protocol. PAST MEDICAL HISTORY: Significant for type 1 diabetes mellitus since age of 11. She has factor V Leiden, history of DVT x 2, bipolar disorder and nephrolithiasis. She also has left gluteal cellulitis and abscess that required surgical incision and drainage at [facility]. PAST SURGICAL HISTORY: Significant for 2 C-sections, open heart surgery for atrial septal defect repair when she was 18 years old. She has a left ring finger fracture treated with open reduction and internal fixation and most recently, she has incision and drainage of her left buttock abscess that was treated with wound VAC and IV antibiotic. ALLERGIES: SHE IS ALLERGIC TO LISINOPRIL SHE DEVELOPED ANGIONEUROTIC EDEMA. SHE HAS ALSO CLAIMED THAT SHE IS ALLERGIC TO COUMADIN CAUSING HIVES AND SEROQUEL CAUSING HALLUCINATION. FAMILY HISTORY: She has 2 brothers and 2 sisters, 1 brother and 1 sister older and 1 brother and 1 sister younger. Her father is still alive at the age of 50 and is alcoholic. Mother is still alive and has Crohn's disease. She is 46 years old. SOCIAL HISTORY: She is , has 2 sons. She does not smoke, drink alcohol or use any recreational drugs. She uses marijuana about twice a week. 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 MEDICATIONS: She is currently on following medications: She is on Flexeril 10 mg 3 times a day, atorvastatin calcium 20 mg at bedtime, metoprolol tartrate 25 mg daily, aspirin 325 mg daily, diclofenac sodium 50 mg twice a day, oxycodone/APAP 10/325 one tablet every 6 hours, fluoxetine 60 mg at bedtime, trazodone 100 mg at bedtime, Latuda 120 mg daily, hydroxyzine pamoate 50 mg three times a day, omeprazole 20 mg once a day, metformin 1000 mg twice a day. She is on NovoLog insulin 35 units before meals and Levemir insulin twice a day. PHYSICAL EXAMINATION: GENERAL: On arrival to the Emergency Room, she was clearly extremely tachypneic, but no pallor, jaundice, cyanosis or thyromegaly. No jugular venous distention or limb edema. VITAL SIGNS: Her heart rate was 132, blood pressure was 133/67, temperature was 98.4, respiratory rate 24 and oxygen saturation was 98% on room air. HEAD, EYES, EARS, NOSE AND THROAT: Showed normocephalic, atraumatic. NECK: Supple. HEART: Showed normal first and second heart sounds. No gallop, rub or murmur. CHEST: Clear to auscultation. No crepitation or rhonchi. ABDOMEN: Distended, soft, nontender. NEUROLOGICALLY: She is awake, alert. All her cranial nerves are intact. EXTREMITIES: She moves extremities without difficulty. LABORATORY DATA: Her lab work showed a white cell count 15,400, hemoglobin 15.5, hematocrit 49.5, MCV 93, and platelet count 324,000. Her chemistry showed a serum sodium 133, potassium 5.4, chloride 96, bicarbonate 7, anion gap of 30, BUN 20, creatinine 1.2, estimated GFR was 53 mL per minute. Her glucose was 662, calcium was 9.5. Total bilirubin, AST, ALT are normal. Alkaline phosphatase slightly elevated. Total protein was 8.9, albumin was 4.5. Urinalysis was essentially unremarkable. Urine was yellow, clear with a pH of 5, specific gravity 1.020, small amount of protein, large amount of glucose, large amount of ketones, trace of blood, negative for leukocyte esterase, 1-2 rbc's, 1-4 wbc's, and no bacteria. Her toxic screen was positive for acetones. Her chest x-ray was unremarkable. ASSESSMENT AND PLAN: In summary, this is a 28-year-old female patient who yet again came with another episode of diabetic ketoacidosis. We will continue with IV fluids and insulin drip as per protocol. I will start her on Reglan as well as Protonix and we will start her on a clear liquid diet as tolerated. Otherwise, she can be n.p.o. until tomorrow morning. SURJIT MOMIN MD DR: ISAIAH/tino JOB#: [id number] / [id number]
[2019-12-22] MEDS: ONDANSETRON PF 4 MG/2 ML VIAL. IVP PRN (20:17)
[2019-12-22 20:55] LABS: CALCIUM 8.2 mg/dL (8.5-10.1); POTASSIUM 5.5 mmol/L (3.5-5.1)
[2019-12-22 21:05] LABS: MAGNESIUM 2.3 mg/dL (1.8-2.4); PHOSPHORUS 4.4 mg/dL (2.6-4.7)
[2019-12-22] MEDS: IV DEXTROSE 5 %-0.45 % NACL 1,000 ML IV SCH (21:13)
[2019-12-22] MEDS ORDERED: LURA120T PO (22:08)
[2019-12-22] MEDS ORDERED: OXYC1TAB22 PO (22:08)
[2019-12-22] MEDS ORDERED: HYDR-2155 PO (22:08)
[2019-12-23] VITALS (14 sets, daily range): BP systolic 96–139; BP diastolic 60–85
[2019-12-23 01:13] LABS: ALBUMIN 3.5 g/dL (3.4-5.0); CALCIUM 8.4 mg/dL (8.5-10.1); MAGNESIUM 2.1 mg/dL (1.8-2.4); PHOSPHORUS 2.9 mg/dL (2.6-4.7); POTASSIUM 5.3 mmol/L (3.5-5.1)
[2019-12-23] MEDS: INSULIN REGULAR VIAL 100 UNIT in IV NORMAL SALINE 100ML 100 ML IV PRN ×2 (02:59→22:48)
[2019-12-23] MEDS: IV DEXTROSE 5 %-0.45 % NACL 1,000 ML IV SCH ×2 (03:45→08:27)
--- NOTE | 2019-12-23 04:44 | NUR ---
Pt resting comfortable in bed has been able to sleep off and on. Continues on insulin gtt and tolerating. Pt to have another renal and mag level drawn before the next hour. Pt has been afebrile and BP normalized from earlier hypertensive state. Pt remains ST on monitor upper 110s-lower 120s. Pt lab values from last draw, trending in the right direction.
[2019-12-23 05:20] LABS: ALBUMIN 3.3 g/dL (3.4-5.0); CALCIUM 8.1 mg/dL (8.5-10.1); CREATININE 0.9 mg/dL (0.6-1.0); GFR 74.6; PHOSPHORUS 2.1 mg/dL (2.6-4.7); POTASSIUM 3.8 mmol/L (3.5-5.1)
[2019-12-23 09:09] LABS: ALBUMIN 3.2 g/dL (3.4-5.0); CREATININE 0.8 mg/dL (0.6-1.0); GFR 85.4; MAGNESIUM 1.8 mg/dL (1.8-2.4); PHOSPHORUS 2.1 mg/dL (2.6-4.7); POTASSIUM 3.4 mmol/L (3.5-5.1)
[2019-12-23] MEDS: PANTOPRAZOLE IV 40 MG VIAL. IVP SCH (09:51)
[2019-12-23] MEDS: POTASSIUM & SODIUM PHOSPHATES PACKET. PO SCH ×2 (09:51→19:46)
[2019-12-23] MEDS: POTASSIUM CL 20MEQ D5-0.45NACL 1,000 ML IV SCH ×3 (09:52→19:45)
[2019-12-23 11:17] LABS: ALBUMIN 3.2 g/dL (3.4-5.0); DIRECT BILIRUBIN 0.1 mg/dL (0.0-0.2); TOTAL BILIRUBIN 0.5 mg/dL (0.2-1.0); TOTAL PROTEIN 6.6 g/dL (6.4-8.2)
[2019-12-23] MEDS: ONDANSETRON PF 4 MG/2 ML VIAL. IVP PRN ×2 (12:17→23:13)
--- NOTE | 2019-12-23 14:42 | RAD ---
CT CHEST WO CONTRAST INDICATION: Cough, sputum, dyspnea. COMPARISON STUDY: Radiograph 12/22/2019. TECHNIQUE: Unenhanced axial images were obtained through the lungs and upper abdomen. Coronal and sagittal multiplanar reconstructions were also obtained. PQRS compliance statement: One or more of the following individualized dose reduction techniques were utilized for this examination: 1. Automated exposure control 2. Adjustment of the mA and/or kV according to patient size 3. Use of iterative reconstruction technique FINDINGS: Lungs and Airways: No pulmonary mass or consolidation. Normal central airways. Pleura: The pleural spaces are normal. Heart and Mediastinum: The visualized thyroid gland is normal in size and attenuation. No axillary or supraclavicular lymphadenopathy. No mediastinal, hilar or retrocrural lymphadenopathy. The heart and pericardium are within normal limits. The great vessels of the thorax are normal. Abdomen: The visualized abdominal organs demonstrate no abnormality. Bones and Soft Tissues: No acute osseous abnormality. Median sternotomy. IMPRESSION: No pulmonary mass or consolidation. Electronically signed by: Gerald Arzola MD (12/23/2019 2:39 PM) [facility]
--- NOTE | 2019-12-23 14:49 | PN ---
DATE: 12/23/2019 SUBJECTIVE: The patient is resting, slightly propped up in bed, in no apparent respiratory distress. She seems to be slightly better. She is not as tachypneic as she was yesterday; however, her gap has not closed yet, the anion gap was 30 and now it was down to 22 when she continued to complain of nausea and abdominal pain. PHYSICAL EXAMINATION: GENERAL: When I examined her this morning, she looked well and was slightly tachypneic, but as bad. No pallor, jaundice, cyanosis or thyromegaly. No jugular venous distention. No lower limb edema. VITAL SIGNS: Her heart rate was 122, blood pressure was 113/64, temperature was 98.1, respiratory rate was 26 and oxygen saturation was 95% on room air. HEAD, EYES, EARS, NOSE AND THROAT: Showed normocephalic, atraumatic. NECK: Supple. HEART: Showed normal first and second heart sounds. No gallop, rub or murmur. CHEST: Clear to auscultation. No crepitation or rhonchi. ABDOMEN: Distended, soft, nontender. No guarding or rigidity. No organomegaly. All hernial orifice intact. Bowel sounds normal. NEUROLOGIC: She was awake, alert, responding appropriately. All cranial nerves intact. She moves extremities without difficulty. She ambulates without assistance or assistive devices. Her intake over the last 24 hours was almost 8000, output was 1750. LABORATORY DATA: As of yesterday showed a white cell count of 15,400, hemoglobin 15.5, hematocrit 49.5, MCV 93, and platelet count of 324,000. Her chemistry showed a serum sodium 136, potassium 3.4, chloride 105, bicarbonate 9, anion gap of 22, BUN of 12, creatinine 0.8, estimated GFR was 85 mL per minute. Her glucose 141, calcium was 8, phosphorus 2.1, magnesium was 1.8. ASSESSMENT: Diabetic ketoacidosis, slowly improving, slower than normal as probably there is superimposed ____ lactic acidosis due to morphine. PLAN: My plan is to continue with the current plan of management. I will repeat all her lab work at 3:00 including lactic acid as well as LDH and lipase and if the lactic acid was high and she continued to be acidotic might have to start also bicarb drip. SURJIT MOMIN MD DR: ISAIAH/tino JOB#: [id number] / [id number]
[2019-12-23 15:28] LABS: CALCIUM 8.2 mg/dL (8.5-10.1); CREATININE 0.8 mg/dL (0.6-1.0); GFR 85.4; POTASSIUM 3.4 mmol/L (3.5-5.1)
[2019-12-23 15:31] LABS: LACTATE DEHYDROGENASE 141 U/L (81-234); LIPASE 73 U/L (73-393)
[2019-12-23] MEDS ORDERED: POTASSIUM CHLORIDE 20 MEQ TABLET.ER. PO ONE (17:30)
[2019-12-23] MEDS: METOCLOPRAMIDE HCL 10 MG/2 ML VIAL. IVP PRN (19:46)
[2019-12-24] VITALS (7 sets, daily range): BP systolic 110–124; BP diastolic 66–84
[2019-12-24] MEDS: POTASSIUM CL 20MEQ D5-0.45NACL 1,000 ML IV SCH ×4 (03:54→18:50)
--- NOTE | 2019-12-24 05:45 | NUR ---
Pt A&O x4, pleasant and cooperative with assessment and cares. Pt stated that she must be "way sicker than normal cause it normally takes me about 24hrs to bounce back". Pt requested PRN pain and nausea medication throughout night. Pt expressed hope of returning back home celebrate for Mother's Day with her children. Pt slept decently most of the night. easily falling back asleep in between blood sugar checks. Pt on Insulin gtt during night, titration per GlucoStabilizer. Call light within reach.
[2019-12-24 07:05] LABS: ALBUMIN 2.7 g/dL (3.4-5.0); CREATININE 0.5 mg/dL (0.6-1.0); GFR 146.9; PHOSPHORUS 1.7 mg/dL (2.6-4.7); POTASSIUM 3.1 mmol/L (3.5-5.1)
[2019-12-24] MEDS: PANTOPRAZOLE IV 40 MG VIAL. IVP SCH (08:30)
[2019-12-24] MEDS: ONDANSETRON PF 4 MG/2 ML VIAL. IVP PRN ×2 (08:30→22:35)
[2019-12-24] MEDS ORDERED: POTASSIUM CHLORIDE 20 MEQ TABLET.ER. PO ONE ×2 (08:30→12:50)
[2019-12-24] MEDS: KETOROLAC 30 MG/ML VIAL. IV PRN (08:31)
[2019-12-24] MEDS ORDERED: MAGNESIUM SULFATE 2GM 50 ML IV SCH (09:00)
--- NOTE | 2019-12-24 12:43 | PN ---
DATE: 12/24/2019 SUBJECTIVE: The patient is sitting in the edge of the bed, eating her lunch comfortably, in no apparent distress. She has been up and about, eating her lunch. She has no nausea, no vomiting. Her gap has closed finally, although it took much longer. PHYSICAL EXAMINATION: GENERAL: When I examined her this afternoon, she looked well and was clearly in no apparent respiratory distress. No pallor, jaundice, cyanosis or thyromegaly. No jugular venous distention. No limb edema. VITAL SIGNS: Her heart rate was 89, blood pressure was 121/77, temperature was 98.1, respiratory rate 20, and oxygen saturation was 98%. HEAD, EYES, EARS, NOSE AND THROAT: Normocephalic, atraumatic. NECK: Supple. CARDIAC: Normal first and second heart sounds. No gallop or murmur. CHEST: Clear to auscultation. No crepitation or rhonchi. ABDOMEN: Distended, soft, nontender. NEUROLOGIC: She was awake, alert, responding appropriately. All cranial nerves are intact. She moves extremities without difficulty. She ambulates without assistance or assistive devices. Her intake was 8230, output was 1750. LABORATORY DATA: As of this morning, her serum sodium was 139, potassium 3.1, chloride 109, bicarbonate 18, anion gap of 12, BUN 4, creatinine 0.5, estimated GFR was 146 mL per minute, her glucose 118, calcium was 8, magnesium was 1.7 and albumin was 2.7. White cell count was 15,400, hemoglobin 15.5, hematocrit 49, MCV 93, platelet count 324,000 with normal manual differential. Urine cultures are negative. ASSESSMENT: 1. Severe diabetic ketoacidosis finally improved. Her anion gap is closed. 2. Other medical problems obviously type 1 diabetes mellitus. 3. Factor V Leiden. 4. History of deep venous thrombosis x 2. 5. Bipolar disorder. PLAN: Plan is to switch to her Humalog insulin before meals and Levemir insulin at bedtime. If she remains stable, we will discharge her tomorrow. She has hypokalemia and hypomagnesemia. She has already been replenished. We will give her some more potassium and we will check her labs tomorrow. SURJIT MOMIN MD DR: ISAIAH/tino JOB#: [id number] / [id number]
[2019-12-24] MEDS: METOCLOPRAMIDE HCL 10 MG/2 ML VIAL. IVP PRN (13:51)
[2019-12-24] MEDS: INSULIN LISPRO 300 UNITS/3 ML VIAL. SQ SCH (17:08)
[2019-12-24] MEDS ORDERED: INSULIN GLARGINE SYRINGE. SQ SCH (21:00)
[2019-12-25] MEDS: POTASSIUM CL 20MEQ D5-0.45NACL 1,000 ML IV SCH ×3 (00:36→12:02)
[2019-12-25 06:12] LABS: HEMATOCRIT 35.6 % (36.0-47.0); HEMOGLOBIN 11.8 g/dL (12.0-15.5); RED BLOOD COUNT 4.15 x10^6/uL (3.50-5.40); RED CELL DISTRIBUTION WIDTH 13.8 % (11.5-14.5); WHITE BLOOD COUNT 3.7 x10^3/uL (4.0-11.0)
[2019-12-25 06:17] VITALS: BP 121/74
[2019-12-25 06:20] LABS: ALBUMIN 2.7 g/dL (3.4-5.0); ALBUMIN/GLOBULIN RATIO 0.9 (1.0-1.7); CALCIUM 8.2 mg/dL (8.5-10.1); CREATININE 0.3 mg/dL (0.6-1.0); GFR 264.9; MAGNESIUM 1.8 mg/dL (1.8-2.4); POTASSIUM 3.3 mmol/L (3.5-5.1); TOTAL BILIRUBIN 0.4 mg/dL (0.2-1.0); TOTAL PROTEIN 5.8 g/dL (6.4-8.2)
[2019-12-25] MEDS: PANTOPRAZOLE IV 40 MG VIAL. IVP SCH (07:25)
[2019-12-25] MEDS: ONDANSETRON PF 4 MG/2 ML VIAL. IVP PRN (07:26)
[2019-12-25] MEDS: INSULIN LISPRO 300 UNITS/3 ML VIAL. SQ SCH ×2 (07:39→12:32)
[2019-12-25 10:29] VITALS: BP 122/70
[2019-12-25] MEDS ORDERED: POTASSIUM CHLORIDE 20 MEQ TABLET.ER. PO ONE (12:00)
--- NOTE | 2019-12-25 12:24 | DS ---
DATE OF DISCHARGE: 12/25/2019 HOSPITAL COURSE: The patient was admitted with severe protracted diabetic ketoacidosis; however, she did very well with IV fluid and insulin drip. Yesterday, her anion gap was closed and she was able to eat and drink. This morning, she was sitting at the edge of the bed, awake, alert, and in no apparent distress. Denied any complaint. PHYSICAL EXAMINATION: GENERAL: When I examined her, she looked well and was clearly in no apparent respiratory distress. No pallor, jaundice, cyanosis or thyromegaly. No jugular venous distention. No limb edema. VITAL SIGNS: Her heart rate was 84, blood pressure was 122/70, temperature was 98.6, respiratory rate was 16, and oxygen saturation was 99% on room air. HEAD, EYES, EARS, NOSE AND THROAT: Showed normocephalic, atraumatic. NECK: Supple. HEART: Showed normal first and second heart sounds with no gallop, rub or murmur. CHEST: Clear to auscultation. No crepitation or rhonchi. ABDOMEN: Distended, soft, nontender. NEUROLOGIC: She is grossly intact. Her intake over the last 24 hours was 5300, output was 3600. LABORATORY DATA: As of this morning, sodium is 139, potassium 3.3, chloride 110, bicarbonate 20, anion gap of 9, BUN 4, creatinine 0.3, estimated GFR was 264 mL per minute. Her glucose 110, calcium was 8.2, magnesium was 1.8. Total bilirubin, AST, ALT, alkaline phosphatase were normal. Total protein was 5.8, albumin was 2.7. Her white cell count was 3700, hemoglobin 11.8, hematocrit 36, MCV 86 and platelet count of 162,000. DISCHARGE MEDICATIONS: She will be discharged home to continue on aspirin 325 mg twice a day, atorvastatin calcium 20 mg at bedtime, cyclobenzaprine 10 mg 3 times a day as needed, diclofenac sodium 50 mg twice a day as needed, fluoxetine 60 mg at bedtime, gabapentin 100 mg twice a day, hydrocodone/APAP 5/325 one tablet twice a day, hydroxyzine Pamoate 50 mg three times a day as needed. She is on NovoLog FlexPen takes 25 units before meals and Levemir insulin 50 units twice a day, lurasidone for Latuda 120 mg at bedtime as a mood stabilizer, metformin 1000 mg twice a day, metoprolol 25 mg daily, omeprazole 20 mg once a day, ondansetron for Zofran 4 mg every 8 hours, oxycodone/APAP 10/325 one tablet daily for breakthrough pain. FINAL DISCHARGE DIAGNOSES: 1. Diabetic ketoacidosis, severe, prolonged has finally resolved. Her anion gap is closed. 2. Type 1 diabetes mellitus since age of 11. 3. Factor V Leiden. 4. History of deep vein thrombosis x 2. 5. Bipolar disorder. SURJIT MOMIN MD DR: ISAIAH/tino JOB#: [id number] / [id number]
--- NOTE | 2019-12-25 13:55 | NUR ---
NURSING NOTE DISCHARGE PT DISCHARGED HOME VIA AMBULATION ACCOMPANIED BY SELF. PT GIVEN WRITTEN AND VERBAL DISCHARGE INSTRUCTIONS. NO SCRIPTS GIVEN. PT GIVEN DKA EDUCATION. NO COMPLICATIONS. CHERELLE WALL.
== END 2019-12-25 13:56 | disposition home or self-care (01) | DRG 637 ==
LOC: ER 12:50 → 1 SOUTH 14:15
PROVIDERS: ADMIT Internal Medicine; ATTEND Internal Medicine
DX: E10.10 Type 1 diabetes mellitus with ketoacidosis without coma (principal); N17.0 Acute kidney failure with tubular necrosis; D68.51 Activated protein C resistance; E78.00 Pure hypercholesterolemia, unspecified; F12.90 Cannabis use, unspecified, uncomplicated; F31.9 Bipolar disorder, unspecified; F43.10 Post-traumatic stress disorder, unspecified; I10 Essential (primary) hypertension; Z79.4 Long term (current) use of insulin; Z86.718 Personal history of other venous thrombosis and embolism; Z87.442 Personal history of urinary calculi; Z87.74 Personal history of (corrected) congenital malformations of heart and circulatory system; E66.9 Obesity, unspecified; Z98.891 History of uterine scar from previous surgery
CPT/HCPCS: 36415; 71045; 71250; 80048; 80053; 80069; 80076; 81001; 82010; 82803; 82947; 83605; 83615; 83690; 83735; 84100; 84703; 85007; 85025; 85027; 96361; 96374; 96375; 99291; C9113; J1815; J1885; J2405; J2765; J3010; J3475; J7030

== ENCOUNTER 2020-01-31 12:01 | Inpatient (IN) | payer MEDICARE, OTHER ==
[~2020-01-31] VITALS: Ht 180.3 cm; Wt 122.4 kg
[~2020-01-31 12:01] MED LIST changes: +HYDR-2155 PO
[2020-01-31] MEDS ORDERED: IV NORMAL SALINE 1,000ML 1,000 ML IV ONE ×3 (12:15→17:15)
--- NOTE | 2020-01-31 12:19 | PHYS DOC ---
Past History Past Medical History: Bipolar, Diabetes, High Cholesterol, Hypertension, Other Additional Past Medical Histor: FACTOR 5, PTSD, MULTIPLE PERSONALITY DISORDER. Past Surgical History: Additional Past Surgical Histo: atrial septal defect repair Smoking: Non-smoker Alcohol Use: Rarely Drug Use: Marijuana General Adult EDM: Chief Complaint: SHORTNESS OF BREATH HPI: HPI: 29-year-old female significant history of insulin-dependent diabetes mellitus, factor V Leiden on aspirin, who presents for evaluation of hyperglycemia. She reports her glucometer reading "high" over the last day or so. Associated with feeling generally unwell, mild dyspnea, mild upper abdominal discomfort with nausea and nonbloody/nonbilious emesis. Admitted in December for the management of DKA. Reports compliance with her insulin regimen. Review of Systems: Review of Systems: Gen: No fever, chills. Eyes: No blurred vision, diplopia. ENT: No nasal congestion, sore throat. CV: No CP, palpitations. Resp. No cough. Reports dyspnea. GI: Reports abd pain, N/V. : No dysuria, hematuria. Neuro: No WALTERS, dizziness, weakness. MSK: No myalgia, arthralgia, back pain. Skin: No acute rash or lesion. Endocrine: Reports polydipsia, polyuria, hyperglycemia. Heart Score: Risk Factors: Risk Factors: DM, Current or recent (<one month) smoker, HTN, HLP, family history of CAD, obesity. Risk Scores: Score 0 - 3: 2.5% MACE over next 6 weeks - Discharge Home Score 4 - 6: 20.3% MACE over next 6 weeks - Admit for Clinical Observation Score 7 - 10: 72.7% MACE over next 6 weeks - Early Invasive Strategies Allergies: Allergies: Allergies Coded Allergies Type Severity Reaction Last Updated Verified latex Allergy Intermediate 06/28/19 Yes lisinopril Allergy Intermediate 06/28/19 Yes quetiapine Allergy Intermediate 06/28/19 Yes warfarin Allergy Intermediate 06/28/19 Yes Physical Exam: PE: Gen: NAD. Well nourished. Head: NC/AT. Eyes: No scleral icterus. No conjunctival injection. ENT: MMM. Posterior OP clear. Neck: Supple. NT. CV: Tachycardic and regular 130. Peripheral pulses intact. Resp: CTAB. Abd: Soft. NT. ND. MSK: No peripheral cyanosis. No edema. Neuro: Awake and alert. Skin. Warm. Dry. Psych: Appropriate mood & affect. EKG: EKG: [] Radiology/Procedures: Radiology/Procedures: Single AP view of the chest. Comparison: 12/22/2019. Indication: Shortness of air Findings: Sternotomy wires are reidentified. The heart is not enlarged. There is no pneumothorax or effusion. No air space or interstitial disease. Impression: 1. No acute cardiopulmonary process. Electronically signed by: Jose Kovacs MD (01/31/2020 12:31 PM) [id number] Course & Med Decision Making: Course & Med Decision Making Pertinent Labs and Imaging studies reviewed. (See chart for details) In summary, 29-year-old female significant history of insulin-dependent diabetes mellitus, who presents for evaluation of diffuse myalgias, nausea, upper abdominal discomfort, dyspnea, polyuria and polydipsia, found to be in DKA with an elevated anion gap of 27, bicarb 7, pH 7.2, positive ketones. 2 IV fluid boluses ordered in addition to the insulin drip. No indication for sodium bicarbonate at this time. The patient will be admitted for further management. Dragon Disclaimer: Dragon Disclaimer: This electronic medical record was generated, in whole or in part, using a voice recognition dictation system. Departure Departure: Impression: Primary Impression: Diabetic ketoacidosis Disposition: ADMITTED INPATIENT Admitting Physician: Bruna Cooley Condition: STABLE Referrals: MATY SALMON MD (PCP) Justification of Admission: Justification of Admission: Justification of Admission Dx: Yes DKA: DKA PAULETTE ENGLAND DO Jan 31, 2020 12:19
--- NOTE | 2020-01-31 12:34 | RAD ---
Single AP view of the chest. Comparison: 12/22/2019. Indication: Shortness of air Findings: Sternotomy wires are reidentified. The heart is not enlarged. There is no pneumothorax or effusion. No air space or interstitial disease. Impression: 1. No acute cardiopulmonary process. Electronically signed by: Jose Kovacs MD (01/31/2020 12:31 PM) [id number]
[2020-01-31 12:42] LABS: BASO % 0 % (0-3); EOS % 1 % (0-3); HEMATOCRIT 46.2 % (36.0-47.0); HEMOGLOBIN 15.1 g/dL (12.0-15.5); LYMPH # 1.4 x10^3/uL (1.0-4.8); LYMPH % 20 % (24-48); MEAN CORPUSCULAR HEMOGLOBIN 29 pg (25-35); MEAN CORPUSCULAR HGB CONC 33 g/dL (31-37); MEAN CORPUSCULAR VOLUME 88 fL (79-100); MONO # 0.4 x10^3/uL (0.0-1.1); MONO % 6 % (0-9); NEUT # 5.1 x10^3uL (1.8-7.7); NEUT % 73 % (31-73); PLATELET COUNT 278 x10^3/uL (140-400); RED BLOOD COUNT 5.26 x10^6/uL (3.50-5.40); RED CELL DISTRIBUTION WIDTH 14.2 % (11.5-14.5)
[2020-01-31 12:49] LABS: CALCIUM 8.9 mg/dL (8.5-10.1); CREATININE 0.8 mg/dL (0.6-1.0); DIRECT BILIRUBIN 0.1 mg/dL (0.0-0.2); GFR 84.8; POTASSIUM 4.5 mmol/L (3.5-5.1); TOTAL BILIRUBIN 0.7 mg/dL (0.2-1.0); TOTAL PROTEIN 8.4 g/dL (6.4-8.2)
[2020-01-31] MEDS ORDERED: ONDANSETRON PF 4 MG/2 ML VIAL. ONE (12:59)
[2020-01-31] MEDS ORDERED: MORPHINE SULFATE 4 MG/ML DISP.SYRIN. ONE (13:00)
[2020-01-31] MEDS ORDERED: ONDANSETRON PF 4 MG/2 ML VIAL. IVP ONE (13:00)
[2020-01-31] MEDS ORDERED: MORPHINE SULFATE 4 MG/ML DISP.SYRIN. IV ONE (13:00)
[2020-01-31 13:29] LABS: U PREG PATIENT NEGATIVE (NEG)
[2020-01-31] MEDS: INSULIN REGULAR VIAL 100 UNIT in IV NORMAL SALINE 100ML 100 ML IV PRN (13:49)
[2020-01-31] MEDS ORDERED: IV RINGERS SOLUTION,LACTATED 1,000 ML IV ONE (14:30)
[2020-01-31] MEDS ORDERED: ONDANSETRON PF 4 MG/2 ML VIAL. IVP PRN ×2 (14:30→16:45)
[2020-01-31 15:20] VITALS: BP 111/70
[2020-01-31] MEDS ORDERED: VANCOMYCIN PER PHARMACY MC PRN (16:45)
--- NOTE | 2020-01-31 16:52 | HP ---
ADMIT DATE: 01/31/2020 HISTORY OF PRESENT ILLNESS: The patient is a 29-year-old female patient who yet again came to the Emergency Room with complaint of feeling generally unwell, mild upper abdominal discomfort, nausea, nonbloody and nonbilious emesis. She said also had diarrhea, but this is something that she has suffered before because of her metformin. She was evaluated in the Emergency Room and was found to have blood sugar 428 mg/dL. Her bicarbonate was only 7 and anion gap of 27. Her blood gases showed a pH of 7.20, pCO2 of 18, pO2 of 77, bicarbonate 7. Urinalysis showed that urine test was negative and toxicology screen showed moderate amount of acetones in the urine. The patient was admitted with another episode of diabetic ketoacidosis, was started on IV fluid and insulin drip. PAST MEDICAL HISTORY: Significant for type 1 diabetes mellitus since she was 11 years old. She is known to have factor V Leiden. She has a history of DVT x2. She has bipolar disorder and nephrolithiasis. She did have a left gluteal cellulitis and abscess that required surgical incision and [facility]. PAST SURGICAL HISTORY: Significant for two C-sections, open heart surgery for atrial septal defect repair when she was 18 years old. She has left ring finger fracture, treated with open reduction and internal fixation, most recently incision and drainage of left buttock abscess treated with wound VAC and IV antibiotic. ALLERGIES: SHE IS ALLERGIC TO LISINOPRIL SHE DEVELOPED ANGIONEUROTIC EDEMA. SHE HAS ALSO CLAIMED THAT SHE HAS ALLERGIES TO COUMADIN CAUSING HIVES AND SEROQUEL CAUSING HALLUCINATION. FAMILY HISTORY: She has 2 brothers and 2 sisters, 1 brother and 1 sister older and 1 brother and 1 sister younger. Father is still alive at age of 50 and is alcoholic. Mother is still alive and has Crohn's disease. She is 46 years old. SOCIAL HISTORY: She is , has 2 sons. She does not smoke or drink alcohol. She is using marijuana about twice a week. 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 MEDICATIONS: She is currently on following medications: She is on cyclobenzaprine 10 mg 3 times a day, atorvastatin calcium 20 mg at bedtime, metoprolol tartrate 25 mg daily, aspirin 325 mg twice a day, gabapentin 100 mg twice a day, fluoxetine 60 mg at bedtime, Latuda 120 mg once a day, metformin 1000 mg twice a day with meals. She is on NovoLog insulin 3 times a day with meals and Levemir 50 units subcutaneously twice a day. REVIEW OF SYSTEMS: As per history of present illness. PHYSICAL EXAMINATION: GENERAL: When arrival to the Emergency Room, the patient was clearly tachypneic, tachycardic, but there is no pallor, jaundice, cyanosis, or thyromegaly. No jugular venous distension. No limb edema. VITAL SIGNS: Her heart rate was 130, blood pressure was 102/84, temperature was 99.1, respiratory rate was 30 and oxygen saturation was 97%. HEAD, EYES, EARS, NOSE AND THROAT: Showed normocephalic and atraumatic. NECK: Supple. HEART: Showed normal first and second heart sounds. No gallop, rub or murmur. CHEST: Clear to auscultation. No crepitation or rhonchi. ABDOMEN: Distended, soft, nontender. No guarding or rigidity. No organomegaly. All hernial orifice intact. Bowel sounds normal. NEUROLOGIC: She is awake, alert, responding appropriately. All her cranial nerves intact. She moves extremities without difficulty. SKIN: Examination of the skin showed that she has folliculitis on her left buttock without any surrounding cellulitis. LABORATORY DATA: Her lab work on arrival showed a white cell count of 7000, hemoglobin 15, hematocrit 46, MCV 88 and platelet count of 276,000 with normal manual differential. Her chemistry showed a serum sodium 133, potassium 4.5, chloride 99, bicarbonate 7, anion gap of 27, BUN of 14, creatinine 0.8, estimated GFR was 85 mL per minute. Her glucose was 428, calcium was 8.9, magnesium 2. Total bilirubin, AST, ALT, alkaline phosphatase were normal. Total protein 8.4, albumin 4. Lipase was 99. Her arterial blood gases showed a pH of 7.20, pCO2 of 18, pO2 of 77, bicarbonate 7, oxygen saturation was 93% on room air. Urinalysis was negative for test and toxic screen showed only moderate positive level of acetone. ASSESSMENT AND PLAN: In summary, this is a 29-year-old female patient who yet again came with another episode of diabetic ketoacidosis. Her bicarbonate was only 7 and anion gap of 27. However, her BUN and creatinine are within normal limits. PLAN: To continue with insulin drip and IV fluid. I will start her also on IV vancomycin and for the folliculitis on her left buttock area, I will also start her on antiemetic and pain medication and we will follow her closely. SURJIT MOMIN MD DR: ISAIAH/tino JOB#: [id number] / [id number]
[2020-01-31] MEDS ORDERED: VANCOMYCIN 2 GM in IV NORMAL SALINE 500ML 500 ML IV ONE (18:00)
[2020-01-31] MEDS: IV DEXTROSE 5 %-0.45 % NACL 1,000 ML IV SCH (18:20)
[2020-01-31 18:56] LABS: CREATININE 0.7 mg/dL (0.6-1.0); GFR 98.9; POTASSIUM 3.7 mmol/L (3.5-5.1)
[2020-01-31 19:35] VITALS: BP 132/71
[2020-01-31] MEDS: ASPIRIN ENTERIC COATED 325 MG TABLET.DR. PO SCH (20:37)
[2020-01-31] MEDS: GABAPENTIN 100 MG CAPSULE. PO SCH (20:37)
[2020-01-31] MEDS: LACTOBACILLUS RHAMNOSUS GG 1 CAPSULE. PO SCH (20:38)
[2020-01-31] MEDS: CYCLOBENZAPRINE 10 MG TABLET. PO PRN (20:38)
[2020-01-31] MEDS ORDERED: ATORVASTATIN CALCIUM 20 MG TABLET PO SCH (21:00)
[2020-01-31] MEDS ORDERED: FLUoxetine HCL 20 MG CAPSULE PO SCH (21:00)
[2020-01-31] MEDS ORDERED: LURASIDONE 40 MG TABLET. PO SCH (21:00)
[2020-01-31 21:11] VITALS: BP 114/71
[2020-01-31 22:35] VITALS: BP 131/74
[2020-01-31 23:36] VITALS: BP 106/61
[2020-02-01] VITALS (8 sets, daily range): BP systolic 93–123; BP diastolic 65–83
[2020-02-01] MEDS: IV DEXTROSE 5 %-0.45 % NACL 1,000 ML IV SCH (01:35)
[2020-02-01] MEDS: VANCOMYCIN 1.5 GM in IV NORMAL SALINE 500ML 500 ML IV SCH ×2 (01:36→09:36)
[2020-02-01] MEDS ORDERED: VANCOMYCIN 1.75 GM in IV NORMAL SALINE 500ML 500 ML IV SCH (02:00)
[2020-02-01] MEDS: INSULIN REGULAR VIAL 100 UNIT in IV NORMAL SALINE 100ML 100 ML IV PRN (02:53)
[2020-02-01 05:42] LABS: HEMATOCRIT 37.5 % (36.0-47.0); HEMOGLOBIN 12.5 g/dL (12.0-15.5); RED BLOOD COUNT 4.35 x10^6/uL (3.50-5.40); RED CELL DISTRIBUTION WIDTH 14.2 % (11.5-14.5); WHITE BLOOD COUNT 4.6 x10^3/uL (4.0-11.0)
[2020-02-01 05:55] LABS: ALBUMIN 2.9 g/dL (3.4-5.0); ALBUMIN/GLOBULIN RATIO 0.9 (1.0-1.7); CALCIUM 8.2 mg/dL (8.5-10.1); CREATININE 0.5 mg/dL (0.6-1.0); GFR 145.9; POTASSIUM 3.1 mmol/L (3.5-5.1); TOTAL BILIRUBIN 0.3 mg/dL (0.2-1.0); TOTAL PROTEIN 6.2 g/dL (6.4-8.2)
[2020-02-01] MEDS ORDERED: POTASSIUM CHLORIDE 20 MEQ TABLET.ER. PO ONE (06:30)
[2020-02-01] MEDS: LACTOBACILLUS RHAMNOSUS GG 1 CAPSULE. PO SCH (08:28)
[2020-02-01] MEDS: GABAPENTIN 100 MG CAPSULE. PO SCH (08:29)
[2020-02-01] MEDS: ASPIRIN ENTERIC COATED 325 MG TABLET.DR. PO SCH (08:29)
[2020-02-01] MEDS ORDERED: METOPROLOL TART IMMED RELEASE 25 MG TABLET PO SCH (09:00)
[2020-02-01] MEDS ORDERED: DEXTROSE 50% 25 GM / 50ML DISP.SYRIN. IV PRN (09:45)
[2020-02-01] MEDS ORDERED: INSULIN GLARGINE SYRINGE. SQ SCH (11:00)
[2020-02-01] MEDS: CYCLOBENZAPRINE 10 MG TABLET. PO PRN (11:19)
[2020-02-01 11:51] LABS: CALCIUM 8.3 mg/dL (8.5-10.1); CREATININE 0.5 mg/dL (0.6-1.0); GFR 145.9; POTASSIUM 3.8 mmol/L (3.5-5.1)
[2020-02-01] MEDS ORDERED: INSULIN LISPRO 300 UNITS/3 ML VIAL. SQ SCH ×2 (12:00)
[2020-02-01] MEDS ORDERED: NON FORMULARY ITEM (Insulin Aspart (Novolog Flexpen) 0 UNITS) SQ SCH (12:00)
[2020-02-01] MEDS ORDERED: ACETAMINOPHEN 325 MG TABLET PO ONE (14:00)
[2020-02-01] MEDS ORDERED: METF-551 PO (15:03)
[2020-02-01] MEDS ORDERED: CEPH-264 PO (15:03)
--- NOTE | 2020-02-01 16:23 | DS ---
DATE OF DISCHARGE: 02/01/2020 HOSPITAL COURSE: The patient was admitted yesterday with recurrent bouts of nausea, vomiting, abdominal discomfort. She was found that she had again another episode of DKA. Her blood sugar was 428. Her bicarbonate was 7 and anion gap was 27. She was treated aggressively with IV fluid and insulin drip as per protocol. Her sodium has normalized to 137, bicarbonate improved and her anion gap came down from 27-14. Her blood sugar is much better controlled this afternoon, she is eating and drinking. She is back on her Lantus 50 units and NovoLog insulin 20 units sliding scale before meals. The patient basically is feeling much better. She has been up and about. No nausea, no vomiting, tolerating her diet without any problem. No dizziness. No lightheadedness. Did have superficial folliculitis with no fluctuation in her left gluteal area for which we did treat her with IV vancomycin and as she is doing well, decision was made to discharge her home to continue on her usual insulin, Humalog insulin 20 units 3 times a day with meals plus insulin sliding scale as well as Levemir, Lantus insulin 50 units twice a day. She was discharged also on oral cephalexin 500 mg 3 times a day. She is having also recurrent episode of diarrhea because of metformin. I switched her to extended release metformin. PHYSICAL EXAMINATION: GENERAL: When I saw her this afternoon, she looked well and was clearly in no apparent respiratory distress. No pallor, jaundice, cyanosis or thyromegaly. No jugular venous distention. No lower limb edema. VITAL SIGNS: Her heart rate was 92, blood pressure was 109/66, temperature 97.8, respiratory rate was 18 and oxygen saturation was 98% on room air. HEAD, EYES, EARS, NOSE AND THROAT: Showed normocephalic, atraumatic. NECK: Supple. HEART: Normal first and second heart sounds. No gallop or murmur. CHEST: Clear to auscultation. No crepitation or rhonchi. ABDOMEN: Distended, soft, nontender. NEUROLOGIC: She is awake, alert, responding appropriately. All cranial nerves intact. EXTREMITIES: She moves extremities without difficulty. She ambulates without assistance or assistive devices. Examination of her left gluteal area showed that she has superficial folliculitis, small area of erythema without any fluctuation, but only mild induration. LABORATORY DATA: Her lab work this morning showed a white cell count of 4600, hemoglobin 12.5, hematocrit 37, MCV 86 and platelet count 212,000. Her serum sodium was 137, potassium 3.8, chloride 106, bicarbonate 17, anion gap of 14, BUN 10, creatinine 0.5, estimated GFR was 145 mL per minute. Her glucose 189, calcium was 8.3. DISCHARGE MEDICATIONS: She was discharged home to continue on Keflex 500 mg 3 times a day, metformin extended release 1000 mg twice a day, aspirin 325 mg twice a day, atorvastatin, calcium 20 mg at bedtime, cyclobenzaprine 10 mg 3 times a day, fluoxetine 60 mg at bedtime. She is on gabapentin 100 mg twice a day and she is on NovoLog insulin 20 units before meals and she is on Levemir insulin 50 units subcutaneous twice a day. She is on Latuda 120 mg at bedtime, metoprolol 25 mg once a day. FINAL DISCHARGE DIAGNOSES: 1. Diabetic ketoacidosis. 2. Type 1 diabetes mellitus since she was 11 years old. 3. She is known to have factor V Leiden. 4. History of deep venous thrombosis x 2. 5. Bipolar disorder. 6. Nephrolithiasis. 7. Did have a history of left gluteal cellulitis and abscess that required surgical incision and drainage. SURJIT MOMIN MD DR: ISAIAH/tino JOB#: [id number] / [id number]
[2020-02-01] MEDS ORDERED: METFORMIN HCL PO SCH (17:00)
[2020-02-01] MEDS ORDERED: INSULIN DETEMIR 50 UNIT SQ SCH (21:00)
== END 2020-02-01 15:20 | disposition home or self-care (01) | DRG 638 ==
LOC: ER 12:01 → 1 SOUTH 14:27 → ER 15:05
PROVIDERS: ADMIT Internal Medicine; ATTEND Internal Medicine
DX: E10.10 Type 1 diabetes mellitus with ketoacidosis without coma (principal); D68.51 Activated protein C resistance; E78.00 Pure hypercholesterolemia, unspecified; F12.90 Cannabis use, unspecified, uncomplicated; F31.9 Bipolar disorder, unspecified; I10 Essential (primary) hypertension; L73.9 Follicular disorder, unspecified; N20.0 Calculus of kidney; Z79.4 Long term (current) use of insulin; Z86.718 Personal history of other venous thrombosis and embolism; Z87.74 Personal history of (corrected) congenital malformations of heart and circulatory system; Z88.8 Allergy status to other drugs, medicaments and biological substances; Z91.040 Latex allergy status
CPT/HCPCS: 36415; 71045; 80048; 80053; 80076; 81025; 82010; 82803; 82947; 83690; 83735; 85025; 85027; J1815; J2270; J2405; J3010; J3370; J7040; J7030

== ENCOUNTER 2020-02-18 16:10 | Inpatient (IN) | payer MEDICARE, OTHER ==
[~2020-02-18] VITALS: Ht 180.3 cm; Wt 125.0 kg
[~2020-02-18 16:10] MED LIST changes: +CEPH-264 PO; +METF-551 PO
[2020-02-18] MEDS ORDERED: IV NORMAL SALINE 1,000ML 1,000 ML IV SCH (16:25)
[2020-02-18] MEDS ORDERED: DEXTROSE 50% 25 GM / 50ML DISP.SYRIN. IV PRN (16:30)
[2020-02-18] MEDS ORDERED: INSULIN REGULAR VIAL 100 UNIT in IV NORMAL SALINE 100ML 100 ML IV PRN (16:30)
[2020-02-18] MEDS ORDERED: IV NORMAL SALINE 1,000ML 1,000 ML IV ONE (16:30)
--- NOTE | 2020-02-18 16:46 | PHYS DOC ---
Past History Past Medical History: Bipolar, Diabetes, Hypertension, Other Additional Past Medical Histor: factor V Leiden deficiency Past Surgical History: , Other Additional Past Surgical Histo: open heart for valve repair; pin in finger Smoking: Non-smoker Alcohol Use: Occasionally Drug Use: Marijuana General Adult EDM: Chief Complaint: MULTIPLE COMPLAINTS HPI: HPI: Patient is a 29-year-old female who presents to the emergency department for evaluation. She states that for the past 2 days, she just has not felt well with some vomiting. She has chronic diarrhea unchanged. She has felt fatigued,. She has not had any hematemesis, denies any chest pain or significant shortness of breath. She has a history of brittle diabetes, and reports her blood sugar was in the 200s last night but she has not taken that today. She reports not taking her insulin because she has not eaten today. She is noted to have mild to moderate Kussmaul respirations. There are no alleviating or exacerbating factors to her symptoms otherwise. Review of Systems: Review of Systems: Constitutional: Denies fever or chills Eyes: Denies change in visual acuity HENT: Denies nasal congestion or sore throat Respiratory: Denies cough or shortness of breath Cardiovascular: Denies chest pain or edema GI: As per HPI : Denies dysuria Musculoskeletal: Denies back pain or joint pain Integument: Denies rash Neurologic: Denies headache, focal weakness or sensory changes Endocrine: Denies polyuria or polydipsia Lymphatic: Denies swollen glands Psychiatric: Denies depression or anxiety Heart Score: Risk Factors: Risk Factors: DM, Current or recent (<one month) smoker, HTN, HLP, family history of CAD, obesity. Risk Scores: Score 0 - 3: 2.5% MACE over next 6 weeks - Discharge Home Score 4 - 6: 20.3% MACE over next 6 weeks - Admit for Clinical Observation Score 7 - 10: 72.7% MACE over next 6 weeks - Early Invasive Strategies Current Medications: Current Meds: Current Medications Medications (Trade) Dose Ordered Sig/Tapan Start Time Stop Time Status Last Admin Dose Admin Dextrose (Dextrose 50%-Water Syringe) 12.5 gm PRN Q15MIN PRN 02/18/20 16:30 UNV Insulin Human Regular 100 unit/ Sodium Chloride 101 ml @ 0 mls/hr CONT PRN 02/18/20 16:30 UNV Sodium Chloride 1,000 ml @ 1,000 mls/hr 1X ONCE 02/18/20 16:30 02/18/20 17:29 UNV Allergies: Allergies: Allergies Coded Allergies Type Severity Reaction Last Updated Verified latex Allergy Intermediate 02/18/20 Yes lisinopril Allergy Intermediate 02/18/20 Yes quetiapine Allergy Intermediate 02/18/20 Yes warfarin Allergy Intermediate 02/18/20 Yes Physical Exam: PE: PHYSICAL EXAM: CONSTITUTIONAL: Well developed, well nourished HEAD: normocephalic, atraumatic EENT: PERRL, EOMI. Conjunctivae normal color, sclerae non-icteric; mildly dry mucous membranes. NECK: Supple, non-tender; no meningismus. LUNGS: Lungs CTA, the patient is exhibiting Kussmaul respirations. Normal air movement. HEART: Regular rate and rhythm, no murmur CHEST: No deformity; non-tender ABDOMEN: The abdomen is soft, and non-tender, no masses or bruits. EXTREM: Normal ROM; no deformity, no calf tenderness. Normal pulses palpable in all extremities. There is no pedal edema. SKIN: No rash; no diaphoresis NEURO: Alert; normal speech and cognition; CN's grossly intact; strength grossly intact without focal deficit. BACK: No CVA TTP. Current Patient Data: Labs: Laboratory Tests Test 02/18/20 16:30 02/18/20 16:35 02/18/20 16:40 02/18/20 16:53 Urine Collection Type Unknown Urine Color Yellow Urine Clarity Clear Urine pH 5.5 Urine Specific Prescott >=1.030 Urine Protein 100 mg/dl Urine Glucose (UA) 500 mg/dL Urine Ketones (Stick) >=160 mg/dL Urine Blood Neg Urine Nitrite Neg Urine Bilirubin Neg Urine Urobilinogen Dipstick 0.2 mg/dL Urine Leukocyte Esterase Neg Urine RBC 1-2 /HPF Urine WBC 5-10 /HPF Urine Squamous Epithelial Cells Few /LPF Urine Bacteria 0 /HPF Urine Hyaline Casts Few /HPF Urine Mucus Slight /LPF Urine Yeast Present /HPF Bedside Venous pH 7.28 Bedside Venous pCO2 21 mmHg Bedside Venous pO2 89 mmHg Venous Blood HCO3 10 mmol/L POC Venous O2 Saturation (Kirill) 96 % Bedside FiO2 21 Sodium Level 132 mmol/L Potassium Level 4.0 mmol/L Chloride Level 98 mmol/L Carbon Dioxide Level 11 mmol/L Anion Gap 23 Blood Urea Nitrogen 10 mg/dL Creatinine 0.9 mg/dL Estimated GFR (Cockcroft-Gault) 74.0 BUN/Creatinine Ratio 11 Glucose Level 324 mg/dL Calcium Level 8.9 mg/dL Total Bilirubin 0.8 mg/dL Aspartate Amino Transf (AST/SGOT) 9 U/L Alanine Aminotransferase (ALT/SGPT) 21 U/L Alkaline Phosphatase 109 U/L Total Protein 8.3 g/dL Albumin 3.8 g/dL Albumin/Globulin Ratio 0.8 Acetone Level Sm pos Glucose (Fingerstick) 303 mg/dL White Blood Count 6.1 x10^3/uL Red Blood Count 4.86 x10^6/uL Hemoglobin 14.2 g/dL Hematocrit 42.6 % Mean Corpuscular Volume 88 fL Mean Corpuscular Hemoglobin 29 pg Mean Corpuscular Hemoglobin Concent 33 g/dL Red Cell Distribution Width 14.6 % Platelet Count 269 x10^3/uL Neutrophils (%) (Auto) 65 % Lymphocytes (%) (Auto) 26 % Monocytes (%) (Auto) 7 % Eosinophils (%) (Auto) 1 % Basophils (%) (Auto) 1 % Neutrophils # (Auto) 4.0 x10^3uL Lymphocytes # (Auto) 1.6 x10^3/uL Monocytes # (Auto) 0.4 x10^3/uL Eosinophils # (Auto) 0.1 x10^3/uL Basophils # (Auto) 0.0 x10^3/uL Bedside Urine HCG, Qualitative hcg negative Current Medications Medications (Trade) Dose Ordered Sig/Tapan Route PRN Reason Start Time Stop Time Status Last Admin Dose Admin Sodium Chloride 1,000 ml @ 1,000 mls/hr Q1H IV 02/18/20 16:25 02/18/20 17:24 DC 02/18/20 16:48 Sodium Chloride 1,000 ml @ 1,000 mls/hr 1X ONCE IV 02/18/20 16:30 02/18/20 17:29 DC 02/18/20 17:22 Insulin Human Regular 100 unit/ Sodium Chloride 101 ml @ 0 mls/hr CONT PRN IV SEE I/O RECORD 02/18/20 16:30 02/18/20 17:09 Dextrose (Dextrose 50%-Water Syringe) 12.5 gm PRN Q15MIN PRN IV LOW BLOOD SUGAR 02/18/20 16:30 Dextrose/Sodium Chloride 1,000 ml @ 125 mls/hr 1X ONCE IV 02/18/20 17:15 02/19/20 01:14 Acetaminophen (Tylenol) 1,000 mg 1X ONCE PO 02/18/20 17:15 02/18/20 17:16 DC Ondansetron HCl (Zofran) 4 mg 1X ONCE IVP 02/18/20 17:15 02/18/20 17:16 DC EKG: EKG: [] Radiology/Procedures: Radiology/Procedures: [] Course & Med Decision Making: Course & Med Decision Making Pertinent Lab studies reviewed. (See chart for details) [] Venous blood gas shows a pH of 7.28, PCO2 of 20, PO2 of 87, bicarb of 9.8, base excess of -17. The patient's labs are consistent with DKA. I discussed the case with the hospitalist who will admit the patient for further evaluation and treatment. CRITICAL CARE TIME: 45 Minutes, excluding any procedures and care of other patients. Dragon Disclaimer: Dragon Disclaimer: This electronic medical record was generated, in whole or in part, using a voice recognition dictation system. Departure Departure: Impression: Primary Impression: Diabetic ketoacidosis Disposition: ADMITTED INPATIENT Admitting Physician: Bruna Cooley Condition: STABLE Referrals: MATY SALMON MD (PCP) Justification of Admission: Justification of Admission: Justification of Admission Dx: Yes DKA: DKA ZULY TUCKER MD Feb 18, 2020 16:46
[2020-02-18 17:00] LABS: BASO % 1 % (0-3); EOS # 0.1 x10^3/uL (0.0-0.7); EOS % 1 % (0-3); HEMATOCRIT 42.6 % (36.0-47.0); HEMOGLOBIN 14.2 g/dL (12.0-15.5); LYMPH # 1.6 x10^3/uL (1.0-4.8); LYMPH % 26 % (24-48); MEAN CORPUSCULAR HEMOGLOBIN 29 pg (25-35); MEAN CORPUSCULAR HGB CONC 33 g/dL (31-37); MEAN CORPUSCULAR VOLUME 88 fL (79-100); MONO # 0.4 x10^3/uL (0.0-1.1); MONO % 7 % (0-9); NEUT % 65 % (31-73); PLATELET COUNT 269 x10^3/uL (140-400); RED BLOOD COUNT 4.86 x10^6/uL (3.50-5.40); RED CELL DISTRIBUTION WIDTH 14.6 % (11.5-14.5); WHITE BLOOD COUNT 6.1 x10^3/uL (4.0-11.0)
[2020-02-18 17:13] LABS: ALBUMIN 3.8 g/dL (3.4-5.0); ALBUMIN/GLOBULIN RATIO 0.8 (1.0-1.7); CALCIUM 8.9 mg/dL (8.5-10.1); CREATININE 0.9 mg/dL (0.6-1.0); TOTAL BILIRUBIN 0.8 mg/dL (0.2-1.0); TOTAL PROTEIN 8.3 g/dL (6.4-8.2)
[2020-02-18] MEDS ORDERED: ACETAMINOPHEN 500 MG TABLET PO ONE (17:15)
[2020-02-18] MEDS ORDERED: IV DEXTROSE 5% - 0.9 % NACL 1,000 ML IV ONE (17:15)
[2020-02-18] MEDS ORDERED: ONDANSETRON PF 4 MG/2 ML VIAL. IVP ONE (17:15)
[2020-02-18 17:25] LABS: BILIRUBIN,URINE NEG (NEG); CLARITY,URINE CLEAR; COLOR,URINE YELLOW; GLUCOSE,URINE 500 mg/dL (NEG)
[2020-02-18 17:26] LABS: BACTERIA,URINE 0 /HPF (0-FEW); HYALINE CASTS, URINE FEW /HPF; NITRITE,URINE NEG (NEG); SQUAMOUS EPITHELIAL CELL,UR FEW /LPF; UROBILINOGEN,URINE 0.2 mg/dL (0.2 mg/dL)
[2020-02-18 17:27] LABS: YEAST,URINE PRESENT /HPF
[2020-02-18 20:15] VITALS: BP 105/56
[2020-02-18] MEDS ORDERED: HYDR-2759 PO (21:04)
[2020-02-18 22:05] LABS: CALCIUM 8.3 mg/dL (8.5-10.1); CREATININE 0.7 mg/dL (0.6-1.0); GFR 98.9; POTASSIUM 3.6 mmol/L (3.5-5.1)
[2020-02-18] MEDS ORDERED: IV DEXTROSE 5 %-0.45 % NACL 1,000 ML IV SCH (22:20)
[2020-02-18] MEDS ORDERED: POTASSIUM CHLORIDE 10MEQ 100 ML IV PRN ×4 (22:30)
[2020-02-18 22:57] VITALS: BP 122/70
[2020-02-19 01:00] VITALS: BP 118/68
[2020-02-19 02:13] LABS: CALCIUM 8.3 mg/dL (8.5-10.1); CREATININE 0.7 mg/dL (0.6-1.0); GFR 98.9; POTASSIUM 3.9 mmol/L (3.5-5.1)
[2020-02-19 03:00] VITALS: BP 119/72
[2020-02-19] MEDS ORDERED: POTASSIUM CL 20MEQ D5-0.45NACL 1,000 ML IV ONE ×2 (04:05→04:15)
[2020-02-19 05:27] VITALS: BP 117/74
[2020-02-19 06:15] LABS: BASO % 1 % (0-3); EOS # 0.1 x10^3/uL (0.0-0.7); EOS % 3 % (0-3); HEMATOCRIT 37.6 % (36.0-47.0); HEMOGLOBIN 12.6 g/dL (12.0-15.5); LYMPH # 1.4 x10^3/uL (1.0-4.8); LYMPH % 29 % (24-48); MEAN CORPUSCULAR HEMOGLOBIN 29 pg (25-35); MEAN CORPUSCULAR HGB CONC 34 g/dL (31-37); MEAN CORPUSCULAR VOLUME 87 fL (79-100); MONO # 0.3 x10^3/uL (0.0-1.1); MONO % 7 % (0-9); NEUT # 2.8 x10^3uL (1.8-7.7); NEUT % 60 % (31-73); PLATELET COUNT 229 x10^3/uL (140-400); RED BLOOD COUNT 4.32 x10^6/uL (3.50-5.40); RED CELL DISTRIBUTION WIDTH 13.9 % (11.5-14.5); WHITE BLOOD COUNT 4.7 x10^3/uL (4.0-11.0)
[2020-02-19 06:22] VITALS: BP 125/76
[2020-02-19 06:29] LABS: CALCIUM 8.4 mg/dL (8.5-10.1); CREATININE 0.7 mg/dL (0.6-1.0); GFR 98.9; POTASSIUM 3.6 mmol/L (3.5-5.1)
[2020-02-19] MEDS ORDERED: DEXTROSE 50% 25 GM / 50ML DISP.SYRIN. IV PRN (08:45)
[2020-02-19] MEDS ORDERED: CYCLOBENZAPRINE 10 MG TABLET. PO PRN (08:45)
[2020-02-19] MEDS ORDERED: POTASSIUM CHLORIDE 20 MEQ TABLET.ER. PO ONE (08:45)
[2020-02-19] MEDS ORDERED: INSULIN GLARGINE SYRINGE. SQ SCH (09:00)
[2020-02-19] MEDS ORDERED: ASPIRIN ENTERIC COATED 325 MG TABLET.DR. PO SCH (09:00)
[2020-02-19] MEDS ORDERED: GABAPENTIN 100 MG CAPSULE. PO SCH (09:00)
[2020-02-19] MEDS ORDERED: METFORMIN HCL PO SCH (09:00)
[2020-02-19] MEDS ORDERED: INSULIN LISPRO 300 UNITS/3 ML VIAL. SQ PRN (09:15)
[2020-02-19 09:55] VITALS: BP 132/73
[2020-02-19 10:34] LABS: CALCIUM 8.9 mg/dL (8.5-10.1); CREATININE 0.8 mg/dL (0.6-1.0); GFR 84.8; POTASSIUM 3.7 mmol/L (3.5-5.1)
[2020-02-19] MEDS ORDERED: INSULIN LISPRO 300 UNITS/3 ML VIAL. SQ SCH (12:00)
--- NOTE | 2020-02-19 12:33 | HP ---
ADMIT DATE: 02/18/2020 HISTORY OF PRESENT ILLNESS: The patient is a 29-year-old female patient who yet again presented to the Emergency Department for evaluation. She states for the past 2 days, she just not felt well, had some vomiting. She has chronic diarrhea, unchanged. She has felt fatigued. She has not had any hematemesis. Denied any chest pain or significant shortness of breath. She has a history of brittle diabetes and reports her blood sugar was in the 200s last night. She has not taken that today. She reports not taking her insulin because she has not eaten today. She has noted to have [id number] ____. She was evaluated in the Emergency Room. Her blood sugar was not extremely high, but she was definitely acidotic. Her anion gap was 23 and carbon dioxide was 11. Her blood gases showed a pH of 7.28, her pCO2 of 21, pO2 of 89 and bicarbonate of 10 and therefore she was admitted with mild diabetic ketoacidosis, was given fluid. She has received 2 liters of normal saline and switched to D5 normal saline, started on insulin drip and was admitted for further evaluation and treatment. PAST MEDICAL HISTORY: Significant for type 1 diabetes mellitus since age of 11. She has factor V Leiden, history of DVT x 2, bipolar disorder and nephrolithiasis. She also has left gluteal cellulitis and abscess that required surgical incision and drainage at [facility]. She was admitted to this hospital numerous times for diabetic ketoacidosis. PAST SURGICAL HISTORY: Significant for 2 sections, open heart surgery for atrial septal defect repair when she was 18 years old. She has a left ring finger fracture treated with open reduction and internal fixation, most recently has an incision and drainage of left buttock abscess that was treated with wound VAC and IV antibiotic. ALLERGIES: SHE IS ALLERGIC TO LISINOPRIL, SHE DEVELOPED ANGIONEUROTIC EDEMA. SHE HAS ALSO CLAIMED THAT SHE IS ALLERGIC TO COUMADIN CAUSING HIVES AND SEROQUEL CAUSING HALLUCINATION. FAMILY HISTORY: She has 2 brothers and 2 sisters, 1 brother and 1 sister older and 1 brother and 1 sister younger. Her father is still alive at the age of 50 and is alcoholic. Mother is still alive and has Crohn's disease, she is 46 years old. SOCIAL HISTORY: She is , has 2 sons. She does not smoke, drink alcohol or use any recreational drugs. She uses marijuana about twice a week. 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 MEDICATIONS: She is currently on following medications: She is on cyclobenzaprine 10 mg 3 times a day, atorvastatin calcium 20 mg at bedtime, metoprolol tartrate 25 mg daily, aspirin 325 mg twice a day, hydrocodone/APAP 5/325 one tablet every 4 hours, gabapentin 100 mg twice a day, fluoxetine 60 mg at bedtime. She is on Latuda 120 mg at bedtime, metformin 1000 mg extended release twice a day. She is on NovoLog insulin before meals and Levemir insulin 50 units twice a day. PHYSICAL EXAMINATION: GENERAL: On arrival to the Emergency Room, she was tachypneic, tachycardic, but there was no pallor, jaundice or cyanosis. No lymphadenopathy, no thyromegaly. No jugular venous distention. No lower limb edema. VITAL SIGNS: Her heart rate was 128, blood pressure was 137/83, temperature was 98, respiratory rate 26 and oxygen saturation was 98% on room air. HEAD, EYES, EARS, NOSE AND THROAT: Showed normocephalic, atraumatic. NECK: Supple. HEART: Showed normal first and second heart sounds. No gallop, rub or murmur. CHEST: Clear to auscultation. No crepitation or rhonchi. ABDOMEN: Distended, soft, nontender. No guarding or rigidity. No organomegaly. All hernial orifices intact. Bowel sounds normal. NEUROLOGIC: She was awake, alert, responding appropriately. All cranial nerves intact. EXTREMITIES: She moves extremities without difficulty. She ambulates without assistance or assistive devices. LABORATORY DATA: Her white cell count was 6100, hemoglobin 14, hematocrit 42, MCV 88 and platelet count of 269,000 with normal manual differential. Her arterial blood gases showed a pH of 7.28, pCO2 of 21, pO2 of 89, bicarbonate 10 and oxygen saturation was 96% on FiO2 of 21%. Her chemistry showed serum sodium of 132, potassium 4, chloride 98, bicarbonate 11, anion gap of 23, BUN 10, creatinine 0.9, estimated GFR was 74 mL per minute. Her glucose was 324, calcium was 8.9. Total bilirubin, AST, ALT, alkaline phosphatase were normal. Total protein was 8.3, albumin was 3.8. Urinalysis showed the urine was yellow, clear with a pH of 5.5, specific gravity of 1.030. There was large amount of protein, large amount of glucose, large amount of ketones. The urine was negative for blood, nitrite and leukocyte esterase. There are 1-2 rbc's, 5-10 wbc's, very few bacteria. Her urine test was negative and toxicology screen showed small amount of acetone. ASSESSMENT AND PLAN: The patient was basically a 29-year-old known to have type 1 diabetes since the age of 11 who yet again came with another episode of diabetic ketoacidosis that is somewhat mild compared to her previous admissions. She was given 2 liters of normal saline. Her blood sugar was not very high and therefore she was switched to D5 normal saline, started on insulin drip and was admitted and continued on all her other medications. We will follow the DKA protocol and replenish her potassium and as needed ____ SURJIT MOMIN MD DR: ISAIAH/tino JOB#: [id number] / [id number]
--- NOTE | 2020-02-19 17:50 | PN ---
DATE: 02/19/2020 SUBJECTIVE: The patient is resting, sitting on the edge of the bed comfortably, in no apparent distress. She has no further episodes of nausea, vomiting. No abdominal pain. Has tolerated her breakfast this morning. PHYSICAL EXAMINATION: GENERAL: When I examined her, she looked well and was clearly in no apparent respiratory distress. No pallor, jaundice, cyanosis or thyromegaly. No jugular venous distention or limb edema. VITAL SIGNS: Her heart rate was 101, blood pressure was 132/73, temperature 98.3, respiratory rate 22, and oxygen saturation was 98%. The rest of clinical exam is stable. Her intake over the last 24-hour was incompletely recorded. LABORATORY DATA: Showed a white cell count 4700, hemoglobin 12.6, hematocrit 37.6, MCV 87 and platelet count 229,000. Her chemistry showed a serum sodium 135, potassium 3.7, chloride 102, bicarbonate 22, anion gap of 11, BUN 8, creatinine 0.8, estimated GFR was 85 mL per minute. Her glucose was 359 and calcium was 8.9. ASSESSMENT: Diabetic ketoacidosis, improving. Her anion gap has closed. PLAN: To discontinue the insulin drip, advance her diet and use her NovoLog insulin. She has already received her Levemir. 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 SURJIT MOMIN MD DR: ISAIAH/tino JOB#: [id number] / [id number]
[2020-02-19] MEDS ORDERED: ATORVASTATIN CALCIUM 20 MG TABLET PO SCH (21:00)
[2020-02-19] MEDS ORDERED: FLUoxetine HCL 20 MG CAPSULE PO SCH (21:00)
--- NOTE | 2020-02-20 04:30 | PN ---
DATE: 02/19/2020 The patient again was advised to stay overnight; however, as her blood sugar continued to be slightly suboptimally controlled, we just discontinued her insulin drip and advanced her diet, but the patient decided to leave against medical advice and signed the forms for that. SURJIT MOMIN MD DR: ISAIAH/tino JOB#: [id number] / [id number]
== END 2020-02-19 14:10 | disposition left against medical advice (07) | DRG 638 ==
LOC: ER 16:10 → 1 SOUTH 18:43
PROVIDERS: ADMIT Internal Medicine; ATTEND Internal Medicine
DX: E10.10 Type 1 diabetes mellitus with ketoacidosis without coma (principal); E87.1 Hypo-osmolality and hyponatremia; T38.3X6A Underdosing of insulin and oral hypoglycemic [antidiabetic] drugs, initial encounter; I10 Essential (primary) hypertension; F31.9 Bipolar disorder, unspecified; F12.90 Cannabis use, unspecified, uncomplicated; K52.9 Noninfective gastroenteritis and colitis, unspecified; Z98.891 History of uterine scar from previous surgery; Z87.74 Personal history of (corrected) congenital malformations of heart and circulatory system; Z87.442 Personal history of urinary calculi; Z86.718 Personal history of other venous thrombosis and embolism; Z79.4 Long term (current) use of insulin; Y92.89 Other specified places as the place of occurrence of the external cause; Z87.81 Personal history of (healed) traumatic fracture; Z88.8 Allergy status to other drugs, medicaments and biological substances; Z91.040 Latex allergy status; Z53.29 Procedure and treatment not carried out because of patient's decision for other reasons
CPT/HCPCS: 36415; 80048; 80053; 81001; 81025; 82010; 82803; 82947; 83735; 85025; 87086; 96361; 96374; J1815; J2405; J3480; J7042; 99291-25; J7030